=== PATIENT | male | born 1950 | race Caucasian/White ===

== ENCOUNTER 2019-07-29 12:55 | Outpatient (REF) | payer OTHER, SELFPAY ==
[2019-07-29 19:57] LABS: Anion Gap 8.3 mmol/L (3-11); BUN 23 mg/dL (7-18); CO2 26.7 mmol/L (21.0-32.0); Calcium 8.8 mg/dL (8.5-10.1); Chloride 108 mmol/L (98-107); Estimated GFR 54.73 (mL/min/1.73m2); Glucose 96 mg/dL (74-106); Potassium 4.2 mmol/L (3.5-5.1); Sodium 143 mmol/L (136-145); TSH (W/Ref FT4) 2.14 uIU/mL (0.36-3.74)
[2019-07-29 20:41] LABS: Vitamin D 25 Total 54.8 ng/ml (30-100)
[2019-08-02 10:15] LABS: PSA, Screening 7.2 ng/mL (0.0-4.5)
== END 2019-07-29 13:15 ==
LOC: NCHCN 12:55
PROVIDERS: PCP Specialist/Technologist Athletic Trainer; Visit Provider Nurse Practitioner Family
DX: R94.4 Abnormal results of kidney function studies (principal); R97.20 Elevated prostate specific antigen [PSA]; N40.0 Benign prostatic hyperplasia without lower urinary tract symptoms; Z12.5 Encounter for screening for malignant neoplasm of prostate; E55.9 Vitamin D deficiency, unspecified; I10 Essential (primary) hypertension
CPT/HCPCS: 80048; 82306; 84153; 84443

== ENCOUNTER 2020-07-24 15:14 | Outpatient (REF) | payer OTHER, SELFPAY ==
[2020-07-24 15:48] LABS: Anion Gap 7.7 mmol/L (3-11); BUN 20 mg/dL (7-18); CO2 27.3 mmol/L (21.0-32.0); CREATININE 1.2 mg/dL (0.70-1.30); Calcium 8.6 mg/dL (8.5-10.1); Chloride 108 mmol/L (98-107); Estimated GFR 59.86 (mL/min/1.73m2); Glucose 92 mg/dL (74-106); Potassium 4.3 mmol/L (3.5-5.1); Sodium 143 mmol/L (136-145)
[2020-07-25 10:42] LABS: HIV-1/2 Ag & Ab Screen Negative (Negative)
[2020-07-25 10:52] LABS: Hepatitis C Ab w Rflx HCV PCR Negative (Negative)
== END 2020-07-24 15:15 | disposition home or self-care (01) ==
LOC: NCHCN 15:14
PROVIDERS: PCP Specialist/Technologist Athletic Trainer; Visit Provider Nurse Practitioner Family
DX: I10 Essential (primary) hypertension (principal); Z11.4 Encounter for screening for human immunodeficiency virus [HIV]; Z11.59 Encounter for screening for other viral diseases
CPT/HCPCS: 80048; 86803; 87389

== ENCOUNTER 2021-01-01 13:20 | Outpatient (REF) | payer MEDICARE, SELFPAY ==
[2021-01-03 16:42] LABS: COVID-19 RT-PCR UVMMC Result Positive (Negative)
== END 2021-01-01 13:21 | disposition home or self-care (01) ==
LOC: LBN 13:20
PROVIDERS: PCP Specialist/Technologist Athletic Trainer; Visit Provider Nurse Practitioner Family
DX: Z20.822 Contact with and (suspected) exposure to COVID-19 (principal); J06.9 Acute upper respiratory infection, unspecified
CPT/HCPCS: U0003

== ENCOUNTER 2021-01-09 16:19 | Inpatient (IN) | payer OTHER, SELFPAY ==
[2021-01-09] VITALS (84 sets, daily range): BP systolic 75–134; BP diastolic 33–79; PULSE 69–128; RESP 1–35; TEMP 36.6; O2SAT 74–100
--- NOTE | 2021-01-09 16:00 | RT.EKG_ITS ---
APPROVED REPORT Exam: Resting ECG Reason for Exam: SOB, Covid Patient Location: E HR:82 bpm ECG Measurements Heart Rate 82 AXIS OH 136 P 51 QRSd 144 QRS -5 QT 440 T 85 QTc 514 Conclusion Sinus rhythm...normal P axis, V-rate 60- 99 Left bundle branch block...QRSd>120, broad/notched R ST elevation secondary to IVCD...Multiple VCG criteria. Sinus. LBBB. No old EKG to compare. No STEMI. I have reviewed and interpreted ECG and agree with software generated interpretation.
--- NOTE | 2021-01-09 16:36 | W.ED.GENAD ---
Discharge Plan Disposition Patient Disposition: HOSPITAL, NON-SPECIFIC Condition: Stable Discharge Details Clinical Impression: COVID, Hypoxemia Primary Care Provider: Ingrid Navarro ED Provider: Christoph Hadley Discharge Data Discharge Date/Time-TO BE ENTERED AT DEPARTURE: 01/10/21 10:35 Medical Decision Making <rBinda Dalton - Last Filed: 01/15/21 09:20> 70-year-old male presents to the ER via EMS with chief complaint of worsening shortness of breath and increasing oxygen requirement has been discharged from [facility] 2 days ago after a 24 hour admission. Patient requested to be brought here. Patient is Covid + tested January 01, 2021. She has normally wear 2 L of oxygen nasal cannula at home. Per EMS on scene patient: Satting 79% on 2 L O2 on initial presentation he is satting approximately 89% on 8L. He denies chest pain, N/V/D, fever, or any other associated symptoms. He is somewhat RUBY, he lives at home with his who is also Covid positive. Patient placed on 10L High flow NC at 10L upon arrival and then placed on C-Pap. He is taking DexaMETHASONE 6MG pO, 1645: Patient on Cpap at 10L at 60% FIO2 sat is 92%, Duo nebulizer ordered. Armin RT at BS. 1700: Patient desatted somewhat to 88%, patient placed on his left side and sat is now 94% status post DuoNeb. He is doing much better on his left side. There are some crackles in his left lower lung base. CBC shows elevated white blood cell count 17.22, absolute neutrophils 15.4, absolute lymphocytes 0.55, lactate 1.5 D-dimer within normal limits at 321 1736: Blood pressure 96/66, 100 cc normal saline bolus ordered in 250 an hour. Imaging protocol: XR of the chest. Views: 1 view. Other technique: Portable exam. COMPARISON: CT THORAX W/O CONT 07/15/2017 12:59 AM FINDINGS: Lungs: There are some minimal coarse airspace opacities at both lung bases, left slightly worse than right. There is some mild right mid lung involvement. Pleural spaces: Unremarkable. No pleural effusion. No pneumothorax. Heart/Mediastinum: Unremarkable. No cardiomegaly. Bones/joints: Old right clavicular fracture present. Other findings: Overlying chin artifact noted. IMPRESSION: Patchy right mid lung and bilateral lung base airspace disease consistent with COVID-19 positive history. Thank you for allowing us to participate in the care of your patient. Dictated and Authenticated by: Eli Crawley MD CMP shows sodium 138, potassium 4.7, BUN is 54, creatinine 1.5 GFR is 46 which is slightly decreased from previous of 58. Glucose 160., Bilirubin 1.1, initial troponin within normal limits. C-reactive protein is 12.18 on previous lab review from [facility] previous C-reactive protein from 01/01 was 35.2 Ferritin is greater than 2000, CT chest rule out PE ordered. Patient is tolerating CPAP well, BP is 108-116 systolic after bolus and fluid replacement. VRAD CTA Chest PE: FINDINGS: Pulmonary arteries: Normal. No pulmonary emboli. Aorta: Unremarkable. No aortic aneurysm. No aortic dissection. Lungs: Severe COPD noted. There is some mild hazy ground-glass change noted at both lung bases with mild bibasilar atelectasis, left slightly worse than right. Pleural spaces: Unremarkable. No pneumothorax. No pleural effusion. Heart: Unremarkable. No cardiomegaly. No pericardial effusion. Lymph nodes: Unremarkable. No enlarged lymph nodes. Kidneys and ureters: Right renal cyst. Bones/joints: Unremarkable. No acute fracture. Soft tissues: Unremarkable. Other findings: Respiratory motion noted. IMPRESSION: 1. No evidence for pulmonary embolus. 2. Severe COPD. Ground-glass lung base changes are consistent with positive COVID-19 status. Thank you for allowing us to participate in the care of your patient. Dictated and Authenticated by: Eli Crawley MD 1943: Dr. Estrada spoke with Dr. Fierro on for hospitalist, due to staffing, ICU bed capacity and potential for decompensation, request to seek transfer for possible step-down or ICU beds. 2048: [facility] has no bed capacity. 2101: Patient saturations 87% on the CPAP machine, RT will be called. Will order additional Duo neb. 2102: [facility], [facility] are not taking any patients at this time. [facility] [place] at [place]. 2229: Spoke with Dr. Fierro hospitalist regarding patient she recommends transfer for ICU status for this patient she reports that the predicted mortality rate hospital for this Covid patient is greater than 66%. She does recommend giving remdesivir 100 mg, Barictinib, dexamethasone 6 mg IV, Pepcid 20 mg, Lovenox 40 mg subcu, albuterol inhaler, No from [facility]. 2247: Call to [facility], no beds on floor but a possibility for ER to ER transfer. ER MD to call me back. 0026: [facility] contacted, spoke with Transfer center they will call me back. No they are not able to take patient due to capacity at this time. 0046: [facility] have placed patient on a wait list for ICU or stepdown. Care is to be handed off to ER attending Dr. Reese Sullivan pending bed placement and transfer. Medical Records Medical records reviewed: Yes I reviewed the patient's medical records. Medical records narrative: Fax received from [facility] discharge summary patient does have a past medical history of Borges's esophagus, COPD, emphysema, high cholesterol, hypertension, prostate disease, heart murmur, direct vitamin D deficiency. He was discharged from [facility] on 01/02/2021 after receiving Remdesivir and was discharged on 2 L nasal cannula and discharged home with dexamethasone for 10 days. The pill bottle patient brings in today has 3 tablets left. <Logan Sulilvan MD - Last Filed: 01/10/21 06:54> Patient signed out to me pending finding appropriate hospital for patient to be transferred to. Remains stable on CPAP with pulse ox in the low 90s. CTA shows no PE. Troponins negative. Has received multiple medications for treatment of Covid. Hemodynamically is stable. Multiple hospitals throughout the [facility] region contacted. [facility] in [place] able to accept patient, Dr. Interiano accepting. Patient has been stable in our emergency department and plan is to transfer by ground on CPAP. Lab Data Lab results reviewed: Yes I reviewed the patient's lab results. <Christoph Hadley MD - Last Filed: 01/22/21 17:23> 830 -- Care signed out by Dr. Sullvian, transfer pending and awaiting helicopter. I reviewed chart, consider acute superimposed bacterial pneumonia. I will cover with ceftriaxone 1 g. 941 --[facility] air transport team arrived and medic assessed patient and situation. Unfortunately they do not have enough oxygen to transfer patient on CPAP. No inidcation to intubate at this time. Patient trialed on NC and cannot tolerate. I called and spoke with hospitalist Dr. Willson - will be transferring patient from ICU to [facility]. Dr. Willson to admit to ICU. Transfer cancelled. HPI <Brinda Dalton - Last Filed: 01/15/21 09:20> General Mode of arrival: EMS. Date/Time Provider Initiated Documentation: 01/09/21 16:26. Limitations to Documentation: no limitations and physical limitation (RUBY). Information obtained by: patient, EMS and RN notes reviewed. HPI Narrative: 70-year-old male presents to the ER via EMS with chief complaint of worsening shortness of breath and increasing oxygen requirement has been discharged from [facility] 2 days ago after a 24 hour admission. Patient requested to be brought here. Patient is Covid + tested January 01, 2021. She has normally wear 2 L of oxygen nasal cannula at home. Per EMS on scene patient: Satting 79% on 2 L O2 on initial presentation he is satting approximately 89% on 8L. He denies chest pain, N/V/D, fever, or any other associated symptoms. He is somewhat RUBY, he lives at home with his who is also Covid positive. Patient placed on 10L High flow NC at 10L upon arrival and then placed on C-Pap. He is taking DexaMETHASONE 6MG pO, Related Data Home Medications Medication Instructions Recorded Confirmed aspirin 81 mg PO DAILY 01/09/21 01/09/21 cholecalciferol (vitamin D3) 25 mcg PO DAILY 01/09/21 01/09/21 dexamethasone 6 mg PO DAILY 01/09/21 01/09/21 finasteride 5 mg PO DAILY 01/09/21 01/09/21 flaxseed oil 1,000 mg PO DAILY 01/09/21 01/09/21 latanoprost 1 drp OPHTHALMIC (EYE) .Q EVENING 01/09/21 01/09/21 multivitamin 1 cap PO DAILY 01/09/21 01/09/21 pantoprazole 40 mg PO BID 01/09/21 01/09/21 ramipril 10 mg PO DAILY 01/09/21 01/09/21 simvastatin 10 mg PO DAILY 01/09/21 01/09/21 tamsulosin 0.4 mg PO DAILY 01/09/21 01/09/21 tiotropium-olodaterol [Stiolto 2 puff INHALATION DAILY 01/09/21 01/09/21 Respimat] trazodone 50 mg PO .QHS PRN 01/09/21 01/09/21 Allergies Allergy/AdvReac Type Severity Reaction Status Date / Time environmental Allergy Uncoded 01/09/21 16:26 General Stated Complaint: SOB NATHAN: 2 Review of Systems <Brindafrancheska Dalton [facility] Filed: 01/15/21 09:20> All systems reviewed & are unremarkable except as noted in HPI and below Constitutional Constitutional: Reports chills, Reports fatigue, Reports lethargy and Reports poor appetite Cardiovascular Cardiovascular: Denies chest pain, Denies chest pain at rest, Denies leg edema, Reports dyspnea and Reports dyspnea on exertion Respiratory Respiratory: Reports as per HPI, Reports cough, Reports dyspnea and Reports dyspnea on exertion Gastrointestinal Gastrointestinal: Denies diarrhea, Denies nausea and Denies vomiting Endocrine Endocrine: Reports fatigue PFSH [facility] Filed[facility] 01/15/21 09:20> Active Problem List COVID (Acute) Hypoxemia (Acute) Social History Smoking/Tobacco Use Status: Former Tobacco Use Smoking risk assessment performed?: Yes Substance use type: does not use Exam <Brinda Dalton [facility] Filed: 01/15/21 09:20> Narrative Exam Narrative: Constitutional: Alert and oriented x3. Appears stated age. Normal body habitus. Head: Normocephalic, no trauma. Eyes: Pupils PERRL, Red reflex noted, EOM's intact. Eyelids symmetrical without lesions, discharge, or swelling. ENT: Bilateral TM's WNL, External ear normal to inspection, no mastoid TTP, swelling, or erythema, Nasal turbinates WNL, no nasal discharge. Normal dentition, Posterior pharynx WNL, no exudate. Hard of hearing, hearing aids in place. Chest: Mildly tachycardic with a left bundle branch block, rate of 116 normal S1, S2, distal pulses intact. Resp: Lungs diminished to auscultation bilaterally, no wheezes, rales, or rhonchi. Abdomen: Soft, non-distended, Normoactive bowel sounds all 4 quads. Musculoskeletal: Unable to assess gait 5/5 strength to all four extremities. Skin: No suspicious rashes or lesions. Capillary refill less than 2 sec. Neurologic: No focal neuro deficits noted. Cranial nerves II-XII intact. Alert and oriented x 3. Motor: No deficits noted. Sensory: Intact bilaterally all 4 extremities. Reflexes: DTR's intact bilaterally.. Hematologic/Lymphatic: No ecchymosis, no lymphadenopathy. Course <Brinda Dalton - Last Filed: 01/15/21 09:20> Vital Signs Vital signs: Vital Signs Temperature 36.6 C 01/09/21 16:19 Pulse 82 01/09/21 16:19 Respiratory Rate 28 H 01/09/21 16:19 Pulse Oximetry 90 L 01/09/21 16:19 Temperature 36.6 C 01/09/21 16:19 Temperature Source Skin 01/09/21 16:19 Pulse 82 01/09/21 16:19 Respiratory Rate 28 H 01/09/21 16:19 Respiratory Effort Labored 01/09/21 16:19 Pulse Oximetry 90 L 01/09/21 16:19 Oxygen Delivery Method Nasal Cannula 01/09/21 16:19 Oxygen Flow Rate 10 01/09/21 16:19 Lab/Test Results Lab/Test Results: 01/09/21 16:12 Blood Blood Culture - Pending 01/09/21 16:12 Blood Blood Culture - Pending Critical Care Time <Brinda Dalton Last Filed: 01/15/21 09:20> Critical Care Time Critical Care Time: Yes Total Critical Care Time: 120 (minutes) Attestation: I spent greater than 35 minutes addressing this patient's acute life threatening illness. This time was spent engaged in actions directly related to the patient's care. Failure to initiate these interventions would have likely resulted in clinically significant or life threatening deterioration in the patients condition. Sign Out <Brinda Dalton [facility] Filed: 01/15/21 09:20> Sign Out Data: Sign Out Comment: Covid positive seen at [facility] admitted for 24 hours discharged home on dexamethasone p.o. Presented here tonight for increased shortness of breath hypoxia 79% on 2 L nasal cannula on scene. Patient placed on CPAP 60% FiO2 at 10 L. He desats quickly to 74% on room air, ordered 100 mg remdesivir here in the department, dexamethasone 6 mg IV, Pepcid 20 mg, and 4 mg Baricitinib. He is a full code, unvaccinated. Last updated by Brinda Dalton at 01/10/21 01:08
[2021-01-09 16:44] LABS: Abs Immature Grans 0.24 10^3/uL (0.0-0.06); Absolute Basophil Count 0.02 10^3/uL (0.0-0.2); Absolute Lymphocyte Count 0.55 10^3/uL (1.2-3.4); Basophils % 0.1; Eosinophils % 0.1; HCT 42.2 % (40.0-50.0); HGB 14.2 g/dL (13.5-17.5); Immature Grans % 1.4; Lymphocytes % 3.2; MCH 31.3 pg (27.0-33.0); MCHC 33.6 % (32.0-36.0); Monocytes % 4.4; Neutrophils % 90.8; Nucleated RBC 0 %; Platelet Count 153 10^3/uL (130-400); RBC 4.54 10^6/uL (4.36-5.78); RDW 12.2 % (11.8-14.1); WBC 17.22 10^3/uL (4.4-10.8)
[2021-01-09 16:45] LABS: Absolute Eosinophil Count 0.02 10^3/uL (0.0-0.7); Absolute Monocyte Count 0.76 10^3/uL (0.1-0.8); Absolute Neutrophil Count 15.64 10^3/uL (1.2-6.7); Lactate 1.5 mmol/L (0.6-1.4)
--- NOTE | 2021-01-09 16:45 | DI.RAD_ITS ---
Exam(s) XR PORTABLE CHEST AP EXAM: XR PORTABLE CHEST AP CLINICAL HISTORY: SOB, Covid positive TECHNIQUE: COMPARISON: No exams were available for comparison FINDINGS: Portable views of the chest were obtained. There are patchy opacities in the lung bases as noted on today's CT. Findings are consistent with infectious process in a patient who is COVID positive perio d No cardiomegaly. Upper lung zones appear grossly clear. CT showed severe bolus emphysema. IMPRESSION: RADIATION DOSE DELIVERED: Total DLP
[2021-01-09] MEDS: Albuterol/Ipratropium 3 ML UPD VIAL UPD ×2 (17:01→21:23)
[2021-01-09 17:17] LABS: D-Dimer 321 ng/mlFEU (<500)
[2021-01-09 17:27] LABS: Procalcitonin 0.1 ng/mL
[2021-01-09] MEDS: Normal Saline 1,000 ML 250 ML IV (17:34)
--- NOTE | 2021-01-09 17:44 | DI.VRAD_ITS ---
PROCEDURE INFORMATION: Exam: XR Chest Exam date and time: 01/09/2021 4:47 PM Age: 70 years old Clinical indication: Other: SOB, covid positive TECHNIQUE: Imaging protocol: XR of the chest. Views: 1 view. Other technique: Portable exam. COMPARISON: CT THORAX W/O CONT 07/15/2017 12:59 AM FINDINGS: Lungs: There are some minimal coarse airspace opacities at both lung bases, left slightly worse than right. There is some mild right mid lung involvement. Pleural spaces: Unremarkable. No pleural effusion. No pneumothorax. Heart/Mediastinum: Unremarkable. No cardiomegaly. Bones/joints: Old right clavicular fracture present. Other findings: Overlying chin artifact noted. IMPRESSION: Patchy right mid lung and bilateral lung base airspace disease consistent with COVID-19 positive history. Dictated and Authenticated by: Eli Crawley MD. Ordering:JUDITH Parry MD
[2021-01-09 17:46] LABS: ALT 39 U/L (16-63); AST 19 U/L (15-37); Albumin 2.8 g/dL (3.4-5.0); Alkaline Phosphatase 57 U/L (46-116); Anion Gap 6.3 mmol/L (3-11); BUN 54 mg/dL (7-18); Bilirubin, Total 1.1 mg/dL (0.2-1.0); C-Reactive Protein 12.18 mg/dL (0.0-0.3); CO2 28.7 mmol/L (21.0-32.0); CREATININE 1.5 mg/dL (0.70-1.30); Calcium 8.5 mg/dL (8.5-10.1); Chloride 103 mmol/L (98-107); Estimated GFR 46.13 (mL/min/1.73m2); Glucose 160 mg/dL (74-106); LDH 219 U/L (85-227); Potassium 4.7 mmol/L (3.5-5.1); Sodium 138 mmol/L (136-145); Total Protein 6.8 g/dL (6.4-8.2); Troponin I < 0.05 ng/mL (<0.06)
--- NOTE | 2021-01-09 18:15 | DI.CT_ITS ---
Exam(s) CT CHEST PE CTA EXAM: CT CHEST PE CTA CLINICAL HISTORY: Covid positive, R/O PE. TECHNIQUE: Imaging Protocol: Axial CT angiography was performed with multi-slice acquisition and mu lti-planar and/or 3D reconstructions. CONTRAST MATERIAL: Intravenous: Omnipaque 350 Contrast volume:structured data in ml COMPARISON: CT CT THORAX W/O CONT from 07/15/2017 FINDINGS: CT angiography of the chest was performed with intravenous infusion of 80 cc of Omnipaque 350. There was marked motion artifact which limits interpretation. There are severe changes of bullous emphysema. There are patchy areas of ground-glass opacity in the lung bases with some possible consolidative or atelectatic opacities in the left lung base period fi ndings are consistent with infectious process.. No pleural effusion. Tracheobronchial tree appears i ntact. No evidence of pulmonary embolic disease although peripheral pulmonary arterial circulation particula rly in lower lobes is not ideally visualized due to motion.. Thoracic aorta is of normal diameter, n o thoracic aortic aneurysm or dissection, major branch vessels appear intact. No mediastinal or hilar adenopathy. Images obtained through the upper abdomen show unremarkable appearance of the visualized portions of the liver, spleen, pancreas, adrenals, and kidneys. IMPRESSION: Ground-glass opacities in lung bases consistent with acute pneumonia.. No evidence of pulmonary embo lic disease. RADIATION DOSE DELIVERED: 383.42mGy.cm Total DLP 383.42mGy.cm Total DLP CTDIvol DATA REPOSITORY: All CT scans at this facility are submitted to the National Radiology Data Registry (NRDR) Dose Index Registry (DIR) with the [employer] ([employer]). RADIATION OPTIMIZATION: All CT scans at this facility use at least one of these dose optimization te chniques: automated exposure control; mA and/or kV adjustment per patient size (includes targeted exa ms where dose is matched to clinical indication); or iterative reconstruction.
[2021-01-09 18:41] LABS: Ferritin > 2000 ng/mL (26-388)
[2021-01-09] MEDS: Omnipaque 350 MG/ML 100 ML BTL IJ (19:02)
[2021-01-09] MEDS: Normal Saline Flush 10 ML SYR IVP (19:03)
--- NOTE | 2021-01-09 19:40 | DI.VRAD_ITS ---
PROCEDURE INFORMATION: Exam: CTA Chest With Contrast Exam date and time: 01/09/2021 6:17 PM Age: 70 years old Clinical indication: Shortness of breath; Patient HX: Covid positive, R/O pe TECHNIQUE: Imaging protocol: Computed tomographic angiography of the chest with contrast. 3D rendering (Not supervised by radiologist): MIP and/or 3D reconstructed images were created by the technologist. Radiation optimization: All CT scans at this facility use at least one of these dose optimization techniques: automated exposure control; mA and/or kV adjustment per patient size (includes targeted exams where dose is matched to clinical indication); or iterative reconstruction. Contrast material: OMNIPAQUE 350; Contrast volume: 80 ml; Contrast route: INTRAVENOUS (IV); COMPARISON: CT THORAX W/O CONT 07/15/2017 12:59 AM FINDINGS: Pulmonary arteries: Normal. No pulmonary emboli. Aorta: Unremarkable. No aortic aneurysm. No aortic dissection. Lungs: Severe COPD noted. There is some mild hazy ground-glass change noted at both lung bases with mild bibasilar atelectasis, left slightly worse than right. Pleural spaces: Unremarkable. No pneumothorax. No pleural effusion. Heart: Unremarkable. No cardiomegaly. No pericardial effusion. Lymph nodes: Unremarkable. No enlarged lymph nodes. Kidneys and ureters: Right renal cyst. Bones/joints: Unremarkable. No acute fracture. Soft tissues: Unremarkable. Other findings: Respiratory motion noted. IMPRESSION: 1. No evidence for pulmonary embolus. 2. Severe COPD. Ground-glass lung base changes are consistent with positive COVID-19 status. Dictated and Authenticated by: Eli Crawley MD. Ordering:JUDITH Parry MD
[2021-01-09 20:08] LABS: Troponin I < 0.05 ng/mL (<0.06)
[2021-01-09] MEDS: Ipratropium/Albuterol 4 GM 120 PUFF INH IH (23:50)
[2021-01-10] VITALS (176 sets, daily range): BP systolic 93–168; BP diastolic 54–126; PULSE 67–123; RESP 17–37; TEMP 35.8–36.4; O2SAT 73–952
[2021-01-10] MEDS: Dexamethasone 4 MG/ML VIAL 6 MG IVP (00:35)
[2021-01-10] MEDS: FAMOTIDINE 20 MG/50 ML BAG 200 MG IVPB ×2 (00:37→19:36)
[2021-01-10] MEDS: Enoxaparin 40 MG/0.4 ML SYR SC (00:40)
[2021-01-10] MEDS: Normal Saline 1,000 ML 150 ML IV (05:51)
[2021-01-10] MEDS: cefTRIAXone 1 GM VIAL IM (08:47)
[2021-01-10 11:44] LABS: Abs Immature Grans 0.37 10^3/uL (0.0-0.06); Absolute Lymphocyte Count 0.73 10^3/uL (1.2-3.4); Absolute Monocyte Count 1.13 10^3/uL (0.1-0.8); Basophils % 0.2; Eosinophils % 0.1; HCT 38.7 % (40.0-50.0); HGB 12.8 g/dL (13.5-17.5); Immature Grans % 1.9; Lymphocytes % 3.7; MCH 31.4 pg (27.0-33.0); MCHC 33.1 % (32.0-36.0); MCV 95.1 fL (80-95); MPV 11.2 fL (8.0-11.0); Monocytes % 5.7; Neutrophils % 88.4; Nucleated RBC 0 %; Platelet Count 191 10^3/uL (130-400); RBC 4.07 10^6/uL (4.36-5.78); RDW 12.2 % (11.8-14.1); WBC 19.84 10^3/uL (4.4-10.8)
[2021-01-10 11:50] LABS: Absolute Basophil Count 0.04 10^3/uL (0.0-0.2); Absolute Eosinophil Count 0.02 10^3/uL (0.0-0.7); Absolute Neutrophil Count 17.54 10^3/uL (1.2-6.7)
[2021-01-10 11:53] LABS: C-Reactive Protein 7.96 mg/dL (0.0-0.3)
[2021-01-10 11:56] LABS: ALT 41 U/L (16-63); AST 23 U/L (15-37); Albumin 2.5 g/dL (3.4-5.0); Alkaline Phosphatase 53 U/L (46-116); Anion Gap 9.9 mmol/L (3-11); BUN 53 mg/dL (7-18); Bilirubin, Total 0.5 mg/dL (0.2-1.0); CO2 24.1 mmol/L (21.0-32.0); CREATININE 1.2 mg/dL (0.70-1.30); Chloride 107 mmol/L (98-107); Estimated GFR 59.68 (mL/min/1.73m2); Glucose 158 mg/dL (74-106); Potassium 4.4 mmol/L (3.5-5.1); Sodium 141 mmol/L (136-145); Total Protein 6.2 g/dL (6.4-8.2)
[2021-01-10 12:32] LABS: D-Dimer 328 ng/mlFEU (<500)
--- NOTE | 2021-01-10 12:34 | W.PM.HP.N ---
Date of service: 01/10/21 Time of Service: 12:35 Assessment and Plan Assessment and plan (1) COVID: Status: Acute Assessment and plan: + Covid PNA. WBC elevated. Bilateral ground-glass opacities on CT. Remdesivir, Baricitinib and dexamethasone to continue. Concerns for superimposed bacterial PNA. Rocephin initiated in the ED. Procal 0.1 on 01/09. Repeat on 01/11. Monitor inflammatory markers. Vit D and C supplementation. Stable on CPAP with FIO2 of 60% and 10 Peep. High flow NC breaks and with eating. Pulmonary / critiacl care consulted. Prone position encouraged. Lie on sides as alternative to proning if unable or unwilling. (2) Hypoxemia: Status: Acute Assessment and plan: Acute on Chronic. See above. (3) COPD (chronic obstructive pulmonary disease): Status: Chronic Assessment and plan: Cont Stiolto and prn albuterl. (4) HLD (hyperlipidemia): Status: Acute Assessment and plan: He is on simvistatin 10mg daily; change to atorvastain 40mg nightly. (5) BPH (benign prostatic hyperplasia): Status: Chronic Assessment and plan: Cont tamsulosin. (6) GERD (gastroesophageal reflux disease): Status: Chronic Assessment and plan: On pantoprazole at home; change to famotadine IV. History of Present Illness History of Present Illness Chief Complaint: Shortness of air, hypoxia Narrative: This is a 70 yo male with a PMH of HLD, BPH, COPD, chronic resp failure on 2L O2 / NC, GERD. He presented via EMS with c/o worsening shortness of breath and increasing supplemental oxygen needs. He had been discharged from [facility] 2 days prior to presenting to [facility]. He was admitted there for 24 hours. He tested COVID-19 + on 01/01/21. EMS noted his initial O2 saturation to be 79% on his home 2L O2 while at rest. In the ED his initial saturation was 89% on 8L. BP 96/66. He received a bolus of 100ml NS. K 4.7. Creatinine 1.5. Bilirubin 1.1. Troponin normal. CRP 12.18 (35.2 on 01/01 at [facility]). He denied fever/chills, chest pain/palpitations. No nausea/vomiting/diarrhea/abd pain. His initial lab showed: WBC 17.22. Lactate 1.5. D-dimer 321. CT chest: No evidence for pulmonary embolus. Severe COPD. Ground-glass lung base changes are consistent with positive COVID-19 status. He was given Barictinib, Remdesivir and dexamethasone in the ED. Also started were Pepcid, lovenox and albuterol inhaler. Because of ICU capacity at [facility] transfer calls were made to multiple hospitals in the [place] region. No immediate bed availability was found. He was managed in the ED overnight and was accepted at [facility]. Life flight helicopter arrived but it was found that with the CPAP device they provided he would need more supplemental O2 than what was required with the CPAP he was on at [facility]. Because of this, they would not have enough O2 to last the trip to [facility]. A bed did open up in the ICU here / [facility] and he is being admitted with Pulmonary consult. Review of Systems All systems reviewed & are unremarkable except as noted in HPI and below PFSH Active Problem List COVID (Acute) Hypoxemia (Acute) Social History Smoking/Tobacco Use Status: Former Tobacco Use Smoking risk assessment performed?: Yes Substance use type: does not use Meds Allergies and Home Medications Allergies Allergy/AdvReac Type Severity Reaction Status Date / Time environmental Allergy Uncoded 01/09/21 16:26 Home Medications Medication Instructions Recorded Confirmed Type aspirin 81 mg PO DAILY 01/09/21 01/09/21 History cholecalciferol (vitamin D3) 25 mcg PO DAILY 01/09/21 01/09/21 History dexamethasone 6 mg PO DAILY 01/09/21 01/09/21 History finasteride 5 mg PO DAILY 01/09/21 01/09/21 History flaxseed oil 1,000 mg PO DAILY 01/09/21 01/09/21 History latanoprost 1 drp OPHTHALMIC (EYE) .Q EVENING 01/09/21 01/09/21 History multivitamin 1 cap PO DAILY 01/09/21 01/09/21 History pantoprazole 40 mg PO BID 01/09/21 01/09/21 History ramipril 10 mg PO DAILY 01/09/21 01/09/21 History simvastatin 10 mg PO DAILY 01/09/21 01/09/21 History tamsulosin 0.4 mg PO DAILY 01/09/21 01/09/21 History tiotropium-olodaterol [Stiolto 2 puff INHALATION DAILY 01/09/21 01/09/21 History Respimat] trazodone 50 mg PO .QHS PRN 01/09/21 01/09/21 History Exam Narrative Exam Narrative: Lying in bed with HOB at appx 25degrees incline. CPAP in place. Const General: cooperative and no acute distress Nutritional Appearance: average body habitus Orientation: alert and oriented x3 HENMT Head: atraumatic Eyes General: appearance normal, both eyes and all related structures Sclera: sclerae normal Resp Effort & Inspection: normal respiratory effort Auscultation: clear to auscultation bilaterally Cardio Rate: tachycardic Rhythm: regular rhythm Heart Sounds: S1 normal and S2 normal GI Palpation: soft and nontender Skin General skin exam: no rashes or lesions noted Neuro General: no focal motor deficits Cranial Nerves: hearing abnormal (decreased auditory acuity) Speech: speech normal Extrem General: no pedal edema and no calf tenderness Results Labs Result diagrams: 01/10/21 11:15 01/10/21 11:15 Labs: Laboratory Results - last 24 hr 01/09/21 01/09/21 01/09/21 16:40 16:40 16:40 WBC 17.22 H RBC 4.54 Hgb 14.2 Hct 42.2 MCV 93.0 MCH 31.3 MCHC 33.6 RDW 12.2 Plt Count 153 MPV 11.0 Immature Gran % 1.4 Neutrophils % 90.8 Lymphocytes % 3.2 Monocytes % 4.4 Eosinophils % 0.1 Basophils % 0.1 Nucleated RBC % 0 Absolute Neutrophils 15.64 H Absolute Lymphocytes 0.55 L Absolute Monocytes 0.76 Absolute Eosinophils 0.02 Absolute Basophils 0.02 D-Dimer VBG Lactate 1.5 H Sodium 138 Potassium 4.7 Chloride 103 Carbon Dioxide 28.7 Anion Gap 6.3 BUN 54 H Creatinine 1.5 H Estimated GFR/1.73 m2 46.13 Glucose 160 H Calcium 8.5 Ferritin > 2000 H Total Bilirubin 1.1 H AST 19 ALT 39 Alkaline Phosphatase 57 Lactate Dehydrogenase 219 Troponin I < 0.05 C-Reactive Protein 12.18 H Total Protein 6.8 Albumin 2.8 L Procalcitonin 0.1 01/09/21 01/09/21 01/10/21 16:40 19:30 11:15 WBC RBC Hgb Hct MCV MCH MCHC RDW Plt Count MPV Immature Gran % Neutrophils % Lymphocytes % Monocytes % Eosinophils % Basophils % Nucleated RBC % Absolute Neutrophils Absolute Lymphocytes Absolute Monocytes Absolute Eosinophils Absolute Basophils D-Dimer 321 VBG Lactate Sodium 141 Potassium 4.4 Chloride 107 Carbon Dioxide 24.1 Anion Gap 9.9 BUN 53 H Creatinine 1.2 Estimated GFR/1.73 m2 59.68 Glucose 158 H Calcium 8.0 L Ferritin Total Bilirubin 0.5 AST 23 ALT 41 Alkaline Phosphatase 53 Lactate Dehydrogenase Troponin I < 0.05 C-Reactive Protein Total Protein 6.2 L Albumin 2.5 L Procalcitonin 01/10/21 01/10/21 01/10/21 11:15 11:15 11:15 WBC 19.84 H RBC 4.07 L Hgb 12.8 L Hct 38.7 L MCV 95.1 H MCH 31.4 MCHC 33.1 RDW 12.2 Plt Count 191 MPV 11.2 H Immature Gran % 1.9 Neutrophils % 88.4 Lymphocytes % 3.7 Monocytes % 5.7 Eosinophils % 0.1 Basophils % 0.2 Nucleated RBC % 0 Absolute Neutrophils 17.54 H Absolute Lymphocytes 0.73 L Absolute Monocytes 1.13 H Absolute Eosinophils 0.02 Absolute Basophils 0.04 D-Dimer 328 VBG Lactate Sodium Potassium Chloride Carbon Dioxide Anion Gap BUN Creatinine Estimated GFR/1.73 m2 Glucose Calcium Ferritin Total Bilirubin AST ALT Alkaline Phosphatase Lactate Dehydrogenase Troponin I C-Reactive Protein 7.96 H Total Protein Albumin Procalcitonin Last Vital Signs Temp 35.8 C L 01/10/21 11:08 Pulse 119 H 01/10/21 11:08 Resp 24 01/10/21 11:08 BP 151/97 H 01/10/21 09:45 Pulse Ox 90 L 01/10/21 11:08
[2021-01-10 12:41] LABS: Ferritin > 2000 ng/mL (26-388)
[2021-01-10] MEDS: Dexamethasone 4 MG TAB 6 MG PO (17:04)
[2021-01-10] MEDS: Normal Saline 500 ML 30 ML IV (17:05)
[2021-01-10] MEDS: Ascorbic Acid 500 MG TAB 1000 MG PO (19:36)
[2021-01-10] MEDS: Atorvastatin 40 MG TAB PO (19:37)
[2021-01-10] MEDS: Normal Saline Flush 10 ML SYR IVP (19:37)
[2021-01-10] MEDS: Latanoprost 0.005% 2.5 ML BTL OP (22:17)
[2021-01-10] MEDS: Tamsulosin 0.4 MG CAPCR PO (22:18)
[2021-01-10] MEDS: cefTRIAXone 1 GM/50 ML BAG IVPB (22:18)
[2021-01-10] MEDS: VANCOMYCIN 1,000 MG in Normal Saline 250 ML 166.6666 MG IVPB (23:00)
[2021-01-10] MEDS: LORazepam 2 MG/ML VIAL 0.5 MG IVP (23:02)
[2021-01-11] VITALS (41 sets, daily range): BP systolic 109–155; BP diastolic 41–83; PULSE 58–92; RESP 21–35; TEMP 35.7–36.2; O2SAT 68–97
[2021-01-11] MEDS: VANCOMYCIN 750 MG in Normal Saline 250 ML 166.667 MG IVPB
[2021-01-11] MEDS: Ramipril 5 MG CAP 10 MG PO (07:34)
[2021-01-11] MEDS: Finasteride 5 MG TAB PO (07:34)
[2021-01-11] MEDS: Aspirin E.C. 81 MG TABEC PO (07:34)
[2021-01-11] MEDS: Cholecalciferol (Vitamin D3) 1,000 UNIT TAB 2000 UNITS PO (07:35)
[2021-01-11] MEDS: Ascorbic Acid 500 MG TAB 1000 MG PO ×2 (07:35→20:44)
[2021-01-11] MEDS: Dexamethasone 4 MG TAB 6 MG PO (07:36)
[2021-01-11] MEDS: Tiotropium/Olodaterol 10 PUFF INHALER 2 PUFF IH (07:37)
[2021-01-11] MEDS: Normal Saline Flush 10 ML SYR IVP (07:39)
[2021-01-11] MEDS: FAMOTIDINE 20 MG/50 ML BAG 200 MG IVPB (08:00)
[2021-01-11 08:32] LABS: Abs Immature Grans 0.56 10^3/uL (0.0-0.06); Absolute Lymphocyte Count 0.85 10^3/uL (1.2-3.4); Basophils % 0.1; HCT 36.2 % (40.0-50.0); HGB 12.2 g/dL (13.5-17.5); Immature Grans % 2.2; Lymphocytes % 3.4; MCH 31.9 pg (27.0-33.0); MCHC 33.7 % (32.0-36.0); MCV 94.5 fL (80-95); Monocytes % 6.2; Neutrophils % 88.1; Nucleated RBC 0 %; Platelet Count 231 10^3/uL (130-400); RBC 3.83 10^6/uL (4.36-5.78); RDW 12.2 % (11.8-14.1); RDW-SD 42.7 fL; WBC 24.89 10^3/uL (4.4-10.8)
[2021-01-11 08:41] LABS: Absolute Basophil Count 0.02 10^3/uL (0.0-0.2); Absolute Monocyte Count 1.54 10^3/uL (0.1-0.8); Absolute Neutrophil Count 21.93 10^3/uL (1.2-6.7)
[2021-01-11 08:52] LABS: ALT 39 U/L (16-63); AST 14 U/L (15-37); Albumin 2.5 g/dL (3.4-5.0); Alkaline Phosphatase 50 U/L (46-116); Anion Gap 7.8 mmol/L (3-11); BUN 57 mg/dL (7-18); Bilirubin, Total 0.6 mg/dL (0.2-1.0); C-Reactive Protein 3.31 mg/dL (0.0-0.3); CO2 24.2 mmol/L (21.0-32.0); CREATININE 1.1 mg/dL (0.70-1.30); Calcium 8.2 mg/dL (8.5-10.1); Chloride 108 mmol/L (98-107); Glucose 139 mg/dL (74-106); Potassium 4.6 mmol/L (3.5-5.1); Sodium 140 mmol/L (136-145); Total Protein 5.9 g/dL (6.4-8.2)
[2021-01-11 09:32] LABS: D-Dimer 323 ng/mlFEU (<500)
[2021-01-11 09:36] LABS: Diff Comment Agrees w/ Instrument; RBC Morphology Normal
[2021-01-11 09:50] LABS: Ferritin 1934 ng/mL (26-388)
[2021-01-11] MEDS: LORazepam 2 MG/ML VIAL 0.5 MG IVP ×2 (11:00→16:49)
[2021-01-11 11:12] LABS: Bilirubin Negative (Negative); Blood Large (Negative); Clarity Cloudy (Clear); Glucose Negative (Negative); Ketones Negative (Negative); Leukocyte Esterase Trace (Negative); Nitrite Negative (Negative); Specific Gravity >= 1.030 (1.005-1.025); Urobilinogen 0.2 EU/dL (Up TO 0.2)
--- NOTE | 2021-01-11 11:15 | W.ANESVAS ---
Midline Placement Date Performed: 01/11/21 Procedure Time: 11:00 Requesting Provider: Mansoor Willson Procedure Location: Intensive Care Unit Sedation Given (Indicate Dose Given): No Sedation given Patient Mental Status: Awake Sterility: Hand Hygiene, Surgical Cap, Surgical Mask, Sterile Gloves, Sterile Drape/Sheet, Sterile Gown, Eye Protection, N95 Mask and Chlorhexidine Laterality: Right Insertion Site: Basilic Midline Device: PowerGlide Pro 20G Catheter Length: 10 cm Midline Procedure Procedure: 1% Lidocaine to skin and subcutaneous tissue with 25g needle, Vessel accessed with catheter over needle, Guidewire placed with ease and Catheter placed without resistance Dressing: Tegaderm Applied and Statlock Applied Blood Return: Present Flushes: Easily Ultrasound: Sterile probe cover and gel used Ultrasound Image Saved?: Yes Number of Attempts (See previous attempts in note section): 1 Procedure Tolerated: No Complications and Patient tolerated well Procedure Outcome: Successful Performed By: Matty Barreto Other (not listed above): COVID Positive patient. First attempt with RN assist. No complications.
[2021-01-11 11:19] LABS: Bacteria Few HPF (Negative); C & S Indicated? C&S Done As Ordered; Casts Negative LPF (Negative); Crystals Moderate Amorphous HPF (Negative); Epithelial Cells Rare HPF (Negative); Mucus Trace (Negative)
[2021-01-11] MEDS: Enoxaparin 40 MG/0.4 ML SYR SC (12:07)
[2021-01-11] MEDS: VANCOMYCIN/WATER (PEG) 1 GM/200 ML BAG IV (12:08)
--- NOTE | 2021-01-11 14:19 | W.PM.PROGNOT ---
Date of Service Date of service: 01/11/21 Time of Service: 14:19 Assessment and Plan Assessment and plan (1) COVID: Status: Acute Assessment and plan: + Covid PNA. WBC elevated. Bilateral ground-glass opacities on CT. Remdesivir, Baricitinib and dexamethasone to continue. Concerns for superimposed bacterial PNA. Rocephin initiated in the ED. Procal 0.1 on 01/09. Repeat on 01/12. Monitor inflammatory markers: D dimer normal. CRP decreasing. Vit D and C supplementation. Stable on CPAP with FIO2 of 60% and 10 Peep. High flow NC breaks and with eating. Pulmonary / critiacl care consulted. Prone position encouraged. Lie on sides as alternative to proning if unable or unwilling. (2) Hypoxemia: Status: Acute Assessment and plan: Acute on Chronic. See above. (3) COPD (chronic obstructive pulmonary disease): Status: Chronic Assessment and plan: Cont Stiolto and prn albuterl. (4) HLD (hyperlipidemia): Status: Acute Assessment and plan: He is on simvistatin 10mg daily; change to atorvastain 40mg nightly. (5) BPH (benign prostatic hyperplasia): Status: Chronic Assessment and plan: Cont tamsulosin. (6) GERD (gastroesophageal reflux disease): Status: Chronic Assessment and plan: On pantoprazole at home; change to famotadine IV. Subjective Subjective Patient reports: no new complaints and afebrile; denies nausea and vomiting Interval history since last seen: Food doesn't taste good to him; eating very little. Urine output adequate. Exam Narrative Exam Narrative: Lying in bed with HOB at appx 25degrees incline. CPAP in place. Const General: cooperative and no acute distress Nutritional Appearance: average body habitus Orientation: alert and oriented x3 HENNC Head: atraumatic Eyes General: appearance normal, both eyes and all related structures Sclera: sclerae normal Resp Effort & Inspection: normal respiratory effort Auscultation: clear to auscultation bilaterally Cardio Rate: tachycardic Rhythm: regular rhythm Heart Sounds: S1 normal and S2 normal GI Palpation: soft and nontender Skin General skin exam: no rashes or lesions noted Neuro General: no focal motor deficits Cranial Nerves: hearing abnormal (decreased auditory acuity) Speech: speech normal Extrem General: no pedal edema and no calf tenderness Objective Last Vital Signs Temp 36 C L 01/11/21 11:44 Pulse 78 01/11/21 08:01 Resp 24 01/11/21 09:00 BP 112/43 L 01/11/21 08:01 Pulse Ox 95 01/11/21 09:00 Laboratory Results - last 24 hr 01/10/21 01/11/21 01/11/21 22:40 08:00 08:00 WBC 24.89 H RBC 3.83 L Hgb 12.2 L Hct 36.2 L MCV 94.5 MCH 31.9 MCHC 33.7 RDW 12.2 Plt Count 231 MPV 11.0 Immature Gran % 2.2 Neutrophils % 88.1 Lymphocytes % 3.4 Monocytes % 6.2 Eosinophils % 0.0 Basophils % 0.1 Nucleated RBC % 0 Absolute Neutrophils 21.93 H Absolute Lymphocytes 0.85 L Absolute Monocytes 1.54 H Absolute Eosinophils 0.00 Absolute Basophils 0.02 RBC Morphology Normal D-Dimer Sodium 140 Potassium 4.6 Chloride 108 H Carbon Dioxide 24.2 Anion Gap 7.8 BUN 57 H Creatinine 1.1 Estimated GFR/1.73 m2 >= 60.00 Glucose 139 H Calcium 8.2 L Ferritin 1934 H Total Bilirubin 0.6 AST 14 L ALT 39 Alkaline Phosphatase 50 C-Reactive Protein 3.31 H Total Protein 5.9 L Albumin 2.5 L Urine Color Yellow Urine Clarity Cloudy Urine pH 5.0 Ur Specific [place] >= 1.030 H Urine Protein 30 H Urine Ketones Negative Urine Blood Large H Urine Nitrite Negative Urine Bilirubin Negative Urine Urobilinogen 0.2 Ur Leukocyte Esterase Trace H Urine RBC 10-20 H Urine WBC 3-5 Ur Epithelial Cells Rare Urine Crystals Moderate Amorphous Urine Bacteria Few Urine Casts Negative Urine Mucus Trace Ur Culture Indicated? C&S Done As Ordered Urine Glucose Negative 01/11/21 08:00 WBC RBC Hgb Hct MCV MCH MCHC RDW Plt Count MPV Immature Gran % Neutrophils % Lymphocytes % Monocytes % Eosinophils % Basophils % Nucleated RBC % Absolute Neutrophils Absolute Lymphocytes Absolute Monocytes Absolute Eosinophils Absolute Basophils RBC Morphology D-Dimer 323 Sodium Potassium Chloride Carbon Dioxide Anion Gap BUN Creatinine Estimated GFR/1.73 m2 Glucose Calcium Ferritin Total Bilirubin AST ALT Alkaline Phosphatase C-Reactive Protein Total Protein Albumin Urine Color Urine Clarity Urine pH Ur Specific [place] Urine Protein Urine Ketones Urine Blood Urine Nitrite Urine Bilirubin Urine Urobilinogen Ur Leukocyte Esterase Urine RBC Urine WBC Ur Epithelial Cells Urine Crystals Urine Bacteria Urine Casts Urine Mucus Ur Culture Indicated? Urine Glucose
[2021-01-11] MEDS: Normal Saline 500 ML IV (17:19)
[2021-01-11] MEDS: cefTRIAXone 2 GM/50 ML BAG IVPB (20:43)
[2021-01-11] MEDS: Tamsulosin 0.4 MG CAPCR PO (20:44)
[2021-01-11] MEDS: Atorvastatin 40 MG TAB PO (20:44)
[2021-01-11] MEDS: Latanoprost 0.005% 2.5 ML BTL OP (20:44)
[2021-01-12] VITALS (59 sets, daily range): BP systolic 97–151; BP diastolic 37–101; PULSE 52–112; RESP 18–96; TEMP 35.1–37.1; O2SAT 76–97
[2021-01-12] MEDS: VANCOMYCIN/WATER (PEG) 1 GM/200 ML BAG IV ×3 (00:03→21:45)
[2021-01-12] MEDS: LORazepam 2 MG/ML VIAL 0.5 MG IVP (01:45)
[2021-01-12] MEDS: Normal Saline Flush 10 ML SYR IVP ×3 (06:08→17:45)
[2021-01-12 06:59] LABS: Abs Immature Grans 0.47 10^3/uL (0.0-0.06); Absolute Neutrophil Count 22.45 10^3/uL (1.2-6.7); Basophils % 0.2; HCT 34.8 % (40.0-50.0); HGB 11.5 g/dL (13.5-17.5); Immature Grans % 1.8; Lymphocytes % 2.9; MCH 31.9 pg (27.0-33.0); MCV 96.7 fL (80-95); MPV 11.1 fL (8.0-11.0); Monocytes % 8.1; Nucleated RBC 0 %; Platelet Count 234 10^3/uL (130-400); RDW 12.1 % (11.8-14.1); RDW-SD 43.2 fL
[2021-01-12 07:05] LABS: Absolute Basophil Count 0.05 10^3/uL (0.0-0.2); Absolute Lymphocyte Count 0.75 10^3/uL (1.2-3.4); Absolute Monocyte Count 2.09 10^3/uL (0.1-0.8)
[2021-01-12 07:27] LABS: Diff Comment Agrees w/ Instrument; RBC Morphology Normal
--- NOTE | 2021-01-12 07:31 | PHA.REVIEW ---
Pharmacy Admission Review - Admission Clinical Review (Last Reviewed 01/10/21 @ 13:05 by Mansoor Willson MD) HLD (hyperlipidemia) (Acute) COVID (Acute) Hypoxemia (Acute) environmental Allergy (Uncoded 01/09/21 16:26) Resuscitation Status Full Code Height 5 ft 8 in Weight 68.1 kg - Renal Dosing Renal Dosing: BUN 57 mg/dL (7-18) H 01/11/21 08:00 Creatinine 1.1 mg/dL (0.70-1.30) 01/11/21 08:00 Medications needing adjustments: Reviewed List of meds needing interventions: eCrCl 59 ml/min, all orders ok - Anticoagulation Anticoagulation: Hgb 11.5 g/dL (13.5-17.5) L 01/12/21 06:12 Hct 34.8 % (40.0-50.0) L 01/12/21 06:12 Plt Count 234 10^3/uL (130-400) 01/12/21 06:12 Creatinine 1.1 mg/dL (0.70-1.30) 01/11/21 08:00 DVT Prophylaxis: Reviewed Medications: Enoxaparin - Opiate Usage Evaluate Pain Scale/Pains Meds: N/A - Relevant Labs Sodium 140 mmol/L (136-145) 01/11/21 08:00 Potassium 4.6 mmol/L (3.5-5.1) 01/11/21 08:00 Chloride 108 mmol/L (98-107) H 01/11/21 08:00 C-Reactive Protein 3.31 mg/dL (0.0-0.3) H 01/11/21 08:00 Electrolytes, C-Reactive P, ESR: Reviewed - DM Control DM Control: Glucose 139 mg/dL (74-106) H 01/11/21 08:00 Insulin Dosing: Reviewed - Heart Failure/LA Heart Failure/LA: Troponin I < 0.05 ng/mL (<0.06) 01/09/21 19:30 EF%, VIVEK's, B-Blockers, Diuretics: Reviewed - BP Control BP Control: Blood Pressure 121/49 Blood Pressure 125/78 Blood Pressure 116/53 Blood Pressure 133/62 Blood Pressure 120/49 Blood Pressure 121/44 If elevated: Reviewed - Qtc Review If Elevated: Reviewed - IV to PO Switch IV Medications: Reviewed - Home Meds Home Med List reviewed: Reviewed Relevent Home Meds Not ordered & why?: all ordered, atorvastatin ordered in place of simvastatin due to C19 recommendations - Current meds Current Medication Order Review: Reviewed - Comments Comments/Follow Ups: remdesivir, dexamethasone, baricitinib plus ceftriaxone+vanco for suspected superimposed bacteria PNA
--- NOTE | 2021-01-12 07:57 | PDOC.CMIN ---
- If Service Date Differs Date of service: 01/12/21 Time of Service: 07:57 Care Management Initial Assess REASON FOR HOSPITALIZATION:: Covid-19 pneumonia
[2021-01-12 08:21] LABS: D-Dimer 313 ng/mlFEU (<500)
[2021-01-12 08:24] LABS: Procalcitonin < 0.1 ng/mL
[2021-01-12] MEDS: Tiotropium/Olodaterol 10 PUFF INHALER 2 PUFF IH (08:28)
--- NOTE | 2021-01-12 08:35 | INITIAL_ITS ---
- If Service Date Differs Date of service: 01/12/21 Time of Service: 08:35 Care Management Initial Assess REASON FOR HOSPITALIZATION:: Covid-19 Pneumonia. PAST MEDICAL HISTORY/PAST SURGICAL HISTORY:: Active Problem List: COVID (Acute), Hypoxemia (Acute). No Medical/Surgical History noted in medical chart. PREVIOUS FUNCTIONAL STATUS/SOCIAL/FAMILY SUPPORTS:: Uriel lives in [place] with his , Amparo. 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 He is an [employer]. Uriel has three adult children who live out of State. Uriel drives and is independent with his ADLs at baseline. CURRENT FUNCTIONAL STATUS:: CM is unable to meet with Uriel in person due to Covid restrictions. Per nursing, Uriel is beginning to prone and this seems to be helping his O2 Sats. Information for this assessment is obtained from Uriel's , Amparo. ADVANCE DIRECTIVES:: On file with the [place]. Has patient been provided with info about the portal/API?: No Did the patient sign up for the portal?: No CODE STATUS:: Full Code INSURANCE COVERAGE / FINANCIAL ISSUES:: [employer] Medicare Replacement and Community Care through the [place]. CURRENT HOME/COMMUNITY SERVICES/EQUIPMENT:: None. PRIMARY CARE PHYSICIAN:: Ingrid Navarro, MSN, TELEGRAPH OFFICE TELEPHONE CLERK-BC ([facility]). POTENTIAL DISCHARGE NEEDS:: Follow up appointment with PCP. PATIENT/FAMILY EDUCATION NEEDS:: Discharge instructions including limitations and follow up plan of care, Ask Me Three and self-management discussion. ANTICIPATED BARRIERS TO DISCHARGE:: No anticipated barriers at this time. TRANSPORTATION:: Via private vehicle with family. PLAN:: Anticipate Uriel will be discharged home with no new services when medically cleared but it is too early in his hospital stay to know how he will progress. RT will continue to assess for home O2 needs. Uriel will follow up with his PCP and plan of care as directed. He will transport home via private vehicle with family when ready. CM will continue to assess for ongoing discharge needs.
[2021-01-12 08:44] LABS: ALT 39 U/L (16-63); AST 9 U/L (15-37); Albumin 2.4 g/dL (3.4-5.0); Alkaline Phosphatase 46 U/L (46-116); Anion Gap 10.1 mmol/L (3-11); BUN 57 mg/dL (7-18); Bilirubin, Total 0.6 mg/dL (0.2-1.0); C-Reactive Protein 1.59 mg/dL (0.0-0.3); CO2 22.9 mmol/L (21.0-32.0); CREATININE 1.1 mg/dL (0.70-1.30); Calcium 7.8 mg/dL (8.5-10.1); Chloride 106 mmol/L (98-107); Glucose 118 mg/dL (74-106); Potassium 4.7 mmol/L (3.5-5.1); Sodium 139 mmol/L (136-145); Total Protein 5.1 g/dL (6.4-8.2)
[2021-01-12 08:45] LABS: Ferritin 1584 ng/mL (26-388)
[2021-01-12] MEDS: Ascorbic Acid 500 MG TAB 1000 MG PO ×2 (09:17→19:36)
[2021-01-12] MEDS: Aspirin E.C. 81 MG TABEC PO (09:17)
[2021-01-12] MEDS: Cholecalciferol (Vitamin D3) 1,000 UNIT TAB 2000 UNITS PO (09:18)
[2021-01-12] MEDS: Dexamethasone 4 MG TAB 6 MG PO (09:18)
[2021-01-12] MEDS: Enoxaparin 40 MG/0.4 ML SYR SC (09:19)
[2021-01-12] MEDS: Polyethylene Glycol 3350 17 GM PACKET PO (09:20)
[2021-01-12] MEDS: Finasteride 5 MG TAB PO (09:20)
[2021-01-12] MEDS: Ramipril 5 MG CAP 10 MG PO (09:20)
--- NOTE | 2021-01-12 11:11 | NUR.NOTE ---
RN calls lab to have tech come and draw vancomycin trough since midline is not putting out sufficient amounts of blood to condust test. Tech to arrive shortly to draw trough.Nursing Note:
--- NOTE | 2021-01-12 11:53 | NUR.NOTE ---
Vancomycin trough is drawn at 11:30 a.m by construction craft laborer.Nursing Note:
[2021-01-12 12:01] LABS: Vancomycin, Trough 13.5 ug/mL (10.0-20.0)
--- NOTE | 2021-01-12 13:09 | NUR.NOTE ---
RN facilitates conversation between patient's and him about intubation and the plan of care. Patient indicates to RN he wants to fight, but has no opinion at this time of whether or not he would want to be intubated.Nursing Note:
--- NOTE | 2021-01-12 13:16 | NUR.NOTE ---
Patient lasts on High flow nasal system aat 85% for 30 minutes sating 85% to 90% but after 30 minutes desats to the high 70's.Nursing Note:
--- NOTE | 2021-01-12 16:16 | W.PM.PROGNOT ---
Date of Service Date of service: 01/12/21 Time of Service: 16:16 Assessment and Plan Assessment and plan (1) COVID: Status: Acute Assessment and plan: + Covid PNA. WBC elevated. Bilateral ground-glass opacities on CT. Remdesivir, Baricitinib and dexamethasone to continue. Concerns for superimposed bacterial PNA. Rocephin initiated in the ED. Procal 0.1 on 01/09. Repeat on 01/12 <0.1. Monitor inflammatory markers: D dimer normal. CRP decreasing. Vit D and C supplementation. Stable on CPAP with FIO2 of 60% and 10 Peep. High flow NC breaks and with eating but desaturates and requires CPAP at all other times. Pulmonary / critiacl care consulted. Prone position encouraged. Lie on sides as alternative to proning if unable or unwilling. (2) Hypoxemia: Status: Acute Assessment and plan: Acute on Chronic. See above. (3) COPD (chronic obstructive pulmonary disease): Status: Chronic Assessment and plan: Cont Stiolto and prn albuterl. (4) HLD (hyperlipidemia): Status: Acute Assessment and plan: He is on simvistatin 10mg daily; change to atorvastain 40mg nightly. (5) BPH (benign prostatic hyperplasia): Status: Chronic Assessment and plan: Has dykes catheter in place d/t urinary retention. Cont tamsulosin. (6) GERD (gastroesophageal reflux disease): Status: Chronic Assessment and plan: On pantoprazole at home; change to famotadine IV. Subjective Subjective Patient reports: no new complaints and afebrile; denies nausea and vomiting Interval history since last seen: Pt now lying on side more. Not proning. Still has low oral intake; food doesn't taste good. Exam Narrative Exam Narrative: Lying supine, then turns to left side. Const General: cooperative and no acute distress Nutritional Appearance: average body habitus Orientation: alert and oriented x3 HENMT Head: atraumatic Eyes General: appearance normal, both eyes and all related structures Sclera: sclerae normal Resp Effort & Inspection: normal respiratory effort Auscultation: clear to auscultation bilaterally Cardio Rate: tachycardic Rhythm: regular rhythm Heart Sounds: S1 normal and S2 normal GI Palpation: soft and nontender Skin General skin exam: no rashes or lesions noted Neuro General: no focal motor deficits Cranial Nerves: hearing abnormal (decreased auditory acuity) Speech: speech normal Extrem General: no pedal edema and no calf tenderness Objective Last Vital Signs Temp 35.8 C L 01/12/21 15:37 Pulse 57 L 01/12/21 15:46 Resp 30 H 01/12/21 15:46 BP 123/52 L 01/12/21 15:37 Pulse Ox 93 01/12/21 15:46 Laboratory Results - last 24 hr 01/12/21 01/12/21 01/12/21 06:12 07:20 07:20 WBC 25.80 H* RBC 3.60 L Hgb 11.5 L Hct 34.8 L MCV 96.7 H MCH 31.9 MCHC 33.0 RDW 12.1 Plt Count 234 MPV 11.1 H Immature Gran % 1.8 Neutrophils % 87.0 Lymphocytes % 2.9 Monocytes % 8.1 Eosinophils % 0.0 Basophils % 0.2 Nucleated RBC % 0 Absolute Neutrophils 22.45 H Absolute Lymphocytes 0.75 L Absolute Monocytes 2.09 H Absolute Eosinophils 0.00 Absolute Basophils 0.05 RBC Morphology Normal D-Dimer 313 Sodium 139 Potassium 4.7 Chloride 106 Carbon Dioxide 22.9 Anion Gap 10.1 BUN 57 H Creatinine 1.1 Estimated GFR/1.73 m2 >= 60.00 Glucose 118 H Calcium 7.8 L Ferritin 1584 H Total Bilirubin 0.6 AST 9 L ALT 39 Alkaline Phosphatase 46 C-Reactive Protein 1.59 H Total Protein 5.1 L Albumin 2.4 L Procalcitonin Vancomycin Trough 01/12/21 01/12/21 07:20 11:25 WBC RBC Hgb Hct MCV MCH MCHC RDW Plt Count MPV Immature Gran % Neutrophils % Lymphocytes % Monocytes % Eosinophils % Basophils % Nucleated RBC % Absolute Neutrophils Absolute Lymphocytes Absolute Monocytes Absolute Eosinophils Absolute Basophils RBC Morphology D-Dimer Sodium Potassium Chloride Carbon Dioxide Anion Gap BUN Creatinine Estimated GFR/1.73 m2 Glucose Calcium Ferritin Total Bilirubin AST ALT Alkaline Phosphatase C-Reactive Protein Total Protein Albumin Procalcitonin < 0.1 Vancomycin Trough 13.5
[2021-01-12] MEDS: Atorvastatin 40 MG TAB PO (19:37)
[2021-01-12] MEDS: cefTRIAXone 2 GM/50 ML BAG IVPB (21:00)
[2021-01-12] MEDS: Latanoprost 0.005% 2.5 ML BTL OP (21:46)
[2021-01-12] MEDS: Tamsulosin 0.4 MG CAPCR PO (21:46)
[2021-01-13] VITALS (51 sets, daily range): BP systolic 99–137; BP diastolic 44–82; PULSE 55–81; RESP 20–38; TEMP 35.7–36.3; O2SAT 79–96
[2021-01-13] MEDS: LORazepam 2 MG/ML VIAL 0.5 MG IVP (03:00)
[2021-01-13 07:23] LABS: Abs Immature Grans 0.34 10^3/uL (0.0-0.06); Basophils % 0.1; HCT 35.9 % (40.0-50.0); HGB 12.3 g/dL (13.5-17.5); Immature Grans % 1.4; Lymphocytes % 2.7; MCH 31.5 pg (27.0-33.0); MCHC 34.3 % (32.0-36.0); MCV 92.1 fL (80-95); Monocytes % 8.6; Neutrophils % 87.2; Nucleated RBC 0 %; Platelet Count 211 10^3/uL (130-400); RDW-SD 40.5 fL; WBC 24.42 10^3/uL (4.4-10.8)
[2021-01-13 07:26] LABS: Absolute Basophil Count 0.02 10^3/uL (0.0-0.2); Absolute Lymphocyte Count 0.66 10^3/uL (1.2-3.4); Absolute Neutrophil Count 21.29 10^3/uL (1.2-6.7)
[2021-01-13] MEDS: Finasteride 5 MG TAB PO (07:33)
[2021-01-13] MEDS: Dexamethasone 4 MG TAB 6 MG PO (07:33)
[2021-01-13] MEDS: Ramipril 5 MG CAP 10 MG PO (07:34)
[2021-01-13] MEDS: VANCOMYCIN/WATER (PEG) 1 GM/200 ML BAG IV ×2 (07:34→17:19)
[2021-01-13] MEDS: Polyethylene Glycol 3350 17 GM PACKET PO (07:34)
[2021-01-13] MEDS: Aspirin E.C. 81 MG TABEC PO (07:35)
[2021-01-13] MEDS: Ascorbic Acid 500 MG TAB 1000 MG PO ×2 (07:35→20:24)
[2021-01-13] MEDS: Cholecalciferol (Vitamin D3) 1,000 UNIT TAB 2000 UNITS PO (07:36)
[2021-01-13] MEDS: Enoxaparin 40 MG/0.4 ML SYR SC (07:36)
[2021-01-13 07:42] LABS: Diff Comment Agrees w/ Instrument; RBC Morphology Normal
[2021-01-13 08:08] LABS: ALT 41 U/L (16-63); AST 17 U/L (15-37); Albumin 2.3 g/dL (3.4-5.0); Alkaline Phosphatase 55 U/L (46-116); Anion Gap 8.4 mmol/L (3-11); BUN 52 mg/dL (7-18); Bilirubin, Total 0.7 mg/dL (0.2-1.0); CO2 24.6 mmol/L (21.0-32.0); CREATININE 1.1 mg/dL (0.70-1.30); Calcium 7.8 mg/dL (8.5-10.1); Chloride 104 mmol/L (98-107); Glucose 109 mg/dL (74-106); Potassium 4.3 mmol/L (3.5-5.1); Sodium 137 mmol/L (136-145); Total Protein 5.6 g/dL (6.4-8.2)
[2021-01-13 08:13] LABS: Ferritin 1334 ng/mL (26-388)
[2021-01-13 08:24] LABS: C-Reactive Protein 1.12 mg/dL (0.0-0.3)
[2021-01-13 08:40] LABS: D-Dimer 432 ng/mlFEU (<500)
[2021-01-13] MEDS: Tiotropium/Olodaterol 10 PUFF INHALER 2 PUFF IH (09:40)
--- NOTE | 2021-01-13 10:54 | NUR.NOTE ---
Two warm blankets applied to patient on right flank. Pull up brief applied to patient.Nursing Note:
--- NOTE | 2021-01-13 12:28 | W.PM.PROGNOT ---
Date of Service Date of service: 01/13/21 Time of Service: 12:28 Assessment and Plan Assessment and plan (1) COVID: Status: Acute Assessment and plan: + Covid PNA. WBC elevated. Bilateral ground-glass opacities on CT. Remdesivir, Baricitinib and dexamethasone to continue. Concerns for superimposed bacterial PNA. Rocephin initiated in the ED and Vancomycin added by admitting refinish technician. I am less concerned for superimposed bacterial pneumonia as he has had no fever, and his procalcitonin level was 0.1 on admssion on 01/09 and repeat was <0.1 on 01/12. If the repeat procalcitonin is <0.1 tomorrow then I will consider discontinuation of vancomycin and Rocephin. Monitor inflammatory markers: D dimer normal. CRP decreasing to 1.12 from peak of 12. Vit D and C supplementation. enoxaparin 40 mg sc daily for dvt prophylaxis. d-dimers have remained normal since admission. Stable on CPAP with FIO2 of 60% and 12 cm. High flow NC breaks and with eating but desaturates and requires CPAP at all other times. Pulmonary / critiacl care consulted but did not see the patient over the . I do not anticipate specialty care availability until next week. Patient still needs ICU level care due to high oxygen requirements. 45 minutes cc time spent w/ the patient and in reviewing prior providers notes and reviewing current data and discussion w/ his primary nurse. Prone position encouraged. Lie on sides as alternative to proning if unable or unwilling. (2) COPD (chronic obstructive pulmonary disease): Status: Chronic Assessment and plan: Cont Stiolto and prn albuterol. cont. CPAP and HFNC as above Qualifiers: COPD type: unspecified COPD Qualified Code(s): J44.9 - Chronic obstructive pulmonary disease, unspecified (3) HLD (hyperlipidemia): Status: Acute Assessment and plan: He is on simvistatin 10mg daily; change to atorvastain 40mg nightly. (4) BPH (benign prostatic hyperplasia): Status: Chronic Assessment and plan: Has dykes catheter in place d/t urinary retention. Cont tamsulosin. will keep dykes in until he is stronger and less hypoxemic w/ activity so that when the dykes is removed he is more ready to sit up for use of urinal or transfer to bedside commode (5) GERD (gastroesophageal reflux disease): Status: Chronic Assessment and plan: On pantoprazole at home; change to famotadine IV. Qualifiers: Esophagitis presence: esophagitis presence not specified Qualified Code(s): K21.9 - Gastro-esophageal reflux disease without esophagitis (6) DVT prophylaxis: Status: Acute Assessment and plan: enoxaparin 40 mg SC daily (7) Discharge planning issues: Status: Acute Assessment and plan: patient intends to return home to his , who is recovering from COVID-19 pneumonia herself. He has indicated that he would want intubation and mechanical ventilation if necessary. Hopefully it does not come down to that. Subjective Subjective Interval history since last seen: Patient overnight was on 50% FiO2 10 L of CPAP but was only running an SPO2 of 85 to 88%. This morning he has been placed on 60% FiO2 on 12 L of CPAP and is improving. His SPO2 runs at 92%. He drops down into the 80s when he is on high flow nasal cannula while eating. Patient says that he started to get some sense of taste back although his appetite still poor. I have encouraged him to eat and to drink as we are trying to avoid any IV fluids in the setting of COVID-19 pneumonia. He has minimal cough and no sputum production and he remains afebrile. His nurse talked with him about whether or not he would want to go on a ventilator in the event that he has worsening hypoxemia. Patient indicated to me that he wants to live and does not want to and leave his behind and is willing to do what ever is necessary to keep him alive. Since his nurse has talked with him about turning methods patient has been much better about cooperating and performing proning positioning. Exam Narrative Exam Narrative: Elderly white male currently lying in bed in supine position with head of bed about 30 degrees. He is wearing his CPAP mask but his nurse switched him over to high flow nasal cannula so we could talk and also so the patient could have his lunch. Neck supple without overt JVD Lungs overall are clear with the exception some fine bibasilar rales posteriorly without rhonchi or wheezing Heart regular rate and rhythm Abdomen is nondistended soft nontender NABS no bruits no masses no organomegaly Extremities without peripheral cyanosis or edema no calf tenderness or swelling. Objective Last Vital Signs Temp 35.8 C L 01/13/21 10:05 Pulse 67 01/13/21 10:49 Resp 29 H 01/13/21 10:51 BP 130/53 L 01/13/21 10:49 Pulse Ox 93 01/13/21 10:51 Laboratory Results - last 24 hr 01/13/21 01/13/21 01/13/21 06:25 06:25 06:25 WBC 24.42 H RBC 3.90 L Hgb 12.3 L Hct 35.9 L MCV 92.1 MCH 31.5 MCHC 34.3 RDW 12.0 Plt Count 211 MPV 11.0 Immature Gran % 1.4 Neutrophils % 87.2 Lymphocytes % 2.7 Monocytes % 8.6 Eosinophils % 0.0 Basophils % 0.1 Nucleated RBC % 0 Absolute Neutrophils 21.29 H Absolute Lymphocytes 0.66 L Absolute Monocytes 2.10 H Absolute Eosinophils 0.00 Absolute Basophils 0.02 RBC Morphology Normal D-Dimer 432 Sodium 137 Potassium 4.3 Chloride 104 Carbon Dioxide 24.6 Anion Gap 8.4 BUN 52 H Creatinine 1.1 Estimated GFR/1.73 m2 >= 60.00 Glucose 109 H Calcium 7.8 L Ferritin 1334 H Total Bilirubin 0.7 AST 17 ALT 41 Alkaline Phosphatase 55 C-Reactive Protein 1.12 H Total Protein 5.6 L Albumin 2.3 L
[2021-01-13] MEDS: Protein Nutritional Supplement 16 GM 1 OUNCE PACKET PO ×2 (13:50→20:23)
[2021-01-13] MEDS: Normal Saline 500 ML IV (17:19)
[2021-01-13] MEDS: Tamsulosin 0.4 MG CAPCR PO (20:24)
[2021-01-13] MEDS: Atorvastatin 40 MG TAB PO (20:24)
[2021-01-13] MEDS: cefTRIAXone 2 GM/50 ML BAG IVPB (20:24)
[2021-01-13] MEDS: Latanoprost 0.005% 2.5 ML BTL OP (21:00)
[2021-01-14] VITALS (45 sets, daily range): BP systolic 98–129; BP diastolic 36–65; PULSE 58–112; RESP 15–38; TEMP 31–36.1; O2SAT 84–96
[2021-01-14] MEDS: VANCOMYCIN/WATER (PEG) 1 GM/200 ML BAG IV (04:12)
[2021-01-14 06:55] LABS: Abs Immature Grans 0.27 10^3/uL (0.0-0.06); Absolute Basophil Count 0.03 10^3/uL (0.0-0.2); Basophils % 0.1; Eosinophils % 0.2; HCT 36.4 % (40.0-50.0); Lymphocytes % 2.7; MCH 31.4 pg (27.0-33.0); MCV 95.3 fL (80-95); MPV 10.9 fL (8.0-11.0); Monocytes % 8.8; Neutrophils % 87.2; Nucleated RBC 0 %; Platelet Count 217 10^3/uL (130-400); RBC 3.82 10^6/uL (4.36-5.78); RDW 12.1 % (11.8-14.1); RDW-SD 42.5 fL
[2021-01-14 07:08] LABS: Absolute Eosinophil Count 0.05 10^3/uL (0.0-0.7); Absolute Lymphocyte Count 0.71 10^3/uL (1.2-3.4); Absolute Monocyte Count 2.33 10^3/uL (0.1-0.8); Absolute Neutrophil Count 23.06 10^3/uL (1.2-6.7); WBC 26.45 10^3/uL (4.4-10.8)
[2021-01-14 07:20] LABS: BUN 53 mg/dL (7-18); Calcium 7.8 mg/dL (8.5-10.1); Glucose 105 mg/dL (74-106)
[2021-01-14 07:21] LABS: ALT 41 U/L (16-63); AST 17 U/L (15-37); Albumin 2.3 g/dL (3.4-5.0); Alkaline Phosphatase 52 U/L (46-116); Anion Gap 9.5 mmol/L (3-11); Bilirubin, Total 0.6 mg/dL (0.2-1.0); CO2 21.5 mmol/L (21.0-32.0); Chloride 105 mmol/L (98-107); Potassium 4.6 mmol/L (3.5-5.1); Sodium 136 mmol/L (136-145); Total Protein 4.9 g/dL (6.4-8.2)
[2021-01-14 07:22] LABS: C-Reactive Protein 0.92 mg/dL (0.0-0.3)
[2021-01-14 07:23] LABS: Diff Comment Agrees w/ Instrument; RBC Morphology Normal
[2021-01-14 07:26] LABS: D-Dimer 467 ng/mlFEU (<500)
[2021-01-14 08:01] LABS: Ferritin 1133 ng/mL (26-388)
[2021-01-14] MEDS: Ascorbic Acid 500 MG TAB 1000 MG PO ×2 (08:40→19:40)
[2021-01-14] MEDS: Aspirin E.C. 81 MG TABEC PO (08:40)
[2021-01-14] MEDS: Dexamethasone 4 MG TAB 6 MG PO (08:41)
[2021-01-14] MEDS: Enoxaparin 40 MG/0.4 ML SYR SC (08:41)
[2021-01-14] MEDS: Polyethylene Glycol 3350 17 GM PACKET PO (08:42)
[2021-01-14] MEDS: Finasteride 5 MG TAB PO (08:42)
[2021-01-14] MEDS: Tiotropium/Olodaterol 10 PUFF INHALER 2 PUFF IH (08:43)
[2021-01-14] MEDS: Cholecalciferol (Vitamin D3) 1,000 UNIT TAB 2000 UNITS PO (08:43)
[2021-01-14] MEDS: Protein Nutritional Supplement 16 GM 1 OUNCE PACKET PO ×3 (08:43→19:39)
[2021-01-14] MEDS: Ramipril 5 MG CAP 10 MG PO (08:43)
--- NOTE | 2021-01-14 11:19 | W.PM.PROGNOT ---
Date of Service Date of service: 01/14/21 Time of Service: 11:19 Assessment and Plan Assessment and plan (1) COVID: Status: Acute Assessment and plan: Continue Decadron and baricitinib. Patient completed his course of remdesivir but I am going to renew his remdesivir for another 4 days. CRP is down to 0.92 most ferritin remains elevated at 1133. D-dimer remains normal at 467. White count remains elevated 26,000 most likely secondary to high-dose Decadron. At this point he has no evidence of bacterial pneumonia I am going to discontinue his vancomycin and ceftriaxone. (2) COPD (chronic obstructive pulmonary disease): Status: Chronic Assessment and plan: Cont Stiolto and prn albuterol. cont. CPAP and HFNC as above Qualifiers: COPD type: unspecified COPD Qualified Code(s): J44.9 - Chronic obstructive pulmonary disease, unspecified (3) HLD (hyperlipidemia): Status: Acute Assessment and plan: He is on simvistatin 10mg daily; change to atorvastain 40mg nightly. (4) BPH (benign prostatic hyperplasia): Status: Chronic Assessment and plan: Has dykes catheter in place d/t urinary retention. Cont tamsulosin. will keep dykes in until he is stronger and less hypoxemic w/ activity so that when the dykes is removed he is more ready to sit up for use of urinal or transfer to bedside commode (5) GERD (gastroesophageal reflux disease): Status: Chronic Assessment and plan: On pantoprazole at home; change to famotadine IV. Qualifiers: Esophagitis presence: esophagitis presence not specified Qualified Code(s): K21.9 - Gastro-esophageal reflux disease without esophagitis (6) DVT prophylaxis: Status: Acute Assessment and plan: enoxaparin 40 mg SC daily (7) Discharge planning issues: Status: Acute Assessment and plan: patient intends to return home to his , who is recovering from COVID-19 pneumonia herself. He has indicated that he would want intubation and mechanical ventilation if necessary. Hopefully it does not come down to that. Subjective Subjective Interval history since last seen: Patient remains on CPAP 12 cm with an FiO2 60%. Oxygen saturation is running in the mid 90s. I have asked nursing to discuss with respiratory therapy regarding trial of weaning. Patient has no cough or sputum production and no fever. Rest of his vital signs are stable. Appetite is still poor but he is tolerating some p.o. intake. Exam Narrative Exam Narrative: Elderly white male lying on his right side wearing his CPAP mask. He is very hard of hearing making it difficult to communicate. He asked how much longer he needs to be in the hospital explained to him that I cannot predict his course from his treatment of COVID-19 and explained to him that some people improve rapidly and while others may take couple weeks. Lungs are clear to auscultation Heart regular rate and rhythm Abdomen soft nondistended normal bowel sounds Extremities without peripheral cyanosis or edema Objective Last Vital Signs Temp 36.1 C L 01/14/21 10:30 Pulse 85 01/14/21 10:30 Resp 28 H 01/14/21 10:30 BP 117/56 L 01/14/21 10:30 Pulse Ox 94 01/14/21 10:30 Laboratory Results - last 24 hr 01/14/21 01/14/21 01/14/21 06:05 06:05 06:05 WBC RBC Hgb Hct MCV MCH MCHC RDW Plt Count MPV Immature Gran % Neutrophils % Lymphocytes % Monocytes % Eosinophils % Basophils % Nucleated RBC % Absolute Neutrophils Absolute Lymphocytes Absolute Monocytes Absolute Eosinophils Absolute Basophils RBC Morphology D-Dimer 467 Sodium 136 Potassium 4.6 Chloride 105 Carbon Dioxide 21.5 Anion Gap 9.5 BUN 53 H Creatinine 1.0 Estimated GFR/1.73 m2 >= 60.00 Glucose 105 Calcium 7.8 L Ferritin 1133 H Total Bilirubin 0.6 AST 17 ALT 41 Alkaline Phosphatase 52 C-Reactive Protein 0.92 H Total Protein 4.9 L Albumin 2.3 L 01/14/21 06:05 WBC 26.45 H* RBC 3.82 L Hgb 12.0 L Hct 36.4 L MCV 95.3 H D MCH 31.4 MCHC 33.0 RDW 12.1 Plt Count 217 MPV 10.9 Immature Gran % 1.0 Neutrophils % 87.2 Lymphocytes % 2.7 Monocytes % 8.8 Eosinophils % 0.2 Basophils % 0.1 Nucleated RBC % 0 Absolute Neutrophils 23.06 H Absolute Lymphocytes 0.71 L Absolute Monocytes 2.33 H Absolute Eosinophils 0.05 Absolute Basophils 0.03 RBC Morphology Normal D-Dimer Sodium Potassium Chloride Carbon Dioxide Anion Gap BUN Creatinine Estimated GFR/1.73 m2 Glucose Calcium Ferritin Total Bilirubin AST ALT Alkaline Phosphatase C-Reactive Protein Total Protein Albumin
[2021-01-14 13:11] LABS: Vancomycin, Trough 22.4 ug/mL (10.0-20.0)
[2021-01-14 13:46] LABS: Procalcitonin < 0.1 ng/mL
--- NOTE | 2021-01-14 13:57 | NUR.NOTE ---
RN draws Vancomycin trough from midline at 12:30 p.m. The trick to having midline work for purposes of drawing blood from same is to have patient raise his right arm straight in the area and then swing it over his chest. When arm is over chest, drawing blood from the midline is easy.Nursing Note:
--- NOTE | 2021-01-14 13:58 | NUR.NOTE ---
Vancomycin trough is 22.4. Vancomycin infusion will begin at 16:00 instead of 14:00. Remdesivir will also be given at said time.Nursing Note:
--- NOTE | 2021-01-14 13:59 | NUR.NOTE ---
Patient refuses getting out of bed to chair. Patient wants to sleep on his right flank. 02 is decreased to 55% with 12 of pressure on CPAP.Nursing Note:
--- NOTE | 2021-01-14 14:13 | NUR.NOTE ---
Telephonic update given to .Nursing Note:
[2021-01-14] MEDS: Normal Saline Flush 10 ML SYR IVP (15:23)
[2021-01-14] MEDS: Famotidine 20 MG TAB PO (19:40)
[2021-01-14] MEDS: Atorvastatin 40 MG TAB PO (19:40)
[2021-01-14] MEDS: traZODone 50 MG TAB PO (19:40)
[2021-01-14] MEDS: Albuterol 2.5 MG/3 ML INH SOLN VIAL UPD (19:40)
[2021-01-14] MEDS: Tamsulosin 0.4 MG CAPCR PO (19:40)
[2021-01-14] MEDS: LORazepam 2 MG/ML VIAL 0.5 MG IVP (19:40)
[2021-01-14] MEDS: Latanoprost 0.005% 2.5 ML BTL OP (19:41)
[2021-01-15] VITALS (50 sets, daily range): BP systolic 61–122; BP diastolic 36–65; PULSE 57–115; RESP 14–34; TEMP 31–36; O2SAT 75–96
[2021-01-15 07:07] LABS: HGB 12.7 g/dL (13.5-17.5); MCH 31.7 pg (27.0-33.0); MCHC 33.4 % (32.0-36.0); MCV 94.8 fL (80-95); MPV 10.8 fL (8.0-11.0); Nucleated RBC 0 %; Platelet Count 244 10^3/uL (130-400); RBC 4.01 10^6/uL (4.36-5.78); RDW 11.9 % (11.8-14.1); RDW-SD 41.9 fL
[2021-01-15 07:11] LABS: WBC 35.54 10^3/uL (4.4-10.8)
[2021-01-15 07:20] LABS: ALT 47 U/L (16-63); AST 24 U/L (15-37); Albumin 2.4 g/dL (3.4-5.0); Alkaline Phosphatase 55 U/L (46-116); Anion Gap 6.6 mmol/L (3-11); BUN 58 mg/dL (7-18); Bilirubin, Total 0.8 mg/dL (0.2-1.0); CO2 25.4 mmol/L (21.0-32.0); Calcium 7.9 mg/dL (8.5-10.1); Chloride 107 mmol/L (98-107); Glucose 107 mg/dL (74-106); Potassium 5.1 mmol/L (3.5-5.1); Sodium 139 mmol/L (136-145); Total Protein 5.5 g/dL (6.4-8.2)
[2021-01-15 07:23] LABS: Absolute Lymphocyte Count 2.49 10^3/uL (1.2-3.4); Absolute Monocyte Count 1.78 10^3/uL (0.1-0.8); Absolute Neutrophil Count 31.28 10^3/uL (1.2-6.7); Atypical Lymphocytes % 2; Diff Comment Manual Differential; RBC Morphology Normal
[2021-01-15 07:40] LABS: C-Reactive Protein 0.51 mg/dL (0.0-0.3); D-Dimer 649 ng/mlFEU (<500)
--- NOTE | 2021-01-15 08:00 | RT.EKG_ITS ---
APPROVED REPORT Exam: Resting ECG Reason for Exam: ST depression Patient Location: I HR:96 bpm ECG Measurements Heart Rate 96 AXIS LA 174 P 58 QRSd 141 QRS 40 QT 412 T 212 QTc 518 Conclusion Sinus rhythm...normal P axis, V-rate 60- 99 Atrial premature complex...SV complex w/ short R-R interval Left bundle branch block...QRSd>120, broad/notched R
[2021-01-15 08:06] LABS: Ferritin 881 ng/mL (26-388)
--- NOTE | 2021-01-15 08:12 | PCNE_ITS ---
Date of service: 01/15/21 Time of Service: 08:12 History of Present Illness History of Present Illness Chief Complaint: covid Narrative: From H and P: History of Present Illness Chief Complaint: Shortness of air, hypoxia Narrative: This is a 70 yo male with a PMH of HLD, BPH, COPD, chronic resp failure on 2L O2 / NC, GERD. He presented via EMS with c/o worsening shortness of breath and increasing supplemental oxygen needs. He had been discharged from [facility] 2 days prior to presenting to [facility]. He was admitted there for 24 hours. He tested COVID-19 + on 01/01/21. EMS noted his initial O2 saturation to be 79% on his home 2L O2 while at rest. In the ED his initial saturation was 89% on 8L. BP 96/66. He received a bolus of 100ml NS. K 4.7. Creatinine 1.5. Bilirubin 1.1. Troponin normal. CRP 12.18 (35.2 on 01/01 at [facility]). He denied fever/chills, chest pain/palpitations. No nausea/vomiting/diarrhe a/abd pain. His initial lab showed: WBC 17.22. Lactate 1.5. D-dimer 321. CT chest: No evidence for pulmonary embolus. Severe COPD. Ground-glass lung base changes are consistent with positive COVID-19 status. He was given Barictinib, Remdesivir and dexamethasone in the ED. Also started were Pepcid, lovenox and albuterol inhaler. Because of ICU capacity at [facility] transfer calls were made to multiple hospitals in the [place] region. No immediate bed availability was found. He was managed in the ED overnight and was accepted at [facility]. [facility] flight helicopter arrived but it was found that with the CPAP device they provided he would need more supplemental O2 than what was required with the CPAP he was on at [facility]. Because of this, they would not have enough O2 to last the trip to [facility]. A bed did open up in the ICU here / [facility] and he is being admitted with Pulmonary consult. Interim Hx: I am meeting Uriel for the first time. Before we started the conversation he did put in his hearing aid and I did change the battery for him. He is a 70-year-old man with baseline severe COPD. He contracted Covid and is in the ICU. He has continued on high flow oxygen as well as CPAP with little improvement. Dr. Velasquez had spoken with him about ventilators, Uriel wants to live so that he can be with his . Unfortunately she cannot visit him because she too has Covid. Luckily she is doing very well at home. Dr. Velasquez had recommended that I speak with Uriel and talk to him again about his choices for [employer] Uriel knows he is very very sick. He understands that he has baseline COPD which is probably contributing to his lack of progress with improvement from Covid despite multiple medical treatments. He states he is always been very positive and has moved forward with treatments, for instance with his bladder cancer. He does not know if he can actually keep this but the is hopeful. What he wants most is to be reunited with his . He had tears in his eyes when he thought about her being from her Assessment and Plan Assessment and plan (1) Respiratory failure: Status: Acute (2) COVID: Status: Acute (3) COPD (chronic obstructive pulmonary disease): Status: Chronic Qualifiers: COPD type: unspecified COPD Qualified Code(s): J44.9 - Chronic obstructive pulmonary disease, unspecified (4) Hypotension: Status: Acute (5) Palliative care patient: Status: Acute Assessment and plan: Uriel and I spoke about his present condition and how he felt he was doing. He understands his respiratory status is poor and not improving. He understands he may during this hospitalization. We talked about the risks and benefits of a ventilator in his case. He understands that it may prolong his life, but may also prolong his dying and not afford him any quality of life. He chose to sign a DNR /DNI form understanding that we would continue to use CPAP and high flow oxygen and also continue the many medications, etc. We also spoke with Amparo. She loves her very much and respects his wishes to not go on a ventilator should his condition worsen. COLST form signed. Uriel is happy his is feeling better. I informed Dr Stiles of Uriel's decision. Review of Systems Narrative: Breathing is very difficult he knows people doing the very best. He is said being from his . Food does not taste good. [facility] Active Problem List COVID (Acute) Hypoxemia (Acute) Social History Smoking/Tobacco Use Status: Former Tobacco Use Smoking risk assessment performed?: Yes Substance use type: does not use Exam Narrative Exam Narrative: Uriel is lying in bed on his right side. He indicated and could recite back to me that he understood what I was saying. He had tears in his eyes when talking about his . He desaturated many times during our visit. His airflow was limited. His heart was regular. His abdomen was nontender. Results Last Vital Signs Temp 96.3 F L 01/15/21 04:30 Pulse 74 01/15/21 06:55 Resp 29 H 01/15/21 06:55 BP 122/59 L 01/15/21 06:55 Pulse Ox 89 L 01/15/21 06:55 Labs Result diagrams: 01/16/21 06:40 01/16/21 06:40 Labs: Laboratory Results - last 24 hr 01/14/21 01/14/21 01/15/21 06:05 12:38 06:40 WBC RBC Hgb Hct MCV MCH MCHC RDW Plt Count MPV Immature Gran % Neutrophils % Lymphocytes % Atypical Lymphs % Monocytes % Eosinophils % Basophils % Nucleated RBC % Absolute Neutrophils Absolute Lymphocytes Absolute Monocytes Absolute Eosinophils Absolute Basophils RBC Morphology D-Dimer Sodium Potassium Chloride Carbon Dioxide Anion Gap BUN Creatinine Estimated GFR/1.73 m2 Glucose Calcium Ferritin 881 H Total Bilirubin AST ALT Alkaline Phosphatase C-Reactive Protein 0.51 H Total Protein Albumin Procalcitonin < 0.1 Vancomycin Trough 22.4 H* 01/15/21 01/15/21 01/15/21 06:40 06:40 06:40 WBC 35.54 H* D RBC 4.01 L Hgb 12.7 L Hct 38.0 L MCV 94.8 MCH 31.7 MCHC 33.4 RDW 11.9 Plt Count 244 MPV 10.8 Immature Gran % 0.0 Neutrophils % 88.0 Lymphocytes % 5.0 Atypical Lymphs % 2 Monocytes % 5.0 Eosinophils % 0.0 Basophils % 0.0 Nucleated RBC % 0 Absolute Neutrophils 31.28 H Absolute Lymphocytes 2.49 Absolute Monocytes 1.78 H Absolute Eosinophils 0.00 Absolute Basophils 0.00 RBC Morphology Normal D-Dimer 649 H Sodium 139 Potassium 5.1 Chloride 107 Carbon Dioxide 25.4 Anion Gap 6.6 BUN 58 H Creatinine 1.0 Estimated GFR/1.73 m2 >= 60.00 Glucose 107 H Calcium 7.9 L Ferritin Total Bilirubin 0.8 AST 24 ALT 47 Alkaline Phosphatase 55 C-Reactive Protein Total Protein 5.5 L Albumin 2.4 L Procalcitonin Vancomycin Trough
--- NOTE | 2021-01-15 08:25 | CMPROGNOTE_ITS ---
- If Service Date Differs Date of service: 01/15/21 Time of Service: 08:25 Care Management Progress Note S/O: CM spoke with Uriel over the phone due to COVID restrictions. He is on high flow oxygen, which made communication a challenge. Nursing verified that Uriel does not have any questions at this time regarding the course of his treatment. Uriel continues to be closely monitored and treated for Covid. MD is extending his course of Remdesivir for another 4 days and closely monitoring his nut rition. Protein supplements and appetite stimulant have been ordered. MD updated patient's and answered her questions. Palliative consult is scheduled for today. A: 70 year old male admitted to [facility] on 01/10/21 for COVID-19 Pneumonia P:Anticipate Uriel will be discharged home with new [facility] SN/PT when medically cleared by provider. Uriel will follow up with his PCP and plan of care as directed. RT will continue to assess for home 02 needs. He will transport home via private vehicle with family when ready. CM will continue to assess discharge needs.
--- NOTE | 2021-01-15 09:29 | W.PM.PROGNOT ---
Date of Service Date of service: 01/15/21 Time of Service: 09:36 Assessment and Plan Assessment and plan (1) COVID: Status: Acute Assessment and plan: Continue Decadron and baricitinib. Remdesivir was renewed yesterday after completion of initial 5 day cours. Will continue for another 4 days from yesterday. Most of his inflammatory markers are down. CRP is 0.51, ferritin is down to 881, however, his WBC is up at 35,000 but his lymphocytopenia has recovered and d-dimer is slightly elevated now at 649. His repeat procalcitonin yesterday was normal and therefore I discontinued his vancomycin and ceftriaxone. We will continue to encourage proning, up to chair as tolerated and use of I.S. and acapella. Because of his poor oral intak and his prerenal azotemia (BUN 58, creatinine 1.0) I have not given any diuretics. I think that he is already on the dry side. I have added protein shakes to his diet and now will add marinol to stimulate his appetite. I have used megace in the past for appetite stimulation but due to his high risk for thromboembolic disease will avoid use of this. Case discussed w/ Dr. María Elena Rice, pulmonology and w/ the patient's nurseKaro. Critical care time spent 30 minutes (2) COPD (chronic obstructive pulmonary disease): Status: Chronic Assessment and plan: Cont Stiolto and prn albuterol. cont. CPAP and HFNC as above Qualifiers: COPD type: unspecified COPD Qualified Code(s): J44.9 - Chronic obstructive pulmonary disease, unspecified (3) HLD (hyperlipidemia): Status: Acute Assessment and plan: He is on simvistatin 10mg daily; change to atorvastain 40mg nightly. (4) BPH (benign prostatic hyperplasia): Status: Chronic Assessment and plan: Has dykes catheter in place d/t urinary retention. Cont tamsulosin. will keep dykes in until he is stronger and less hypoxemic w/ activity so that when the dykes is removed he is more ready to sit up for use of urinal or transfer to bedside commode (5) GERD (gastroesophageal reflux disease): Status: Chronic Assessment and plan: On pantoprazole at home; change to famotadine po. Qualifiers: Esophagitis presence: esophagitis presence not specified Qualified Code(s): K21.9 - Gastro-esophageal reflux disease without esophagitis (6) DVT prophylaxis: Status: Acute Assessment and plan: enoxaparin 40 mg SC daily (7) Discharge planning issues: Status: Acute Assessment and plan: patient intends to return home to his , who is recovering from COVID-19 pneumonia herself. He has indicated that he would want intubation and mechanical ventilation if necessary. Hopefully it does not come down to that. Subjective Subjective Interval history since last seen: Patient got up to the bedside commode on his own and had pulled off his oxygen mask and developed severe hypoxemia dropping in the low 60s took a long time for his oxygen to recover and he was put back on CPAP 12 cm with an FiO2 of 50%. He is very weak has been taking poor oral intake. He had some transient confusion during the hypoxic event. Patient is now reoriented. He remains on Decadron and baricitinib along with prophylactic doses of enoxaparin. I renewed his Remdesivir yesterday. I talked with nursing and the patient and I have encouraged him to practice proning as much as possible. He has been rotating from side to side based not actually been doing proning procedures on his abdomen. I also would like to use his incentive spirometer whenever he is on high flow nasal cannula. I would encourage him to be up out of bed and up to the chair. I understand that it is a safety concern that if he is up in the chair he may try to get out of the chair when the nurses not room side talk to nursing and asked that they at least get him sitting up at the bedside while they are working with him in the room. Exam Narrative Exam Narrative: Elderly male lying in bed on his right side very hard of hearing however I was able to communicate with him when I got up close to his ear and briefly loosened his CPAP mask so that he could communicate with me. I updated his calendar as well as his white board on his wall so the he had current information as to who his providers are not in the current date. Lungs are clear anteriorly posteriorly some fine bibasilar rales no rhonchi or wheezing Heart is tachycardic but regular Abdomen is soft nondistended nontender Dykes catheter has some blood in the catheter. Apparently he had pulled on the Dykes catheter when he try to get up to the bedside commode. Objective Last Vital Signs Temp 35.7 C L 01/15/21 04:30 Pulse 74 01/15/21 08:08 Resp 29 H 01/15/21 08:08 BP 108/52 L 01/15/21 08:08 Pulse Ox 91 L 01/15/21 08:08 Laboratory Results - last 24 hr 01/14/21 01/14/21 01/15/21 06:05 12:38 06:40 WBC RBC Hgb Hct MCV MCH MCHC RDW Plt Count MPV Immature Gran % Neutrophils % Lymphocytes % Atypical Lymphs % Monocytes % Eosinophils % Basophils % Nucleated RBC % Absolute Neutrophils Absolute Lymphocytes Absolute Monocytes Absolute Eosinophils Absolute Basophils RBC Morphology D-Dimer Sodium Potassium Chloride Carbon Dioxide Anion Gap BUN Creatinine Estimated GFR/1.73 m2 Glucose Calcium Ferritin 881 H Total Bilirubin AST ALT Alkaline Phosphatase C-Reactive Protein 0.51 H Total Protein Albumin Procalcitonin < 0.1 Vancomycin Trough 22.4 H* 01/15/21 01/15/21 01/15/21 06:40 06:40 06:40 WBC 35.54 H* D RBC 4.01 L Hgb 12.7 L Hct 38.0 L MCV 94.8 MCH 31.7 MCHC 33.4 RDW 11.9 Plt Count 244 MPV 10.8 Immature Gran % 0.0 Neutrophils % 88.0 Lymphocytes % 5.0 Atypical Lymphs % 2 Monocytes % 5.0 Eosinophils % 0.0 Basophils % 0.0 Nucleated RBC % 0 Absolute Neutrophils 31.28 H Absolute Lymphocytes 2.49 Absolute Monocytes 1.78 H Absolute Eosinophils 0.00 Absolute Basophils 0.00 RBC Morphology Normal D-Dimer 649 H Sodium 139 Potassium 5.1 Chloride 107 Carbon Dioxide 25.4 Anion Gap 6.6 BUN 58 H Creatinine 1.0 Estimated GFR/1.73 m2 >= 60.00 Glucose 107 H Calcium 7.9 L Ferritin Total Bilirubin 0.8 AST 24 ALT 47 Alkaline Phosphatase 55 C-Reactive Protein Total Protein 5.5 L Albumin 2.4 L Procalcitonin Vancomycin Trough
[2021-01-15] MEDS: Cholecalciferol (Vitamin D3) 1,000 UNIT TAB 2000 UNITS PO (10:02)
[2021-01-15] MEDS: Dexamethasone 4 MG TAB 6 MG PO (10:02)
[2021-01-15] MEDS: Enoxaparin 40 MG/0.4 ML SYR SC (10:03)
[2021-01-15] MEDS: Finasteride 5 MG TAB PO (10:03)
[2021-01-15] MEDS: Aspirin E.C. 81 MG TABEC PO (10:03)
[2021-01-15] MEDS: Ascorbic Acid 500 MG TAB 1000 MG PO ×2 (10:03→20:06)
[2021-01-15] MEDS: Protein Nutritional Supplement 16 GM 1 OUNCE PACKET PO ×3 (10:03→20:06)
[2021-01-15] MEDS: Normal Saline Flush 10 ML SYR IVP (10:04)
[2021-01-15] MEDS: Famotidine 20 MG TAB PO ×2 (10:04→20:06)
[2021-01-15] MEDS: Tiotropium/Olodaterol 10 PUFF INHALER 2 PUFF IH (10:07)
[2021-01-15] MEDS: Ramipril 5 MG CAP 10 MG PO (10:15)
[2021-01-15] MEDS: PARoxetine 10 MG TAB PO (11:49)
[2021-01-15] MEDS: Dronabinol 2.5 MG CAP 5 MG PO ×2 (11:49→15:28)
[2021-01-15 13:24] LABS: Clarity Cloudy (Clear); Glucose Color Interference mg/dL (Negative); Leukocyte Esterase Color Interference (Negative); Nitrite Color Interference (Negative); Specific Gravity 1.028 (1.005-1.025)
[2021-01-15 13:25] LABS: Bilirubin Color Interference (Negative); Blood Color Interference (Negative); Ketones Color Interference mg/dL (Negative); Urobilinogen Color Interference EU/dL (Up TO 0.2)
[2021-01-15 13:26] LABS: Bacteria Few HPF (Negative); C & S Indicated? C&S Done As Ordered; Crystals Negative HPF (Negative); Epithelial Cells Few HPF (Negative); Mucus Trace (Negative); RBC >50 HPF (0-2); WBC >50 HPF (0-5)
--- NOTE | 2021-01-15 13:52 | TELEFU_ITS ---
Date of service: 01/15/21 Time of Service: 13:52 Nutrition Note NOTE: Mr. Sprague continues to have poor PO intake. He is getting liquid protein three times per day as well as [place] Instant Breakfast. His weight has been fairly stable. Generally trending down but not significantly. If PO intake continues to inadequate would consider nutrition support to prevent malnutrition. Will continue to follow his progress and evaluate nutrition care plan ongoing. Time Spent in Nutritional Counseling and Treatment: 0
[2021-01-15] MEDS: Lactated Ringers 250 ML IV (15:27)
--- NOTE | 2021-01-15 16:10 | PUCC_ITS ---
General Date of Service Date of service: 01/15/21 Time of Service: 08:30 Reason for Admission to ICU: COVID Respiratory Failure Assessment and Plan Assessment and plan (1) COPD (chronic obstructive pulmonary disease): Status: Chronic Qualifiers: COPD type: unspecified COPD Qualified Code(s): J44.9 - Chronic obstructive pulmonary disease, unspecified (2) COVID: Status: Acute (3) Leukocytosis: Status: Acute (4) Anemia: Status: Chronic (5) Hypoalbuminemia: Status: Acute (6) Bacteria in urine: Status: Acute (7) Hypotension: Status: Acute (8) Respiratory failure: Status: Acute Assessment and plan: This is a 70 yo unvaccinated man admitted to the ICU with COVID-19. He has been relatively stagnant on his O2 requirements since being admitted despite maximal therapy for COVID. His low blood pressure today is likely a result of decreased PO intake mixed with administration of his home TELLO inhibitor and Flomax. I recommend stopping these for now. He was not volume overloaded on my exam and may in fact be boarderline dry. Although I typically do not recommend administration of fluids in patients with COVID, he may require it given his likely decrease in preload. He also has a significant white count, which may be related to the steroids, however a low threshold for antibiotics should be entertained, particularly with his evolving hypotension. Recommendations Pulmonary: Hypoxic respiratory failure - sat goals 88-92% - CPAP with HFNC breaks - OOB to chair as tolerated - proning as tolerated - recommend IS and Acapella when on HFNC COPD - on Decadron for COVID but does not seem exacerbated currently - agree with continuing home Stiolto - recommend discontinuing any updrafts given positive COVID state, instead recommend Combivent QID Cardiac: Hypotension - likely poor PO intake and Tello inhibitor and Flomax - recommend considering a small LR bolus (250-500) to assess response - recommend stopping TELLO inhibitor and Flomax while acutely ill - can alway try albumin infusion if transiently responsive to fluids - lower total volume required and he is hypoalbuminemic Renal: Decreasing UOP - consider small bolus of LR (250-500) to asses if this improves UOP - I worry about a Cr bump tomorrow, would hold Flomax and TELLO inhibitor as above - Strict I/O's Bacturia - low threshold for antibiotic initiation, given hypotension I&O: Intake & Output 01/12/21 01/13/21 01/14/21 01/15/21 23:59 23:59 23:59 23:59 Intake Total 1395.667 / 5164.510 8268.333 / 5900.818 5389.667 / 1446.667 Output Total 1275 / 1275 1575 / 1575 1200 / 1200 795 / 795 Balance 120.667 / 135.667 -500.667 / -500.667 246.667 / 246.667 -785 / -785 Weight 68.1 kg 69.9 kg 69.8 kg 68.3 kg Daily Fluid Goal:: Even GI Nutrition: Hypoalbuminemia - can consider albumin infusion if crystalloids are transiently helpful with BP as above Date of Last Bowel Movement: 01/15/21 Infectious Disease: COVID -19 - on Decadron, barcitinib and remdesivir - agree with continuing these therapies currently given severity of disease - inflammatory markers decreasing, likely do not need to monitor these daily - can be 2-3 times a week Hematologic: Anemia - will monitor Neurologic: No acute concerns - delirium prevention techniques Endocrine: Monitor daily glucose given steroid use Prophylaxis: Famotidine and Lovenox Code Status: Resuscitation Status Full Code Subjective Critical and life-threatening events over the past 24 hours: This is a 70 yo man with COPD, chronic respiratory failure (2L at home) and HTN who was admitted to the ICU on 01/10/21 for COVID-19 pneumonia. He was discharged from [facility] 2 days prior to his presentation at [facility]. He has been receiving Decadron, remdesivir and barcitinib. He was given ceftriaxone initially, however it was felt that he did not have a bacterial pneumonia and this has since been discontinued. He has been participating when able to proning and has been between CPAP and HFNC. He tells me that he feels like his breathing is getting better, although it seems as though his FiO2 requirements have gone up and down since his admission here. Throughout the day today his BP has been declining as a trend. He has been receiving his lisinopril and Flomax throughout his stay. Exam Const General: in distress mild and respiratory Nutritional Appearance: well nourished [facility] Head: normocephalic Ears: external ears normal and no periauricular adenopathy General nose exam: nasal mucous membranes and turbinates normal Face and sinus: sinuses nontender Mouth: oropharynx normal and moist mucous membranes Teeth and gingiva: dentition normal Eyes General: appearance normal, both eyes and all related structures Pupils: PERRL Neck Neck: normal visual inspection and no lymphadenopathy Chest Chest: normal inspection of the chest Resp Effort & Inspection: normal respiratory effort Auscultation: clear to auscultation bilaterally, no rales, rhonchi lower b ilaterally and no wheezes Cardio Rate: regular rate Rhythm: regular rhythm Heart Sounds: S1 normal, S2 normal and no murmurs Pulses: radial pulses present bilaterally GI Inspection: normal to inspection Palpation: soft Skin General skin exam: no rashes or lesions noted Neuro General: patient alert, patient awake and patient oriented x3 Extrem General: no clubbing, cyanosis or edema Psych Mental Status: mental status grossly normal Affect: normal affect Attitude: cooperative Most Recent VS/Results Last Vital Signs Temp 35.7 C L 01/15/21 15:42 Pulse 72 01/15/21 15:42 Resp 30 H 01/15/21 15:42 BP 85/36 L 01/15/21 15:42 Pulse Ox 94 01/15/21 15:42 Laboratory Results - last 24 hr 01/15/21 01/15/21 01/15/21 06:40 06:40 06:40 WBC RBC Hgb Hct MCV MCH MCHC RDW Plt Count MPV Immature Gran % Neutrophils % Lymphocytes % Atypical Lymphs % Monocytes % Eosinophils % Basophils % Nucleated RBC % Absolute Neutrophils Absolute Lymphocytes Absolute Monocytes Absolute Eosinophils Absolute Basophils RBC Morphology D-Dimer 649 H Sodium 139 Potassium 5.1 Chloride 107 Carbon Dioxide 25.4 Anion Gap 6.6 BUN 58 H Creatinine 1.0 Estimated GFR/1.73 m2 >= 60.00 Glucose 107 H Calcium 7.9 L Ferritin 881 H Total Bilirubin 0.8 AST 24 ALT 47 Alkaline Phosphatase 55 C-Reactive Protein 0.51 H Total Protein 5.5 L Albumin 2.4 L Urine Color Urine Clarity Urine pH Ur Specific [place] Urine Protein Urine Ketones Urine Blood Urine Nitrite Urine Bilirubin Urine Urobilinogen Ur Leukocyte Esterase Urine RBC Urine WBC Ur Epithelial Cells Urine Crystals Urine Bacteria Urine Casts Urine Mucus Ur Culture Indicated? Urine Glucose 01/15/21 01/15/21 06:40 10:15 WBC 35.54 H* D RBC 4.01 L Hgb 12.7 L Hct 38.0 L MCV 94.8 MCH 31.7 MCHC 33.4 RDW 11.9 Plt Count 244 MPV 10.8 Immature Gran % 0.0 Neutrophils % 88.0 Lymphocytes % 5.0 Atypical Lymphs % 2 Monocytes % 5.0 Eosinophils % 0.0 Basophils % 0.0 Nucleated RBC % 0 Absolute Neutrophils 31.28 H Absolute Lymphocytes 2.49 Absolute Monocytes 1.78 H Absolute Eosinophils 0.00 Absolute Basophils 0.00 RBC Morphology Normal D-Dimer Sodium Potassium Chloride Carbon Dioxide Anion Gap BUN Creatinine Estimated GFR/1.73 m2 Glucose Calcium Ferritin Total Bilirubin AST ALT Alkaline Phosphatase C-Reactive Protein Total Protein Albumin Urine Color Brown Urine Clarity Cloudy Urine pH Ur Specific [place] 1.028 H Urine Protein Color Interference Urine Ketones Color Interference Urine Blood Color Interference Urine Nitrite Color Interference Urine Bilirubin Color Interference Urine Urobilinogen Color Interference Ur Leukocyte Esterase Color Interference Urine RBC >50 H Urine WBC >50 H Ur Epithelial Cells Few Urine Crystals Negative Urine Bacteria Few Urine Casts 5-10 RBC Urine Mucus Trace Ur Culture Indicated? C&S Done As Ordered Urine Glucose Color Interference Review of Systems All systems reviewed & are unremarkable except as noted in HPI and below Time spent with patient Time spent in Critical Care: 45 Time spent in Critical care included: Coordination of care, Chart review, Documenting critically ill care, Time at immediate bedside and Discussing critically ill care with other medical staff
[2021-01-15] MEDS: Atorvastatin 40 MG TAB PO (20:06)
[2021-01-15] MEDS: Ipratropium/Albuterol 4 GM 120 PUFF INH IH (20:08)
[2021-01-15] MEDS: Latanoprost 0.005% 2.5 ML BTL OP (20:09)
[2021-01-15] MEDS: LORazepam 2 MG/ML VIAL 0.5 MG IVP (21:18)
[2021-01-15] MEDS: traZODone 50 MG TAB PO (21:20)
[2021-01-15] MEDS: Lidocaine 2% Jelly 6 ML SYR (22:11)
[2021-01-16] VITALS (30 sets, daily range): BP systolic 98–130; BP diastolic 45–70; PULSE 63–108; RESP 20–32; TEMP 31–36.5; O2SAT 73–99
[2021-01-16 07:00] LABS: Abs Immature Grans 0.18 10^3/uL (0.0-0.06); Absolute Lymphocyte Count 0.61 10^3/uL (1.2-3.4); Absolute Monocyte Count 1.16 10^3/uL (0.1-0.8); Absolute Neutrophil Count 21.65 10^3/uL (1.2-6.7); Basophils % 0.1; HCT 36.9 % (40.0-50.0); HGB 12.3 g/dL (13.5-17.5); Immature Grans % 0.8; Lymphocytes % 2.6; MCH 31.3 pg (27.0-33.0); MCHC 33.3 % (32.0-36.0); MCV 93.9 fL (80-95); MPV 10.9 fL (8.0-11.0); Monocytes % 4.9; Neutrophils % 91.6; Nucleated RBC 0 %; Platelet Count 249 10^3/uL (130-400); RBC 3.93 10^6/uL (4.36-5.78); RDW-SD 41.9 fL; WBC 23.64 10^3/uL (4.4-10.8)
[2021-01-16 07:10] LABS: Absolute Basophil Count 0.02 10^3/uL (0.0-0.2)
--- NOTE | 2021-01-16 07:11 | W.PULMCC ---
General Date of Service Date of service: 01/16/21 Time of Service: 07:11 Reason for Admission to ICU: COVID-19 Assessment and Plan Assessment and plan (1) COPD (chronic obstructive pulmonary disease): Status: Chronic Qualifiers: COPD type: unspecified COPD Qualified Code(s): J44.9 - Chronic obstructive pulmonary disease, unspecified (2) COVID: Status: Acute (3) Leukocytosis: Status: Acute (4) Anemia: Status: Chronic (5) Hypoalbuminemia: Status: Acute (6) Bacteria in urine: Status: Acute (7) Hypotension: Status: Acute (8) Respiratory failure: Status: Acute Assessment and plan: This is a 70 yo unvaccinated man admitted to the ICU with COVID-19. He has been relatively stagnant on his O2 requirements since being admitted despite maximal therapy for COVID. blood pressure improved with holding of his ramipril and Flomax as well as with a small LR bolus. His UOP also improved with these interventions. His white count is also decreasing along with his inflammatory markers. Nutrition is a concern for him given his lack of appetite and respiratory failure. We added a phos level today, which was normal. We will continue supportive care and continue to work on his nutrition. Recommendations Pulmonary: Hypoxic respiratory failure - sat goals 88-92% - CPAP with HFNC breaks - try to facilitate PO intake - OOB to chair as tolerated - proning as tolerated - recommend IS and Acapella when on HFNC COPD - on Decadron for COVID but does not seem exacerbated currently - agree with continuing home Stiolto - continue Combivent QID and prn albuterol Cardiac: Transient hypotension, improved - likely poor PO intake and Tello inhibitor and Flomax - recommend stopping TELLO inhibitor and Flomax while acutely ill Renal: UOP improved I&O: Intake & Output 01/13/21 01/14/21 01/15/21 01/16/21 23:59 23:59 23:59 23:59 Intake Total 1074.333 / 3631.806 5695.667 / 1446.667 360 / 360 70 / 70 Output Total 1575 / 1575 1200 / 1200 1045 / 1045 600 / 600 Balance -500.667 / -500.667 246.667 / 246.667 -685 / -685 -530 / -530 Weight 69.9 kg 69.8 kg 68.3 kg 67.4 kg Daily Fluid Goal:: Even GI Nutrition: Decreased appetite - promote PO intake - has been started on an SSRI and and appetite stimulant Hypoalbuminemia - can consider albumin infusion if crystalloids are transiently helpful with BP Date of Last Bowel Movement: 01/15/21 Infectious Disease: Bacturia - low threshold for antibiotic initiation if clinically worsening COVID -19 - on Decadron, barcitinib and remdesivir - agree with continuing these therapies currently given severity of disease - inflammatory markers decreasing, likely do not need to monitor these daily - can be 2 times a week Hematologic: Anemia - will monitor Neurologic: No acute concerns - delirium prevention technique - hard of hearing Endocrine: Monitor daily glucose given steroid use Lines: PIV Prophylaxis: Famotidine and Lovenox Code Status: Resuscitation Status DNR/DNI Subjective Critical and life-threatening events over the past 24 hours: Uriel is quite weak today. His appetite is worsening and overall seems tired. He appeared to be in less distress today upon my evaluation but seems weaker. He is continuing to lose weight while hospitalized. He met with palliative care yesterday and decided to change his code status to DNR/DNI. He is only able to tolerate the HFNC for 30 minutes before tiring out and needing to be placed back on CPAP. Exam Const General: comfortable and no acute distress Nutritional Appearance: thin HENMT Head: normocephalic Ears: external ears normal and no periauricular adenopathy General nose exam: nasal mucous membranes and turbinates normal Face and sinus: sinuses nontender Mouth: oropharynx normal and moist mucous membranes Teeth and gingiva: dentition normal Eyes General: appearance normal, both eyes and all related structures Pupils: PERRL Neck Neck: normal visual inspection and no lymphadenopathy Chest Chest: normal inspection of the chest Resp Effort & Inspection: normal respiratory effort Auscultation: clear to auscultation bilaterally, no rales, no rhonchi and wheezes expiratory wheezes Cardio Rate: regular rate Rhythm: regular rhythm Heart Sounds: S1 normal, S2 normal and no murmurs Pulses: radial pulses present bilaterally GI Inspection: normal to inspection Palpation: soft Skin General skin exam: no rashes or lesions noted Neuro General: patient alert, patient awake and patient oriented x3 Extrem General: no clubbing, cyanosis or edema Psych Mental Status: mental status grossly normal Affect: normal affect Attitude: cooperative Most Recent VS/Results Last Vital Signs Temp 35.8 C L 01/16/21 03:30 Pulse 73 01/16/21 06:00 Resp 23 01/16/21 06:00 BP 113/53 L 01/16/21 06:00 Pulse Ox 93 01/16/21 06:00 Laboratory Results - last 24 hr 01/15/21 01/15/21 01/15/21 06:40 06:40 06:40 WBC RBC Hgb Hct MCV MCH MCHC RDW Plt Count MPV Immature Gran % Neutrophils % Lymphocytes % Atypical Lymphs % Monocytes % Eosinophils % Basophils % Nucleated RBC % Absolute Neutrophils Absolute Lymphocytes Absolute Monocytes Absolute Eosinophils Absolute Basophils RBC Morphology D-Dimer 649 H Sodium 139 Potassium 5.1 Chloride 107 Carbon Dioxide 25.4 Anion Gap 6.6 BUN 58 H Creatinine 1.0 Estimated GFR/1.73 m2 >= 60.00 Glucose 107 H Calcium 7.9 L Ferritin 881 H Total Bilirubin 0.8 AST 24 ALT 47 Alkaline Phosphatase 55 C-Reactive Protein 0.51 H Total Protein 5.5 L Albumin 2.4 L Urine Color Urine Clarity Urine pH Ur Specific [place] Urine Protein Urine Ketones Urine Blood Urine Nitrite Urine Bilirubin Urine Urobilinogen Ur Leukocyte Esterase Urine RBC Urine WBC Ur Epithelial Cells Urine Crystals Urine Bacteria Urine Casts Urine Mucus Ur Culture Indicated? Urine Glucose 01/15/21 01/15/21 06:40 10:15 WBC 35.54 H* D RBC 4.01 L Hgb 12.7 L Hct 38.0 L MCV 94.8 MCH 31.7 MCHC 33.4 RDW 11.9 Plt Count 244 MPV 10.8 Immature Gran % 0.0 Neutrophils % 88.0 Lymphocytes % 5.0 Atypical Lymphs % 2 Monocytes % 5.0 Eosinophils % 0.0 Basophils % 0.0 Nucleated RBC % 0 Absolute Neutrophils 31.28 H Absolute Lymphocytes 2.49 Absolute Monocytes 1.78 H Absolute Eosinophils 0.00 Absolute Basophils 0.00 RBC Morphology Normal D-Dimer Sodium Potassium Chloride Carbon Dioxide Anion Gap BUN Creatinine Estimated GFR/1.73 m2 Glucose Calcium Ferritin Total Bilirubin AST ALT Alkaline Phosphatase C-Reactive Protein Total Protein Albumin Urine Color Brown Urine Clarity Cloudy Urine pH Ur Specific [place] 1.028 H Urine Protein Color Interference Urine Ketones Color Interference Urine Blood Color Interference Urine Nitrite Color Interference Urine Bilirubin Color Interference Urine Urobilinogen Color Interference Ur Leukocyte Esterase Color Interference Urine RBC >50 H Urine WBC >50 H Ur Epithelial Cells Few Urine Crystals Negative Urine Bacteria Few Urine Casts 5-10 RBC Urine Mucus Trace Ur Culture Indicated? C&S Done As Ordered Urine Glucose Color Interference Review of Systems All systems reviewed & are unremarkable except as noted in HPI and below Time spent with patient Time spent in Critical Care: 35 Time spent in Critical care included: Coordination of care, Chart review, Documenting critically ill care, Time at immediate bedside and Discussing critically ill care with other medical staff
[2021-01-16 07:32] LABS: ALT 39 U/L (16-63); AST 20 U/L (15-37); Albumin 2.3 g/dL (3.4-5.0); Alkaline Phosphatase 52 U/L (46-116); Anion Gap 6.6 mmol/L (3-11); BUN 57 mg/dL (7-18); Bilirubin, Total 0.8 mg/dL (0.2-1.0); C-Reactive Protein 1.64 mg/dL (0.0-0.3); CO2 25.4 mmol/L (21.0-32.0); Calcium 7.2 mg/dL (8.5-10.1); Chloride 107 mmol/L (98-107); Glucose 115 mg/dL (74-106); Potassium 5.2 mmol/L (3.5-5.1); Sodium 139 mmol/L (136-145); Total Protein 5.5 g/dL (6.4-8.2)
[2021-01-16 07:42] LABS: Diff Comment Agrees w/ Instrument; RBC Morphology Normal
[2021-01-16 07:48] LABS: D-Dimer 513 ng/mlFEU (<500)
--- NOTE | 2021-01-16 08:11 | PDOC.CMPRO ---
- If Service Date Differs Date of service: 01/16/21 Time of Service: 08:11 Care Management Progress Note S/O: Uriel continues to be closely monitored and treated for Covid 19. He started on an appetite stimulant, protein supplements and antidepressant yesterday. Per provider, Uriel may need to start TPN if his nutritional status does not improve. Uriel met with palliative provider yesterday and updated his code status to DNR/DNI. COLST form on file. A: 70 year old male admitted to [facility] on 01/10/21 for COVID-19 Pneumonia P:Anticipate Uriel will be discharged home with new [facility] SN/PT when medically cleared by provider. Uriel will follow up with his PCP and plan of care as directed. RT will continue to assess for home 02 needs. He will transport home via private vehicle with family when ready. CM will continue to assess discharge needs.
[2021-01-16] MEDS: Enoxaparin 40 MG/0.4 ML SYR SC (08:20)
[2021-01-16] MEDS: Ascorbic Acid 500 MG TAB 1000 MG PO ×2 (08:20→20:45)
[2021-01-16] MEDS: Finasteride 5 MG TAB PO (08:20)
[2021-01-16] MEDS: Dexamethasone 4 MG TAB 6 MG PO (08:20)
[2021-01-16] MEDS: Protein Nutritional Supplement 16 GM 1 OUNCE PACKET PO ×3 (08:20→21:07)
[2021-01-16] MEDS: Cholecalciferol (Vitamin D3) 1,000 UNIT TAB 2000 UNITS PO (08:21)
[2021-01-16] MEDS: PARoxetine 10 MG TAB PO ×2 (08:21→13:50)
[2021-01-16] MEDS: Aspirin E.C. 81 MG TABEC PO (08:21)
[2021-01-16] MEDS: Famotidine 20 MG TAB PO ×2 (08:21→21:07)
[2021-01-16] MEDS: Ipratropium/Albuterol 4 GM 120 PUFF INH IH ×3 (08:45→16:45)
[2021-01-16] MEDS: Tiotropium/Olodaterol 10 PUFF INHALER 2 PUFF IH (08:50)
[2021-01-16 09:20] LABS: PHOSPHORUS 4.4 mg/dL (2.6-4.7)
[2021-01-16] MEDS: Dronabinol 2.5 MG CAP 5 MG PO ×2 (10:38→15:49)
--- NOTE | 2021-01-16 11:00 | PGE_ITS ---
Date of Service Date of service: 01/16/21 Time of Service: 11:00 Assessment and Plan Assessment and plan (1) COVID: Status: Acute Assessment and plan: continue supportive care w/ HFNC when eating/drinking and when he is talking/communicating otherwise continue CPAP. cont. Baricitinib, Decadron, Remdesivir. CC time 30 minutes which included my interview w/ patient and examination of the patient as well as review of his labs and discussion w/ nursing and pulmonology (2) Depression: Status: Acute Assessment and plan: will increase his Paxil and add Remeron at night. continue Marinol for appetite Qualifiers: Depression Type: reactive depression Qualified Code(s): F32.9 - Major depressive disorder, single episode, unspecified (3) COPD (chronic obstructive pulmonary disease): Status: Chronic Assessment and plan: Cont Stiolto and prn albuterol. cont. CPAP and HFNC as above Qualifiers: COPD type: unspecified COPD Qualified Code(s): J44.9 - Chronic obstructive pulmonary disease, unspecified (4) Hypotension: Status: Acute Assessment and plan: transient and improved since given bolus of LR and Flomax and Lisinopril were dc'ed. continue to monitor. patient begun on Marinol and Paxil to stimulate his appetite Qualifiers: Hypotension type: hypotension due to hypovolemia Qualified Code(s): I 95.89 - Other hypotension; E86.1 - Hypovolemia (5) HLD (hyperlipidemia): Status: Acute Assessment and plan: atorvastain 40mg nightly. (6) BPH (benign prostatic hyperplasia): Status: Chronic Assessment and plan: Has dykes catheter in place d/t urinary retention. Flomax d/c'ed d/t hypotension. continue Proscar and dykes (7) GERD (gastroesophageal reflux disease): Status: Chronic Assessment and plan: cont. pepcid Qualifiers: Esophagitis presence: esophagitis presence not specified Qualified Code(s): K21.9 - Gastro-esophageal reflux disease without esophagitis (8) DVT prophylaxis: Status: Acute Assessment and plan: enoxaparin 40 mg SC daily (9) Discharge planning issues: Status: Acute Assessment and plan: patient intends to return home to his , who is recovering from COVID-19 pneumonia herself. He is now DNR/DNI Subjective Subjective Interval history since last seen: Patient states that he feels slightly better but could not elaborate in what way he feels better. He is not really having any significant cough. His inflammatory markers are improving however his oxygen needs have not yet shown any improvment. Last night Dr. Rodriguez, from Palliative Medicine, saw him in consultation and after her conversation w/ him he agreed to DNR/DNI status. He still wants to get better and return to his , however, he does very little to help himself in terms of IS use and pronining. He even resists that nurses in staying upright in a chair. I think that he is depressed and started him on Marinol for his appetite and Paxil for depression. Nutrition services suggested a feeding tube but I think that he would resist this and also w/ his need for CPAP, he would not achieve adequate seal around his face if he has an NG (also he is high risk for aspiration w/ an NG so he would need a Dobhoff tube for duodenal/jejunal placement of a feeding tube). TPN could be considered but would be problematic w/ his fluid management, since COVID-19 patients are better managed on the dry side. At present he is probably a little hypovolemic although he did improve w/ judicios use of LR bolus yesterday. Hypotension has improved w/ the fluid bolus and his flomax and lisinopril have been stopped for now. (he has a dykes cath in place so Flomax is not needed and w/ his prerrenal azotemia and poor oral intake lisinopril is also not needed). Exam Narrative Exam Narrative: Elderly white male lying on his left side, not acutely dyspneic w/ short conversations. he is hard of hearing but I was able to communicate w/ him. His biggest question is how much longer does he need to stay in the hospital. He also asked whether or not he would have done better w/ the vaccine. Lungs: clear anteriorly but w/ fine posterior basilar dry rales Heart: regular but tachycardic (monitor has been sinus tachycardia in the low 100's) Abdomen: soft, nontender, active bowel sounds Legs: no edema or cyanosis, skin warm and dry Objective Last Vital Signs Temp 35.8 C L 01/16/21 03:30 Pulse 71 01/16/21 09:16 Resp 25 H 01/16/21 08:00 BP 125/65 01/16/21 08:00 Pulse Ox 96 01/16/21 08:00 Laboratory Results - last 24 hr 01/15/21 01/16/21 01/16/21 10:15 06:40 06:40 WBC 23.64 H D RBC 3.93 L Hgb 12.3 L Hct 36.9 L MCV 93.9 MCH 31.3 MCHC 33.3 RDW 12.0 Plt Count 249 MPV 10.9 Immature Gran % 0.8 Neutrophils % 91.6 Lymphocytes % 2.6 Monocytes % 4.9 Eosinophils % 0.0 Basophils % 0.1 Nucleated RBC % 0 Absolute Neutrophils 21.65 H Absolute Lymphocytes 0.61 L Absolute Monocytes 1.16 H Absolute Eosinophils 0.00 Absolute Basophils 0.02 RBC Morphology Normal D-Dimer Sodium 139 Potassium 5.2 H Chloride 107 Carbon Dioxide 25.4 Anion Gap 6.6 BUN 57 H Creatinine 1.0 Estimated GFR/1.73 m2 >= 60.00 Glucose 115 H Calcium 7.2 L Phosphorus 4.4 Total Bilirubin 0.8 AST 20 ALT 39 Alkaline Phosphatase 52 C-Reactive Protein 1.64 H Total Protein 5.5 L Albumin 2.3 L Urine Color Brown Urine Clarity Cloudy Urine pH Ur Specific [place] 1.028 H Urine Protein Color Interference Urine Ketones Color Interference Urine Blood Color Interference Urine Nitrite Color Interference Urine Bilirubin Color Interference Urine Urobilinogen Color Interference Ur Leukocyte Esterase Color Interference Urine RBC >50 H Urine WBC >50 H Ur Epithelial Cells Few Urine Crystals Negative Urine Bacteria Few Urine Casts 5-10 RBC Urine Mucus Trace Ur Culture Indicated? C&S Done As Ordered Urine Glucose Color Interference 01/16/21 06:40 WBC RBC Hgb Hct MCV MCH MCHC RDW Plt Count MPV Immature Gran % Neutrophils % Lymphocytes % Monocytes % Eosinophils % Basophils % Nucleated RBC % Absolute Neutrophils Absolute Lymphocytes Absolute Monocytes Absolute Eosinophils Absolute Basophils RBC Morphology D-Dimer 513 H Sodium Potassium Chloride Carbon Dioxide Anion Gap BUN Creatinine Estimated GFR/1.73 m2 Glucose Calcium Phosphorus Total Bilirubin AST ALT Alkaline Phosphatase C-Reactive Protein Total Protein Albumin Urine Color Urine Clarity Urine pH Ur Specific [place] Urine Protein Urine Ketones Urine Blood Urine Nitrite Urine Bilirubin Urine Urobilinogen Ur Leukocyte Esterase Urine RBC Urine WBC Ur Epithelial Cells Urine Crystals Urine Bacteria Urine Casts Urine Mucus Ur Culture Indicated? Urine Glucose
[2021-01-16] MEDS: Atorvastatin 40 MG TAB PO (21:06)
[2021-01-16] MEDS: Mirtazapine 15 MG TAB PO (21:09)
[2021-01-16] MEDS: Latanoprost 0.005% 2.5 ML BTL OP (21:10)
[2021-01-17] VITALS (83 sets, daily range): BP systolic 101–149; BP diastolic 49–92; PULSE 59–121; RESP 17–43; TEMP 31–35.8; O2SAT 68–941
--- NOTE | 2021-01-17 00:56 | NUR.NOTE ---
Nursing Note: Patient called re: dykes catheter irritating at insertion site, he requested lubricating jelly. Pt is unable to state the time of the day. Pt reoriented, pack of lubricating jelly at pt's reach on bedside table.Pt also reminded that he could change his position in bed, but still refusees. Pt stated not to have further needs.
[2021-01-17 07:06] LABS: HCT 37.3 % (40.0-50.0); HGB 12.3 g/dL (13.5-17.5); MCH 30.8 pg (27.0-33.0); MCV 93.5 fL (80-95); Nucleated RBC 0 %; Platelet Count 240 10^3/uL (130-400); RBC 3.99 10^6/uL (4.36-5.78); RDW-SD 42.2 fL
--- NOTE | 2021-01-17 07:07 | W.PULMCC ---
General Date of Service Date of service: 01/17/21 Time of Service: 07:45 Reason for Admission to ICU: COVID-19 Assessment and Plan Assessment and plan (1) COPD (chronic obstructive pulmonary disease): Status: Chronic Qualifiers: COPD type: unspecified COPD Qualified Code(s): J44.9 - Chronic obstructive pulmonary disease, unspecified (2) COVID: Status: Acute (3) Leukocytosis: Status: Acute (4) Anemia: Status: Chronic (5) Hypoalbuminemia: Status: Acute (6) Bacteria in urine: Status: Acute (7) Hypotension: Status: Acute Qualifiers: Hypotension type: hypotension due to hypovolemia Qualified Code(s): I95.89 - Other hypotension; E86.1 - Hypovolemia (8) Respiratory failure: Status: Acute Assessment and plan: This is a 70 yo unvaccinated man admitted to the ICU with COVID-19. He has been relatively stagnant on his O2 requirements since being admitted despite maximal therapy for COVID. Blood pressure improved with holding of his ramipril and Flomax as well as with a small LR bolus. His UOP also improved with these interventions. His inflammatory markers are stable and/or decreasing. We do not need to check these daily at this point, 2 times a week and prn is sufficient. He has made an improvement today with his ability to tolerate HFNC for a sustained amount of time, which is much improved from yesterday. We will continue supportive care for him. Recommendations Pulmonary: Hypoxic respiratory failure - sat goals 88-92% - try to wear HFNC throughout the entire day and CPAP overnight - OOB to chair as tolerated - proning as tolerated - recommend IS and Acapella when on HFNC COPD - on Decadron for COVID but does not seem exacerbated currently - agree with continuing home Stiolto - continue Combivent QID and prn albuterol Cardiac: Transient hypotension, improved - likely poor PO intake and Tello inhibitor and Flomax - recommend stopping TELLO inhibitor and Flomax while acutely ill Renal: Good UOP I&O: Intake & Output 01/14/21 01/15/21 01/16/21 01/17/21 23:59 23:59 23:59 23:59 Intake Total 1446.667 / 1446.667 360 / 360 820 / 820 70 / 70 Output Total 1200 / 1200 1045 / 1045 1250 / 1250 360 / 360 Balance 246.667 / 246.667 -685 / -685 -430 / -430 -290 / -290 Weight 69.8 kg 68.3 kg 67.4 kg 66 kg Daily Fluid Goal:: Even GI Nutrition: Decreased appetite - promote PO intake - hopefully easier today with ability to be on HFNC for longer - has been started on an SSRI and and appetite stimulant Hypoalbuminemia Date of Last Bowel Movement: 01/17/21 Infectious Disease: Bacturia - low threshold for antibiotic initiation if clinically worsening COVID -19 - on Decadron, barcitinib and remdesivir - agree with continuing these therapies currently given severity of disease - inflammatory markers decreasing, likely do not need to monitor these daily - can be 2 times a week Hematologic: Anemia - will monitor Neurologic: No acute concerns - delirium prevention technique - hard of hearing Endocrine: No acute concerns Prophylaxis: Famotidine and Lovenox Code Status: Resuscitation Status DNR/DNI Subjective Critical and life-threatening events over the past 24 hours: Uriel was tired this morning upon my assessment. He continues to have minimal intake. He is resting comfortably on HFNC at 80%/60L. His sats were 94% so I decreased his FiO2 to 70% and his sats held at 91-92%. He still have dyspnea. He does not like getting out of bed to the chair, but nursing has been encouraging him to do this. Exam Const General: comfortable and no acute distress Nutritional Appearance: thin HENMT Head: normocephalic Ears: external ears normal and no periauricular adenopathy General nose exam: nasal mucous membranes and turbinates normal Face and sinus: sinuses nontender Mouth: oropharynx normal and moist mucous membranes Teeth and gingiva: dentition normal Eyes General: appearance normal, both eyes and all related structures Pupils: PERRL Neck Neck: normal visual inspection and no lymphadenopathy Chest Chest: normal inspection of the chest Resp Effort & Inspection: normal respiratory effort Auscultation: clear to auscultation bilaterally, no rales, rhonchi and no wheezes Cardio Rate: regular rate Rhythm: regular rhythm Heart Sounds: S1 normal, S2 normal and no murmurs Pulses: radial pulses present bilaterally GI Inspection: normal to inspection Palpation: soft Skin General skin exam: no rashes or lesions noted Neuro General: patient alert, patient awake and patient oriented x3 Extrem General: no clubbing, cyanosis or edema Psych Mental Status: mental status grossly normal Affect: normal affect Attitude: cooperative Most Recent VS/Results Last Vital Signs Temp 35.6 C L 01/17/21 04:45 Pulse 62 01/17/21 06:00 Resp 24 01/17/21 06:00 BP 113/62 01/17/21 06:00 Pulse Ox 93 01/17/21 06:00 Laboratory Results - last 24 hr 01/16/21 01/16/21 01/16/21 06:40 06:40 06:40 WBC 23.64 H D RBC 3.93 L Hgb 12.3 L Hct 36.9 L MCV 93.9 MCH 31.3 MCHC 33.3 RDW 12.0 Plt Count 249 MPV 10.9 Immature Gran % 0.8 Neutrophils % 91.6 Lymphocytes % 2.6 Monocytes % 4.9 Eosinophils % 0.0 Basophils % 0.1 Nucleated RBC % 0 Absolute Neutrophils 21.65 H Absolute Lymphocytes 0.61 L Absolute Monocytes 1.16 H Absolute Eosinophils 0.00 Absolute Basophils 0.02 RBC Morphology Normal D-Dimer 513 H Sodium 139 Potassium 5.2 H Chloride 107 Carbon Dioxide 25.4 Anion Gap 6.6 BUN 57 H Creatinine 1.0 Estimated GFR/1.73 m2 >= 60.00 Glucose 115 H Calcium 7.2 L Phosphorus 4.4 Total Bilirubin 0.8 AST 20 ALT 39 Alkaline Phosphatase 52 C-Reactive Protein 1.64 H Total Protein 5.5 L Albumin 2.3 L Review of Systems All systems reviewed & are unremarkable except as noted in HPI and below Time spent with patient Time spent in Critical Care: 35 Time spent in Critical care included: Coordination of care, Chart review, Documenting critically ill care, Time at immediate bedside and Discussing critically ill care with other medical staff
[2021-01-17 07:11] LABS: WBC 26.14 10^3/uL (4.4-10.8)
[2021-01-17 07:20] LABS: Absolute Eosinophil Count 0.26 10^3/uL (0.0-0.7); Absolute Lymphocyte Count 0.26 10^3/uL (1.2-3.4); Absolute Monocyte Count 1.31 10^3/uL (0.1-0.8); Absolute Neutrophil Count 24.31 10^3/uL (1.2-6.7); Diff Comment Manual Differential; RBC Morphology Normal
[2021-01-17 07:43] LABS: D-Dimer 596 ng/mlFEU (<500)
[2021-01-17 07:45] LABS: ALT 39 U/L (16-63); AST 13 U/L (15-37); Albumin 2.4 g/dL (3.4-5.0); Alkaline Phosphatase 50 U/L (46-116); Anion Gap 6.1 mmol/L (3-11); BUN 66 mg/dL (7-18); Bilirubin, Total 0.9 mg/dL (0.2-1.0); C-Reactive Protein 0.72 mg/dL (0.0-0.3); CO2 25.9 mmol/L (21.0-32.0); CREATININE 1.2 mg/dL (0.70-1.30); Calcium 7.8 mg/dL (8.5-10.1); Chloride 107 mmol/L (98-107); Estimated GFR 59.68 (mL/min/1.73m2); Glucose 108 mg/dL (74-106); Potassium 4.2 mmol/L (3.5-5.1); Sodium 139 mmol/L (136-145); Total Protein 5.3 g/dL (6.4-8.2)
[2021-01-17] MEDS: Lidocaine 2% Jelly 11 ML SYR UR (07:54)
[2021-01-17] MEDS: Normal Saline Flush 10 ML SYR IVP (07:54)
[2021-01-17] MEDS: Aspirin E.C. 81 MG TABEC PO (07:55)
[2021-01-17] MEDS: Dexamethasone 4 MG TAB 6 MG PO (07:55)
[2021-01-17] MEDS: Finasteride 5 MG TAB PO (07:56)
[2021-01-17] MEDS: Famotidine 20 MG TAB PO ×2 (07:56→20:56)
[2021-01-17] MEDS: PARoxetine 10 MG TAB 20 MG PO (07:56)
[2021-01-17] MEDS: Enoxaparin 40 MG/0.4 ML SYR SC (07:57)
[2021-01-17] MEDS: Ascorbic Acid 500 MG TAB 1000 MG PO ×2 (07:58→20:56)
[2021-01-17] MEDS: Cholecalciferol (Vitamin D3) 1,000 UNIT TAB 2000 UNITS PO (07:58)
--- NOTE | 2021-01-17 08:54 | PDOC.CMPRO ---
- If Service Date Differs Date of service: 01/17/21 Time of Service: 08:54 Care Management Progress Note S/O:Uriel remains in the ICU being treated for Covid-19 pneumonia. He is showing some slow improvement today per Dr. Rice. Uriel is able to tolerate longer periods on HFNC compared to yesterday and the goal for his oxygen saturation is 88-92% using HFNC during the entire day and CPAP at night. Uriel's vital signs are fairly stable and his blood pressures are now within normal limits after a fluid bolus and some medication changes. A: 70 year old male admitted to [facility] on 01/10/21 for COVID-19 Pneumonia P:Anticipate Uriel will be discharged home with new [facility] SN[facility]PT when medically cleared by provider. Uriel will follow up with his PCP and plan of care as directed. RT will continue to assess for home 02 needs. He will transport home via private vehicle with family when ready. CM will continue to assess discharge needs.
[2021-01-17] MEDS: Ipratropium/Albuterol 4 GM 120 PUFF INH IH ×4 (09:33→20:56)
[2021-01-17] MEDS: Tiotropium/Olodaterol 10 PUFF INHALER 2 PUFF IH (09:34)
[2021-01-17] MEDS: Dronabinol 2.5 MG CAP 5 MG PO ×2 (11:57→16:14)
--- NOTE | 2021-01-17 12:14 | W.PM.PROGNOT ---
Date of Service Date of service: 01/17/21 Time of Service: 12:14 Assessment and Plan Assessment and plan (1) COVID: Status: Acute Assessment and plan: Continue supportive care. We will renew his Remdesivir to coincide with his baricitinib. Continue Decadron. Present time no indication for antibiotic treatment as he is having no evidence of fevers or purulent sputum or UTI. Continue high flow nasal cannula as tolerated. If needed he should go back on CPAP however hopefully he is beginning to turn the corner and will continue to improve from here on out. (2) Depression: Status: Acute Assessment and plan: Continue Marinol, increase Remeron to 30 mg nightly, increase Paxil to 30 mg daily. Qualifiers: Depression Type: reactive depression Qualified Code(s): F32.9 - Major depressive disorder, single episode, unspecified (3) Nutrition disorder: Status: Acute Assessment and plan: Poor nutritional status as evidenced by low low albumin and protein. will check his B12, folic acid and thiamine levels. Will add MVS along w/ thiamine and folic acid to his regimen. protein shakes have been ordered and he does drink them. However his overall oral intake is poor d/t his decreased taste from COVID-19 and his depression. TPN would be complicated and cause problems w/ managing his fluid balance, electrolytes and it would not utilize his normal gut mechanisms. TF also are problematic d/t risk for aspiration and inability to get a tight seal on any CPAP mask he may need. For now I will push his antidepressant therapy, continue the marinol and may consider adding megace even though there is increased risk for thromboembolism. I think his risk for thromboembolism is high if he continues to not eat and remains immobile. (4) COPD (chronic obstructive pulmonary disease): Status: Chronic Assessment and plan: Cont Stiolto and prn albuterol. cont. CPAP and HFNC as above Qualifiers: COPD type: unspecified COPD Qualified Code(s): J44.9 - Chronic obstructive pulmonary disease, unspecified (5) Hypotension: Status: Resolved Assessment and plan: Transient hypotension secondary to poor oral intake and continued use of Flomax and ramipril. Ramipril on hold and Flomax has been discontinued. Patient has a Dykes catheter in place and once the catheter is taken out he will need to be back on his Flomax. Blood pressure remains stable and improved after he got a small judicious bolus of LR couple days ago. Patient is encouraged to eat and drink and have started him on Marinol to stimulate his appetite and Paxil for his depression as well as Remeron. Qualifiers: Hypotension type: hypotension due to hypovolemia Qualified Code(s): I95.89 - Other hypotension; E86.1 - Hypovolemia (6) HLD (hyperlipidemia): Status: Acute Assessment and plan: atorvastain 40mg nightly. (7) BPH (benign prostatic hyperplasia): Status: Chronic Assessment and plan: Has dykes catheter in place d/t urinary retention. Flomax d/c'ed d/t hypotension. continue Proscar and dykes (8) GERD (gastroesophageal reflux disease): Status: Chronic Assessment and plan: cont. pepcid Qualifiers: Esophagitis presence: esophagitis presence not specified Qualified Code(s): K21.9 - Gastro-esophageal reflux disease without esophagitis (9) DVT prophylaxis: Status: Acute Assessment and plan: enoxaparin 40 mg SC daily, however if he goes on megace, I will be putting him on full dose enoxaparin 1 mg/kg while he is on megace in order to minimize his risks for thromboembolism (10) Discharge planning issues: Status: Acute Assessment and plan: patient intends to return home to his , who is recovering from COVID-19 pneumonia herself. He is now DNR/DNI Subjective Subjective Interval history since last seen: Patient is made some small gains in his oxygenation status. He is now tolerating longer periods of high flow nasal cannula and not have to go back on CPAP immediately. He still does not tolerate sitting up in his chair for very long. He is not doing any proning procedures but he does rotate from side to side. He is now on high flow nasal cannula at 60 L/min and an FiO2 of 60%. He remains afebrile has no cough no sputum production. He denies any chest pain or nausea or vomiting. Appetite is still poor. Blood pressure is better since his ramipril was put on hold his Flomax was stopped. Still has a Dykes catheter in place. Inflammatory markers overall are improved with some daily variability. C-reactive protein is down to 0.72 had increased slightly yesterday 1.64. D-dimer is mildly elevated at 596. White count is elevated 26,000. H&H is stable. BUN is elevated 66 but creatinine is normal at 1.2. He is not currently receiving any diuretics. Electrolytes are normal. This time I will get him back off the frequency of his labs to twice a week as recommended by pulmonary. I will recheck on Friday and then again on the following Friday. No remain on Remdesivir and baricitinib and Decadron. Remdesivir was renewed on Friday after he complete a 5-day course. Today will be the fourth day of the renewed course of Remdesivir which we will add up to a total of 9 days of Remdesivir. He is on a 14-day course of baricitinib which was started on January 10, 2021. So is currently a little over [facility] through his treatment on baricitinib. I will renew his Remdesivir to coincide with his baricitinib since he does seem to be making some gains in his oxygen requirements. Exam Narrative Exam Narrative: Elderly white male lying on his left side he is awake alert oriented. Denies any complaints. Heart is regular slightly tachycardic no murmur rub Lungs are clear to auscultation Abdomen soft nondistended nontender Extremities without edema Objective Last Vital Signs Temp 35.6 C L 01/17/21 08:00 Pulse 99 H 01/17/21 10:05 Resp 26 H 01/17/21 10:20 BP 110/92 H 01/17/21 10:05 Pulse Ox 94 01/17/21 10:20 Laboratory Results - last 24 hr 01/17/21 01/17/21 01/17/21 06:00 06:00 06:00 WBC 26.14 H* RBC 3.99 L Hgb 12.3 L Hct 37.3 L MCV 93.5 MCH 30.8 MCHC 33.0 RDW 12.0 Plt Count 240 MPV 11.0 Immature Gran % 0.0 Neutrophils % 93.0 Lymphocytes % 1.0 Monocytes % 5.0 Eosinophils % 1.0 Basophils % 0.0 Nucleated RBC % 0 Absolute Neutrophils 24.31 H Absolute Lymphocytes 0.26 L Absolute Monocytes 1.31 H Absolute Eosinophils 0.26 Absolute Basophils 0.00 RBC Morphology Normal D-Dimer 596 H Sodium 139 Potassium 4.2 Chloride 107 Carbon Dioxide 25.9 Anion Gap 6.1 BUN 66 H Creatinine 1.2 Estimated GFR/1.73 m2 59.68 Glucose 108 H Calcium 7.8 L Total Bilirubin 0.9 AST 13 L ALT 39 Alkaline Phosphatase 50 C-Reactive Protein 0.72 H Total Protein 5.3 L Albumin 2.4 L
[2021-01-17 14:00] LABS: Folate 17.5 ng/mL (8.6-20.0); Vitamin B12 1481 pg/mL (193-986)
[2021-01-17] MEDS: Protein Nutritional Supplement 16 GM 1 OUNCE PACKET PO ×2 (14:09→20:56)
[2021-01-17] MEDS: Atorvastatin 40 MG TAB PO (20:56)
[2021-01-17] MEDS: Melatonin 3 MG TAB 9 MG PO (21:04)
[2021-01-17] MEDS: Latanoprost 0.005% 2.5 ML BTL OP (21:04)
[2021-01-17] MEDS: Mirtazapine 15 MG TAB 30 MG PO (21:04)
[2021-01-18] VITALS (37 sets, daily range): BP systolic 102–127; BP diastolic 43–69; PULSE 64–111; RESP 16–44; TEMP 31–36.8; O2SAT 74–95
[2021-01-18] MEDS: Protein Nutritional Supplement 16 GM 1 OUNCE PACKET PO ×3 (07:57→20:59)
[2021-01-18] MEDS: Enoxaparin 40 MG/0.4 ML SYR SC (07:57)
[2021-01-18] MEDS: Multivitamin w/Minerals TAB 1 TAB PO (07:58)
[2021-01-18] MEDS: Ascorbic Acid 500 MG TAB 1000 MG PO ×2 (07:58→21:00)
[2021-01-18] MEDS: Folic Acid 1 MG TAB PO (07:58)
[2021-01-18] MEDS: Thiamine 100 MG TAB PO (07:59)
[2021-01-18] MEDS: Finasteride 5 MG TAB PO (07:59)
[2021-01-18] MEDS: Cholecalciferol (Vitamin D3) 1,000 UNIT TAB 2000 UNITS PO (07:59)
[2021-01-18] MEDS: Dexamethasone 4 MG TAB 6 MG PO (07:59)
[2021-01-18] MEDS: PARoxetine 10 MG TAB 30 MG PO (07:59)
[2021-01-18] MEDS: Aspirin E.C. 81 MG TABEC PO (07:59)
[2021-01-18] MEDS: Famotidine 20 MG TAB PO ×2 (08:00→21:00)
[2021-01-18] MEDS: Ipratropium/Albuterol 4 GM 120 PUFF INH IH ×4 (08:00→21:01)
[2021-01-18] MEDS: Tiotropium/Olodaterol 10 PUFF INHALER 2 PUFF IH (08:01)
--- NOTE | 2021-01-18 08:48 | PDOC.CMPRO ---
- If Service Date Differs Date of service: 01/18/21 Time of Service: 08:48 Care Management Progress Note S/O:Uriel remains in the ICU being treated for Covid-19 pneumonia. He continues to show slow improvement. He was able to tolerate HFNC during the day yesterday and only required CPAP at night. His appetite seems to be improving and he was able to eat a decent breakfast this morning. Per provider, Uriel still desaturates with any activity but manages to slowly recover within a few minutes. CM will continue to follow. A: 70 year old male admitted to [facility] on 01/10/21 for COVID-19 Pneumonia P:Anticipate Uriel will be discharged home with new [facility] SN[facility]PT when medically cleared by provider. Uriel will follow up with his PCP and plan of care as directed. RT will continue to assess for home 02 needs. He will transport home via private vehicle with family when ready. CM will continue to assess discharge needs.
--- NOTE | 2021-01-18 10:43 | PGE_ITS ---
Date of Service Date of service: 01/18/21 Time of Service: 10:44 Assessment and Plan Assessment and plan (1) COVID: Status: Acute Assessment and plan: Continue supportive care with CPAP at night and high flow nasal cannula during the day. Continue Decadron, baricitinib, Remdesivir (patient has had 9 days of Remdesivir I will continue this while he is receiving the baricitinib). Patient is just beginning to show some improvement in these tolerating longer periods of the high flow nasal cannula and now he is starting to get an appetite is starting to eat. Think we should continue full-court press with the anti-inflammatories. He remains on DVT prophylactic levels of Lovenox. In light of his intermittent symptoms of chest pain I will check an EKG and troponin and do a D-dimer today. His D-dimers have been normal for the longest period time but his last 3 readings have been trending upward to slightly above the normal range in the 5 500-600 range. If his D-dimer is significantly elevated that I need to consider whether or not he had a PE. Initial CT of his chest on admission did not show a PE 30 minutes critical care time spent talking and examining the patient discussing with his nurse. (2) Depression: Status: Acute Assessment and plan: Now on Paxil 30 mg daily and Remeron 30 mg at night along with Marinol twice a day. Qualifiers: Depression Type: reactive depression Qualified Code(s): F32.9 - Major depressive disorder, single episode, unspecified (3) Nutrition disorder: Status: Acute Assessment and plan: Continue antidepressants along with Marinol for his appetite. Hold off giving him any megestrol acetate. Appetite is finally starting to improve to the point where he wants to eat a little bit. Continue his protein shakes. (4) COPD (chronic obstructive pulmonary disease): Status: Chronic Assessment and plan: Cont Stiolto and prn albuterol. cont. CPAP and HFNC as above Qualifiers: COPD type: unspecified COPD Qualified Code(s): J44.9 - Chronic obstructive pulmonary disease, unspecified (5) HLD (hyperlipidemia): Status: Acute Assessment and plan: atorvastain 40mg nightly. (6) BPH (benign prostatic hyperplasia): Status: Chronic Assessment and plan: Has dykes catheter in place d/t urinary retention. Flomax d/c'ed d/t hypotension. continue Proscar and dykes (7) GERD (gastroesophageal reflux disease): Status: Chronic Assessment and plan: cont. pepcid Qualifiers: Esophagitis presence: esophagitis presence not specified Qualified Code(s): K21.9 - Gastro-esophageal reflux disease without esophagitis (8) DVT prophylaxis: Status: Acute Assessment and plan: enoxaparin 40 mg SC daily, however if he goes on megace, I will be putting him on full dose enoxaparin 1 mg/kg while he is on megace in order to minimize his risks for thromboembolism (9) Discharge planning issues: Status: Acute Assessment and plan: patient intends to return home to his , who is recovering from COVID-19 pneumonia herself. He is now DNR/DNI Subjective Subjective Interval history since last seen: His nurse reports that he is beginning to eat some. He ate [place] toast and some orange juice this morning. Mikel still desaturates quite easily with any kind of movement just rolling around in bed from side to side he will desaturate into the high 70s and low 80s. At rest his oxygen saturation is above 90% on high flow nasal cannula at 60 L/min and an FiO2 of 50%. He has no cough no sputum production. Asthma chest pain he says just slight. But not present now. Exam Narrative Exam Narrative: Middle-aged white male lying on his left side very hard of hearing. Lungs are clear to auscultation no wheezes or rhonchi Heart is regular but tachycardic Abdomen soft nontender nondistended Extremities without edema Objective Last Vital Signs Temp 36.0 C L 01/18/21 08:33 Pulse 74 01/18/21 08:33 Resp 19 01/18/21 08:15 BP 125/69 01/18/21 08:33 Pulse Ox 89 L 01/18/21 08:33 Laboratory Results - last 24 hr 01/17/21 01/17/21 01/17/21 06:00 06:00 06:00 WBC 26.14 H* RBC 3.99 L Hgb 12.3 L Hct 37.3 L MCV 93.5 MCH 30.8 MCHC 33.0 RDW 12.0 Plt Count 240 MPV 11.0 Immature Gran % 0.0 Neutrophils % 93.0 Lymphocytes % 1.0 Monocytes % 5.0 Eosinophils % 1.0 Basophils % 0.0 Nucleated RBC % 0 Absolute Neutrophils 24.31 H Absolute Lymphocytes 0.26 L Absolute Monocytes 1.31 H Absolute Eosinophils 0.26 Absolute Basophils 0.00 RBC Morphology Normal D-Dimer 596 H Sodium 139 Potassium 4.2 Chloride 107 Carbon Dioxide 25.9 Anion Gap 6.1 BUN 66 H Creatinine 1.2 Estimated GFR/1.73 m2 59.68 Glucose 108 H Calcium 7.8 L Total Bilirubin 0.9 AST 13 L ALT 39 Alkaline Phosphatase 50 C-Reactive Protein 0.72 H Total Protein 5.3 L Albumin 2.4 L Vitamin B12 1481 H Folate 17.5
--- NOTE | 2021-01-18 11:00 | RT.EKG_ITS ---
APPROVED REPORT Exam: Resting ECG Reason for Exam: chest pain Patient Location: I HR:80 bpm ECG Measurements Heart Rate 80 AXIS WV 134 P 60 QRSd 146 QRS 27 QT 426 T 225 QTc 491 Conclusion Sinus rhythm...normal P axis, V-rate 60- 99 Left bundle branch block...QRSd>120, broad/notched R
[2021-01-18] MEDS: Dronabinol 2.5 MG CAP 5 MG PO ×2 (11:05→17:10)
[2021-01-18 12:16] LABS: Troponin I < 0.05 ng/mL (<0.06)
[2021-01-18 12:36] LABS: D-Dimer 753 ng/mlFEU (<500)
[2021-01-18] MEDS: Atorvastatin 40 MG TAB PO (21:00)
[2021-01-18] MEDS: Mirtazapine 15 MG TAB 30 MG PO (21:00)
[2021-01-18] MEDS: Latanoprost 0.005% 2.5 ML BTL OP (21:01)
[2021-01-19] VITALS (49 sets, daily range): BP systolic 91–138; BP diastolic 46–75; PULSE 64–111; RESP 18–36; TEMP 31–36.8; O2SAT 26–96
--- NOTE | 2021-01-19 06:28 | W.PALPGNOTE ---
Date of service: 01/18/21 Time of Service: 17:28 Assessment and Plan Assessment and plan (1) Acute respiratory failure with hypoxia: Status: Acute (2) Depression: Status: Acute Qualifiers: Depression Type: reactive depression Qualified Code(s): F32.9 - Major depressive disorder, single episode, unspecified (3) Palliative care patient: Status: Acute Assessment and plan: Overall Uriel is improving. He is happy that there is some light at the end of the tunnel. He is anxious to go home but realizes it is going to be a long road. He is content with his present care and wants to continue receiving the support that he is presently receiving Subjective Subjective Patient reports: feels better and afebrile Interval history since last seen: I am meeting with Uriel in the ICU. Last time I met he has made very little headway in improving his breathing. It seems like he has turned the corner and is now doing better and requiring less absolute time on his CPAP machine and is able to use the high flow oxygen Uriel states that he feels much better. He is encouraged. He also feels strongly that the care that he is gotten has been outstanding Exam Narrative Exam Narrative: Uriel is lying in bed on his right side. What was amazing was how much stronger he was. He could get up on his elbow and adjust himself. Last time I was here he was so weak that he was unable to do any self turning etc. He seems more relaxed. Breathing?aerating his lung smalls more so on the left than on the right. His heart rate is regular. He is satting in the 90s. Objective Last Vital Signs Temp 96.3 F L 01/19/21 00:00 Pulse 68 01/19/21 00:01 Resp 24 01/19/21 01:28 BP 137/67 01/19/21 00:01 Pulse Ox 93 01/19/21 01:28 Laboratory Results - last 24 hr 01/18/21 01/18/21 11:40 11:40 D-Dimer 753 H Troponin I < 0.05
[2021-01-19 06:32] LABS: Abs Immature Grans 0.18 10^3/uL (0.0-0.06); HCT 39.7 % (40.0-50.0); HGB 12.9 g/dL (13.5-17.5); MCH 31.1 pg (27.0-33.0); MCHC 32.5 % (32.0-36.0); MCV 95.7 fL (80-95); Nucleated RBC 0 %; Platelet Count 218 10^3/uL (130-400); RBC 4.15 10^6/uL (4.36-5.78); RDW 12.2 % (11.8-14.1); RDW-SD 43.3 fL
[2021-01-19 07:11] LABS: Absolute Lymphocyte Count 1.21 10^3/uL (1.2-3.4); Absolute Monocyte Count 0.96 10^3/uL (0.1-0.8); Absolute Neutrophil Count 21.93 10^3/uL (1.2-6.7); Atypical Lymphocytes % 3; Bands % 0; Diff Comment Manual Differential; RBC Morphology Normal
[2021-01-19 07:27] LABS: Procalcitonin < 0.1 ng/mL
[2021-01-19] MEDS: Ascorbic Acid 500 MG TAB 1000 MG PO ×2 (07:44→20:35)
[2021-01-19] MEDS: Aspirin E.C. 81 MG TABEC PO (07:44)
[2021-01-19] MEDS: Cholecalciferol (Vitamin D3) 1,000 UNIT TAB 2000 UNITS PO (07:45)
[2021-01-19] MEDS: Dexamethasone 4 MG TAB 6 MG PO (07:45)
[2021-01-19] MEDS: Finasteride 5 MG TAB PO (07:46)
[2021-01-19] MEDS: Famotidine 20 MG TAB PO ×2 (07:46→20:34)
[2021-01-19] MEDS: Enoxaparin 40 MG/0.4 ML SYR SC (07:46)
[2021-01-19] MEDS: Multivitamin w/Minerals TAB 1 TAB PO (07:47)
[2021-01-19] MEDS: Folic Acid 1 MG TAB PO (07:47)
[2021-01-19] MEDS: PARoxetine 10 MG TAB 30 MG PO (07:47)
[2021-01-19] MEDS: Ipratropium/Albuterol 4 GM 120 PUFF INH IH ×4 (07:47→20:35)
[2021-01-19] MEDS: Protein Nutritional Supplement 16 GM 1 OUNCE PACKET PO ×3 (07:48→20:34)
[2021-01-19] MEDS: Thiamine 100 MG TAB PO (07:48)
[2021-01-19] MEDS: Tiotropium/Olodaterol 10 PUFF INHALER 2 PUFF IH (07:48)
[2021-01-19 08:03] LABS: ALT 40 U/L (16-63); AST 12 U/L (15-37); Albumin 2.6 g/dL (3.4-5.0); Alkaline Phosphatase 63 U/L (46-116); Anion Gap 8.2 mmol/L (3-11); BUN 62 mg/dL (7-18); Bilirubin, Total 0.8 mg/dL (0.2-1.0); CO2 26.8 mmol/L (21.0-32.0); CREATININE 1.3 mg/dL (0.70-1.30); Calcium 7.9 mg/dL (8.5-10.1); Chloride 107 mmol/L (98-107); Estimated GFR 54.42 (mL/min/1.73m2); Glucose 125 mg/dL (74-106); Potassium 4.4 mmol/L (3.5-5.1); Sodium 142 mmol/L (136-145); Total Protein 5.4 g/dL (6.4-8.2)
[2021-01-19 08:04] LABS: Ferritin 1337 ng/mL (26-388)
[2021-01-19 08:11] LABS: C-Reactive Protein 0.35 mg/dL (0.0-0.3)
--- NOTE | 2021-01-19 08:17 | PDOC.CMPRO ---
- If Service Date Differs Date of service: 01/19/21 Time of Service: 08:17 Care Management Progress Note S/O:Uriel remains in the ICU being treated for Covid-19 pneumonia. CM unable to meet with him in person due to Covid isolation. Per provider, Uriel continues to have high oxygen needs and remains on HFNC during the day and CPAP at night. He is also still receiving Remdesevir, Decadron and Baricitinib until 01/23/21. Subjectively, Uriel stated that he feels much better and his appetite has improved on Marinol. CM continues to follow. A: 70 year old male admitted to [facility] on 01/10/21 for COVID-19 Pneumonia P:Anticipate Uriel will be discharged home with new [facility] SN/PT when medically cleared by provider. Uriel will follow up with his PCP and plan of care as directed. RT will continue to assess for home 02 needs. He will transport home via private vehicle with family when ready. CM will continue to assess discharge needs.
--- NOTE | 2021-01-19 08:44 | NUR.NOTE ---
RN draws off midline but it may not be sufficient for testing. quality control lab tech instructed to draw peripherally if second attempt at midline draw is ineffective.Nursing Note:
[2021-01-19 10:01] LABS: D-Dimer 449 ng/mlFEU (<500)
[2021-01-19] MEDS: Dronabinol 2.5 MG CAP 5 MG PO ×2 (10:21→16:08)
--- NOTE | 2021-01-19 11:57 | PGE_ITS ---
Date of Service Date of service: 01/19/21 Time of Service: 11:57 Assessment and Plan Assessment and plan (1) COVID: Status: Acute Assessment and plan: Some of his inflammatory markers are improving while others are slightly elevated. Ferritin is slightly higher at 1337 while his C- reactive protein is down to 0.35 transaminases are now normal. CBC still demonstrates a leukocytosis of 24,000 however this is also declining from a peak of 35,000. He no longer has a lymphocytopenia. D-dimer is now normalized at 449. Procalcitonin remains normal at less than 0.1. At this point I think his labs can be checked 2-3 times a week rather than daily. I will order repeat levels for Friday morning. Continue supportive care with high flow nasal cannula during the day and CPAP at night and/or as needed during the day for hypoxemia resistant to high flow nasal cannula. Continue baricitinib through January 23, 2021. Continue Remdesivir over the same course through January 23, 2021. Continue Decadron. Continue to encourage use of incentive spirometer and Acapella as well as mobilization. (2) Depression: Status: Acute Assessment and plan: Now on Paxil 30 mg daily and Remeron 30 mg at night along with Marinol twice a day. Qualifiers: Depression Type: reactive depression Qualified Code(s): F32.9 - Major depressive disorder, single episode, unspecified (3) Nutrition disorder: Status: Acute Assessment and plan: Continue antidepressants along with Marinol for his appetite. Hold off giving him any megestrol acetate due to risk for DVT. Appetite is finally starting to improve to the point where he wants to eat a little bit. Continue his protein shakes. (4) COPD (chronic obstructive pulmonary disease): Status: Chronic Assessment and plan: Cont Stiolto and prn albuterol. cont. CPAP and HFNC as above Qualifiers: COPD type: unspecified COPD Qualified Code(s): J44.9 - Chronic obstructive pulmonary disease, unspecified (5) HLD (hyperlipidemia): Status: Acute Assessment and plan: atorvastain 40mg nightly. (6) BPH (benign prostatic hyperplasia): Status: Chronic Assessment and plan: Has dykes catheter in place d/t urinary retention. Flomax d/c'ed d/t hypotension. continue Proscar and dykes (7) GERD (gastroesophageal reflux disease): Status: Chronic Assessment and plan: cont. pepcid Qualifiers: Esophagitis presence: esophagitis presence not specified Qualified Cod e(s): K21.9 - Gastro-esophageal reflux disease without esophagitis (8) DVT prophylaxis: Status: Acute Assessment and plan: enoxaparin 40 mg SC daily, however if he goes on megace, I will be putting him on full dose enoxaparin 1 mg/kg while he is on megace in order to minimize his risks for thromboembolism (9) Discharge planning issues: Status: Acute Assessment and plan: patient intends to return home to his , who is recovering from COVID-19 pneumonia herself. He is now DNR/DNI Subjective Subjective Interval history since last seen: Patient is more animated this morning. He is showing some improvement in that his appetite is improved. Still has a high oxygen need although he seems to be more stable and lasting longer on the high flow nasal cannula. He was on CPAP overnight. Currently on high flow nasal cannula at 60 L/min and an FiO2 of 50%. Denies any cough or sputum production. No nausea or vomiting and no abdominal pain. Minimal chest discomfort with movement seems to be more chest wall. Exam Narrative Exam Narrative: Middle-aged white male lying on his left side very hard of hearing. Lungs are clear to auscultation no wheezes or rhonchi Heart is regular but tachycardic Abdomen soft nontender nondistended Extremities without edema Objective Last Vital Signs Temp 36.3 C L 01/19/21 11:17 Pulse 95 H 01/19/21 11:17 Resp 27 H 01/19/21 11:21 BP 115/56 L 01/19/21 11:17 Pulse Ox 91 L 01/19/21 11:21 Laboratory Results - last 24 hr 01/18/21 01/18/21 01/19/21 11:40 11:40 05:50 WBC RBC Hgb Hct MCV MCH MCHC RDW Plt Count MPV Immature Gran % Neutrophils % Band Neutrophils % Lymphocytes % Atypical Lymphs % Monocytes % Eosinophils % Basophils % Nucleated RBC % Absolute Neutrophils Absolute Lymphocytes Absolute Monocytes Absolute Eosinophils Absolute Basophils RBC Morphology D-Dimer 753 H Sodium 142 Potassium 4.4 Chloride 107 Carbon Dioxide 26.8 Anion Gap 8.2 BUN 62 H Creatinine 1.3 Estimated GFR/1.73 m2 54.42 Glucose 125 H Calcium 7.9 L Ferritin 1337 H Total Bilirubin 0.8 AST 12 L ALT 40 Alkaline Phosphatase 63 Troponin I < 0.05 C-Reactive Protein 0.35 H Total Protein 5.4 L Albumin 2.6 L Procalcitonin 01/19/21 01/19/21 01/19/21 05:50 05:50 08:25 WBC 24.10 H RBC 4.15 L Hgb 12.9 L Hct 39.7 L MCV 95.7 H MCH 31.1 MCHC 32.5 RDW 12.2 Plt Count 218 MPV 11.0 Immature Gran % 0.0 Neutrophils % 91.0 Band Neutrophils % 0 Lymphocytes % 2.0 Atypical Lymphs % 3 Monocytes % 4.0 Eosinophils % 0.0 Basophils % 0.0 Nucleated RBC % 0 Absolute Neutrophils 21.93 H Absolute Lymphocytes 1.21 Absolute Monocytes 0.96 H Absolute Eosinophils 0.00 Absolute Basophils 0.00 RBC Morphology Normal D-Dimer Cancelled Sodium Potassium Chloride Carbon Dioxide Anion Gap BUN Creatinine Estimated GFR/1.73 m2 Glucose Calcium Ferritin Total Bilirubin AST ALT Alkaline Phosphatase Troponin I C-Reactive Protein Total Protein Albumin Procalcitonin < 0.1 01/19/21 09:05 WBC RBC Hgb Hct MCV MCH MCHC RDW Plt Count MPV Immature Gran % Neutrophils % Band Neutrophils % Lymphocytes % Atypical Lymphs % Monocytes % Eosinophils % Basophils % Nucleated RBC % Absolute Neutrophils Absolute Lymphocytes Absolute Monocytes Absolute Eosinophils Absolute Basophils RBC Morphology D-Dimer 449 Sodium Potassium Chloride Carbon Dioxide Anion Gap BUN Creatinine Estimated GFR/1.73 m2 Glucose Calcium Ferritin Total Bilirubin AST ALT Alkaline Phosphatase Troponin I C-Reactive Protein Total Protein Albumin Procalcitonin
[2021-01-19] MEDS: Normal Saline Flush 10 ML SYR IVP (13:53)
--- NOTE | 2021-01-19 17:01 | CMPROGNOTE_ITS ---
- If Service Date Differs Date of service: 01/19/21 Time of Service: 17:01 Care Management Progress Note S/O: Uriel is slowly improving but continues to require ICU level of care. Per provider, he is tolerating high flow nasal cannula for longer periods of time during the day and only requires CPAP at night. His appetite has improved to the point where he now wants to eat. While he appears more stable, his oxygen requirements remain high. CM will continue to follow. A: Uriel is a 70 year old male admitted to [facility] on 01/10/21 for COVID-19 Pneumonia P: Anticipate Uriel will be discharged home with new [facility] SN/PT when medically cleared by provider. Uriel will follow up with his PCP and plan of care as directed. RT will continue to assess for home 02 needs. He will transport home via private vehicle with family when ready. CM will continue to assess discharge needs.
--- NOTE | 2021-01-19 17:37 | NUR.NOTE ---
RN facilitates telephonic conversation between patient and patient's .Nursing Note:
[2021-01-19] MEDS: Mirtazapine 15 MG TAB 30 MG PO (20:33)
[2021-01-19] MEDS: Atorvastatin 40 MG TAB PO (20:34)
[2021-01-19] MEDS: Latanoprost 0.005% 2.5 ML BTL OP (20:34)
[2021-01-20] VITALS (49 sets, daily range): BP systolic 99–131; BP diastolic 43–74; PULSE 63–117; RESP 15–33; TEMP 31–37.1; O2SAT 84–98
--- NOTE | 2021-01-20 08:09 | PGE_ITS ---
Date of Service Date of service: 01/20/21 Time of Service: 11:43 Assessment and Plan Assessment and plan (1) Acute respiratory failure with hypoxia: Status: Acute Assessment and plan: Due to pneumonia caused by COVID-19. Slightly better. Inflammatory markers overall moving in the right direction - will recheck in am. Encourage proning, IS/acapella. Wean O2 as tolerated. (2) COVID: Status: Acute Assessment and plan: As above Continue remdesivir, dexamethasone, baricitinib. (3) COPD (chronic obstructive pulmonary disease): Status: Chronic Assessment and plan: In acute exacerbation due to above. Continue steroids, Stiolto and prn albuterol. Qualifiers: COPD type: unspecified COPD Qualified Code(s): J44.9 - Chronic obstructive pulmonary disease, unspecified (4) Depression: Status: Acute Assessment and plan: Eating and sleeping better. Continue Paxil 30 mg daily and Remeron 30 mg QHS Qualifiers: Depression Type: reactive depression Qualified Code(s): F32.9 - Major depressive disorder, single episode, unspecified (5) Nutrition disorder: Status: Acute Assessment and plan: As above Also, continue marinol. (6) HLD (hyperlipidemia): Status: Acute Assessment and plan: Continue atorvastain 40 mg qhs (7) BPH (benign prostatic hyperplasia): Status: Chronic Assessment and plan: s/p dykes due to evidence of urinary retention (1000 cc on the night of admission in the ICU). Continue Proscar and dykes. BP did not tolerate flomax. (8) GERD (gastroesophageal reflux disease): Status: Chronic Assessment and plan: Continue famotidine Qualifiers: Esophagitis presence: esophagitis presence not specified Qualified Code(s): K21.9 - Gastro-esophageal reflux disease without esophagitis (9) DVT prophylaxis: Status: Acute Assessment and plan: enoxaparin 40 mg SC daily (10) Discharge planning issues: Status: Acute Assessment and plan: Continues to require ICU. DNR/DNI Total Critical Care Time 40 minutes. Subjective Subjective Interval history since last seen: Mr Sprague states he is feeling better. He reports intermittent twinges of R-sided chest pain, but none right now. Does not feel short of breath right now (on high flow NC), denies dizziness, nausea, diarrhea. States his mouth feels dry. On CPAP FiO2 50%, 10 of pressure overnight only. During the Day: on HHHFNC: 50% FiO2, 60 L. O2 sats 92-93% unless he moves, otherwise desats to 70s. Takes some time to recover. He prones on his flanks. Appetite better. Slept on CPAP last night. 22:30 - 6 am. Has a dykes - 650 cc last night. Has a patent midline. Sinus arrhythmia. Exam Narrative Exam Narrative: General: Pleasant elderly male, A&Ox3, [place] HEENT: EOMI, MMM Heart: RRR, no m/r/g Lungs: CTAB Abdomen: soft, nontender, nondistended Extremities: no edema BLE's Objective Last Vital Signs Temp 36.5 C 01/20/21 05:16 Pulse 70 01/20/21 04:01 Resp 26 H 01/20/21 05:00 BP 128/64 01/20/21 04:01 Pulse Ox 94 01/20/21 05:00 Laboratory Results - last 24 hr 01/19/21 01/19/21 01/19/21 05:50 08:25 09:05 D-Dimer Cancelled 449 Sodium 142 Potassium 4.4 Chloride 107 Carbon Dioxide 26.8 Anion Gap 8.2 BUN 62 H Creatinine 1.3 Estimated GFR/1.73 m2 54.42 Glucose 125 H Calcium 7.9 L Ferritin 1337 H Total Bilirubin 0.8 AST 12 L ALT 40 Alkaline Phosphatase 63 C-Reactive Protein 0.35 H Total Protein 5.4 L Albumin 2.6 L 01/20/21 05:35 D-Dimer Sodium Cancelled Potassium Cancelled Chloride Cancelled Carbon Dioxide Cancelled Anion Gap Cancelled BUN Cancelled Creatinine Cancelled Estimated GFR/1.73 m2 Cancelled Glucose Cancelled Calcium Cancelled Ferritin Total Bilirubin Cancelled AST Cancelled ALT Cancelled Alkaline Phosphatase Cancelled C-Reactive Protein Total Protein Cancelled Albumin Cancelled
[2021-01-20] MEDS: Ascorbic Acid 500 MG TAB 1000 MG PO ×2 (08:16→19:22)
[2021-01-20] MEDS: Aspirin E.C. 81 MG TABEC PO (08:17)
[2021-01-20] MEDS: Dexamethasone 4 MG TAB 6 MG PO (08:17)
[2021-01-20] MEDS: Folic Acid 1 MG TAB PO (08:18)
[2021-01-20] MEDS: Famotidine 20 MG TAB PO ×2 (08:18→19:22)
[2021-01-20] MEDS: Enoxaparin 40 MG/0.4 ML SYR SC (08:18)
[2021-01-20] MEDS: Finasteride 5 MG TAB PO (08:18)
[2021-01-20] MEDS: PARoxetine 10 MG TAB 30 MG PO (08:19)
[2021-01-20] MEDS: Multivitamin w/Minerals TAB 1 TAB PO (08:19)
[2021-01-20] MEDS: Polyethylene Glycol 3350 17 GM PACKET PO (08:20)
[2021-01-20] MEDS: Protein Nutritional Supplement 16 GM 1 OUNCE PACKET PO ×3 (08:20→19:22)
[2021-01-20] MEDS: Thiamine 100 MG TAB PO (08:20)
[2021-01-20] MEDS: Cholecalciferol (Vitamin D3) 1,000 UNIT TAB 2000 UNITS PO (08:22)
[2021-01-20] MEDS: Tiotropium/Olodaterol 10 PUFF INHALER 2 PUFF IH (08:35)
[2021-01-20] MEDS: Ipratropium/Albuterol 4 GM 120 PUFF INH IH ×4 (08:35→19:22)
--- NOTE | 2021-01-20 09:15 | NUR.NOTE ---
RN calls pharmacy to order another stiolto inhaler since the one in patient's room has been completed used up.Nursing Note:
[2021-01-20] MEDS: Dronabinol 2.5 MG CAP 5 MG PO ×2 (11:59→15:52)
[2021-01-20] MEDS: Atorvastatin 40 MG TAB PO (19:22)
[2021-01-20 19:59] LABS: Thiamine (Vitamin B1), WB 158 nmol/L (70-180)
[2021-01-20] MEDS: Latanoprost 0.005% 2.5 ML BTL OP (23:08)
[2021-01-20] MEDS: Mirtazapine 15 MG TAB 30 MG PO (23:46)
[2021-01-20] MEDS: Melatonin 3 MG TAB 9 MG PO (23:46)
[2021-01-21] VITALS (41 sets, daily range): BP systolic 107–134; BP diastolic 57–65; PULSE 68–122; RESP 14–39; TEMP 31–36; O2SAT 76–98
--- NOTE | 2021-01-21 | DI.RAD_ITS ---
Exam(s) XR PORTABLE CHEST AP EXAM: XR PORTABLE CHEST AP CLINICAL HISTORY: persistent hypoxic respiratory failure. TECHNIQUE: 2D digital imaging was performed. COMPARISON: CT CT THORAX W/O CONT from 07/15/[address] THORAX W/O CONT from 07/15/2017 CR,XR XR PORTABLE CHEST AP from 01/09/2021 FINDINGS: Heart size is upper normal. The mediastinum is not widened. Persistent bilateral infiltrates without radiographic improvement from 01/09/2021. No pleural effusi ons. No pneumothorax. IMPRESSION: Persistent bilateral infiltrates. Suspect Covid pneumonia. DATA REPOSITORY: RADIATION DOSE DELIVERED: All CT scans at this facility use at least one of these dose optimization techniques: automated exposure control; mA and/or kV adjustment per patient size (includes targeted e xams where dose is matched to clinical indication); or iterative reconstruction.
--- NOTE | 2021-01-21 08:18 | PGE_ITS ---
Date of Service Date of service: 01/21/21 Time of Service: 13:12 Assessment and Plan Assessment and plan (1) Acute respiratory failure with hypoxia: Status: Acute Assessment and plan: Due to pneumonia caused by COVID-19. No improvement objectively. Obtain repeat CXR given worsening of the leucocytosis, though negative procalcitonin is reassuring. Tx COVID as below. Low suspicion for DVT/PE by D-dimer. Encourage proning, IS/acapella. Wean O2 as tolerated. (2) COVID: Status: Acute Assessment and plan: As above Continue remdesivir, dexamethasone, baricitinib. (3) COPD (chronic obstructive pulmonary disease): Status: Chronic Assessment and plan: In acute exacerbation due to above. Continue steroids, Stiolto and prn albuterol. Qualifiers: COPD type: unspecified COPD Qualified Code(s): J44.9 - Chronic obstructive pulmonary disease, unspecified (4) Depression: Status: Acute Assessment and plan: Eating and sleeping better. Continue Paxil 30 mg daily and Remeron 30 mg QHS Qualifiers: Depression Type: reactive depression Qualified Code(s): F32.9 - Major depressive disorder, single episode, unspecified (5) Nutrition disorder: Status: Acute Assessment and plan: As above Also, continue marinol. (6) HLD (hyperlipidemia): Status: Acute Assessment and plan: Continue atorvastain 40 mg qhs (7) BPH (benign prostatic hyperplasia): Status: Chronic Assessment and plan: s/p dykes due to evidence of urinary retention (1000 cc on the night of admission in the ICU). Continue Proscar and dykes. BP did not tolerate flomax (low BP). (8) GERD (gastroesophageal reflux disease): Status: Chronic Assessment and plan: Continue famotidine Qualifiers: Esophagitis presence: esophagitis presence not specified Qualified Code(s): K21.9 - Gastro-esophageal reflux disease without esophagitis (9) DVT prophylaxis: Status: Acute Assessment and plan: enoxaparin 40 mg SC daily (10) Discharge planning issues: Status: Acute Assessment and plan: Continues to require ICU. DNR/DNI Total Critical Care Time 30 minutes. Subjective Subjective Interval history since last seen: Mr Sprague feels better. He denies having any more of the right-sided chest discomfort. Denies dizziness, shortness of breath at rest, nausea, abdominal pain. Slept on high flow until 3 am (FiO2 50%). O2 sats 96-98%. Desats with any movement, even with slight repositioning in bed. Nursing does not feel comfortable with him getting out of bed even to just sit at the side of the bed or to a chair due to his desaturation and the length of time to recover. Desats during eating and gets symptomatic. Now only eats in bed. Exam Narrative Exam Narrative: General: Pleasant elderly male, A&Ox3, [place]. Desaturates to the 70s turning just a small amount in the bed with cyanosis HEENT: EOMI, MMM Heart: RRR, no m/r/g Lungs: CTAB Abdomen: soft, nontender, nondistended Extremities: no edema BLE's Objective Last Vital Signs Temp 35.7 C L 01/21/21 03:53 Pulse 75 01/21/21 04:01 Resp 20 01/21/21 05:00 BP 122/58 L 01/21/21 04:01 Pulse Ox 94 01/21/21 05:00 Laboratory Results - last 24 hr 01/17/21 17:15 Whole Bld Vitamin B1 158 WBC 33 Ferritin 874 (down) DDimer 264 CRP 0.51 (up from 0.35) Procalcitonin negative
[2021-01-21] MEDS: Aspirin E.C. 81 MG TABEC PO (09:01)
[2021-01-21] MEDS: Cholecalciferol (Vitamin D3) 1,000 UNIT TAB 2000 UNITS PO (09:01)
[2021-01-21] MEDS: Ascorbic Acid 500 MG TAB 1000 MG PO ×2 (09:01→19:50)
[2021-01-21] MEDS: Famotidine 20 MG TAB PO ×2 (09:02→19:50)
[2021-01-21] MEDS: Enoxaparin 40 MG/0.4 ML SYR SC (09:02)
[2021-01-21] MEDS: Finasteride 5 MG TAB PO (09:03)
[2021-01-21] MEDS: Normal Saline Flush 10 ML SYR IVP (09:03)
[2021-01-21] MEDS: Multivitamin w/Minerals TAB 1 TAB PO (09:03)
[2021-01-21] MEDS: Ipratropium/Albuterol 4 GM 120 PUFF INH IH ×4 (09:03→22:30)
[2021-01-21] MEDS: Folic Acid 1 MG TAB PO (09:03)
[2021-01-21] MEDS: Tiotropium/Olodaterol 10 PUFF INHALER 2 PUFF IH (09:04)
[2021-01-21] MEDS: Protein Nutritional Supplement 16 GM 1 OUNCE PACKET PO ×3 (09:04→19:50)
[2021-01-21] MEDS: PARoxetine 10 MG TAB 30 MG PO (09:04)
[2021-01-21] MEDS: Thiamine 100 MG TAB PO (09:04)
[2021-01-21] MEDS: Dexamethasone 4 MG TAB 6 MG PO (09:07)
[2021-01-21 09:43] LABS: HCT 38.5 % (40.0-50.0); MCH 31.5 pg (27.0-33.0); MCHC 33.8 % (32.0-36.0); MCV 93.2 fL (80-95); Platelet Count 195 10^3/uL (130-400); RBC 4.13 10^6/uL (4.36-5.78); RDW 12.3 % (11.8-14.1); RDW-SD 42.5 fL
[2021-01-21 09:52] LABS: ALT 48 U/L (16-63); AST 16 U/L (15-37); Albumin 2.3 g/dL (3.4-5.0); Alkaline Phosphatase 65 U/L (46-116); Anion Gap 7.7 mmol/L (3-11); BUN 52 mg/dL (7-18); Bilirubin, Direct 0.2 mg/dL (0.0-0.2); Bilirubin, Total 0.8 mg/dL (0.2-1.0); C-Reactive Protein 0.51 mg/dL (0.0-0.3); CO2 26.3 mmol/L (21.0-32.0); Calcium 7.7 mg/dL (8.5-10.1); Chloride 107 mmol/L (98-107); Glucose 109 mg/dL (74-106); INR 1.1 (0.9-1.1); Magnesium 2.4 mg/dL (1.8-2.4); Potassium 4.2 mmol/L (3.5-5.1); Prothrombin Time 11.5 sec (9.3-11.0); Sodium 141 mmol/L (136-145); Total Protein 5.3 g/dL (6.4-8.2)
[2021-01-21 09:53] LABS: WBC 33.08 10^3/uL (4.4-10.8)
[2021-01-21 10:18] LABS: D-Dimer 264 ng/mlFEU (<500)
[2021-01-21 10:22] LABS: Ferritin 874 ng/mL (26-388)
[2021-01-21 10:30] LABS: Procalcitonin < 0.1 ng/mL
[2021-01-21] MEDS: Dronabinol 2.5 MG CAP 5 MG PO ×2 (11:30→16:16)
--- NOTE | 2021-01-21 14:21 | DI.VRAD_ITS ---
PROCEDURE INFORMATION: Exam: XR Chest Exam date and time: 01/21/2021 1:29 PM Age: 70 years old Clinical indication: Other: Persistent hypoxic respiratory failure TECHNIQUE: Imaging protocol: XR of the chest. Views: 1 view. Other technique: Portable exam. COMPARISON: CR XR PORTABLE CHEST AP 01/09/2021 5:20 PM FINDINGS: Lungs: There are coarse bibasilar parenchymal markings, slightly increased in conspicuity compared to previous study. There appears to be relative sparing of the upper lobes. The lungs are hypoinflated compared to previous study. Pleural spaces: Unremarkable. No pleural effusion. No pneumothorax. Heart/Mediastinum: Unremarkable. No cardiomegaly. Vasculature: Mild aortic ectasia. Bones/joints: Unremarkable. IMPRESSION: Increased bibasilar coarse airspace disease, probable consolidation. Dictated and Authenticated by: Eli Crawley MD. Ordering:TERRANCE Canales MD
--- NOTE | 2021-01-21 14:41 | NUR.NOTE ---
delivered false teeth and hearing aide batteries and patient's cellphone, all of which are in patient's room.Nursing Note:
[2021-01-21] MEDS: Atorvastatin 40 MG TAB PO (19:50)
[2021-01-21] MEDS: Mirtazapine 15 MG TAB 30 MG PO (19:50)
[2021-01-21] MEDS: Latanoprost 0.005% 2.5 ML BTL OP (22:30)
[2021-01-22] VITALS (34 sets, daily range): BP systolic 107–157; BP diastolic 58–83; PULSE 73–130; RESP 15–43; TEMP 31–36.1; O2SAT 72–99
[2021-01-22 00:26] LABS: Vitamin D 25 Total 68.7 ng/mL (30-100)
--- NOTE | 2021-01-22 06:52 | NUR.NOTE ---
pt has a calm night. denied discomfort. stated he felt pretty good. alert and oriented. lungs clear with good air flow. denies pain. Did state that he wished he was at the point that he could just get oob and start walking around the room
[2021-01-22 07:14] LABS: HCT 36.7 % (40.0-50.0); HGB 12.3 g/dL (13.5-17.5); MCH 31.3 pg (27.0-33.0); MCHC 33.5 % (32.0-36.0); MCV 93.4 fL (80-95); MPV 11.4 fL (8.0-11.0); Nucleated RBC 0 %; Platelet Count 192 10^3/uL (130-400); RBC 3.93 10^6/uL (4.36-5.78); RDW 12.2 % (11.8-14.1); RDW-SD 42.3 fL
[2021-01-22 07:19] LABS: WBC 33.41 10^3/uL (4.4-10.8)
[2021-01-22 07:29] LABS: ALT 57 U/L (16-63); AST 27 U/L (15-37); Albumin 2.3 g/dL (3.4-5.0); Alkaline Phosphatase 77 U/L (46-116); Anion Gap 5.3 mmol/L (3-11); BUN 55 mg/dL (7-18); Bilirubin, Direct 0.2 mg/dL (0.0-0.2); Bilirubin, Total 0.5 mg/dL (0.2-1.0); C-Reactive Protein 0.75 mg/dL (0.0-0.3); CO2 27.7 mmol/L (21.0-32.0); Calcium 7.9 mg/dL (8.5-10.1); Chloride 106 mmol/L (98-107); Glucose 122 mg/dL (74-106); Magnesium 2.3 mg/dL (1.8-2.4); PHOSPHORUS 3.5 mg/dL (2.6-4.7); Potassium 4.4 mmol/L (3.5-5.1); Sodium 139 mmol/L (136-145); Total Protein 5.2 g/dL (6.4-8.2)
[2021-01-22 07:33] LABS: Absolute Monocyte Count 2.34 10^3/uL (0.1-0.8); Absolute Neutrophil Count 30.07 10^3/uL (1.2-6.7); Atypical Lymphocytes % 1; Diff Comment Manual Differential; RBC Morphology Normal
[2021-01-22 07:52] LABS: INR 1.1 (0.9-1.1); Prothrombin Time 11.5 sec (9.3-11.0)
[2021-01-22 07:53] LABS: Ferritin 871 ng/mL (26-388)
[2021-01-22 07:54] LABS: D-Dimer 257 ng/mlFEU (<500)
--- NOTE | 2021-01-22 08:22 | W.PM.PROGNOT ---
Date of Service Date of service: 01/22/21 Time of Service: 16:30 Assessment and Plan Assessment and plan (1) Acute respiratory failure with hypoxia: Status: Acute Assessment and plan: Due to pneumonia caused by COVID-19. The patient looks better clinically, though his oxygen requirements have not shown any objective improvement. Procalcitonin negative and CXR without evidence of bacterial infection. Tx COVID as below. Low suspicion for DVT/PE by D-dimer. Encourage proning, IS/acapella. Wean O2 as tolerated. (2) COVID: Status: Acute Assessment and plan: As above Continue dexamethasone, baricitinib. Finished remdesivir. (3) COPD (chronic obstructive pulmonary disease): Status: Chronic Assessment and plan: In acute exacerbation due to above. Continue steroids, Stiolto and prn albuterol. Qualifiers: COPD type: unspecified COPD Qualified Code(s): J44.9 - Chronic obstructive pulmonary disease, unspecified (4) Depression: Status: Acute Assessment and plan: Eating and sleeping better. Continue Paxil 30 mg daily and Remeron 30 mg QHS Qualifiers: Depression Type: reactive depression Qualified Code(s): F32.9 - Major depressive disorder, single episode, unspecified (5) Nutrition disorder: Status: Acute Assessment and plan: As above Also, continue marinol. (6) HLD (hyperlipidemia): Status: Acute Assessment and plan: Continue atorvastain 40 mg qhs (7) BPH (benign prostatic hyperplasia): Status: Chronic Assessment and plan: s/p dykes due to evidence of urinary retention (1000 cc on the night of admission in the ICU). Continue Proscar and dykes. BP did not tolerate flomax (low BP). (8) GERD (gastroesophageal reflux disease): Status: Chronic Assessment and plan: Continue famotidine Qualifiers: Esophagitis presence: esophagitis presence not specified Qualified Code(s): K21.9 - Gastro-esophageal reflux disease without esophagitis (9) DVT prophylaxis: Status: Acute Assessment and plan: enoxaparin 40 mg SC daily (10) Discharge planning issues: Status: Acute Assessment and plan: Continues to require ICU. DNR/DNI Total Critical Care Time 30 minutes. Subjective Subjective Interval history since last seen: Mr Sprague states that he is feeling better today. He says he is only a little short of breath. He spent the night on HHHFNC, FiO 50%. Not on CPAP overnight. Desaturated when talking to 84% and to 50% while eating on these settings. With increased FiO2 (70%), he felt better and was able to move around in the room. He even walked with a walker. Denied dizziness, chest pain, shortness of breath, nausea. donis changed last night because it became clogged. States he is motivated to fight this thing and wants to continue to do everything he can to get better. Exam Narrative Exam Narrative: General: Pleasant elderly male, A&Ox3, looks better today - more talkative and affect bright HEENT: EOMI, MMM Heart: RRR, no m/r/g Lungs: CTAB Abdomen: soft, nontender, nondistended Extremities: no edema BLE's Objective Last Vital Signs Temp 35.7 C L 01/22/21 04:45 Pulse 73 01/22/21 04:01 Resp 15 01/22/21 06:00 BP 157/75 H 01/22/21 04:01 Pulse Ox 93 01/22/21 06:00 Laboratory Results - last 24 hr 01/21/21 01/21/21 01/21/21 09:15 09:15 09:15 WBC RBC Hgb Hct MCV MCH MCHC RDW Plt Count MPV Immature Gran % Neutrophils % Lymphocytes % Atypical Lymphs % Monocytes % Eosinophils % Basophils % Nucleated RBC % Absolute Neutrophils Absolute Lymphocytes Absolute Monocytes Absolute Eosinophils Absolute Basophils RBC Morphology PT INR D-Dimer Sodium 141 Potassium 4.2 Chloride 107 Carbon Dioxide 26.3 Anion Gap 7.7 BUN 52 H Creatinine 1.0 Estimated GFR/1.73 m2 >= 60.00 Glucose 109 H Calcium 7.7 L Phosphorus Magnesium 2.4 Ferritin 874 H Total Bilirubin 0.8 Conjugated Bilirubin 0.2 AST 16 ALT 48 Alkaline Phosphatase 65 C-Reactive Protein 0.51 H Total Protein 5.3 L Albumin 2.3 L 25-OH Vitamin D Total 68.7 Procalcitonin < 0.1 01/21/21 01/21/21 01/22/21 09:15 09:15 06:25 WBC 33.08 H* RBC 4.13 L Hgb 13.0 L Hct 38.5 L MCV 93.2 MCH 31.5 MCHC 33.8 RDW 12.3 Plt Count 195 MPV 11.0 Immature Gran % Neutrophils % Lymphocytes % Atypical Lymphs % Monocytes % Eosinophils % Basophils % Nucleated RBC % Absolute Neutrophils Absolute Lymphocytes Absolute Monocytes Absolute Eosinophils Absolute Basophils RBC Morphology PT 11.5 H INR 1.1 D-Dimer 264 Sodium 139 Potassium 4.4 Chloride 106 Carbon Dioxide 27.7 Anion Gap 5.3 BUN 55 H Creatinine 1.0 Estimated GFR/1.73 m2 >= 60.00 Glucose 122 H Calcium 7.9 L Phosphorus 3.5 Magnesium 2.3 Ferritin 871 H Total Bilirubin 0.5 Conjugated Bilirubin 0.2 AST 27 ALT 57 Alkaline Phosphatase 77 C-Reactive Protein 0.75 H Total Protein 5.2 L Albumin 2.3 L 25-OH Vitamin D Total Procalcitonin 01/22/21 01/22/21 06:25 06:25 WBC 33.41 H* RBC 3.93 L Hgb 12.3 L Hct 36.7 L MCV 93.4 MCH 31.3 MCHC 33.5 RDW 12.2 Plt Count 192 MPV 11.4 H Immature Gran % 0.0 Neutrophils % 90.0 Lymphocytes % 2.0 Atypical Lymphs % 1 Monocytes % 7.0 Eosinophils % 0.0 Basophils % 0.0 Nucleated RBC % 0 Absolute Neutrophils 30.07 H Absolute Lymphocytes 1.00 L Absolute Monocytes 2.34 H Absolute Eosinophils 0.00 Absolute Basophils 0.00 RBC Morphology Normal PT 11.5 H INR 1.1 D-Dimer 257 Sodium Potassium Chloride Carbon Dioxide Anion Gap BUN Creatinine Estimated GFR/1.73 m2 Glucose Calcium Phosphorus Magnesium Ferritin Total Bilirubin Conjugated Bilirubin AST ALT Alkaline Phosphatase C-Reactive Protein Total Protein Albumin 25-OH Vitamin D Total Procalcitonin
--- NOTE | 2021-01-22 08:49 | PDOC.CMPRO ---
- If Service Date Differs Date of service: 01/22/21 Time of Service: 08:49 Care Management Progress Note S/O: Per nursing, Uriel is perky and cheery today. He has a good appetite and reported that he feels a lot better. He continues to be treated for covid, his Remdesivir was d/c'd today. Uriel remains on high flow oxygen and desats with activity. He is being followed by pulmonology and continues to require close monitoring in the ICU. A: 70 year old male admitted to [facility] on 01/10/21 for COVID-19 Pneumonia P: Anticipate Uriel will be discharged home with new [facility] SN/PT when medically cleared by provider. Uriel will follow up with his PCP and plan of care as directed. RT will continue to assess for home 02 needs. He will transport home via private vehicle with family when ready. CM will continue to assess discharge needs.
--- NOTE | 2021-01-22 09:00 | W.PULMCC ---
General Date of Service Date of service: 01/22/21 Time of Service: 07:30 Reason for Admission to ICU: COVID-19 Assessment and Plan Assessment and plan (1) COPD (chronic obstructive pulmonary disease): Status: Chronic Qualifiers: COPD type: unspecified COPD Qualified Code(s): J44.9 - Chronic obstructive pulmonary disease, unspecified (2) COVID: Status: Acute (3) Leukocytosis: Status: Acute (4) Anemia: Status: Chronic (5) Hypoalbuminemia: Status: Acute (6) Bacteria in urine: Status: Acute (7) Hypotension: Status: Resolved Qualifiers: Hypotension type: hypotension due to hypovolemia Qualified Code(s): I95.89 - Other hypotension; E86.1 - Hypovolemia (8) Respiratory failure: Status: Acute Assessment and plan: This is a 70 yo unvaccinated man admitted to the ICU with COVID-19. He has made improvements since last week. He is now on 50% FiO2 HFNC. He still experiences significant desaturations with movement, but he overall seems to be doing much better than when I last saw him. We no longer need to monitor any inflammatory markers daily - recommend stretching this back to twice a week and prn. We will try to have him get out of bed to a chair and promote as much mobility as he can tolerate. Recommendations Pulmonary: Hypoxic respiratory failure - sat goals 88-92% - try to wear HFNC throughout the entire day and CPAP overnight - OOB to chair as tolerated - proning as tolerated - recommend IS and Acapella - recommend pari diuresis COPD - on Decadron for COVID but not exacerbated currently - agree with continuing home Stiolto - continue Combivent QID and prn albuterol Cardiac: Transient hypotension, improved - likely poor PO intake and Tello inhibitor and Flomax - recommend stopping TELLO inhibitor and Flomax while acutely ill Renal: Good UOP - recommend gentle diuresis to -1L negative by tomorrow I&O: Intake & Output 01/19/21 01/20/21 01/21/21 01/22/21 23:59 23:59 23:59 23:59 Intake Total 1125 / 1125 1490 / 1490 860 / 860 Output Total 1490 / 1490 1900 / 1900 1085 / 1085 400 / 400 Balance -365 / -365 -410 / -410 -225 / -225 -400 / -400 Weight 66 kg 63.4 kg Daily Fluid Goal:: Negative 1 L by tomorrow GI Nutrition: Decreased appetite, improved - promote PO intake - has been started on an SSRI and and appetite stimulant Hypoalbuminemia Date of Last Bowel Movement: 01/21/21 Infectious Disease: COVID -19 - on Decadron, barcitinib and remdesivir - agree with continuing these therapies currently given severity of disease - inflammatory markers at a plateau, likely do not need to monitor these daily - can be 2 times a week Hematologic: Anemia - will monitor Neurologic: No acute concerns - delirium prevention technique - hard of hearing Endocrine: No acute concerns Prophylaxis: Famotidine and Lovenox Code Status: Resuscitation Status DNR/DNI Subjective Critical and life-threatening events over the past 24 hours: Uriel is doing and looking much better today. His appetite has improved significantly and he is much more conversant. He does not have much of a cough but does complain of some chest congestion and burning at times. Exam Const General: comfortable and no acute distress Nutritional Appearance: thin HENMT Head: normocephalic Ears: external ears normal and no periauricular adenopathy General nose exam: nasal mucous membranes and turbinates normal Face and sinus: sinuses nontender Mouth: oropharynx normal and moist mucous membranes Teeth and gingiva: dentition normal Eyes General: appearance normal, both eyes and all related structures Pupils: PERRL Neck Neck: normal visual inspection and no lymphadenopathy Chest Chest: normal inspection of the chest Resp Effort & Inspection: normal respiratory effort Auscultation: clear to auscultation bilaterally, no rales, rhonchi and no wheezes Cardio Rate: regular rate Rhythm: regular rhythm Heart Sounds: S1 normal, S2 normal and no murmurs Pulses: radial pulses present bilaterally GI Inspection: normal to inspection Palpation: soft Skin General skin exam: no rashes or lesions noted Neuro General: patient alert, patient awake and patient oriented x3 Extrem General: no clubbing, cyanosis or edema Psych Mental Status: mental status grossly normal Affect: normal affect Attitude: cooperative Most Recent VS/Results Last Vital Signs Temp 35.7 C L 01/22/21 04:45 Pulse 73 01/22/21 04:01 Resp 15 01/22/21 06:00 BP 157/75 H 01/22/21 04:01 Pulse Ox 93 01/22/21 06:00 Laboratory Results - last 24 hr 01/21/21 01/21/21 01/21/21 09:15 09:15 09:15 WBC RBC Hgb Hct MCV MCH MCHC RDW Plt Count MPV Immature Gran % Neutrophils % Lymphocytes % Atypical Lymphs % Monocytes % Eosinophils % Basophils % Nucleated RBC % Absolute Neutrophils Absolute Lymphocytes Absolute Monocytes Absolute Eosinophils Absolute Basophils RBC Morphology PT INR D-Dimer Sodium 141 Potassium 4.2 Chloride 107 Carbon Dioxide 26.3 Anion Gap 7.7 BUN 52 H Creatinine 1.0 Estimated GFR/1.73 m2 >= 60.00 Glucose 109 H Calcium 7.7 L Phosphorus Magnesium 2.4 Ferritin 874 H Total Bilirubin 0.8 Conjugated Bilirubin 0.2 AST 16 ALT 48 Alkaline Phosphatase 65 C-Reactive Protein 0.51 H Total Protein 5.3 L Albumin 2.3 L 25-OH Vitamin D Total 68.7 Procalcitonin < 0.1 01/21/21 01/21/21 01/22/21 09:15 09:15 06:25 WBC 33.08 H* RBC 4.13 L Hgb 13.0 L Hct 38.5 L MCV 93.2 MCH 31.5 MCHC 33.8 RDW 12.3 Plt Count 195 MPV 11.0 Immature Gran % Neutrophils % Lymphocytes % Atypical Lymphs % Monocytes % Eosinophils % Basophils % Nucleated RBC % Absolute Neutrophils Absolute Lymphocytes Absolute Monocytes Absolute Eosinophils Absolute Basophils RBC Morphology PT 11.5 H INR 1.1 D-Dimer 264 Sodium 139 Potassium 4.4 Chloride 106 Carbon Dioxide 27.7 Anion Gap 5.3 BUN 55 H Creatinine 1.0 Estimated GFR/1.73 m2 >= 60.00 Glucose 122 H Calcium 7.9 L Phosphorus 3.5 Magnesium 2.3 Ferritin 871 H Total Bilirubin 0.5 Conjugated Bilirubin 0.2 AST 27 ALT 57 Alkaline Phosphatase 77 C-Reactive Protein 0.75 H Total Protein 5.2 L Albumin 2.3 L 25-OH Vitamin D Total Procalcitonin 01/22/21 01/22/21 06:25 06:25 WBC 33.41 H* RBC 3.93 L Hgb 12.3 L Hct 36.7 L MCV 93.4 MCH 31.3 MCHC 33.5 RDW 12.2 Plt Count 192 MPV 11.4 H Immature Gran % 0.0 Neutrophils % 90.0 Lymphocytes % 2.0 Atypical Lymphs % 1 Monocytes % 7.0 Eosinophils % 0.0 Basophils % 0.0 Nucleated RBC % 0 Absolute Neutrophils 30.07 H Absolute Lymphocytes 1.00 L Absolute Monocytes 2.34 H Absolute Eosinophils 0.00 Absolute Basophils 0.00 RBC Morphology Normal PT 11.5 H INR 1.1 D-Dimer 257 Sodium Potassium Chloride Carbon Dioxide Anion Gap BUN Creatinine Estimated GFR/1.73 m2 Glucose Calcium Phosphorus Magnesium Ferritin Total Bilirubin Conjugated Bilirubin AST ALT Alkaline Phosphatase C-Reactive Protein Total Protein Albumin 25-OH Vitamin D Total Procalcitonin Review of Systems All systems reviewed & are unremarkable except as noted in HPI and below Time spent with patient Time spent in Critical Care: 35 Time spent in Critical care included: Coordination of care, Chart review, Documenting critically ill care, Time at immediate bedside and Discussing critically ill care with other medical staff
[2021-01-22] MEDS: Ipratropium/Albuterol 4 GM 120 PUFF INH IH ×3 (09:30→20:30)
[2021-01-22] MEDS: Tiotropium/Olodaterol 10 PUFF INHALER 2 PUFF IH (09:30)
[2021-01-22] MEDS: Folic Acid 1 MG TAB PO (09:52)
[2021-01-22] MEDS: Normal Saline Flush 10 ML SYR IVP ×3 (09:52→20:09)
[2021-01-22] MEDS: Multivitamin w/Minerals TAB 1 TAB PO (09:53)
[2021-01-22] MEDS: Dexamethasone 4 MG TAB 6 MG PO (09:53)
[2021-01-22] MEDS: Aspirin E.C. 81 MG TABEC PO (09:54)
[2021-01-22] MEDS: Finasteride 5 MG TAB PO (09:54)
[2021-01-22] MEDS: PARoxetine 10 MG TAB 30 MG PO (09:54)
[2021-01-22] MEDS: Thiamine 100 MG TAB PO (09:55)
[2021-01-22] MEDS: Famotidine 20 MG TAB PO ×2 (09:55→19:04)
[2021-01-22] MEDS: Enoxaparin 40 MG/0.4 ML SYR SC (09:55)
[2021-01-22] MEDS: Ascorbic Acid 500 MG TAB 1000 MG PO ×2 (09:55→19:04)
[2021-01-22] MEDS: Protein Nutritional Supplement 16 GM 1 OUNCE PACKET PO ×3 (09:56→19:04)
[2021-01-22] MEDS: Dronabinol 2.5 MG CAP 5 MG PO ×2 (09:58→16:31)
--- NOTE | 2021-01-22 10:28 | W.NUTRFU ---
Date of service: 01/22/21 Time of Service: 10:29 Nutrition Note NOTE: Assessment: Mr. Sprague has fair but improving PO intake on a heart healthy diet. He desats while eating. His weight is down 12.5% in two weeks which is significant. Nutrition Diagnosis: Significant weight loss related to poor appetite as evidenced by weight history in [facility]. Intervention: Would recommend liberalizing diet to regular so that there are not therapeutic restrictions which may inhibit his PO intake. Will also provide Mr. Sprague with easy to eat foods so he doesn't have to expend much energy to eat. Monitoring and Evaluation: Will continue to monitor his PO, weight, and overall nutritional status. Will evaluate his nutrition care plan and adjust as needed. Time Spent in Nutritional Counseling and Treatment: 0
[2021-01-22] MEDS: Atorvastatin 40 MG TAB PO (19:04)
[2021-01-22] MEDS: Mirtazapine 15 MG TAB 30 MG PO (20:09)
[2021-01-22] MEDS: Latanoprost 0.005% 2.5 ML BTL OP (21:47)
[2021-01-23] VITALS (43 sets, daily range): BP systolic 104–133; BP diastolic 53–67; PULSE 73–125; RESP 15–35; TEMP 31–36; O2SAT 79–99
[2021-01-23 07:17] LABS: Abs Immature Grans 0.43 10^3/uL (0.0-0.06); Absolute Monocyte Count 2.27 10^3/uL (0.1-0.8); Basophils % 0.2; HCT 35.9 % (40.0-50.0); HGB 11.8 g/dL (13.5-17.5); Immature Grans % 1.3; Lymphocytes % 2.6; MCH 31.1 pg (27.0-33.0); MCHC 32.9 % (32.0-36.0); MCV 94.7 fL (80-95); MPV 11.3 fL (8.0-11.0); Monocytes % 6.8; Neutrophils % 89.1; Nucleated RBC 0 %; Platelet Count 193 10^3/uL (130-400); RBC 3.79 10^6/uL (4.36-5.78); RDW 12.4 % (11.8-14.1); RDW-SD 42.9 fL
[2021-01-23 07:24] LABS: Absolute Basophil Count 0.07 10^3/uL (0.0-0.2); Absolute Lymphocyte Count 0.87 10^3/uL (1.2-3.4); Absolute Neutrophil Count 29.71 10^3/uL (1.2-6.7); WBC 33.35 10^3/uL (4.4-10.8)
[2021-01-23 07:25] LABS: INR 1.1 (0.9-1.1); Prothrombin Time 11.1 sec (9.3-11.0)
[2021-01-23] MEDS: Enoxaparin 40 MG/0.4 ML SYR SC (07:35)
[2021-01-23] MEDS: Protein Nutritional Supplement 16 GM 1 OUNCE PACKET PO ×3 (07:35→20:47)
[2021-01-23] MEDS: PARoxetine 10 MG TAB 30 MG PO (07:36)
[2021-01-23] MEDS: Dexamethasone 4 MG TAB 6 MG PO (07:36)
[2021-01-23] MEDS: Famotidine 20 MG TAB PO ×2 (07:36→20:47)
[2021-01-23] MEDS: Finasteride 5 MG TAB PO (07:36)
[2021-01-23] MEDS: Ascorbic Acid 500 MG TAB 1000 MG PO ×2 (07:36→20:47)
[2021-01-23] MEDS: Thiamine 100 MG TAB PO (07:36)
[2021-01-23] MEDS: Aspirin E.C. 81 MG TABEC PO (07:36)
[2021-01-23] MEDS: Multivitamin w/Minerals TAB 1 TAB PO (07:36)
[2021-01-23] MEDS: Folic Acid 1 MG TAB PO (07:36)
[2021-01-23] MEDS: Ipratropium/Albuterol 4 GM 120 PUFF INH IH ×4 (07:37→20:47)
[2021-01-23] MEDS: Tiotropium/Olodaterol 10 PUFF INHALER 2 PUFF IH (07:37)
[2021-01-23 07:41] LABS: ALT 49 U/L (16-63); AST 22 U/L (15-37); Albumin 2.2 g/dL (3.4-5.0); Alkaline Phosphatase 70 U/L (46-116); Anion Gap 7.1 mmol/L (3-11); BUN 58 mg/dL (7-18); Bilirubin, Direct 0.2 mg/dL (0.0-0.2); Bilirubin, Total 0.5 mg/dL (0.2-1.0); C-Reactive Protein 0.66 mg/dL (0.0-0.3); CO2 25.9 mmol/L (21.0-32.0); CREATININE 0.9 mg/dL (0.70-1.30); Chloride 107 mmol/L (98-107); Glucose 131 mg/dL (74-106); Magnesium 2.4 mg/dL (1.8-2.4); Potassium 4.4 mmol/L (3.5-5.1); Sodium 140 mmol/L (136-145); Total Protein 5.1 g/dL (6.4-8.2)
[2021-01-23 07:44] LABS: Diff Comment Agrees w/ Instrument
[2021-01-23 07:45] LABS: RBC Morphology Normal
[2021-01-23 07:47] LABS: Procalcitonin < 0.1 ng/mL
[2021-01-23 07:56] LABS: D-Dimer 192 ng/mlFEU (<500)
--- NOTE | 2021-01-23 08:22 | W.PM.PROGNOT ---
Date of Service Date of service: 01/23/21 Time of Service: 16:02 Assessment and Plan Assessment and plan (1) Acute respiratory failure with hypoxia: Status: Acute Assessment and plan: Due to pneumonia caused by COVID-19. Slowly getting better. Procalcitonin negative and CXR without evidence of bacterial infection. Continue dexamethasone/baricitinib. Low suspicion for DVT/PE by D-dimer. Encourage proning, IS/acapella. Wean O2 as tolerated. (2) COVID: Status: Acute Assessment and plan: As above Continue dexamethasone, baricitinib. Finished remdesivir. PCR with low cycling time (25.5), which based on some studies indicates taht he is still infectious and has an active infection. (3) COPD (chronic obstructive pulmonary disease): Status: Chronic Assessment and plan: In acute exacerbation due to above. Continue steroids, Stiolto and prn albuterol. Qualifiers: COPD type: unspecified COPD Qualified Code(s): J44.9 - Chronic obstructive pulmonary disease, unspecified (4) Depression: Status: Acute Assessment and plan: Eating and sleeping better. Continue Paxil 30 mg daily and Remeron 30 mg QHS Qualifiers: Depression Type: reactive depression Qualified Code(s): F32.9 - Major depressive disorder, single episode, unspecified (5) Nutrition disorder: Status: Acute Assessment and plan: As above Also, continue marinol. (6) HLD (hyperlipidemia): Status: Acute Assessment and plan: Continue atorvastain 40 mg qhs (7) BPH (benign prostatic hyperplasia): Status: Chronic Assessment and plan: s/p dykes due to evidence of urinary retention (1000 cc on the night of admission in the ICU). Continue Proscar and dykes. BP did not tolerate flomax (low BP). (8) GERD (gastroesophageal reflux disease): Status: Chronic Assessment and plan: Continue famotidine Qualifiers: Esophagitis presence: esophagitis presence not specified Qualified Code(s): K21.9 - Gastro-esophageal reflux disease without esophagitis (9) DVT prophylaxis: Status: Acute Assessment and plan: enoxaparin 40 mg SC daily (10) Discharge planning issues: Status: Acute Assessment and plan: Continues to require ICU. DNR/DNI Total Critical Care Time [address] Rice Subjective Subjective Interval history since last seen: Mr Sprague states he is feeling better. Slept all night. Denies dizziness, chest pain, shortness of breath, nausea, diarrhea. States he had two episodes of what felt like breath catching in his chest. On HHHFNC at 50% FiO2 right now. 50% 60 L overnight, saturating 90s as long as he does not talk or move; otherwise desats to the 70s. Would like to get up to a chair. Exam Narrative Exam Narrative: General: Pleasant elderly male, A&Ox3, looks more tired today, but better overall than two days ago HEENT: EOMI, MMM Heart: RRR, no m/r/g Lungs: CTAB Abdomen: soft, nontender, nondistended Extremities: no edema BLE's Objective Last Vital Signs Temp 35.9 C L 01/23/21 03:29 Pulse 78 01/23/21 04:01 Resp 18 01/23/21 04:01 BP 117/60 01/23/21 04:01 Pulse Ox 93 01/23/21 04:01 Laboratory Results - last 24 hr 01/23/21 01/23/21 01/23/21 06:25 06:25 06:25 WBC 33.35 H* RBC 3.79 L Hgb 11.8 L Hct 35.9 L MCV 94.7 MCH 31.1 MCHC 32.9 RDW 12.4 Plt Count 193 MPV 11.3 H Immature Gran % 1.3 Neutrophils % 89.1 Lymphocytes % 2.6 Monocytes % 6.8 Eosinophils % 0.0 Basophils % 0.2 Nucleated RBC % 0 Absolute Neutrophils 29.71 H Absolute Lymphocytes 0.87 L Absolute Monocytes 2.27 H Absolute Eosinophils 0.00 Absolute Basophils 0.07 RBC Morphology Normal PT INR D-Dimer Sodium 140 Potassium 4.4 Chloride 107 Carbon Dioxide 25.9 Anion Gap 7.1 BUN 58 H Creatinine 0.9 Estimated GFR/1.73 m2 >= 60.00 Glucose 131 H Calcium 8.0 L Magnesium 2.4 Total Bilirubin 0.5 Conjugated Bilirubin 0.2 AST 22 ALT 49 Alkaline Phosphatase 70 C-Reactive Protein 0.66 H Total Protein 5.1 L Albumin 2.2 L Procalcitonin < 0.1 01/23/21 06:25 WBC RBC Hgb Hct MCV MCH MCHC RDW Plt Count MPV Immature Gran % Neutrophils % Lymphocytes % Monocytes % Eosinophils % Basophils % Nucleated RBC % Absolute Neutrophils Absolute Lymphocytes Absolute Monocytes Absolute Eosinophils Absolute Basophils RBC Morphology PT 11.1 H INR 1.1 D-Dimer 192 Sodium Potassium Chloride Carbon Dioxide Anion Gap BUN Creatinine Estimated GFR/1.73 m2 Glucose Calcium Magnesium Total Bilirubin Conjugated Bilirubin AST ALT Alkaline Phosphatase C-Reactive Protein Total Protein Albumin Procalcitonin
[2021-01-23 08:23] LABS: Ferritin 702 ng/mL (26-388)
--- NOTE | 2021-01-23 08:27 | W.PULMCC ---
General Date of Service Date of service: 01/23/21 Time of Service: 08:00 Reason for Admission to ICU: COVID Assessment and Plan Assessment and plan (1) COPD (chronic obstructive pulmonary disease): Status: Chronic Qualifiers: COPD type: unspecified COPD Qualified Code(s): J44.9 - Chronic obstructive pulmonary disease, unspecified (2) COVID: Status: Acute (3) Leukocytosis: Status: Acute (4) Anemia: Status: Chronic (5) Hypoalbuminemia: Status: Acute (6) Bacteria in urine: Status: Acute (7) Hypotension: Status: Resolved Qualifiers: Hypotension type: hypotension due to hypovolemia Qualified Code(s): I95.89 - Other hypotension; E86.1 - Hypovolemia (8) Respiratory failure: Status: Acute Assessment and plan: This is a 70 yo unvaccinated man admitted to the ICU with COVID-19. He has made improvements since last week. He still experiences significant desaturations with movement, but he overall seems to be doing much better than when I last saw him. He is working on ambulating as tolerated with a non-rebreather over the HFNC. We no longer need to monitor any inflammatory markers daily - recommend stretching this back to twice a week and prn. We will try to have him get out of bed to a chair and promote as much mobility as he can tolerate. Recommendations Pulmonary: Hypoxic respiratory failure - sat goals 88-92% - try to wear HFNC throughout the entire day and CPAP overnight if needed - OOB to chair as tolerated - proning as tolerated - recommend IS and Acapella - recommend slightly negative fluid balance daily COPD - on Decadron for COVID but not exacerbated currently - agree with continuing home Stiolto - continue Combivent QID and prn albuterol Cardiac: Transient hypotension, improved - likely poor PO intake and Tello inhibitor and Flomax - recommend stopping TELLO inhibitor and Flomax while acutely ill Renal: Recommend negative fluid balance daily I&O: Intake & Output 01/20/21 01/21/21 01/22/21 01/23/21 23:59 23:59 23:59 23:59 Intake Total 1490 / 1490 860 / 860 1035 / 1035 Output Total 1900 / 1900 1085 / 1085 750 / 750 750 / 750 Balance -410 / -410 -225 / -225 285 / 285 -750 / -750 Weight 63.4 kg 65 kg Daily Fluid Goal:: Negative 500 to 1L GI Nutrition: Decreased appetite, improved - promote PO intake - has been started on an SSRI and and appetite stimulant Date of Last Bowel Movement: 01/22/21 Infectious Disease: COVID -19 - on Decadron, barcitinib and remdesivir - agree with continuing these therapies currently given severity of disease - inflammatory markers at a plateau, likely do not need to monitor these daily - can be 2 times a week Hematologic: Anemia - will monitor Neurologic: No acute concerns - delirium prevention technique - hard of hearing - have hearing aids within reach Endocrine: No acute concerns, daily glucose monitoring in labs - on steroids Lines: PICC Prophylaxis: Famotidine and Lovenox Code Status: Resuscitation Status DNR/DNI Subjective Critical and life-threatening events over the past 24 hours: Uriel continues to feel better. He has not required CPAP in a few days. Yesterday he did great with ambulation while wearing a non-rebreather over the HFNC. He is a mouth breather so this allowed for more O2 delivery to facilitate walking. He continues to be compliant with the Acapella and IS. We discussed staying focused on eating and drinking. Exam Const General: comfortable and no acute distress Nutritional Appearance: thin HENMT Head: normocephalic Ears: external ears normal and no periauricular adenopathy General nose exam: nasal mucous membranes and turbinates normal Face and sinus: sinuses nontender Mouth: oropharynx normal and moist mucous membranes Teeth and gingiva: dentition normal Eyes General: appearance normal, both eyes and all related structures Pupils: PERRL Neck Neck: normal visual inspection and no lymphadenopathy Chest Chest: normal inspection of the chest Resp Effort & Inspection: normal respiratory effort Auscultation: clear to auscultation bilaterally, no rales, rhonchi and no wheezes Cardio Rate: regular rate Rhythm: regular rhythm Heart Sounds: S1 normal, S2 normal and no murmurs Pulses: radial pulses present bilaterally GI Inspection: normal to inspection Palpation: soft Skin General skin exam: no rashes or lesions noted Neuro General: patient alert, patient awake and patient oriented x3 Extrem General: no clubbing, cyanosis or edema Psych Mental Status: mental status grossly normal Affect: normal affect Attitude: cooperative Most Recent VS/Results Last Vital Signs Temp 35.9 C L 01/23/21 03:29 Pulse 78 01/23/21 04:01 Resp 18 01/23/21 04:01 BP 117/60 01/23/21 04:01 Pulse Ox 93 01/23/21 04:01 Laboratory Results - last 24 hr 01/23/21 01/23/21 01/23/21 06:25 06:25 06:25 WBC 33.35 H* RBC 3.79 L Hgb 11.8 L Hct 35.9 L MCV 94.7 MCH 31.1 MCHC 32.9 RDW 12.4 Plt Count 193 MPV 11.3 H Immature Gran % 1.3 Neutrophils % 89.1 Lymphocytes % 2.6 Monocytes % 6.8 Eosinophils % 0.0 Basophils % 0.2 Nucleated RBC % 0 Absolute Neutrophils 29.71 H Absolute Lymphocytes 0.87 L Absolute Monocytes 2.27 H Absolute Eosinophils 0.00 Absolute Basophils 0.07 RBC Morphology Normal PT INR D-Dimer Sodium 140 Potassium 4.4 Chloride 107 Carbon Dioxide 25.9 Anion Gap 7.1 BUN 58 H Creatinine 0.9 Estimated GFR/1.73 m2 >= 60.00 Glucose 131 H Calcium 8.0 L Magnesium 2.4 Ferritin 702 H Total Bilirubin 0.5 Conjugated Bilirubin 0.2 AST 22 ALT 49 Alkaline Phosphatase 70 C-Reactive Protein 0.66 H Total Protein 5.1 L Albumin 2.2 L Procalcitonin < 0.1 01/23/21 06:25 WBC RBC Hgb Hct MCV MCH MCHC RDW Plt Count MPV Immature Gran % Neutrophils % Lymphocytes % Monocytes % Eosinophils % Basophils % Nucleated RBC % Absolute Neutrophils Absolute Lymphocytes Absolute Monocytes Absolute Eosinophils Absolute Basophils RBC Morphology PT 11.1 H INR 1.1 D-Dimer 192 Sodium Potassium Chloride Carbon Dioxide Anion Gap BUN Creatinine Estimated GFR/1.73 m2 Glucose Calcium Magnesium Ferritin Total Bilirubin Conjugated Bilirubin AST ALT Alkaline Phosphatase C-Reactive Protein Total Protein Albumin Procalcitonin Review of Systems All systems reviewed & are unremarkable except as noted in HPI and below Time spent with patient Time spent in Critical Care: 35 Time spent in Critical care included: Coordination of care, Chart review, Documenting critically ill care, Time at immediate bedside and Discussing critically ill care with other medical staff
[2021-01-23 08:36] LABS: Bilirubin Negative (Negative); Blood Trace-intact (Negative); Clarity Clear (Clear); Glucose Negative (Negative); Ketones Negative (Negative); Leukocyte Esterase Negative (Negative); Nitrite Negative (Negative); Specific Gravity >= 1.030 (1.005-1.025); Urobilinogen 0.2 EU/dL (Up TO 0.2); pH 5.5 (5-8)
[2021-01-23 09:06] LABS: Bacteria Rare HPF (Negative); C & S Indicated? C&S Done As Ordered; Casts Negative LPF (Negative); Crystals Negative HPF (Negative); Epithelial Cells Negative HPF (Negative); Mucus Negative (Negative); Other Cells Negative (Negative); WBC 0-2 HPF (0-5)
--- NOTE | 2021-01-23 09:21 | PDOC.CMPRO ---
- If Service Date Differs Date of service: 01/23/21 Time of Service: 09:21 Care Management Progress Note S/O: Uriel continues to require high flow oxygen and close monitoring in the ICU. Per nursing, he is cheerful and appears less depressed. He has his cell phone at his bed side and has been communicating with family. A: 70 year old male admitted to [facility] on 01/10/21 for COVID-19 Pneumonia P: Anticipate Uriel will be discharged home with new [facility] SN/PT when medically cleared by provider. Uriel will follow up with his PCP and plan of care as directed. RT will continue to assess for home 02 needs. He will transport home via private vehicle with family when ready. CM will continue to assess discharge needs.
[2021-01-23 09:59] LABS: Source Nasal/Nares
[2021-01-23 10:52] LABS: COVID-19 PCR POSITIVE (Negative)
[2021-01-23] MEDS: Dronabinol 2.5 MG CAP 5 MG PO ×2 (11:09→16:42)
--- NOTE | 2021-01-23 19:24 | NUR.NOTE ---
Pt has been 50% HFNC in bed and 93% HFNC OOB to keep 02 sats at 90s. Pt is not moving much except every few hours when he moves from bed to chair and back with RN. It became apparent that the patient needs independent walking as his 02 usage has improved greatly since yesterday with added movement since this weekend. Yesterday (01/21) pt required 93% HFNC AND 15+ L of non-rebreather over HFNC just to walk. Today is 15L non-rebreather only or HFNC 93% only. Since having the patient at [id number], I worked with the patient extensively on making him more independent and mobile and the patient had a renewed motivation when he saw he could walk around the room independently. We hooked the monitor and dykes on the walker so it is always ready to go and placed him on the green HFNC. He was able to walk to the room door and back without pausing. He walked 3 times (30 feet per walk). On the non-rebreather, he holds 02 sats of 90-94% with walking on 15 L. On the green cannula 15L or slightly more on dial, he was 90% when he started, hit 79 when first sat down, within 1 min returned to 85% and within 2 min of sitting he was 92%. The fast recovery allowed for him to stay on the green cannula for 30+ min and he even moved back to bed with it. Lying in bed on 15L green cannula his 02 sat was 98%. Tanya Marshall RN is going in to place the patient back on the HFNC machine for the night and titrate down his 02 as low as able. We have instructed the patient to not get OOB independently overnight when the 02 is turned down. Pt states he understands to me. 01/24 plan: Place mx2 monitor and dykes on walker near patient Place patient on 15L non-rebreather or 15L green HFNC and ensure it is free for him to walk around Have patient rachel off walks on board and show him his sp02 sat to watch on monitor. Plan communicated to Caryl BARBOSA who will be in the ICU tomorrow (01/24)Nursing Note:
[2021-01-23] MEDS: Atorvastatin 40 MG TAB PO (20:47)
[2021-01-23] MEDS: Normal Saline Flush 10 ML SYR IVP (20:48)
[2021-01-23] MEDS: Latanoprost 0.005% 2.5 ML BTL OP (21:36)
[2021-01-23] MEDS: Mirtazapine 15 MG TAB 30 MG PO (21:36)
[2021-01-24] VITALS (44 sets, daily range): BP systolic 103–118; BP diastolic 50–72; PULSE 67–125; RESP 15–38; TEMP 31–36; O2SAT 74–99
[2021-01-24] MEDS: Normal Saline Flush 10 ML SYR IVP (06:23)
[2021-01-24 06:57] LABS: HCT 36.4 % (40.0-50.0); HGB 12.1 g/dL (13.5-17.5); MCH 31.5 pg (27.0-33.0); MCHC 33.2 % (32.0-36.0); MCV 94.8 fL (80-95); MPV 10.6 fL (8.0-11.0); Nucleated RBC 0 %; Platelet Count 197 10^3/uL (130-400); RBC 3.84 10^6/uL (4.36-5.78); RDW 12.5 % (11.8-14.1); RDW-SD 43.3 fL
[2021-01-24 07:17] LABS: ALT 62 U/L (16-63); AST 17 U/L (15-37); Albumin 2.2 g/dL (3.4-5.0); Alkaline Phosphatase 75 U/L (46-116); Anion Gap 6.8 mmol/L (3-11); BUN 58 mg/dL (7-18); Bilirubin, Direct 0.2 mg/dL (0.0-0.2); Bilirubin, Total 0.5 mg/dL (0.2-1.0); C-Reactive Protein 0.24 mg/dL (0.0-0.3); CO2 25.2 mmol/L (21.0-32.0); Calcium 7.8 mg/dL (8.5-10.1); Chloride 107 mmol/L (98-107); Glucose 119 mg/dL (74-106); Magnesium 2.4 mg/dL (1.8-2.4); Potassium 4.2 mmol/L (3.5-5.1); Sodium 139 mmol/L (136-145); Total Protein 5.1 g/dL (6.4-8.2)
[2021-01-24 07:28] LABS: Absolute Lymphocyte Count 2.19 10^3/uL (1.2-3.4); Absolute Monocyte Count 2.19 10^3/uL (0.1-0.8); Absolute Neutrophil Count 39.33 10^3/uL (1.2-6.7)
[2021-01-24 07:29] LABS: Diff Comment Manual Differential; RBC Morphology Normal
[2021-01-24 07:40] LABS: Ferritin 761 ng/mL (26-388)
[2021-01-24 07:55] LABS: D-Dimer 181 ng/mlFEU (<500)
[2021-01-24 07:59] LABS: INR 1.1 (0.9-1.1); Prothrombin Time 10.7 sec (9.3-11.0)
--- NOTE | 2021-01-24 08:10 | PGE_ITS ---
Date of Service Date of service: 01/24/21 Time of Service: 15:01 Assessment and Plan Assessment and plan (1) Acute respiratory failure with hypoxia: Status: Acute Assessment and plan: Due to pneumonia caused by COVID-19. Looks better, and O2 requirement at night does seem better, but still requires a lot of oxygen on ambulation. Procalcitonin negative and CXR without evidence of bacterial infection. Continue dexamethasone. He finished baricitinib. Low suspicion for DVT/PE by D-dimer. Encourage proning, IS/acapella. Wean O2 as tolerated. (2) COVID: Status: Acute Assessment and plan: As above Continue dexamethasone. Finished remdesivir and baricitinib. PCR with low cycling time (25.5), which based on some studies indicates that he is still infectious and has an active infection, therefore we are continuing precautions. (3) COPD (chronic obstructive pulmonary disease): Status: Chronic Assessment and plan: In acute exacerbation due to above. Continue steroids, Stiolto and prn albuterol. Qualifiers: COPD type: unspecified COPD Qualified Code(s): J44.9 - Chronic obstructive pulmonary disease, unspecified (4) Depression: Status: Acute Assessment and plan: Eating and sleeping better. Continue Paxil 30 mg daily and Remeron 30 mg QHS Qualifiers: Depression Type: reactive depression Qualified Code(s): F32.9 - Major depressive disorder, single episode, unspecified (5) Nutrition disorder: Status: Acute Assessment and plan: As above Also, continue marinol. (6) HLD (hyperlipidemia): Status: Acute Assessment and plan: Continue atorvastain 40 mg qhs (7) BPH (benign prostatic hyperplasia): Status: Chronic Assessment and plan: s/p dykes due to evidence of urinary retention (1000 cc on the night of admission in the ICU). Continue Proscar and dykes. BP did not tolerate flomax (low BP). (8) GERD (gastroesophageal reflux disease): Status: Chronic Assessment and plan: Continue famotidine Qualifiers: Esophagitis presence: esophagitis presence not specified Qualified Code(s): K21.9 - Gastro-esophageal reflux disease without esophagitis (9) DVT prophylaxis: Status: Acute Assessment and plan: enoxaparin 40 mg SC daily (10) Discharge planning issues: Status: Acute Assessment and plan: Continues to require ICU. DNR/DNI Total Critical Care Time [address] Rice Subjective Subjective Interval history since last seen: The patient slept on humidified heated high flow system at 35% FiO2, 40 L last night. This morning he was transitioned to 15 L high flow NC, but desaturated to the 70s and became quite tachycardic while having a BM. He states he felt lightheaded and had palpitations, and just didn't feel good. He ended up being put on CPAP with FiO2 100% to recover and being put to bed. Since then he has been able to get to chair again on humidified heated high flow and now headed back to bed to prone. No CPAP last night, but Was on it for a short period around 1999. Denies dizziness now, any chest pain, does not feel short of breath now. Denies nausea. Did have a small BM, but has been constipated. Exam Narrative Exam Narrative: General: Pleasant elderly male, A&Ox3, sitting up in a chair on combination of HHHFNC and nonrebreather in preparation to get to bed, no evidence of dyspnea/tachypnea cyanosis HEENT: EOMI, MMM Heart: RRR with extra beats, no m/r/g Lungs: CTAB Abdomen: soft, nontender, nondistended Extremities: no edema BLE's Objective Last Vital Signs Temp 35.9 C L 01/23/21 21:51 Pulse 85 01/24/21 04:22 Resp 19 01/24/21 07:30 BP 118/61 01/24/21 04:01 Pulse Ox 93 01/24/21 07:30 Laboratory Results - last 24 hr 01/17/21 01/23/21 01/23/21 17:15 06:25 08:00 WBC RBC Hgb Hct MCV MCH MCHC RDW Plt Count MPV Immature Gran % Neutrophils % Lymphocytes % Monocytes % Eosinophils % Basophils % Nucleated RBC % Absolute Neutrophils Absolute Lymphocytes Absolute Monocytes Absolute Eosinophils Absolute Basophils RBC Morphology PT INR D-Dimer Sodium Potassium Chloride Carbon Dioxide Anion Gap BUN Creatinine Estimated GFR/1.73 m2 Glucose Calcium Magnesium Ferritin 702 H Total Bilirubin Conjugated Bilirubin AST ALT Alkaline Phosphatase C-Reactive Protein Total Protein Albumin Vitamin B3 (Niacin) Cancelled Urine Color Yellow Urine Clarity Clear Urine pH 5.5 Ur Specific [place] >= 1.030 H Urine Protein Negative Urine Ketones Negative Urine Blood Trace-intact H Urine Nitrite Negative Urine Bilirubin Negative Urine Urobilinogen 0.2 Ur Leukocyte Esterase Negative Urine RBC 5-10 H Urine WBC 0-2 Ur Epithelial Cells Negative Urine Crystals Negative Urine Bacteria Rare Urine Casts Negative Urine Mucus Negative Urine Other Negative Ur Culture Indicated? C&S Done As Ordered Urine Glucose Negative COVID-19 Source SARS-CoV-2 (PCR) 01/23/21 01/24/21 01/24/21 09:00 06:40 06:40 WBC 43.70 H* D RBC 3.84 L Hgb 12.1 L Hct 36.4 L MCV 94.8 MCH 31.5 MCHC 33.2 RDW 12.5 Plt Count 197 MPV 10.6 Immature Gran % 0.0 Neutrophils % 90.0 Lymphocytes % 5.0 Monocytes % 5.0 Eosinophils % 0.0 Basophils % 0.0 Nucleated RBC % 0 Absolute Neutrophils 39.33 H Absolute Lymphocytes 2.19 Absolute Monocytes 2.19 H Absolute Eosinophils 0.00 Absolute Basophils 0.00 RBC Morphology Normal PT INR D-Dimer Sodium 139 Potassium 4.2 Chloride 107 Carbon Dioxide 25.2 Anion Gap 6.8 BUN 58 H Creatinine 1.0 Estimated GFR/1.73 m2 >= 60.00 Glucose 119 H Calcium 7.8 L Magnesium 2.4 Ferritin 761 H Total Bilirubin 0.5 Conjugated Bilirubin 0.2 AST 17 ALT 62 Alkaline Phosphatase 75 C-Reactive Protein 0.24 Total Protein 5.1 L Albumin 2.2 L Vitamin B3 (Niacin) Urine Color Urine Clarity Urine pH Ur Specific [place] Urine Protein Urine Ketones Urine Blood Urine Nitrite Urine Bilirubin Urine Urobilinogen Ur Leukocyte Esterase Urine RBC Urine WBC Ur Epithelial Cells Urine Crystals Urine Bacteria Urine Casts Urine Mucus Urine Other Ur Culture Indicated? Urine Glucose COVID-19 Source Nasal/Nares SARS-CoV-2 (PCR) POSITIVE A* 01/24/21 06:40 WBC RBC Hgb Hct MCV MCH MCHC RDW Plt Count MPV Immature Gran % Neutrophils % Lymphocytes % Monocytes % Eosinophils % Basophils % Nucleated RBC % Absolute Neutrophils Absolute Lymphocytes Absolute Monocytes Absolute Eosinophils Absolute Basophils RBC Morphology PT 10.7 INR 1.1 D-Dimer 181 Sodium Potassium Chloride Carbon Dioxide Anion Gap BUN Creatinine Estimated GFR/1.73 m2 Glucose Calcium Magnesium Ferritin Total Bilirubin Conjugated Bilirubin AST ALT Alkaline Phosphatase C-Reactive Protein Total Protein Albumin Vitamin B3 (Niacin) Urine Color Urine Clarity Urine pH Ur Specific [place] Urine Protein Urine Ketones Urine Blood Urine Nitrite Urine Bilirubin Urine Urobilinogen Ur Leukocyte Esterase Urine RBC Urine WBC Ur Epithelial Cells Urine Crystals Urine Bacteria Urine Casts Urine Mucus Urine Other Ur Culture Indicated? Urine Glucose COVID-19 Source SARS-CoV-2 (PCR)
--- NOTE | 2021-01-24 08:43 | PUCC_ITS ---
General Date of Service Date of service: 01/24/21 Time of Service: 07:30 Reason for Admission to ICU: COVID-19 Assessment and Plan Assessment and plan (1) COPD (chronic obstructive pulmonary disease): Status: Chronic Qualifiers: COPD type: unspecified COPD Qualified Code(s): J44.9 - Chronic obstructive pulmonary disease, unspecified (2) COVID: Status: Acute (3) Leukocytosis: Status: Acute (4) Anemia: Status: Chronic (5) Hypoalbuminemia: Status: Acute (6) Bacteria in urine: Status: Acute (7) Hypotension: Status: Resolved Qualifiers: Hypotension type: hypotension due to hypovolemia Qualified Code(s): I95.89 - Other hypotension; E86.1 - Hypovolemia (8) Respiratory failure: Status: Acute Assessment and plan: This is a 70 yo unvaccinated man admitted to the ICU with COVID-19. He has made improvements since last week. He still experiences significant desaturations with movement, but he overall seems to be doing much better than last week. He is working on ambulating as tolerated with a non- rebreather over the HFNC. We no longer need to monitor any inflammatory markers daily - recommend stretching this back to twice a week and prn. We will try to have him get out of bed to a chair and promote as much mobility as he can tolerate. He should still be wearing the CPAP as much as able at night time to help with lung recruitment in order to improve shunt. His HFNC settings are much better and I turned him down further this morning to 35%/40L. He will likely be able to tolerate nasal cannula during the day at rest. Recommendations Pulmonary: Hypoxic respiratory failure - sat goals 88-92% - can attempt weaning to nasal cannula today or continue HFNC throughout the entire day and CPAP overnight - OOB to chair and ambulation as tolerated - proning as tolerated - recommend IS and Acapella - recommend slightly negative fluid balance daily COPD - on Decadron for COVID but not exacerbated currently - agree with continuing home Stiolto - continue Combivent QID and prn albuterol Cardiac: Transient hypotension, improved - likely poor PO intake and Tello inhibitor and Flomax - recommend stopping TELLO inhibitor and Flomax while acutely ill Renal: Recommend negative fluid balance I&O: Intake & Output 01/21/21 01/22/21 01/23/2101/24/21 23:59 23:59 23:59 23:59 Intake Total 860 / 860 1035 / 1035 370 / 370 Output Total 1085 / 1085 750 / 750 1500 / 1500 450 / 450 Balance -225 / -225 285 / 285 -1130 / -1130 -450 / -450 Weight 63.4 kg 65 kg Daily Fluid Goal:: Negative GI Nutrition: Decreased appetite, improved - promote PO intake - has been started on an SSRI and and appetite stimulant Date of Last Bowel Movement: 01/22/21 Infectious Disease: COVID -19 - on Decadron, barcitinib and remdesivir - agree with continuing these therapies currently given severity of disease - inflammatory markers at a plateau, likely do not need to monitor these daily - can be 2 times a week - I am comfortable with the patient coming off of precautions Hematologic: Anemia - will monitor Neurologic: No acute concerns - delirium prevention technique - hard of hearing - have hearing aids within reach Endocrine: No acute concerns, daily glucose monitoring in labs - on steroids Lines: PICC Prophylaxis: Famotidine and Lovenox Code Status: Resuscitation Status DNR/DNI Subjective Critical and life-threatening events over the past 24 hours: Uriel is doing well today. His oxygen requirements are decreaseing and he is feeling well. His appetite continues to be adequate. He did alot of walking yesterday which has been helping him tremendously. Exam Const General: comfortable and no acute distress Nutritional Appearance: thin HENMT Head: normocephalic Ears: external ears normal and no periauricular adenopathy General nose exam: nasal mucous membranes and turbinates normal Face and sinus: sinuses nontender Mouth: oropharynx normal and moist mucous membranes Teeth and gingiva: dentition normal Eyes General: appearance normal, both eyes and all related structures Pupils: PERRL Neck Neck: normal visual inspection and no lymphadenopathy Chest Chest: normal inspection of the chest Resp Effort & Inspection: normal respiratory effort Auscultation: clear to auscultation bilaterally, no rales, rhonchi and no wheezes Cardio Rate: regular rate Rhythm: regular rhythm Heart Sounds: S1 normal, S2 normal and no murmurs Pulses: radial pulses present bilaterally GI Inspection: normal to inspection Palpation: soft Skin General skin exam: no rashes or lesions noted Neuro General: patient alert, patient awake and patient oriented x3 Extrem General: no clubbing, cyanosis or edema Psych Mental Status: mental status grossly normal Affect: normal affect Attitude: cooperative Most Recent VS/Results Last Vital Signs Temp 35.9 C L 01/23/21 21:51 Pulse 85 01/24/21 04:22 Resp 19 01/24/21 07:30 BP 118/61 01/24/21 04:01 Pulse Ox 93 01/24/21 07:30 Laboratory Results - last 24 hr 01/17/21 01/23/21 01/23/21 17:15 08:00 09:00 WBC RBC Hgb Hct MCV MCH MCHC RDW Plt Count MPV Immature Gran % Neutrophils % Lymphocytes % Monocytes % Eosinophils % Basophils % Nucleated RBC % Absolute Neutrophils Absolute Lymphocytes Absolute Monocytes Absolute Eosinophils Absolute Basophils RBC Morphology PT INR D-Dimer Sodium Potassium Chloride Carbon Dioxide Anion Gap BUN Creatinine Estimated GFR/1.73 m2 Glucose Calcium Magnesium Ferritin Total Bilirubin Conjugated Bilirubin AST ALT Alkaline Phosphatase C-Reactive Protein Total Protein Albumin Vitamin B3 (Niacin) Cancelled Urine RBC 5-10 H Urine WBC 0-2 Ur Epithelial Cells Negative Urine Crystals Negative Urine Bacteria Rare Urine Casts Negative Urine Mucus Negative Urine Other Negative Ur Culture Indicated? C&S Done As Ordered COVID-19 Source Nasal/Nares SARS-CoV-2 (PCR) POSITIVE A* 01/24/21 01/24/21 01/24/21 06:40 06:40 06:40 WBC 43.70 H* D RBC 3.84 L Hgb 12.1 L Hct 36.4 L MCV 94.8 MCH 31.5 MCHC 33.2 RDW 12.5 Plt Count 197 MPV 10.6 Immature Gran % 0.0 Neutrophils % 90.0 Lymphocytes % 5.0 Monocytes % 5.0 Eosinophils % 0.0 Basophils % 0.0 Nucleated RBC % 0 Absolute Neutrophils 39.33 H Absolute Lymphocytes 2.19 Absolute Monocytes 2.19 H Absolute Eosinophils 0.00 Absolute Basophils 0.00 RBC Morphology Normal PT 10.7 INR 1.1 D-Dimer 181 Sodium 139 Potassium 4.2 Chloride 107 Carbon Dioxide 25.2 Anion Gap 6.8 BUN 58 H Creatinine 1.0 Estimated GFR/1.73 m2 >= 60.00 Glucose 119 H Calcium 7.8 L Magnesium 2.4 Ferritin 761 H Total Bilirubin 0.5 Conjugated Bilirubin 0.2 AST 17 ALT 62 Alkaline Phosphatase 75 C-Reactive Protein 0.24 Total Protein 5.1 L Albumin 2.2 L Vitamin B3 (Niacin) Urine RBC Urine WBC Ur Epithelial Cells Urine Crystals Urine Bacteria Urine Casts Urine Mucus Urine Other Ur Culture Indicated? COVID-19 Source SARS-CoV-2 (PCR) Review of Systems All systems reviewed & are unremarkable except as noted in HPI and below Time spent with patient Time spent in Critical Care: 35 Time spent in Critical care included: Coordination of care, Chart review, Documenting critically ill care, Time at immediate bedside and Discussing critically ill care with other medical staff
[2021-01-24] MEDS: Enoxaparin 40 MG/0.4 ML SYR SC (09:02)
[2021-01-24] MEDS: Protein Nutritional Supplement 16 GM 1 OUNCE PACKET PO ×3 (09:02→20:47)
[2021-01-24] MEDS: Famotidine 20 MG TAB PO ×2 (09:03→20:46)
[2021-01-24] MEDS: Thiamine 100 MG TAB PO (09:03)
[2021-01-24] MEDS: Folic Acid 1 MG TAB PO (09:03)
[2021-01-24] MEDS: Finasteride 5 MG TAB PO (09:03)
[2021-01-24] MEDS: Dexamethasone 4 MG TAB 6 MG PO (09:03)
[2021-01-24] MEDS: Multivitamin w/Minerals TAB 1 TAB PO (09:03)
[2021-01-24] MEDS: Aspirin E.C. 81 MG TABEC PO (09:03)
[2021-01-24] MEDS: PARoxetine 10 MG TAB 30 MG PO (09:03)
[2021-01-24] MEDS: Ascorbic Acid 500 MG TAB 1000 MG PO ×2 (09:03→20:46)
--- NOTE | 2021-01-24 10:00 | CMPROGNOTE_ITS ---
- If Service Date Differs Date of service: 01/24/21 Time of Service: 10:00 Care Management Progress Note S/O: Uriel continues to require close monitoring and treatment for Covid in the ICU. Per provider, his covid precautions will continue based on his PCR cycling time. Uriel still requires a lot of oxygen during ambulation. Nursing noticed he is wearing a cross necklace and wonders if he would like to speak with the [place] over the phone. CM left message with Roxi, patient is currently sle eping. A: 70 year old male admitted to [facility] on 01/10/21 for COVID-19 Pneumonia P: Anticipate Uriel will be discharged home with new [facility] SN/PT when medically cleared by provider. Uriel will follow up with his PCP and plan of care as directed. RT will continue to assess for home 02 needs. He will transport home via private vehicle with family when ready. CM will continue to assess discharge needs.
[2021-01-24] MEDS: Ipratropium/Albuterol 4 GM 120 PUFF INH IH ×4 (10:01→21:03)
[2021-01-24] MEDS: Tiotropium/Olodaterol 10 PUFF INHALER 2 PUFF IH (10:01)
[2021-01-24] MEDS: Dronabinol 2.5 MG CAP 5 MG PO ×2 (10:59→16:19)
[2021-01-24] MEDS: Docusate Sodium 100 MG CAP PO ×2 (14:49→20:46)
[2021-01-24] MEDS: Senna TAB 1 TAB PO (20:46)
[2021-01-24] MEDS: Melatonin 3 MG TAB 9 MG PO (20:46)
[2021-01-24] MEDS: Atorvastatin 40 MG TAB PO (20:46)
[2021-01-24] MEDS: Latanoprost 0.005% 2.5 ML BTL OP (21:03)
[2021-01-24] MEDS: Mirtazapine 15 MG TAB 30 MG PO (21:03)
[2021-01-25] VITALS (42 sets, daily range): BP systolic 99–131; BP diastolic 53–68; PULSE 72–123; RESP 17–32; TEMP 31–36; O2SAT 78–100
[2021-01-25 07:29] LABS: HCT 36.1 % (40.0-50.0); HGB 11.9 g/dL (13.5-17.5); MCH 31.2 pg (27.0-33.0); MCV 94.5 fL (80-95); Nucleated RBC 0 %; Platelet Count 168 10^3/uL (130-400); RBC 3.82 10^6/uL (4.36-5.78); RDW 12.6 % (11.8-14.1); RDW-SD 43.6 fL
[2021-01-25 07:49] LABS: INR 1.1 (0.9-1.1); Prothrombin Time 10.6 sec (9.3-11.0)
[2021-01-25 07:50] LABS: WBC 39.63 10^3/uL (4.4-10.8)
[2021-01-25 07:59] LABS: ALT 57 U/L (16-63); AST 16 U/L (15-37); Albumin 2.3 g/dL (3.4-5.0); Alkaline Phosphatase 71 U/L (46-116); Anion Gap 7.3 mmol/L (3-11); BUN 59 mg/dL (7-18); Bilirubin, Direct 0.2 mg/dL (0.0-0.2); Bilirubin, Total 0.6 mg/dL (0.2-1.0); C-Reactive Protein 0.67 mg/dL (0.0-0.3); CO2 26.7 mmol/L (21.0-32.0); CREATININE 1.1 mg/dL (0.70-1.30); Chloride 107 mmol/L (98-107); Ferritin 714 ng/mL (26-388); Glucose 135 mg/dL (74-106); Magnesium 2.5 mg/dL (1.8-2.4); PHOSPHORUS 4.2 mg/dL (2.6-4.7); Potassium 4.3 mmol/L (3.5-5.1); Sodium 141 mmol/L (136-145); Total Protein 5.3 g/dL (6.4-8.2)
[2021-01-25 08:22] LABS: D-Dimer 153 ng/mlFEU (<500); Procalcitonin < 0.1 ng/mL
[2021-01-25] MEDS: Ipratropium/Albuterol 4 GM 120 PUFF INH IH ×4 (08:34→20:38)
[2021-01-25] MEDS: Tiotropium/Olodaterol 10 PUFF INHALER 2 PUFF IH (08:34)
--- NOTE | 2021-01-25 08:40 | CMPROGNOTE_ITS ---
- If Service Date Differs Date of service: 01/25/21 Time of Service: 08:40 Care Management Progress Note S/O: Uriel continues to require close monitoring and treatment for Covid in the ICU. Per provider, his covid precautions will continue based on his PCR cycling time. Uriel still requires a lot of oxygen during ambulation and looks tired. CM contacted Agnes Scott from the ID and she reports that he is not [facility] but he could transfer to the [facility] pending bed availability. Uriel has absolutely no interest in transferring to the ID. CM will continue to follow. A: 70 year old male admitted to [facility] on 01/10/21 for COVID-19 Pneumonia P: Anticipate Uriel will be discharged home with new [facility] SN/PT when medically cleared by provider. Uriel will follow up with his PCP and plan of care as directed. RT will continue to assess for home 02 needs. He will transport home via private vehicle with family when ready. CM will continue to assess discharge needs.
[2021-01-25] MEDS: Normal Saline Flush 10 ML SYR IVP ×4 (08:44→20:36)
[2021-01-25] MEDS: Enoxaparin 40 MG/0.4 ML SYR SC (08:44)
[2021-01-25] MEDS: Protein Nutritional Supplement 16 GM 1 OUNCE PACKET PO ×3 (08:44→20:36)
[2021-01-25] MEDS: Folic Acid 1 MG TAB PO (08:45)
[2021-01-25] MEDS: Aspirin E.C. 81 MG TABEC PO (08:45)
[2021-01-25] MEDS: Docusate Sodium 100 MG CAP PO ×2 (08:45→20:36)
[2021-01-25] MEDS: Dexamethasone 4 MG TAB 6 MG PO (08:45)
[2021-01-25] MEDS: Ascorbic Acid 500 MG TAB 1000 MG PO ×2 (08:46→20:35)
[2021-01-25] MEDS: Thiamine 100 MG TAB PO (08:46)
[2021-01-25] MEDS: PARoxetine 10 MG TAB 30 MG PO (08:46)
[2021-01-25] MEDS: Famotidine 20 MG TAB PO ×2 (08:47→20:35)
[2021-01-25] MEDS: Senna TAB 1 TAB PO ×2 (08:48→20:35)
[2021-01-25] MEDS: Finasteride 5 MG TAB PO (08:48)
[2021-01-25] MEDS: Multivitamin w/Minerals TAB 1 TAB PO (08:48)
[2021-01-25 08:55] LABS: Absolute Lymphocyte Count 1.59 10^3/uL (1.2-3.4); Absolute Monocyte Count 3.17 10^3/uL (0.1-0.8); Absolute Neutrophil Count 34.87 10^3/uL (1.2-6.7); Bands % 1; Diff Comment Manual Differential
--- NOTE | 2021-01-25 08:55 | PGE_ITS ---
Date of Service Date of service: 01/25/21 Time of Service: 14:11 Assessment and Plan Assessment and plan (1) Acute respiratory failure with hypoxia: Status: Acute Assessment and plan: Due to pneumonia caused by COVID-19. Improving. Will give lasix 20 mg IV x 1 due to rales I heard on exam today. Procalcitonin negative and CXR without evidence of bacterial infection. Continue dexamethasone. He finished baricitinib/remdesivir. Low suspicion for DVT/PE by D-dimer. Encourage proning, IS/acapella. Wean O2 as tolerated. (2) COVID: Status: Acute Assessment and plan: As above Continue dexamethasone. Finished remdesivir and baricitinib. PCR with low cycling time (25.5), which based on some studies indicates that he is still infectious and has an active infection, therefore we are continuing precautions. (3) COPD (chronic obstructive pulmonary disease): Status: Chronic Assessment and plan: In acute exacerbation due to above. Continue steroids, Stiolto and prn albuterol. Qualifiers: COPD type: unspecified COPD Qualified Code(s): J44.9 - Chronic obstructive pulmonary disease, unspecified (4) Depression: Status: Acute Assessment and plan: Eating and sleeping better. Continue Paxil 30 mg daily and Remeron 30 mg QHS Qualifiers: Depression Type: reactive depression Qualified Code(s): F32.9 - Major depressive disorder, single episode, unspecified (5) Nutrition disorder: Status: Acute Assessment and plan: As above Also, continue marinol. (6) HLD (hyperlipidemia): Status: Acute Assessment and plan: Continue atorvastain 40 mg qhs (7) BPH (benign prostatic hyperplasia): Status: Chronic Assessment and plan: s/p dykes due to evidence of urinary retention (1000 cc on the night of admission in the ICU). Continue Proscar and dykes. BP did not tolerate flomax (low BP). (8) GERD (gastroesophageal reflux disease): Status: Chronic Assessment and plan: Continue famotidine Qualifiers: Esophagitis presence: esophagitis presence not specified Qualified Code(s): K21.9 - Gastro-esophageal reflux disease without esophagitis (9) DVT prophylaxis: Status: Acute Assessment and plan: enoxaparin 40 mg SC daily (10) Discharge planning issues: Status: Acute Assessment and plan: Continues to require ICU. DNR/DNI Total Critical Care Time 30 minutes. Subjective Subjective Interval history since last seen: Mr Sprague states that he is a little bit tired. He did a lot of walking with a walker inside of his room today, on non- rebreather, 15L. On HHHFNC 50%, 50L this morning, but seems to do better with nonrebreather, per nursing. When back to bed, goes back on CPAP, and currently his FiO2 is 55%, PEEP of 12. Spent the night on CPAP. Exam Narrative Exam Narrative: General: Pleasant elderly male, A&Ox3, in bed, on CPAP, looks tired HEENT: EOMI, MMM Heart: RRR with extra beats, no m/r/g Lungs: CTAB with slight rales at B bases Abdomen: soft, nontender, nondistended Extremities: no edema BLE's Objective Last Vital Signs Temp 36.0 C L 01/24/21 20:20 Pulse 72 01/25/21 08:00 Resp 22 01/25/21 08:01 BP 99/59 L 01/25/21 08:00 Pulse Ox 93 01/25/21 08:01 Laboratory Results - last 24 hr 01/25/21 01/25/21 01/25/21 06:50 06:50 06:50 PT 10.6 INR 1.1 D-Dimer 153 Sodium 141 Potassium 4.3 Chloride 107 Carbon Dioxide 26.7 Anion Gap 7.3 BUN 59 H Creatinine 1.1 Estimated GFR/1.73 m2 >= 60.00 Glucose 135 H Calcium 8.0 L Phosphorus 4.2 Magnesium 2.5 H Ferritin 714 H Total Bilirubin 0.6 Conjugated Bilirubin 0.2 AST 16 ALT 57 Alkaline Phosphatase 71 C-Reactive Protein 0.67 H Total Protein 5.3 L Albumin 2.3 L Procalcitonin < 0.1
[2021-01-25 08:56] LABS: RBC Morphology Normal
[2021-01-25] MEDS: Albuterol HFA 8 GM 60 PUFF INH IH (09:15)
[2021-01-25 09:58] LABS: Vitamin D 25 Total 62.2 ng/mL (30-100)
[2021-01-25] MEDS: Dronabinol 2.5 MG CAP 5 MG PO ×2 (12:45→15:59)
[2021-01-25] MEDS: Bisacodyl 5 MG TABEC PO (16:00)
[2021-01-25] MEDS: Furosemide 20 MG/2 ML VIAL (17:32)
[2021-01-25] MEDS: Atorvastatin 40 MG TAB PO (20:35)
[2021-01-25] MEDS: Mirtazapine 15 MG TAB 30 MG PO (20:35)
[2021-01-25] MEDS: Polyethylene Glycol 3350 17 GM PACKET PO (20:36)
[2021-01-25] MEDS: Latanoprost 0.005% 2.5 ML BTL OP (20:37)
[2021-01-26] VITALS (40 sets, daily range): BP systolic 95–117; BP diastolic 49–69; PULSE 79–134; RESP 15–32; TEMP 31–36.1; O2SAT 80–99
[2021-01-26 07:12] LABS: HCT 34.2 % (40.0-50.0); HGB 11.5 g/dL (13.5-17.5); MCH 31.5 pg (27.0-33.0); MCHC 33.6 % (32.0-36.0); MCV 93.7 fL (80-95); MPV 10.9 fL (8.0-11.0); Nucleated RBC 0 %; Platelet Count 153 10^3/uL (130-400); RBC 3.65 10^6/uL (4.36-5.78); RDW 12.6 % (11.8-14.1); RDW-SD 43.5 fL
[2021-01-26 07:15] LABS: WBC 30.71 10^3/uL (4.4-10.8)
[2021-01-26 07:36] LABS: Absolute Lymphocyte Count 1.54 10^3/uL (1.2-3.4); Absolute Monocyte Count 2.15 10^3/uL (0.1-0.8); Absolute Neutrophil Count 27.02 10^3/uL (1.2-6.7)
[2021-01-26 07:37] LABS: Diff Comment Manual Differential; RBC Morphology Normal
[2021-01-26 07:51] LABS: D-Dimer 190 ng/mlFEU (<500)
[2021-01-26 07:56] LABS: Prothrombin Time 10.4 sec (9.3-11.0)
[2021-01-26 07:57] LABS: ALT 73 U/L (16-63); AST 20 U/L (15-37); Albumin 2.2 g/dL (3.4-5.0); Alkaline Phosphatase 79 U/L (46-116); Anion Gap 7.9 mmol/L (3-11); BUN 61 mg/dL (7-18); Bilirubin, Direct 0.2 mg/dL (0.0-0.2); Bilirubin, Total 0.5 mg/dL (0.2-1.0); C-Reactive Protein 0.33 mg/dL (0.0-0.3); CO2 27.1 mmol/L (21.0-32.0); Calcium 7.8 mg/dL (8.5-10.1); Chloride 106 mmol/L (98-107); Ferritin 725 ng/mL (26-388); Glucose 109 mg/dL (74-106); Magnesium 2.6 mg/dL (1.8-2.4); PHOSPHORUS 3.6 mg/dL (2.6-4.7); Potassium 3.7 mmol/L (3.5-5.1); Sodium 141 mmol/L (136-145)
--- NOTE | 2021-01-26 08:33 | PDOC.CMPRO ---
- If Service Date Differs Date of service: 01/26/21 Time of Service: 15:10 Care Management Progress Note S/O: Uriel continues to require close monitoring and treatment for Covid in the ICU. Per provider, his Covid precautions will continue based on his PCR cycling time. Per provider, Uriel is making gains medically and may transition to M/S floor today. CM will continue to follow. A: 70 year old male admitted to [facility] on 01/10/21 for COVID-19 Pneumonia P: Anticipate Uriel will be discharged home with new [facility] SN/PT when medically cleared by provider. Uriel will follow up with his PCP and plan of care as directed. RT will continue to assess for home 02 needs. He will transport home via private vehicle with family when ready. CM will continue to assess discharge needs.
[2021-01-26] MEDS: Protein Nutritional Supplement 16 GM 1 OUNCE PACKET PO ×3 (09:02→17:52)
[2021-01-26] MEDS: Enoxaparin 40 MG/0.4 ML SYR SC (09:02)
[2021-01-26] MEDS: Normal Saline Flush 10 ML SYR IVP (09:02)
[2021-01-26] MEDS: Polyethylene Glycol 3350 17 GM PACKET PO ×2 (09:03→17:51)
[2021-01-26] MEDS: Senna TAB 1 TAB PO ×2 (09:03→17:51)
[2021-01-26] MEDS: Folic Acid 1 MG TAB PO (09:03)
[2021-01-26] MEDS: Multivitamin w/Minerals TAB 1 TAB PO (09:03)
[2021-01-26] MEDS: Finasteride 5 MG TAB PO (09:03)
[2021-01-26] MEDS: Docusate Sodium 100 MG CAP PO ×2 (09:03→17:51)
[2021-01-26] MEDS: Famotidine 20 MG TAB PO ×2 (09:04→17:51)
[2021-01-26] MEDS: Aspirin E.C. 81 MG TABEC PO (09:04)
[2021-01-26] MEDS: Thiamine 100 MG TAB PO (09:04)
[2021-01-26] MEDS: Ascorbic Acid 500 MG TAB 1000 MG PO ×2 (09:04→17:51)
[2021-01-26] MEDS: Dexamethasone 4 MG TAB 6 MG PO (09:04)
[2021-01-26] MEDS: PARoxetine 10 MG TAB 30 MG PO (09:05)
[2021-01-26] MEDS: Tiotropium/Olodaterol 10 PUFF INHALER 2 PUFF IH (11:13)
[2021-01-26] MEDS: Dronabinol 2.5 MG CAP 5 MG PO ×2 (11:14→16:20)
[2021-01-26] MEDS: Albuterol HFA 8 GM 60 PUFF INH IH (11:14)
[2021-01-26] MEDS: Ipratropium/Albuterol 4 GM 120 PUFF INH IH ×3 (11:54→17:52)
--- NOTE | 2021-01-26 16:51 | W.PM.PROGNOT ---
Date of Service Date of service: 01/26/21 Time of Service: 16:51 Assessment and Plan Assessment and plan (1) Acute respiratory failure with hypoxia: Status: Acute Assessment and plan: Due to pneumonia caused by COVID-19. Stable. Continue dexamethasone. He finished baricitinib/remdesivir. Low suspicion for DVT/PE by D-dimer. Encourage proning, IS/acapella. Wean O2 as tolerated. (2) COVID: Status: Acute Assessment and plan: As above Continue dexamethasone. Finished remdesivir and baricitinib. PCR with low cycling time (25.5) on 01/23/21, which based on some studies indicates that he is still infectious and has an active infection, therefore we are continuing precautions. Consider repeating next week. (3) COPD (chronic obstructive pulmonary disease): Status: Chronic Assessment and plan: In acute exacerbation due to above. Continue steroids, Stiolto and prn albuterol. Qualifiers: COPD type: unspecified COPD Qualified Code(s): J44.9 - Chronic obstructive pulmonary disease, unspecified (4) Depression: Status: Acute Assessment and plan: Eating and sleeping better. Continue Paxil 30 mg daily and Remeron 30 mg QHS Qualifiers: Depression Type: reactive depression Qualified Code(s): F32.9 - Major depressive disorder, single episode, unspecified (5) Nutrition disorder: Status: Acute Assessment and plan: As above Also, continue marinol. (6) HLD (hyperlipidemia): Status: Acute Assessment and plan: Continue atorvastain 40 mg qhs (7) BPH (benign prostatic hyperplasia): Status: Chronic Assessment and plan: s/p dykes due to evidence of urinary retention (1000 cc on the night of admission in the ICU). Continue Proscar and dykes. BP did not tolerate flomax (low BP). (8) GERD (gastroesophageal reflux disease): Status: Chronic Assessment and plan: Continue famotidine Qualifiers: Esophagitis presence: esophagitis presence not specified Qualified Code(s): K21.9 - Gastro-esophageal reflux disease without esophagitis (9) DVT prophylaxis: Status: Acute Assessment and plan: enoxaparin 40 mg SC daily (10) Discharge planning issues: Status: Acute Assessment and plan: Continues to require ICU. DNR/DNI Total Critical Care Time 30 minutes. Subjective Subjective Interval history since last seen: On FiO2 of 45%, 60L this afternoon. Spent the night on CPAP (5 hrs, FiO2 35-40%). He did a lot less as far as activity today because he was tired/didn't sleep well last night. Desaturates in bed with minimal motion down to low 80s. Exam Narrative Exam Narrative: General: Pleasant elderly male, A&Ox3, in bed, on humidified heated high flow O2. HEENT: EOMI, MMM Heart: RRR with extra beats, occasionally sonding irregular, no m/r/g Lungs: CTAB Abdomen: soft, nontender, nondistended Extremities: no edema BLE's Objective Last Vital Signs Temp 35.9 C L 01/26/21 11:56 Pulse 106 H 01/26/21 16:25 Resp 20 01/26/21 16:25 BP 95/55 L 01/26/21 16:25 Pulse Ox 93 01/26/21 16:00 Laboratory Results - last 24 hr 01/26/21 01/26/21 01/26/21 06:20 06:20 06:20 WBC 30.71 H* RBC 3.65 L Hgb 11.5 L Hct 34.2 L MCV 93.7 MCH 31.5 MCHC 33.6 RDW 12.6 Plt Count 153 MPV 10.9 Immature Gran % 0.0 Neutrophils % 88.0 Lymphocytes % 5.0 Monocytes % 7.0 Eosinophils % 0.0 Basophils % 0.0 Nucleated RBC % 0 Absolute Neutrophils 27.02 H Absolute Lymphocytes 1.54 Absolute Monocytes 2.15 H Absolute Eosinophils 0.00 Absolute Basophils 0.00 RBC Morphology Normal PT 10.4 INR 1.0 D-Dimer 190 Sodium 141 Potassium 3.7 Chloride 106 Carbon Dioxide 27.1 Anion Gap 7.9 BUN 61 H Creatinine 1.0 Estimated GFR/1.73 m2 >= 60.00 Glucose 109 H Calcium 7.8 L Phosphorus 3.6 Magnesium 2.6 H Ferritin 725 H Total Bilirubin 0.5 Conjugated Bilirubin 0.2 AST 20 ALT 73 H Alkaline Phosphatase 79 C-Reactive Protein 0.33 H Total Protein 5.0 L Albumin 2.2 L
[2021-01-26] MEDS: Atorvastatin 40 MG TAB PO (17:51)
[2021-01-26] MEDS: Mirtazapine 15 MG TAB 30 MG PO (22:11)
[2021-01-26] MEDS: Latanoprost 0.005% 2.5 ML BTL OP (22:11)
[2021-01-26] MEDS: Melatonin 3 MG TAB 9 MG PO (23:35)
[2021-01-27] VITALS (43 sets, daily range): BP systolic 104–132; BP diastolic 54–80; PULSE 87–136; RESP 17–35; TEMP 31–36.3; O2SAT 77–97
[2021-01-27 07:01] LABS: Abs Immature Grans 0.67 10^3/uL (0.0-0.06); Absolute Monocyte Count 3.11 10^3/uL (0.1-0.8); Basophils % 0.1; Eosinophils % 0.2; HGB 11.5 g/dL (13.5-17.5); Immature Grans % 2.3; Lymphocytes % 2.4; MCH 31.1 pg (27.0-33.0); MCHC 32.9 % (32.0-36.0); MCV 94.6 fL (80-95); Monocytes % 10.7; Neutrophils % 84.3; Nucleated RBC 0 %; RDW 12.9 % (11.8-14.1); RDW-SD 43.8 fL
[2021-01-27 07:05] LABS: Absolute Basophil Count 0.03 10^3/uL (0.0-0.2); Absolute Eosinophil Count 0.06 10^3/uL (0.0-0.7); Absolute Neutrophil Count 24.49 10^3/uL (1.2-6.7); WBC 29.05 10^3/uL (4.4-10.8)
[2021-01-27 07:25] LABS: Platelet Count 115 10^3/uL (130-400)
[2021-01-27 07:26] LABS: Diff Comment Agrees w/ Instrument; Polychromasia Present
[2021-01-27 07:31] LABS: ALT 81 U/L (16-63); AST 20 U/L (15-37); Albumin 2.2 g/dL (3.4-5.0); Alkaline Phosphatase 86 U/L (46-116); Anion Gap 7.3 mmol/L (3-11); BUN 52 mg/dL (7-18); Bilirubin, Direct 0.2 mg/dL (0.0-0.2); Bilirubin, Total 0.6 mg/dL (0.2-1.0); C-Reactive Protein 1.09 mg/dL (0.0-0.3); CO2 26.7 mmol/L (21.0-32.0); CREATININE 0.9 mg/dL (0.70-1.30); Calcium 7.8 mg/dL (8.5-10.1); Chloride 106 mmol/L (98-107); Ferritin 784 ng/mL (26-388); Glucose 111 mg/dL (74-106); Magnesium 2.5 mg/dL (1.8-2.4); Potassium 4.2 mmol/L (3.5-5.1); Sodium 140 mmol/L (136-145); Total Protein 5.2 g/dL (6.4-8.2)
[2021-01-27 07:32] LABS: D-Dimer 262 ng/mlFEU (<500)
[2021-01-27] MEDS: Ascorbic Acid 500 MG TAB 1000 MG PO ×2 (08:59→19:52)
[2021-01-27] MEDS: Aspirin E.C. 81 MG TABEC PO (09:00)
[2021-01-27] MEDS: Finasteride 5 MG TAB PO (09:00)
[2021-01-27] MEDS: Famotidine 20 MG TAB PO ×2 (09:00→19:51)
[2021-01-27] MEDS: Docusate Sodium 100 MG CAP PO ×2 (09:00→19:52)
[2021-01-27] MEDS: Enoxaparin 40 MG/0.4 ML SYR SC (09:00)
[2021-01-27] MEDS: Dexamethasone 4 MG TAB 6 MG PO (09:00)
[2021-01-27] MEDS: Polyethylene Glycol 3350 17 GM PACKET PO (09:01)
[2021-01-27] MEDS: Multivitamin w/Minerals TAB 1 TAB PO (09:01)
[2021-01-27] MEDS: Folic Acid 1 MG TAB PO (09:01)
[2021-01-27] MEDS: Protein Nutritional Supplement 16 GM 1 OUNCE PACKET PO ×3 (09:01→19:53)
[2021-01-27] MEDS: Ipratropium/Albuterol 4 GM 120 PUFF INH IH ×4 (09:01→19:52)
[2021-01-27] MEDS: PARoxetine 10 MG TAB 30 MG PO (09:01)
[2021-01-27] MEDS: Senna TAB 1 TAB PO (09:02)
[2021-01-27] MEDS: Thiamine 100 MG TAB PO (09:02)
[2021-01-27] MEDS: Tiotropium/Olodaterol 10 PUFF INHALER 2 PUFF IH (09:02)
[2021-01-27] MEDS: Dronabinol 2.5 MG CAP 5 MG PO ×2 (12:19→16:59)
--- NOTE | 2021-01-27 16:30 | W.PM.PROGNOT ---
Date of Service Date of service: 01/27/21 Time of Service: 16:30 Assessment and Plan Assessment and plan (1) COVID: Status: Acute Assessment and plan: + Covid PNA. WBC elevated. Bilateral ground-glass opacities on CT. Remdesivir, Baricitinib courses have been completed. Cont dexamethasone. . Procal 0.1 on 01/09. Repeat on 01/12 <0.1. Monitor inflammatory markers: D dimer normal. CRP normalized then increased modestly. PCR cycling time on 01/23/21 was low; continuing precautions. Vit D and C supplementation. Stable on CPAP with FIO2 of 60% and 10 Peep. High flow NC breaks and with eating but desaturates and requires CPAP at all other times. Pulmonary / critiacl care consulted. Prone position encouraged. Lie on sides as alternative to proning if unable or unwilling. Ambulate frequently. (2) Hypoxemia: Status: Deleted Assessment and plan: Acute on Chronic. See above. (3) COPD (chronic obstructive pulmonary disease): Status: Chronic Assessment and plan: Cont Stiolto and prn albuterol. Cont dexamthasone. Qualifiers: COPD type: unspecified COPD Qualified Code(s): J44.9 - Chronic obstructive pulmonary disease, unspecified (4) HLD (hyperlipidemia): Status: Acute Assessment and plan: Cont atorvastain 40mg nightly. (5) BPH (benign prostatic hyperplasia): Status: Chronic Assessment and plan: Has dykes catheter in place d/t urinary retention. Now on Proscar. Tamsulosin stopped d/t effect of lowering BP. (6) GERD (gastroesophageal reflux disease): Status: Chronic Assessment and plan: On pantoprazole at home; change to famotadine IV. Qualifiers: Esophagitis presence: esophagitis presence not specified Qualified Code(s): K21.9 - Gastro-esophageal reflux disease without esophagitis (7) Acute respiratory failure with hypoxia: Status: Acute Assessment and plan: D/T COVID PNA. See above. Subjective Subjective Patient reports: feels better, tolerating a regular diet and afebrile; denies nausea and vomiting Interval history since last seen: On high-flow NC during the day; CPAP ordered for night. He states he continues to ambulate in room Exam Narrative Exam Narrative: Lying supine. Const General: cooperative and no acute distress Nutritional Appearance: average body habitus Orientation: alert and oriented x3 [facility] Head: atraumatic Eyes General: appearance normal, both eyes and all related structures Sclera: sclerae normal Resp Effort & Inspection: normal respiratory effort Auscultation: clear to auscultation bilaterally Cardio Rate: tachycardic Rhythm: regular rhythm Heart Sounds: S1 normal and S2 normal GI Palpation: soft and nontender Skin General skin exam: no rashes or lesions noted Neuro General: no focal motor deficits Cranial Nerves: hearing abnormal (decreased auditory acuity) Speech: speech normal Extrem General: no pedal edema and no calf tenderness Objective Last Vital Signs Temp 35.6 C L 01/27/21 16:22 Pulse 98 H 01/27/21 16:22 Resp 22 01/27/21 16:22 BP 104/61 01/27/21 16:22 Pulse Ox 94 01/27/21 16:22 Laboratory Results - last 24 hr 01/27/21 01/27/21 01/27/21 06:10 06:10 06:10 WBC 29.05 H* RBC 3.70 L Hgb 11.5 L Hct 35.0 L MCV 94.6 MCH 31.1 MCHC 32.9 RDW 12.9 Plt Count 115 L MPV 11.0 Immature Gran % 2.3 Neutrophils % 84.3 Lymphocytes % 2.4 Monocytes % 10.7 Eosinophils % 0.2 Basophils % 0.1 Nucleated RBC % 0 Absolute Neutrophils 24.49 H Absolute Lymphocytes 0.70 L Absolute Monocytes 3.11 H Absolute Eosinophils 0.06 Absolute Basophils 0.03 RBC Morphology See Below Polychromasia Present D-Dimer 262 Sodium 140 Potassium 4.2 Chloride 106 Carbon Dioxide 26.7 Anion Gap 7.3 BUN 52 H Creatinine 0.9 Estimated GFR/1.73 m2 >= 60.00 Glucose 111 H Calcium 7.8 L Magnesium 2.5 H Ferritin 784 H Total Bilirubin 0.6 Conjugated Bilirubin 0.2 AST 20 ALT 81 H Alkaline Phosphatase 86 C-Reactive Protein 1.09 H Total Protein 5.2 L Albumin 2.2 L
[2021-01-27] MEDS: Atorvastatin 40 MG TAB PO (19:51)
[2021-01-27] MEDS: Mirtazapine 15 MG TAB 30 MG PO (22:56)
[2021-01-27] MEDS: Melatonin 3 MG TAB 9 MG PO (22:57)
[2021-01-27] MEDS: Latanoprost 0.005% 2.5 ML BTL OP (22:57)
[2021-01-28] VITALS (49 sets, daily range): BP systolic 103–125; BP diastolic 42–75; PULSE 73–123; RESP 16–37; TEMP 31–36.6; O2SAT 77–96
[2021-01-28] MEDS: Ascorbic Acid 500 MG TAB 1000 MG PO ×2 (09:23→22:14)
[2021-01-28] MEDS: Dexamethasone 4 MG TAB 6 MG PO (09:24)
[2021-01-28] MEDS: Aspirin E.C. 81 MG TABEC PO (09:24)
[2021-01-28] MEDS: Enoxaparin 40 MG/0.4 ML SYR SC (09:25)
[2021-01-28] MEDS: Docusate Sodium 100 MG CAP PO ×2 (09:25→22:14)
[2021-01-28] MEDS: Multivitamin w/Minerals TAB 1 TAB PO (09:26)
[2021-01-28] MEDS: Ipratropium/Albuterol 4 GM 120 PUFF INH IH ×4 (09:26→22:15)
[2021-01-28] MEDS: Famotidine 20 MG TAB PO ×2 (09:26→22:14)
[2021-01-28] MEDS: Finasteride 5 MG TAB PO (09:26)
[2021-01-28] MEDS: PARoxetine 10 MG TAB 30 MG PO (09:26)
[2021-01-28] MEDS: Folic Acid 1 MG TAB PO (09:26)
[2021-01-28] MEDS: Protein Nutritional Supplement 16 GM 1 OUNCE PACKET PO ×3 (09:27→22:15)
[2021-01-28] MEDS: Senna TAB 1 TAB PO ×2 (09:27→22:13)
[2021-01-28] MEDS: Polyethylene Glycol 3350 17 GM PACKET PO ×2 (09:27→22:15)
[2021-01-28] MEDS: Thiamine 100 MG TAB PO (09:27)
[2021-01-28] MEDS: Tiotropium/Olodaterol 10 PUFF INHALER 2 PUFF IH (09:27)
[2021-01-28] MEDS: Bisacodyl 5 MG TABEC PO (09:28)
[2021-01-28] MEDS: Dronabinol 2.5 MG CAP 5 MG PO ×2 (11:41→17:29)
--- NOTE | 2021-01-28 15:16 | PGE_ITS ---
Date of Service Date of service: 01/28/21 Time of Service: 15:17 Assessment and Plan Assessment and plan (1) COVID: Status: Acute Assessment and plan: + Covid PNA. WBC elevated. Bilateral ground-glass opacities on CT. Remdesivir, Baricitinib courses have been completed. Cont dexamethasone. . Procal 0.1 on 01/09. Repeat on 01/12 <0.1. Monitor inflammatory markers: D dimer normal. CRP normalized then increased modestly. PCR cycling time on 01/23/21 was low; continuing precautions. Vit D and C supplementation. Stable on CPAP with FIO2 of 40%, 60L and 10 Peep. High flow NC breaks and with eating but desaturates and requires CPAP at all other times. Pulmonary / critiacl care consulted. Prone position encouraged. Lie on sides as alternative to proning if unable or unwilling. Ambulate frequently. (2) Hypoxemia: Status: Deleted Assessment and plan: Acute on Chronic. See above. (3) COPD (chronic obstructive pulmonary disease): Status: Chronic Assessment and plan: Cont Stiolto and prn albuterol. Cont dexamthasone. Qualifiers: COPD type: unspecified COPD Qualified Code(s): J44.9 - Chronic obstructive pulmonary disease, unspecified (4) HLD (hyperlipidemia): Status: Acute Assessment and plan: Cont atorvastain 40mg nightly. (5) BPH (benign prostatic hyperplasia): Status: Chronic Assessment and plan: Has dykes catheter in place d/t urinary retention. Now on Proscar. Tamsulosin stopped d/t effect of lowering BP. (6) GERD (gastroesophageal reflux disease): Status: Chronic Assessment and plan: On pantoprazole at home; change to famotadine IV. Qualifiers: Esophagitis presence: esophagitis presence not specified Qualified Code(s): K21.9 - Gastro-esophageal reflux disease without esophagitis (7) Acute respiratory failure with hypoxia: Status: Acute Assessment and plan: D/T COVID PNA. See above. Subjective Subjective Patient reports: no new complaints, tolerating a regular diet and afebrile; denies nausea and vomiting Interval history since last seen: On high-flow NC during the day; CPAP ordered for night. He states he continues to ambulate in room Exam Narrative Exam Narrative: Lying supine. Const General: no acute distress Nutritional Appearance: average body habitus Orientation: alert and oriented x3 [facility] Head: atraumatic Eyes General: appearance normal, both eyes and all related structures Sclera: sclerae normal Resp Effort & Inspection: normal respiratory effort Cardio Rate: tachycardic Rhythm: regular rhythm Neuro General: no focal motor deficits Cranial Nerves: hearing abnormal (decreased auditory acuity) Speech: speech normal Objective Last Vital Signs Temp 36.0 C L 01/28/21 11:50 Pulse 93 H 01/28/21 11:50 Resp 21 01/28/21 11:52 BP 103/59 L 01/28/21 11:50 Pulse Ox 92 01/28/21 11:52
[2021-01-28] MEDS: Melatonin 3 MG TAB 9 MG PO (22:13)
[2021-01-28] MEDS: Normal Saline Flush 10 ML SYR IVP (22:13)
[2021-01-28] MEDS: Mirtazapine 15 MG TAB 30 MG PO (22:14)
[2021-01-28] MEDS: Atorvastatin 40 MG TAB PO (22:14)
[2021-01-28] MEDS: Latanoprost 0.005% 2.5 ML BTL OP (22:15)
[2021-01-29] VITALS (32 sets, daily range): BP systolic 119–136; BP diastolic 56–78; PULSE 73–127; RESP 8–32; TEMP 31–35.9; O2SAT 74–99
--- NOTE | 2021-01-29 | DI.CT_ITS ---
Exam(s) CT CHEST WO EXAM: CT CHEST WO CLINICAL HISTORY: COVID. Concerns for consolidating pneumonia. TECHNIQUE: Multi planar reconstructions were performed. CONTRAST MATERIAL: None COMPARISON: CT CT CHEST PE CTA from 01/09/2021 FINDINGS: CHEST: LUNGS: Severe bilateral emphysematous changes again noted. Minimal if any significant improvement in the previously described infiltrates. No pleural effusions at this time. No new findings in trache a and mainstem bronchi. MEDIASTINUM: There is no obvious hilar nor mediastinal adenopathy. Visualized thyroid unremarkable.No obvious axillary adenopathy CARDIAC: Heart size is unchanged. There is a very thin pericardial effusion again noted.Caliber of t he thoracic aorta is within normal limits. VISUALIZED UPPER ABDOMEN: OSSEOUS: No significant osseous lesions.Healed fracture of the right clavicle. IMPRESSION: 1. Minimal if any significant radiographic improvement when compared to 01/09/2021. 2. Severe emphysematous changes are again noted and there is persistent infiltrate in the lung smalls which exhibits minimal change from the prior study. 3. No pleural effusions. RADIATION DOSE DELIVERED: 490.67mGy.cm Total DLP DATA REPOSITORY: All CT scans at this facility are submitted to the National Radiology Data Registry (NRDR) Dose Index Registry (DIR) with the [employer] ([employer]). RADIATION OPTIMIZATION: All CT scans at this facility use at least one of these dose optimization te chniques: automated exposure control; mA and/or kV adjustment per patient size (includes targeted exa ms where dose is matched to clinical indication); or iterative reconstruction.
[2021-01-29 07:58] LABS: C-Reactive Protein 2.69 mg/dL (0.0-0.3)
[2021-01-29] MEDS: Ipratropium/Albuterol 4 GM 120 PUFF INH IH ×4 (08:07→21:54)
[2021-01-29] MEDS: Polyethylene Glycol 3350 17 GM PACKET PO ×2 (08:08→21:52)
[2021-01-29] MEDS: Tiotropium/Olodaterol 10 PUFF INHALER 2 PUFF IH (08:08)
[2021-01-29] MEDS: Enoxaparin 40 MG/0.4 ML SYR SC (08:09)
[2021-01-29] MEDS: Protein Nutritional Supplement 16 GM 1 OUNCE PACKET PO ×3 (08:09→21:52)
[2021-01-29] MEDS: PARoxetine 10 MG TAB 30 MG PO (08:09)
[2021-01-29] MEDS: Folic Acid 1 MG TAB PO (08:10)
[2021-01-29] MEDS: Dexamethasone 4 MG TAB 6 MG PO (08:10)
[2021-01-29] MEDS: Finasteride 5 MG TAB PO (08:11)
[2021-01-29] MEDS: Famotidine 20 MG TAB PO ×2 (08:11→21:53)
[2021-01-29] MEDS: Docusate Sodium 100 MG CAP PO ×2 (08:11→21:53)
[2021-01-29] MEDS: Thiamine 100 MG TAB PO (08:11)
[2021-01-29] MEDS: Multivitamin w/Minerals TAB 1 TAB PO (08:11)
[2021-01-29] MEDS: Senna TAB 1 TAB PO ×2 (08:11→21:53)
[2021-01-29] MEDS: Ascorbic Acid 500 MG TAB 1000 MG PO ×2 (08:11→21:53)
[2021-01-29] MEDS: Aspirin E.C. 81 MG TABEC PO (08:11)
[2021-01-29 08:29] LABS: D-Dimer 226 ng/mlFEU (<500)
--- NOTE | 2021-01-29 10:17 | CMPROGNOTE_ITS ---
- If Service Date Differs Date of service: 01/29/21 Time of Service: 10:17 Care Management Progress Note S/O: CM met with Uriel over the phone. He reported that he is feeling great. Uriel continues to require close monitoring and treatment for Covid in the ICU. Per provider, his Covid precautions will discontinue. Uriel is expected to transfer to the med surg unit in the near future, when he is no longer requiring ICU level care. CM will continue to follow. A: 70 year old male admitted to [facility] on 01/10/21 for COVID-19 Pneumonia P: Anticipate Uriel will be discharged home with new [facility] SN/PT when medically cleared by provider. Uriel will follow up with his PCP and plan of care as direct ed. RT will continue to assess for home 02 needs. He will transport home via private vehicle with family when ready. CM will continue to assess discharge needs.
--- NOTE | 2021-01-29 10:56 | W.NUTRFU ---
Date of service: 01/29/21 Time of Service: 10:57 Nutrition Note NOTE: Mr. Urban has excellent PO intake on heart healthy diet. His weight has been entirely stable. Will continue to monitor nutritional status and evaluate nutrition care plan ongoing and adjust as needed. Time Spent in Nutritional Counseling and Treatment: 0
--- NOTE | 2021-01-29 12:26 | PUCC_ITS ---
General Date of Service Date of service: 01/29/21 Time of Service: 07:45 Reason for Admission to ICU: COVID-19 Assessment and Plan Assessment and plan (1) COPD (chronic obstructive pulmonary disease): Status: Chronic Qualifiers: COPD type: unspecified COPD Qualified Code(s): J44.9 - Chronic obstructive pulmonary disease, unspecified (2) COVID: Status: Acute (3) Leukocytosis: Status: Acute (4) Anemia: Status: Chronic (5) Hypoalbuminemia: Status: Acute (6) Bacteria in urine: Status: Acute (7) Hypotension: Status: Resolved Qualifiers: Hypotension type: hypotension due to hypovolemia Qualified Code(s): I95.89 - Other hypotension; E86.1 - Hypovolemia (8) Respiratory failure: Status: Acute Assessment and plan: This is a 70 yo unvaccinated man admitted to the ICU with COVID-19. He continues to make improvements. He still experiences significant desaturations with movement, but he overall seems to be doing much better. He is tolerating ambulation better than last week and his spirits seem up and is motivated to get better. We no longer need to monitor any inflammatory markers daily - recommend stretching this back to twice a week and prn. We will continue to work on weaning his O2 requirements and will still give him CPAP at night. Given we are 3 weeks into his stay and he continues to have a significant oxygen requirement, he may be developing an organizing pneumonia from the COVID. We will get a chest CT today to assess for this. Recommendations Pulmonary: Hypoxic respiratory failure - sat goals 88-92% - can attempt weaning to nasal cannula today and CPAP overnight - OOB to chair and ambulation as tolerated - proning as tolerated - recommend IS and Acapella - recommend slightly negative fluid balance daily COPD - on Decadron for COVID but not exacerbated currently - agree with continuing home Stiolto - continue Combivent QID and prn albuterol Cardiac: Hypotension, resolved, back on home BP meds Renal: Recommend slight negative fluid balance to even I&O: Intake & Output 01/26/21 01/27/21 01/28/21 01/29/21 23:59 23:59 23:59 23:59 Intake Total 770 / 770 920 / 920 1174 / 1174 250 / 250 Output Total 1225 / 1225 1025 / 1025 1250 / 1250 300 / 300 Balance -455 / -455 -105 / -105 -76 / -76 -50 / -50 Weight 65.8 kg 64 kg 64.2 kg Daily Fluid Goal:: slight negative to even GI Nutrition: Decreased appetite, improved - promote PO intake - has been started on an SSRI and and appetite stimulant Date of Last Bowel Movement: 01/29/21 Infectious Disease: COVID -19 - on Decadron - s/p barcitinib and remdesivir - inflammatory markers at a plateau, likely do not need to monitor these unless a clinical change - I am comfortable with the patient coming off of precautions Hematologic: Anemia - will monitor Neurologic: No acute concerns - delirium prevention technique - hard of hearing - have hearing aids within reach Endocrine: No acute concerns, daily glucose monitoring in labs - on steroids Lines: PICC Prophylaxis: Famotidine and Lovenox Code Status: Resuscitation Status DNR/DNI Subjective Critical and life-threatening events over the past 24 hours: Uriel is doing well today. Every week he seems to gain improvements. He was already up and walking at the time of my assessment. He is doing well wearing CPAP at night and his FiO2 requirements decrease significantly with PAP therapy. He feels as though he is doing well and is very motivated to get better. Exam Const General: comfortable and no acute distress Nutritional Appearance: thin HENMT Head: normocephalic Ears: external ears normal and no periauricular adenopathy General nose exam: nasal mucous membranes and turbinates normal Face and sinus: sinuses nontender Mouth: oropharynx normal and moist mucous membranes Teeth and gingiva: dentition normal Eyes General: appearance normal, both eyes and all related structures Pupils: PERRL Neck Neck: normal visual inspection and no lymphadenopathy Chest Chest: normal inspection of the chest Resp Effort & Inspection: normal respiratory effort Auscultation: clear to auscultation bilaterally, no rales, rhonchi and no wheezes Cardio Rate: regular rate Rhythm: regular rhythm Heart Sounds: S1 normal, S2 normal and no murmurs Pulses: radial pulses present bilaterally GI Inspection: normal to inspection Palpation: soft Skin General skin exam: no rashes or lesions noted Neuro General: patient alert, patient awake and patient oriented x3 Extrem General: no clubbing, cyanosis or edema Psych Mental Status: mental status grossly normal Affect: normal affect Attitude: cooperative Most Recent VS/Results Last Vital Signs Temp 35.8 C L 01/29/21 07:50 Pulse 85 01/29/21 09:37 Resp 8 L 01/29/21 12:00 BP 136/67 01/29/21 09:37 Pulse Ox 93 01/29/21 12:00 Laboratory Results - last 24 hr 01/29/21 01/29/21 06:40 06:40 D-Dimer 226 C-Reactive Protein 2.69 H Review of Systems All systems reviewed & are unremarkable except as noted in HPI and below Time spent with patient Time spent in Critical Care: 35 Time spent in Critical care included: Coordination of care, Chart review, Documenting critically ill care, Time at immediate bedside and Discussing crit ically ill care with other medical staff
[2021-01-29] MEDS: Dronabinol 2.5 MG CAP 5 MG PO ×2 (12:47→16:59)
--- NOTE | 2021-01-29 13:19 | W.PM.PROGNOT ---
Date of Service Date of service: 01/29/21 Time of Service: 13:20 Assessment and Plan Assessment and plan (1) COVID: Status: Acute Assessment and plan: + Covid PNA. WBC elevated. Bilateral ground-glass opacities on CT. Remdesivir, Baricitinib courses have been completed. Cont dexamethasone. . Procal 0.1 on 01/09. Repeat on 01/12 <0.1. Monitor inflammatory markers: D dimer normal. CRP normalized but now increased. Vit D and C supplementation. Weaning to nasal cannula, CPAP at night. Ambulate frequently. Pt is motivated to move about. He is 30+ days post first symptoms. Pulmonary/critical care is OK with stopping precautions. Will cont to wear mask and eye protection. Pt to wear mask when out of room. Prone position encouraged. Lie on sides as alternative to proning if unable or unwilling. Ambulate frequently. (2) Hypoxemia: Status: Deleted Assessment and plan: Acute on Chronic. See above. (3) COPD (chronic obstructive pulmonary disease): Status: Chronic Assessment and plan: Cont Stiolto and prn albuterol. Cont dexamthasone. Qualifiers: COPD type: unspecified COPD Qualified Code(s): J44.9 - Chronic obstructive pulmonary disease, unspecified (4) HLD (hyperlipidemia): Status: Acute Assessment and plan: Cont atorvastain 40mg nightly. (5) BPH (benign prostatic hyperplasia): Status: Chronic Assessment and plan: Has dykes catheter in place d/t urinary retention. Now on Proscar. Tamsulosin stopped d/t effect of lowering BP. (6) GERD (gastroesophageal reflux disease): Status: Chronic Assessment and plan: On pantoprazole at home; change to famotadine IV. Qualifiers: Esophagitis presence: esophagitis presence not specified Qualified Code(s): K21.9 - Gastro-esophageal reflux disease without esophagitis (7) Acute respiratory failure with hypoxia: Status: Acute Assessment and plan: D/T COVID PNA. See above. Subjective Subjective Patient reports: no new complaints and afebrile; denies diarrhea, nausea and vomiting Exam Narrative Exam Narrative: Lying supine. Const General: no acute distress Nutritional Appearance: average body habitus Orientation: alert and oriented x3 HENMT Head: atraumatic Eyes General: appearance normal, both eyes and all related structures Sclera: sclerae normal Resp Effort & Inspection: normal respiratory effort Auscultation: clear to auscultation bilaterally Cardio Rate: tachycardic Rhythm: regular rhythm Heart Sounds: S1 normal and S2 normal GI Palpation: soft and nontender Skin General skin exam: no rashes or lesions noted Neuro General: no focal motor deficits Cranial Nerves: hearing abnormal (decreased auditory acuity) Speech: speech normal Extrem General: no pedal edema and no calf tenderness Objective Last Vital Signs Temp 35.8 C L 01/29/21 07:50 Pulse 85 01/29/21 09:37 Resp 8 L 01/29/21 12:00 BP 136/67 01/29/21 09:37 Pulse Ox 93 01/29/21 12:00 Laboratory Results - last 24 hr 01/29/21 01/29/21 06:40 06:40 D-Dimer 226 C-Reactive Protein 2.69 H
--- NOTE | 2021-01-29 13:48 | NUR.NOTE ---
I talked with the patient's this AM and she is doing well. She would very much like to video call or see the patient when able but understands the visiting limitations. We have been working on today how to make this happen. The has a basic phone with no options for facetime/video call and there are no family/friends around that she knows of with these options. She does not deal much with electronics and is not very familiar with items surrounding video calls or such. The patient came off of COVID precautions this afternoon based on verbal orders from Dr. Willson and Dr. Rice. I talked with Tracie Flowers in infection control on options for the patient to visit with his . Tracie will speak with Dr. Boone and follow-up with the ICU RNs. Nursing Note:
[2021-01-29] MEDS: Mirtazapine 15 MG TAB 30 MG PO (21:53)
[2021-01-29] MEDS: Atorvastatin 40 MG TAB PO (21:53)
[2021-01-29] MEDS: Latanoprost 0.005% 2.5 ML BTL OP (21:54)
[2021-01-30] VITALS (39 sets, daily range): BP systolic 107–149; BP diastolic 53–104; PULSE 74–131; RESP 16–48; TEMP 31–35.8; O2SAT 82–97
[2021-01-30] MEDS: Normal Saline Flush 10 ML SYR IVP (06:20)
--- NOTE | 2021-01-30 07:10 | W.PULMCC ---
General Date of Service Date of service: 01/30/21 Time of Service: 07:10 Reason for Admission to ICU: COVID Pneumonia Assessment and Plan Assessment and plan (1) COPD (chronic obstructive pulmonary disease): Status: Chronic Qualifiers: COPD type: unspecified COPD Qualified Code(s): J44.9 - Chronic obstructive pulmonary disease, unspecified (2) COVID: Status: Acute (3) Leukocytosis: Status: Acute (4) Anemia: Status: Chronic (5) Hypoalbuminemia: Status: Acute (6) Bacteria in urine: Status: Acute (7) Hypotension: Status: Resolved Qualifiers: Hypotension type: hypotension due to hypovolemia Qualified Code(s): I95.89 - Other hypotension; E86.1 - Hypovolemia (8) Respiratory failure: Status: Acute Assessment and plan: This is a 70 yo unvaccinated man admitted to the ICU with COVID-19. He continues to make improvements. He still experiences significant desaturations with movement, but he overall seems to be doing much better. He is tolerating ambulation better than last week and his spirits seem up and is motivated to get better. He does have evidence of a progressive fibrotic process occurring on his chest CT, however this is somewhat difficult to interpret given his architecturally abnormal lung parenchyma from his severe emphysema. We will switch his steroid regimen around to treat him more ILD flare now that his active Covid has been fully treated. His precautions are off as of yesterday which is more than appropriate. Recommendations Pulmonary: Hypoxic respiratory failure - sat goals 88-92% - can attempt weaning to nasal cannula today and CPAP overnight - OOB to chair and ambulation as tolerated - proning as tolerated - recommend IS and Acapella - recommend slightly negative fluid balance daily Progressive fibrotic lung disease - will switch his steroids to a regimen more consistent with an ILD flare - prednisone 60mg for 7 days, 50mg for 7 days, 40mg for 7 days, 30mg for 7 days, 20mg for 7 days, 10mg for 7 days, 5mg for 7 days - I placed orders for the next two weeks - he will need Bactrim ppx while on steroid doses of 20mg and higher (I placed order) - he should see me as an outpatient once discharged COPD - no exacerbation - agree with continuing home Stiolto - prn albuterol - discontinue Combivent QID - can consider adding Duonebs prn if needed now that he is not on precautions Cardiac: Hypotension, resolved, back on home BP meds Renal: Recommend slight negative fluid balance to even I&O: Intake & Output 01/27/21 01/28/21 01/29/21 01/30/21 23:59 23:59 23:59 23:59 Intake Total 920 / 920 1174 / 1174 270 / 270 Output Total 1025 / 1025 1250 / 1250 1200 / 1200 Balance -105 / -105 -76 / -76 -930 / -930 Weight 64 kg 64.2 kg Daily Fluid Goal:: slight negative GI Nutrition: Decreased appetite, improved - promote PO intake - has been started on an SSRI and and appetite stimulant Date of Last Bowel Movement: 01/29/21 Infectious Disease: COVID -19, improving - Decadron changed to prednisone to treat pulmonary fibrosis - s/p barcitinib and remdesivir - inflammatory markers at a plateau, likely do not need to monitor these unless a clinical change - patient now off precautions Hematologic: Anemia - will monitor Neurologic: No acute concerns - delirium prevention technique - hard of hearing - have hearing aids within reach Endocrine: No acute concerns, daily glucose monitoring in labs - on steroids Lines: PICC Prophylaxis: Famotidine and Lovenox Code Status: Resuscitation Status DNR/DNI Subjective Critical and life-threatening events over the past 24 hours: Uriel is doing quite well today. He makes small improvements every day now. We did get a chest CT completed yesterday that did show some progression to fibrotic process. He was eating breakfast on high flow on 8 assessment this morning he is stably using 35 to 40% and 60 L high flow, CPAP of 35% and PEEP of 12 at night and he uses a nonrebreather for walking as he opens his mouth a lot. He is seeing his today [place] [facility] [place] now that his precautions have been discontinued and is very excited about this. I also discussed with him that he is only protected from Covid due to his an infection for a couple more months and that I strongly recommend getting Covid summation once out of the hospital. He is in agreement and stated I do not want to have to go through this again he also spoke to his about getting the vaccine regardless of what his children's opinion is. Exam Const General: comfortable and no acute distress Nutritional Appearance: thin HENMT Head: normocephalic Ears: external ears normal and no periauricular adenopathy General nose exam: nasal mucous membranes and turbinates normal Face and sinus: sinuses nontender Mouth: oropharynx normal and moist mucous membranes Teeth and gingiva: dentition normal Eyes General: appearance normal, both eyes and all related structures Pupils: PERRL Neck Neck: normal visual inspection and no lymphadenopathy Chest Chest: normal inspection of the chest Resp Effort & Inspection: normal respiratory effort Auscultation: clear to auscultation bilaterally, no rales, rhonchi and no wheezes Cardio Rate: regular rate Rhythm: regular rhythm Heart Sounds: S1 normal, S2 normal and no murmurs Pulses: radial pulses present bilaterally GI Inspection: normal to inspection Palpation: soft Skin General skin exam: no rashes or lesions noted Neuro General: patient alert, patient awake and patient oriented x3 Extrem General: no clubbing, cyanosis or edema Psych Mental Status: mental status grossly normal Affect: normal affect Attitude: cooperative Most Recent VS/Results Last Vital Signs Temp 35.8 C L 01/30/21 04:00 Pulse 78 01/30/21 04:00 Resp 23 01/30/21 04:00 BP 133/57 L 01/30/21 04:00 Pulse Ox 93 01/30/21 04:00 Laboratory Results - last 24 hr 01/29/21 01/29/21 06:40 06:40 D-Dimer 226 C-Reactive Protein 2.69 H Review of Systems All systems reviewed & are unremarkable except as noted in HPI and below Time spent with patient Time spent in Critical Care: 35 Time spent in Critical care included: Coordination of care, Chart review, Documenting critically ill care, Time at immediate bedside and Discussing critically ill care with other medical staff
[2021-01-30 07:27] LABS: C-Reactive Protein 1.27 mg/dL (0.0-0.3)
[2021-01-30 07:41] LABS: D-Dimer 324 ng/mlFEU (<500)
[2021-01-30] MEDS: Ascorbic Acid 500 MG TAB 1000 MG PO ×2 (08:13→19:42)
[2021-01-30] MEDS: Aspirin E.C. 81 MG TABEC PO (08:13)
[2021-01-30] MEDS: Enoxaparin 40 MG/0.4 ML SYR SC (08:14)
[2021-01-30] MEDS: Docusate Sodium 100 MG CAP PO ×2 (08:14→19:42)
[2021-01-30] MEDS: Folic Acid 1 MG TAB PO (08:14)
[2021-01-30] MEDS: Famotidine 20 MG TAB PO ×2 (08:14→19:42)
[2021-01-30] MEDS: Finasteride 5 MG TAB PO (08:14)
[2021-01-30] MEDS: Ipratropium/Albuterol 4 GM 120 PUFF INH IH (08:14)
[2021-01-30] MEDS: Senna TAB 1 TAB PO ×2 (08:15→19:42)
[2021-01-30] MEDS: Multivitamin w/Minerals TAB 1 TAB PO (08:15)
[2021-01-30] MEDS: Protein Nutritional Supplement 16 GM 1 OUNCE PACKET PO ×3 (08:15→19:42)
[2021-01-30] MEDS: PARoxetine 10 MG TAB 30 MG PO (08:15)
[2021-01-30] MEDS: Thiamine 100 MG TAB PO (08:15)
[2021-01-30] MEDS: Tiotropium/Olodaterol 10 PUFF INHALER 2 PUFF IH (08:15)
--- NOTE | 2021-01-30 08:51 | CMPROGNOTE_ITS ---
- If Service Date Differs Date of service: 01/30/21 Time of Service: 08:51 Care Management Progress Note S/O: Uriel was taken off covid precautions yesterday. He continues to require ICU level care, due to his oxygen requirements. He was lying in bed when CM met with him and reported that he is feeling much better. He is planning on a visiting his this afternoon. She is unvaccinated and per ICU staff considerations have been made so she can see him in the chapel. CM will continue to follow. A: 70 year old male admitted to [facility] on 01/10/21 for COVID-19 Pneumonia P: Anticipate Uriel will be discharged home with new [facility] SN/PT when medically cleared by provider. Uriel will follow up with his PCP and plan of care as directed. RT will continue to assess for home 02 needs. He will transport home via private vehicle with family when ready. CM will continue to assess discharge needs.
--- NOTE | 2021-01-30 09:09 | NUR.NOTE ---
Dr. Walsh informs RN not to give Dexamethasone this a.m. since she intends on dcing same and ordering Prednisone.Nursing Note:
--- NOTE | 2021-01-30 09:54 | NUR.NOTE ---
RN calls pharmacy to inquire when Prednisone would begin. Pharmacist informs RN Prednisone dosing is to begin tomorrow but Dexamethasone was not given today because Dr. Walsh said patient would be receiving Prednisone today. Pharmacist will check on said situation so that patient does not miss out on a steroid today.Nursing Note:
--- NOTE | 2021-01-30 10:11 | NUR.NOTE ---
Loading dose of 60mg of Prednisone is ordered to be given today RN will administer same.Nursing Note:
[2021-01-30] MEDS: predniSONE 20 MG TAB 60 MG PO (10:15)
[2021-01-30] MEDS: Dronabinol 2.5 MG CAP 5 MG PO ×2 (10:24→16:32)
--- NOTE | 2021-01-30 12:31 | PGE_ITS ---
Date of Service Date of service: 01/30/21 Time of Service: 12:31 Assessment and Plan Assessment and plan (1) COVID: Status: Acute Assessment and plan: + Covid PNA. WBC elevated. Bilateral ground-glass opacities on CT. Remdesivir, Baricitinib courses have been completed. Dr Rice has changed steroid to high dose prednisone taper to treat what appears to be progressive fibrotic lung disease on CT. . Procal 0.1 on 01/09. Repeat on 01/12 <0.1. D dimer normalized and will not cont to follow unless clinical picture dictates. CRP had decreased then increased and now down again. Will stop routine monitoring. Vit D and C supplementation. Weaning to high flow nasal cannula, with CPAP at night. Ambulate frequently. Pt is motivated to move about. He is 30+ days post first symptoms. Pulmonary/critical care is OK with stopping precautions. Will cont to wear mask and eye protection. Pt to wear mask when out of room. Prone position encouraged. Lie on sides as alternative to proning if unable or unwilling. Ambulate frequently. (2) Hypoxemia: Status: Deleted Assessment and plan: Acute on Chronic. See above. (3) COPD (chronic obstructive pulmonary disease): Status: Chronic Assessment and plan: Cont Stiolto and prn albuterol. Now on high dose prednisone taper. Bactrim prophylasix daily while on prednisone dose or 20mg or >. Qualifiers: COPD type: unspecified COPD Qualified Code(s): J44.9 - Chronic obst ructive pulmonary disease, unspecified (4) HLD (hyperlipidemia): Status: Acute Assessment and plan: Cont atorvastain 40mg nightly. (5) BPH (benign prostatic hyperplasia): Status: Chronic Assessment and plan: Has dykes catheter in place d/t urinary retention. Now on Proscar. Tamsulosin stopped d/t effect of lowering BP. He had an elevated PSA prior to this admission and was to follow up with his urologist but was admitted for COVID pneumonia. Will need f/u (at the [place]) upon d/c. Planning bx per . (6) GERD (gastroesophageal reflux disease): Status: Chronic Assessment and plan: On pantoprazole at home; change to famotadine IV. Qualifiers: Esophagitis presence: esophagitis presence not specified Qualified Code(s): K21.9 - Gastro-esophageal reflux disease without esophagitis (7) Acute respiratory failure with hypoxia: Status: Acute Assessment and plan: D/T COVID PNA. See above. Subjective Subjective Patient reports: feels better and afebrile; denies nausea and vomiting Interval history since last seen: Pt now able to ambulate with standby assist out of his room. Visited with his in the chapel today. Exam Narrative Exam Narrative: Lying supine. Const General: no acute distress Nutritional Appearance: average body habitus Orientation: alert and oriented x3 HENMT Head: atraumatic Eyes General: appearance normal, both eyes and all related structures Sclera: sclerae normal Resp Effort & Inspection: normal respiratory effort Auscultation: clear to auscultation bilaterally Cardio Rate: tachycardic Rhythm: regular rhythm Heart Sounds: S1 normal and S2 normal GI Palpation: soft and nontender Skin General skin exam: no rashes or lesions noted Neuro General: no focal motor deficits Cranial Nerves: hearing abnormal (decreased auditory acuity) Speech: speech normal Extrem General: no pedal edema and no calf tenderness Objective Last Vital Signs Temp 35.6 C L 01/30/21 10:19 Pulse 97 H 01/30/21 10:19 Resp 25 H 01/30/21 10:19 BP 125/63 01/30/21 10:19 Pulse Ox 91 L 01/30/21 10:19 Laboratory Results - last 24 hr 01/30/21 01/30/21 06:35 06:35 D-Dimer 324 C-Reactive Protein 1.27 H
--- NOTE | 2021-01-30 13:37 | NUR.NOTE ---
Patient requests peanut butter and jam sandwich. RN prepares said sandwich.Nursing Note:
[2021-01-30] MEDS: Atorvastatin 40 MG TAB PO (19:42)
[2021-01-30] MEDS: Polyethylene Glycol 3350 17 GM PACKET PO (19:42)
[2021-01-30] MEDS: Mirtazapine 15 MG TAB 30 MG PO (22:26)
[2021-01-30] MEDS: Latanoprost 0.005% 2.5 ML BTL OP (22:26)
[2021-01-31] VITALS (46 sets, daily range): BP systolic 105–129; BP diastolic 48–73; PULSE 80–130; RESP 16–37; TEMP 31–36; O2SAT 80–96
[2021-01-31 07:15] LABS: HCT 31.5 % (40.0-50.0); HGB 10.2 g/dL (13.5-17.5); MCHC 32.4 % (32.0-36.0); MCV 95.7 fL (80-95); MPV 11.5 fL (8.0-11.0); Nucleated RBC 0 %; RBC 3.29 10^6/uL (4.36-5.78); RDW 13.4 % (11.8-14.1); RDW-SD 45.6 fL; WBC 24.46 10^3/uL (4.4-10.8)
[2021-01-31 07:37] LABS: ALT 96 U/L (16-63); AST 21 U/L (15-37); Albumin 1.9 g/dL (3.4-5.0); Alkaline Phosphatase 100 U/L (46-116); Anion Gap 8.2 mmol/L (3-11); BUN 44 mg/dL (7-18); Bilirubin, Total 0.4 mg/dL (0.2-1.0); CO2 26.8 mmol/L (21.0-32.0); CREATININE 0.9 mg/dL (0.70-1.30); Calcium 7.9 mg/dL (8.5-10.1); Chloride 107 mmol/L (98-107); Glucose 93 mg/dL (74-106); Magnesium 2.4 mg/dL (1.8-2.4); Sodium 142 mmol/L (136-145); Total Protein 5.2 g/dL (6.4-8.2)
[2021-01-31 07:50] LABS: Absolute Eosinophil Count 0.24 10^3/uL (0.0-0.7); Absolute Lymphocyte Count 1.71 10^3/uL (1.2-3.4); Absolute Monocyte Count 2.94 10^3/uL (0.1-0.8); Absolute Neutrophil Count 18.35 10^3/uL (1.2-6.7); Bands % 6; Platelet Count 76 10^3/uL (130-400)
[2021-01-31 07:51] LABS: Diff Comment Manual Differential; Metamyelocytes % 4; Myelocytes % 1; RBC Morphology Normal
--- NOTE | 2021-01-31 08:39 | PDOC.CMPRO ---
- If Service Date Differs Date of service: 01/31/21 Time of Service: 08:39 Care Management Progress Note S/O: He continues to require ICU level care, due to his oxygen requirements. He was lying in bed when CM met with him and reported that he is feeling much better. He was able to visit with his and dog in the chapel yesterday. He has no needs at this time. CM will continue to follow. A: 70 year old male admitted to [facility] on 01/10/21 for COVID-19 Pneumonia P: Anticipate Uriel will be discharged home with new [facility] SN/PT when medically cleared by provider. Uriel will follow up with his PCP and plan of care as directed. RT will continue to assess for home 02 needs. He will transport home via private vehicle with family when ready. CM will continue to assess discharge needs.
[2021-01-31] MEDS: Famotidine 20 MG TAB PO ×2 (10:33→21:24)
[2021-01-31] MEDS: PARoxetine 10 MG TAB 30 MG PO (10:33)
[2021-01-31] MEDS: Dronabinol 2.5 MG CAP 5 MG PO ×2 (10:33→14:44)
[2021-01-31] MEDS: predniSONE 20 MG TAB 60 MG PO (10:34)
[2021-01-31] MEDS: Senna TAB 1 TAB PO ×2 (10:34→21:25)
[2021-01-31] MEDS: Finasteride 5 MG TAB PO (10:35)
[2021-01-31] MEDS: Thiamine 100 MG TAB PO (10:36)
[2021-01-31] MEDS: Folic Acid 1 MG TAB PO (10:36)
[2021-01-31] MEDS: Aspirin E.C. 81 MG TABEC PO (10:36)
[2021-01-31] MEDS: Multivitamin w/Minerals TAB 1 TAB PO (10:36)
[2021-01-31] MEDS: Ascorbic Acid 500 MG TAB 1000 MG PO ×2 (10:36→21:24)
[2021-01-31] MEDS: Docusate Sodium 100 MG CAP PO ×2 (10:36→21:24)
[2021-01-31] MEDS: Protein Nutritional Supplement 16 GM 1 OUNCE PACKET PO ×3 (10:37→21:25)
[2021-01-31] MEDS: Enoxaparin 40 MG/0.4 ML SYR SC (10:37)
[2021-01-31] MEDS: Normal Saline Flush 10 ML SYR IVP ×2 (10:37→21:54)
[2021-01-31] MEDS: Tiotropium/Olodaterol 10 PUFF INHALER 2 PUFF IH (10:53)
--- NOTE | 2021-01-31 13:36 | W.PM.PROGNOT ---
Date of Service Date of service: 01/31/21 Time of Service: 13:36 Assessment and Plan Assessment and plan (1) COVID: Status: Acute Assessment and plan: + Covid PNA. WBC elevated. Bilateral ground-glass opacities on CT. Remdesivir, Baricitinib courses have been completed. Dr Rice has changed steroid to high dose prednisone taper to treat what appears to be progressive fibrotic lung disease on CT. . Procal 0.1 on 01/09. Repeat on 01/12 <0.1. D dimer normalized and will not cont to follow unless clinical picture dictates. CRP had decreased then increased and now down again. Will stop routine monitoring. Vit D and C supplementation. Weaning to high flow nasal cannula and non-rebreather mask. . Ambulate frequently. Pt is motivated to move about. He is 30+ days post first symptoms. Pulmonary/critical care is OK with stopping precautions. Will cont to wear mask and eye protection. Pt to wear mask when out of room. Ambulate frequently. (2) Hypoxemia: Status: Deleted Assessment and plan: Acute on Chronic. See above. (3) COPD (chronic obstructive pulmonary disease): Status: Chronic Assessment and plan: Cont Stiolto and prn albuterol. Now on high dose prednisone taper. Bactrim prophylaxis daily while on prednisone dose or 20mg or >. Qualifiers: COPD type: unspecified COPD Qualified Code(s): J44.9 - Chronic obstructive pulmonary disease, unspecified (4) HLD (hyperlipidemia): Status: Acute Assessment and plan: Cont atorvastain 40mg nightly. (5) BPH (benign prostatic hyperplasia): Status: Chronic Assessment and plan: Has dykes catheter in place d/t urinary retention. Now on Proscar. Tamsulosin stopped d/t effect of lowering BP. He had an elevated PSA prior to this admission and was to follow up with his urologist but was admitted for COVID pneumonia. Will need f/u (at the [facility]) upon d/c. Planning bx per . (6) GERD (gastroesophageal reflux disease): Status: Chronic Assessment and plan: On pantoprazole at home; change to famotadine IV. Qualifiers: Esophagitis presence: esophagitis presence not specified Qualified Code(s): K21.9 - Gastro-esophageal reflux disease without esophagitis (7) Acute respiratory failure with hypoxia: Status: Acute Assessment and plan: D/T COVID PNA. See above. Subjective Subjective Patient reports: no new complaints and tolerating a regular diet; denies nausea and vomiting Interval history since last seen: Ambulating with standby. Exam Narrative Exam Narrative: Lying supine. Const General: no acute distress Nutritional Appearance: average body habitus Orientation: alert and oriented x3 HENMT Head: atraumatic Eyes General: appearance normal, both eyes and all related structures Sclera: sclerae normal Resp Effort & Inspection: normal respiratory effort Auscultation: clear to auscultation bilaterally Cardio Rate: tachycardic Rhythm: regular rhythm Heart Sounds: S1 normal and S2 normal GI Palpation: soft and nontender Skin General skin exam: no rashes or lesions noted Neuro General: no focal motor deficits Cranial Nerves: hearing abnormal (decreased auditory acuity) Speech: speech normal Extrem General: no pedal edema and no calf tenderness Objective Last Vital Signs Temp 35.6 C L 01/31/21 10:00 Pulse 80 01/31/21 08:00 Resp 29 H 01/31/21 10:00 BP 111/50 L 01/31/21 08:00 Pulse Ox 88 L 01/31/21 10:48 Laboratory Results - last 24 hr 01/31/21 01/31/21 06:10 06:10 WBC 24.46 H RBC 3.29 L Hgb 10.2 L Hct 31.5 L MCV 95.7 H MCH 31.0 MCHC 32.4 RDW 13.4 Plt Count 76 L MPV 11.5 H Immature Gran % 0.0 Neutrophils % 69.0 Band Neutrophils % 6 Lymphocytes % 7.0 Monocytes % 12.0 Eosinophils % 1.0 Basophils % 0.0 Metamyelocytes % 4 Myelocytes % 1 Nucleated RBC % 0 Absolute Neutrophils 18.35 H Absolute Lymphocytes 1.71 Absolute Monocytes 2.94 H Absolute Eosinophils 0.24 Absolute Basophils 0.00 RBC Morphology Normal Sodium 142 Potassium 4.0 Chloride 107 Carbon Dioxide 26.8 Anion Gap 8.2 BUN 44 H Creatinine 0.9 Estimated GFR/1.73 m2 >= 60.00 Glucose 93 Calcium 7.9 L Magnesium 2.4 Total Bilirubin 0.4 AST 21 ALT 96 H Alkaline Phosphatase 100 Total Protein 5.2 L Albumin 1.9 L
[2021-01-31] MEDS: Atorvastatin 40 MG TAB PO (21:24)
[2021-01-31] MEDS: Polyethylene Glycol 3350 17 GM PACKET PO (21:25)
[2021-01-31] MEDS: Mirtazapine 15 MG TAB 30 MG PO (21:25)
[2021-01-31] MEDS: Melatonin 3 MG TAB 9 MG PO (21:25)
[2021-01-31] MEDS: Latanoprost 0.005% 2.5 ML BTL OP (21:25)
[2021-02-01] VITALS (47 sets, daily range): BP systolic 112–128; BP diastolic 53–66; PULSE 75–124; RESP 7–41; TEMP 31–36; O2SAT 72–98
--- NOTE | 2021-02-01 08:16 | CMPROGNOTE_ITS ---
- If Service Date Differs Date of service: 02/01/21 Time of Service: 08:16 Care Management Progress Note S/O: Uriel remains in the ICU due to his oxygen requirements. He was tearful and shared with CM that he misses his and his dogs. He has a trained service dog at home. His goal is to be home before [place] with O2 equipment and [facility] services. RT is working on getting him high flow O2 for home. He will also need new [facility] services, coordinated by CM. Uriel pays close attention to his Sats in order to ambulate and rests when he needs to. He feels that he will be able to manage well at home with equipment and services. CM will continue to support discharge planning needs. A: 70 year old male admitted to [facility] on 01/10/21 for COVID-19 Pneumonia P: Anticipate Uriel will be discharged home with new [facility] SN/PT when medically cleared by provider. Uriel will follow up with his PCP and plan of care as directed. RT will continue to assess for home 02 needs. He will transport home via private vehicle with family when ready. CM will continue to assess discharge needs.
[2021-02-01] MEDS: Thiamine 100 MG TAB PO (10:10)
[2021-02-01] MEDS: Dronabinol 2.5 MG CAP 5 MG PO ×2 (10:11→16:00)
[2021-02-01] MEDS: Famotidine 20 MG TAB PO ×2 (10:11→18:37)
[2021-02-01] MEDS: PARoxetine 10 MG TAB 30 MG PO (10:11)
[2021-02-01] MEDS: Docusate Sodium 100 MG CAP PO ×2 (10:12→18:37)
[2021-02-01] MEDS: Multivitamin w/Minerals TAB 1 TAB PO (10:12)
[2021-02-01] MEDS: Senna TAB 1 TAB PO ×2 (10:12→18:36)
[2021-02-01] MEDS: Ascorbic Acid 500 MG TAB 1000 MG PO ×2 (10:12→18:37)
[2021-02-01] MEDS: predniSONE 20 MG TAB 60 MG PO (10:12)
[2021-02-01] MEDS: Aspirin E.C. 81 MG TABEC PO (10:12)
[2021-02-01] MEDS: Finasteride 5 MG TAB PO (10:12)
[2021-02-01] MEDS: Folic Acid 1 MG TAB PO (10:12)
[2021-02-01] MEDS: Normal Saline Flush 10 ML SYR IVP ×2 (10:13→18:35)
[2021-02-01] MEDS: Enoxaparin 40 MG/0.4 ML SYR SC (10:13)
[2021-02-01] MEDS: Protein Nutritional Supplement 16 GM 1 OUNCE PACKET PO ×3 (10:13→18:34)
[2021-02-01] MEDS: Tiotropium/Olodaterol 10 PUFF INHALER 2 PUFF IH (12:09)
--- NOTE | 2021-02-01 13:33 | W.PM.PROGNOT ---
Date of Service Date of service: 02/01/21 Time of Service: 13:33 Assessment and Plan Assessment and plan (1) COVID: Status: Acute Assessment and plan: + Covid PNA. WBC elevated. Bilateral ground-glass opacities on CT. Remdesivir, Baricitinib courses have been completed. Dr Rice has changed steroid to high dose prednisone taper to treat what appears to be progressive fibrotic lung disease on CT. . Procal 0.1 on 01/09. Repeat on 01/12 <0.1. No longer monitoring inflammatory markers. Vit D and C supplementation. Now on high flow nasal cannula. Oxygen delivery mask that can add pressure support and be used with O2 tank being tried today so he can ambulate with some pressure support. He is 30+ days post first symptoms. Pulmonary/critical care is OK with stopping precautions. Will cont to wear mask and eye protection. Pt to wear mask when out of room. Ambulate frequently. (2) Hypoxemia: Status: Deleted Assessment and plan: Acute on Chronic. See above. (3) COPD (chronic obstructive pulmonary disease): Status: Chronic Assessment and plan: Cont Stiolto and prn albuterol. Now on high dose prednisone taper. Bactrim prophylaxis daily while on prednisone dose or 20mg or >. Qualifiers: COPD type: unspecified COPD Qualified Code(s): J44.9 - Chronic obstructive pulmonary disease, unspecified (4) HLD (hyperlipidemia): Status: Acute Assessment and plan: Cont atorvastain 40mg nightly. (5) BPH (benign prostatic hyperplasia): Status: Chronic Assessment and plan: Has dykes catheter in place d/t urinary retention. Now on Proscar. Tamsulosin stopped d/t effect of lowering BP. He had an elevated PSA prior to this admission and was to follow up with his urologist but was admitted for COVID pneumonia. Will need f/u (at the [facility]) upon d/c. Planning bx per . (6) GERD (gastroesophageal reflux disease): Status: Chronic Assessment and plan: On pantoprazole at home; change to famotadine IV. Qualifiers: Esophagitis presence: esophagitis presence not specified Qualified Code(s): K21.9 - Gastro-esophageal reflux disease without esophagitis (7) Acute respiratory failure with hypoxia: Status: Acute Assessment and plan: D/T COVID PNA. See above. Subjective Subjective Patient reports: no new complaints, tolerating a regular diet and afebrile; denies nausea and vomiting Interval history since last seen: Nursing states he seems less motivated today but is ambulating. Exam Narrative Exam Narrative: Lying supine. Const General: no acute distress Nutritional Appearance: average body habitus Orientation: alert and oriented x3 HENMT Head: atraumatic Eyes General: appearance normal, both eyes and all related structures Sclera: sclerae normal Resp Effort & Inspection: normal respiratory effort Auscultation: clear to auscultation bilaterally and diminished lung sounds Cardio Rate: tachycardic Rhythm: regular rhythm Heart Sounds: S1 normal and S2 normal GI Palpation: soft and nontender Skin General skin exam: no rashes or lesions noted Neuro General: no focal motor deficits Cranial Nerves: hearing abnormal (decreased auditory acuity) Speech: speech normal Extrem General: no pedal edema and no calf tenderness Objective Last Vital Signs Temp 35.5 C L 02/01/21 11:30 Pulse 81 02/01/21 04:10 Resp 17 02/01/21 09:00 BP 128/60 02/01/21 04:10 Pulse Ox 94 02/01/21 10:05
--- NOTE | 2021-02-01 14:49 | CHAPLAIN ---
Uriel has been here since 01/10, and was COVID positive when he first was admitted. He is now no longer positive. He was able to see his , face to face, for the first time in weeks. He said that was helpful to him. He believed at times that he would not survive. He was very complimentary of the [facility] nursing staff, calling them his angels. Uriel said his experience of feeling like he would survive has given his a new perspective on life. I will continue to visit. Uriel.
[2021-02-01 16:21] LABS: Bilirubin Negative (Negative); Blood Moderate (Negative); Clarity Sl Cloudy (Clear); Glucose Negative (Negative); Ketones Negative (Negative); Leukocyte Esterase Small (Negative); Nitrite Positive (Negative); Specific Gravity >= 1.030 (1.005-1.025); pH 5.5 (5-8)
[2021-02-01 16:30] LABS: Bacteria Moderate HPF (Negative); C & S Indicated? Yes; Casts 0-2 Hyaline LPF (Negative); Crystals Negative HPF (Negative); Epithelial Cells Rare HPF (Negative); Mucus Trace (Negative); Other Cells Few Yeast (Negative)
--- NOTE | 2021-02-01 17:00 | RT.EKG_ITS ---
APPROVED REPORT Exam: Resting ECG Reason for Exam: ST changes Patient Location: I HR:119 bpm ECG Measurements Heart Rate 119 AXIS IN 126 P 25 QRSd 130 QRS 28 QT 368 T 206 QTc 520 Conclusion Sinus tachycardia...rate> 99 Atrial premature complexes...SV complexes w/ short R-R intvls Probable left atrial enlargement...P >50mS, <-0.10mV V1 Left bundle branch block...QRSd>120, broad/notched R
[2021-02-01] MEDS: Normal Saline 500 ML 50 ML IV (18:34)
[2021-02-01] MEDS: cefTRIAXone 1 GM/50 ML BAG IVPB (18:34)
[2021-02-01] MEDS: Mirtazapine 15 MG TAB 30 MG PO (18:35)
[2021-02-01] MEDS: Melatonin 3 MG TAB 9 MG PO (18:36)
[2021-02-01] MEDS: Atorvastatin 40 MG TAB PO (18:37)
--- NOTE | 2021-02-01 19:26 | NUR.NOTE ---
Pt had subtle yet noticeable signs of increased Respiratory effort today. His 02 sats were dropping more quickly and he would desat to 79-84% instead of staying at 88-90% on 15L/non rebreather while walking. Patient fatigued. Lungs sounds diminished as day progressed. Pt was tiring easily walking but was able to get in several walks out by the nurses desk. Patient's disposition improved walking out of the room and he became more motivated. We gained approval from the MD for taking patient outside. Pt was out for 10 min and thoroughly enjoyed the fresh air. After returning, he called his and was in good spirits. I explained to the patient that likely being off the CPAP for 2 nights had an affect on the decreased respiratory state as this happened approximately 1 week ago when the patient was off the CPAP for 3 nights. I placed the patient on CPAP for approximately 1 hour [id number]. When the patient switched to Non-rebreather and got OOB for dinner at 1730, there was a remarkably improved difference in respiratory status. I placed on the HFNC system and was able to titrate down to 50% fi02 while patient was eating. Patient walked in the room and for the first time tolerated 10L and only desatted to 88% with minimal increase to HR or RR. I got a wheelchair, hooked the patient to a portable tank and the patient walked the entire [place] hallway. He stopped 4 times walking there and only 3 times walking back ([address] His last stretch was approximately 75 feet no stops compared to the only 20 feet he could tolerate prior. Patient went back on his CPAP for approximately an hour at 25%, 12 PEEP and then opted to take all his PM pills at once so he could be on the mask and minimize evening interruptions. Pt came off the mask for pills and ate a sandwich (after a full dinner!). I placed him on a nasal cannula and titrated down to 4L 90% sp02. After 20 min the patient was at 94%! 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 Comparative values from past few days to 02/01 kasandra: Days: Kasandra 02/01: CPAP 40% 25% HFNC 90% eating N/C 4L eating Non-rebreath 15L walk N/C 10L (15 if greater than 20 feet) 20 feet max walk 200 walk short breaks Nursing Note:
[2021-02-01] MEDS: Latanoprost 0.005% 2.5 ML BTL OP (22:01)
[2021-02-02] VITALS (25 sets, daily range): BP systolic 105–137; BP diastolic 49–91; PULSE 78–128; RESP 16–38; TEMP 31–36.7; O2SAT 81–96
[2021-02-02 07:02] LABS: HCT 30.8 % (40.0-50.0); HGB 10.1 g/dL (13.5-17.5); MCH 31.7 pg (27.0-33.0); MCHC 32.8 % (32.0-36.0); MCV 96.6 fL (80-95); MPV 11.5 fL (8.0-11.0); Nucleated RBC 0 %; RBC 3.19 10^6/uL (4.36-5.78); RDW 13.6 % (11.8-14.1); RDW-SD 47.4 fL; WBC 22.02 10^3/uL (4.4-10.8)
[2021-02-02 07:18] LABS: Absolute Eosinophil Count 0.66 10^3/uL (0.0-0.7); Absolute Lymphocyte Count 0.44 10^3/uL (1.2-3.4); Absolute Monocyte Count 1.76 10^3/uL (0.1-0.8); Absolute Neutrophil Count 19.16 10^3/uL (1.2-6.7); Bands % 3; Diff Comment Manual Differential; Platelet Count 72 10^3/uL (130-400); RBC Morphology Normal
--- NOTE | 2021-02-02 08:43 | CMPROGNOTE_ITS ---
- If Service Date Differs Date of service: 02/02/21 Time of Service: 15:15 Care Management Progress Note S/O: Uriel remains in the ICU due to his oxygen requirements. Per MD, RT is working on getting him high flow O2 for home. His goal is to return home before [place] with O2 equipment and [facility] services. Uriel pays monitors his Sats in order to ambulate and rests when he needs to; CM coordinated pulse oximeter and provided to Uriel for his return home. He feels that he will be able to manage well at home with equipment and services. CM will continue to support discharge planning needs. A: 70 year old male admitted to [facility] on 01/10/21 for COVID-19 Pneumonia P: Uriel will be discharged home with new [facility] SN/PT when medically cleared by provider, CM provided pulse oximeter. Uriel will follow up with his PCP and plan of care as directed. RT will continue to assess for home 02 needs. He will transport home via private vehicle with family when ready. CM will continue to follow.
[2021-02-02] MEDS: Enoxaparin 40 MG/0.4 ML SYR SC (09:42)
[2021-02-02] MEDS: predniSONE 20 MG TAB 60 MG PO (09:43)
[2021-02-02] MEDS: Protein Nutritional Supplement 16 GM 1 OUNCE PACKET PO ×3 (09:43→20:52)
[2021-02-02] MEDS: Tamsulosin 0.4 MG CAPCR PO (09:44)
[2021-02-02] MEDS: Thiamine 100 MG TAB PO (09:44)
[2021-02-02] MEDS: Senna TAB 1 TAB PO ×2 (09:44→20:52)
[2021-02-02] MEDS: PARoxetine 10 MG TAB 30 MG PO (09:44)
[2021-02-02] MEDS: Finasteride 5 MG TAB PO (09:45)
[2021-02-02] MEDS: Aspirin E.C. 81 MG TABEC PO (09:45)
[2021-02-02] MEDS: Multivitamin w/Minerals TAB 1 TAB PO (09:45)
[2021-02-02] MEDS: Folic Acid 1 MG TAB PO (09:45)
[2021-02-02] MEDS: Famotidine 20 MG TAB PO ×2 (09:45→20:52)
[2021-02-02] MEDS: Ascorbic Acid 500 MG TAB 1000 MG PO ×2 (09:45→20:52)
[2021-02-02] MEDS: Docusate Sodium 100 MG CAP PO ×2 (09:45→20:52)
[2021-02-02] MEDS: Tiotropium/Olodaterol 10 PUFF INHALER 2 PUFF IH (09:46)
--- NOTE | 2021-02-02 11:23 | PUCC_ITS ---
General Date of Service Date of service: 02/02/21 Time of Service: 07:45 Reason for Admission to ICU: COVID Assessment and Plan Assessment and plan (1) COPD (chronic obstructive pulmonary disease): Status: Chronic Qualifiers: COPD type: unspecified COPD Qualified Code(s): J44.9 - Chronic obstructive pulmonary disease, unspecified (2) COVID: Status: Acute (3) Leukocytosis: Status: Acute (4) Anemia: Status: Chronic (5) Hypoalbuminemia: Status: Acute (6) Bacteria in urine: Status: Acute (7) Hypotension: Status: Resolved Qualifiers: Hypotension type: hypotension due to hypovolemia Qualified Code(s): I95.89 - Other hypotension; E86.1 - Hypovolemia (8) Respiratory failure: Status: Acute Assessment and plan: This is a 70 yo unvaccinated man admitted to the ICU with COVID-19. He continues to make improvements. He still experiences significant desaturations with movement, but he overall seems to be doing much better. His spirits remain good. He has been able to see his which was great. He does have evidence of a progressive fibrotic process occurring on his chest CT, however this is somewhat difficult to interpret given his architecturally abnormal lung parenchyma from his severe emphysema. He has evidence of a fibrotic process on his chest CT so I changed his steroid regimen to be more in line with an ILD treatment, as I beleive his COVID has been sufficiently treated. His precautions are off as of yesterday which is more than appropriate. Recommendations Pulmonary: Hypoxic respiratory failure - sat goals 88-92% - CPAP overnight - oxymizer during the day, use of nonrebreather with exertion - OOB to chair and ambulation as tolerated - proning as tolerated - recommend IS and Acapella - recommend slightly negative fluid balance daily Progressive fibrotic lung disease - prednisone 60mg for 7 days, 50mg for 7 days, 40mg for 7 days, 30mg for 7 days, 20mg for 7 days, 10mg for 7 days, 5mg for 7 days - I placed orders for the next two weeks - he will need Bactrim ppx while on steroid doses of 20mg and higher - he should see me as an outpatient once discharged COPD - no exacerbation - agree with continuing home Stiolto - prn albuterol - discontinue Combivent QID - can consider adding Duonebs prn if needed now that he is not on precautions Cardiac: Hypotension, resolved, back on home BP meds Renal: Urinary Retention - restart Flomax today - trial without Gaitan - if no UOP by this evening and bladder scan shows alot of urine then place Gaitan - will need urology f/u - [place] [facility] [place]: Intake & Output 01/30/21 01/31/21 02/01/21 02/02/21 23:59 23:59 23:59 23:59 Intake Total 380 / 380 980 / 980 1031.667 / 1031.667 460 / 460 Output Total 1175 / 1175 900 / 900 750 / 750 Balance -795 / -795 80 / 80 281.667 / 281.667 460 / 460 Weight 65.6 kg 65.8 kg 67.7 kg Daily Fluid Goal:: even to negative GI Nutrition: Decreased appetite, improved - promote PO intake - has been started on an SSRI and and appetite stimulant Date of Last Bowel Movement: 02/01/21 Infectious Disease: COVID -19, improving - Decadron changed to prednisone to treat pulmonary fibrosis - s/p barcitinib and remdesivir - inflammatory markers at a plateau, likely do not need to monitor these unless a clinical change - patient now off precautions Bacteruria - suspect colonization - d/c Gaitan today Hematologic: Anemia - will monitor Neurologic: No acute concerns - delirium prevention technique - hard of hearing - have hearing aids within reach Endocrine: No acute concerns, daily glucose monitoring in labs - on steroids Lines: PICC Prophylaxis: Famotidine and Lovenox Code Status: Resuscitation Status DNR/DNI Subjective Critical and life-threatening events over the past 24 hours: Uriel continues to make improvements. He is able to tolerate nasal cannula. He still desaturates with movement and so uses a non rebreather mask for exertion. He does still have SOB and cough, but is improving everyday Exam Const General: comfortable and no acute distress Nutritional Appearance: thin HENMT Head: normocephalic Ears: external ears normal and no periauricular adenopathy General nose exam: nasal mucous membranes and turbinates normal Face and sinus: sinuses nontender Mouth: oropharynx normal and moist mucous membranes Teeth and gingiva: dentition normal Eyes General: appearance normal, both eyes and all related structures Pupils: PERRL Neck Neck: normal visual inspection and no lymphadenopathy Chest Chest: normal inspection of the chest Resp Effort & Inspection: normal respiratory effort Auscultation: clear to auscultation bilaterally, no rales, rhonchi and no wheezes Cardio Rate: regular rate Rhythm: regular rhythm Heart Sounds: S1 normal, S2 normal and no murmurs Pulses: radial pulses present bilaterally GI Inspection: normal to inspection Palpation: soft Skin General skin exam: no rashes or lesions noted Neuro General: patient alert, patient awake and patient oriented x3 Extrem General: no clubbing, cyanosis or edema Psych Mental Status: mental status grossly normal Affect: normal affect Attitude: cooperative Most Recent VS/Results Last Vital Signs Temp 36.3 C L 02/02/21 09:30 Pulse 98 H 02/02/21 04:01 Resp 16 02/02/21 06:00 BP 123/67 02/02/21 04:01 Pulse Ox 94 02/02/21 06:00 Laboratory Results - last 24 hr 02/01/21 02/02/21 16:10 06:00 WBC 22.02 H RBC 3.19 L Hgb 10.1 L Hct 30.8 L MCV 96.6 H MCH 31.7 MCHC 32.8 RDW 13.6 Plt Count 72 L MPV 11.5 H Immature Gran % 0.0 Neutrophils % 84.0 Band Neutrophils % 3 Lymphocytes % 2.0 Monocytes % 8.0 Eosinophils % 3.0 Basophils % 0.0 Nucleated RBC % 0 Absolute Neutrophils 19.16 H Absolute Lymphocytes 0.44 L Absolute Monocytes 1.76 H Absolute Eosinophils 0.66 Absolute Basophils 0.00 RBC Morphology Normal Urine Color Yellow Urine Clarity Sl Cloudy Urine pH 5.5 Ur Specific Council >= 1.030 H Urine Protein Trace H Urine Ketones Negative Urine Blood Moderate H Urine Nitrite Positive H Urine Bilirubin Negative Urine Urobilinogen 1.0 H Ur Leukocyte Esterase Small H Urine RBC 10-20 H Urine WBC 10-20 H Ur Epithelial Cells Rare Urine Crystals Negative Urine Bacteria Moderate Urine Casts 0-2 Hyaline Urine Mucus Trace Urine Other Few Yeast Ur Culture Indicated? Yes Urine Glucose Negative Review of Systems All systems reviewed & are unremarkable except as noted in HPI and below Time spent with patient Time spent in Critical Care: 35 Time spent in Critical care included: Coordination of care, Chart review, Documenting critically ill care, Time at immediate bedside and Discussing critically ill care with other medical staff
[2021-02-02] MEDS: Dronabinol 2.5 MG CAP 5 MG PO ×2 (12:29→18:21)
--- NOTE | 2021-02-02 13:40 | PGE_ITS ---
Date of Service Date of service: 02/02/21 Time of Service: 13:40 Assessment and Plan Assessment and plan (1) COVID: Status: Acute Assessment and plan: + Covid PNA. WBC elevated. Bilateral ground-glass opacities on CT. Remdesivir, Baricitinib courses have been completed. Dr Rice has changed steroid to high dose prednisone taper to treat what appears to be progressive fibrotic lung disease on CT. . Procal 0.1 on 01/09. Repeat on 01/12 <0.1. No longer monitoring inflammatory markers. Vit D and C supplementation. Now on high flow nasal cannula. Oxygen delivery mask that can add pressure support and be used with O2 tank being tried today so he can ambulate with some pressure support. He is 30+ days post first symptoms. Pulmonary/critical care is OK with stopping precautions. Will cont to wear mask and eye protection. Pt to wear mask when out of room. Ambulate frequently. (2) Hypoxemia: Status: Deleted Assessment and plan: Acute on Chronic. See above. (3) COPD (chronic obstructive pulmonary disease): Status: Chronic Assessment and plan: Cont Stiolto and prn albuterol. Now on high dose prednisone taper. Bactrim prophylaxis daily while on prednisone dose or 20mg or >. Qualifiers: COPD type: unspecified COPD Qualified Code(s): J44.9 - Chronic obstructive pulmonary disease, unspecified (4) HLD (hyperlipidemia): Status: Acute Assessment and plan: Cont atorvastain 40mg nightly. (5) BPH (benign prostatic hyperplasia): Status: Chronic Assessment and plan: Has dykes catheter in place d/t urinary retention. Now on Proscar. Tamsulosin stopped d/t effect of lowering BP. He had an elevated PSA prior to this admission and was to follow up with his urologist but was admitted for COVID pneumonia. Will need f/u (at the [facility]) upon d/c. Planning bx per . (6) GERD (gastroesophageal reflux disease): Status: Chronic Assessment and plan: On pantoprazole at home; change to famotadine IV. Qualifiers: Esophagitis presence: esophagitis presence not specified Qualified Code(s): K21.9 - Gastro-esophageal reflux disease without esophagitis (7) Acute respiratory failure with hypoxia: Status: Acute Assessment and plan: D/T COVID PNA. See above. (8) Palliative care patient: Status: Acute Assessment and plan: Spoke with his sister who has accepted the position of DPOA for his healthcare matters. She is agreeable to [employer]LECT[employer] measures after explaining his current situation and chronic cirrhosis, dysphagia and recurrent aspiration pneumonia. Subjective Subjective Patient reports: no new complaints, tolerating a regular diet and afebrile; denies diarrhea, nausea and vomiting Exam Narrative Exam Narrative: Lying supine. Const General: no acute distress Nutritional Appearance: average body habitus Orientation: alert and oriented x3 HENMT Head: atraumatic Eyes General: appearance normal, both eyes and all related structures Sclera: sclerae normal Resp Effort & Inspection: normal respiratory effort Auscultation: clear to auscultation bilaterally and diminished lung sounds Cardio Rate: tachycardic Rhythm: regular rhythm Heart Sounds: S1 normal and S2 normal GI Palpation: soft and nontender Skin General skin exam: no rashes or lesions noted Neuro General: no focal motor deficits Cranial Nerves: hearing abnormal (decreased auditory acuity) Speech: speech normal Extrem General: no pedal edema and no calf tenderness Objective Last Vital Signs Temp 36.3 C L 02/02/21 09:30 Pulse 98 H 02/02/21 04:01 Resp 16 02/02/21 06:00 BP 123/67 02/02/21 04:01 Pulse Ox 94 02/02/21 06:00 Laboratory Results - last 24 hr 02/01/21 02/02/21 16:10 06:00 WBC 22.02 H RBC 3.19 L Hgb 10.1 L Hct 30.8 L MCV 96.6 H MCH 31.7 MCHC 32.8 RDW 13.6 Plt Count 72 L MPV 11.5 H Immature Gran % 0.0 Neutrophils % 84.0 Band Neutrophils % 3 Lymphocytes % 2.0 Monocytes % 8.0 Eosinophils % 3.0 Basophils % 0.0 Nucleated RBC % 0 Absolute Neutrophils 19.16 H Absolute Lymphocytes 0.44 L Absolute Monocytes 1.76 H Absolute Eosinophils 0.66 Absolute Basophils 0.00 RBC Morphology Normal Urine Color Yellow Urine Clarity Sl Cloudy Urine pH 5.5 Ur Specific [place] >= 1.030 H Urine Protein Trace H Urine Ketones Negative Urine Blood Moderate H Urine Nitrite Positive H Urine Bilirubin Negative Urine Urobilinogen 1.0 H Ur Leukocyte Esterase Small H Urine RBC 10-20 H Urine WBC 10-20 H Ur Epithelial Cells Rare Urine Crystals Negative Urine Bacteria Moderate Urine Casts 0-2 Hyaline Urine Mucus Trace Urine Other Few Yeast Ur Culture Indicated? Yes Urine Glucose Negative
[2021-02-02] MEDS: cefTRIAXone 1 GM/50 ML BAG IVPB (18:15)
--- NOTE | 2021-02-02 19:28 | NUR.NOTE ---
Addendum entered by Karo Moreno 02/02/21 19:35: Oxymizer: 8l/m sitting or resting in bed/ 10l- 12l/min moving to BSC and in room. / 15l/min if ambulating over 20 feet. Original Note: Nursing Note: Pt educated on how to correlate SOB and low numbers on sat monitoring; pulse oximeter provided to pt for teaching; he will go home with it. Pt aware to stop activity inducing SOB and rest then if saturation does not improve the next step is to increase the O2. Pt also aware that his sat should not be lower than 88-90% since below these numbers he feels SOB.( also mentioned that he cannot be to high either re: COPD.
[2021-02-02] MEDS: Atorvastatin 40 MG TAB PO (20:52)
[2021-02-02] MEDS: Mirtazapine 15 MG TAB 30 MG PO (20:52)
[2021-02-02] MEDS: Latanoprost 0.005% 2.5 ML BTL OP (20:53)
[2021-02-02] MEDS: Melatonin 3 MG TAB 9 MG PO (21:05)
[2021-02-02] MEDS: Lidocaine 2% Jelly 11 ML SYR UR (21:55)
[2021-02-03] VITALS (30 sets, daily range): BP systolic 119–147; BP diastolic 53–84; PULSE 73–120; RESP 10–41; TEMP 31–36.3; O2SAT 70–98
[2021-02-03 07:06] LABS: HCT 29.9 % (40.0-50.0); HGB 9.8 g/dL (13.5-17.5); MCH 31.5 pg (27.0-33.0); MCHC 32.8 % (32.0-36.0); MCV 96.1 fL (80-95); MPV 11.1 fL (8.0-11.0); Nucleated RBC 0 %; RBC 3.11 10^6/uL (4.36-5.78); RDW 13.9 % (11.8-14.1); RDW-SD 47.7 fL; WBC 21.08 10^3/uL (4.4-10.8)
[2021-02-03 07:14] LABS: BUN 47 mg/dL (7-18); CREATININE 0.9 mg/dL (0.70-1.30); Calcium 7.9 mg/dL (8.5-10.1); Chloride 108 mmol/L (98-107); Glucose 114 mg/dL (74-106); Potassium 4.2 mmol/L (3.5-5.1); Sodium 142 mmol/L (136-145)
[2021-02-03 07:38] LABS: Absolute Eosinophil Count 0.21 10^3/uL (0.0-0.7); Absolute Monocyte Count 1.05 10^3/uL (0.1-0.8); Bands % 3; Basophilic Stippling Present; Diff Comment Manual Differential; Metamyelocytes % 1; Myelocytes % 1; Platelet Count 94 10^3/uL (130-400); Polychromasia Present
[2021-02-03] MEDS: Ascorbic Acid 500 MG TAB 1000 MG PO ×2 (08:54→20:28)
[2021-02-03] MEDS: Docusate Sodium 100 MG CAP PO ×2 (08:54→20:28)
[2021-02-03] MEDS: Aspirin E.C. 81 MG TABEC PO (08:54)
[2021-02-03] MEDS: Enoxaparin 40 MG/0.4 ML SYR SC (08:55)
[2021-02-03] MEDS: Famotidine 20 MG TAB PO ×2 (08:55→20:28)
[2021-02-03] MEDS: Finasteride 5 MG TAB PO (08:55)
[2021-02-03] MEDS: PARoxetine 10 MG TAB 30 MG PO (08:56)
[2021-02-03] MEDS: Multivitamin w/Minerals TAB 1 TAB PO (08:56)
[2021-02-03] MEDS: predniSONE 20 MG TAB 60 MG PO (08:56)
[2021-02-03] MEDS: Folic Acid 1 MG TAB PO (08:56)
[2021-02-03] MEDS: Thiamine 100 MG TAB PO (08:57)
[2021-02-03] MEDS: Protein Nutritional Supplement 16 GM 1 OUNCE PACKET PO ×3 (08:57→20:28)
[2021-02-03] MEDS: Tiotropium/Olodaterol 10 PUFF INHALER 2 PUFF IH (08:57)
[2021-02-03] MEDS: Tamsulosin 0.4 MG CAPCR PO (08:57)
[2021-02-03] MEDS: Senna TAB 1 TAB PO ×2 (08:57→20:28)
[2021-02-03] MEDS: Normal Saline Flush 10 ML SYR IVP (09:04)
[2021-02-03] MEDS: Dronabinol 2.5 MG CAP 5 MG PO ×2 (11:17→16:09)
[2021-02-03] MEDS: Ciprofloxacin 500 MG TAB PO ×2 (13:37→20:28)
--- NOTE | 2021-02-03 14:46 | W.PM.PROGNOT ---
Date of Service Date of service: 02/03/21 Time of Service: 14:46 Assessment and Plan Assessment and plan (1) COVID: Status: Acute Assessment and plan: patient is no longer considered contagious and has been cleared to ambulate outside the MICU to med/surg floor as long as he wears a mask. He is no longer on active treatment for COVID-19. He remains on high dose prednisone 60 mg daily d/t his pulmonary fibrosis from his COPD as well as superimposed damage from COVID-19. This will be slowly weaned as per pulmonary recommended schedule. He remains on TMP/SMX for PJP prophylaxis while on high dose prednisone. (2) Depression: Status: Acute Assessment and plan: Now on Paxil 30 mg daily and Remeron 30 mg at night along with Marinol twice a day. His mood and his appetite have improved greatly. Qualifiers: Depression Type: reactive depression Qualified Code(s): F32.9 - Major depressive disorder, single episode, unspecified (3) Nutrition disorder: Status: Acute Assessment and plan: continue protein shakes along w/ antidepressants (4) COPD (chronic obstructive pulmonary disease): Status: Chronic Assessment and plan: continue high dose prednisone along w/ Stiolto and prn albuterol. encourage IS and acapella along w/ ambulation. oxygen requirements have improved since being put on high dose prednisone. Qualifiers: COPD type: unspecified COPD Qualified Code(s): J44.9 - Chronic obstructive pulmonary disease, unspecified (5) HLD (hyperlipidemia): Status: Acute Assessment and plan: atorvastain 40mg nightly. (6) Pseudomonas urinary tract infection: Status: Acute Assessment and plan: Pseudomonas UTI d/t chronic urinary obstruction and recurrent need for catheterization. I have dc'ed his Rocephin and put him on oral Cipro. Will treat for 14 days and repeat UA when completed. (7) BPH (benign prostatic hyperplasia): Status: Chronic Assessment and plan: Has dykes catheter in place d/t urinary retention. flomax has been restarted as of yesterday. continue dykes for 48 to 72 hrs after starting Flomax then give him trial of voiding Qualifiers: Lower urinary tract symptom presence: symptoms present Lower urinary tract symptom detail: incomplete bladder emptying Qualified Code(s): N40.1 - Benign prostatic hyperplasia with lower urinary tract symptoms; R39.14 - Feeling of incomplete bladder emptying (8) GERD (gastroesophageal reflux disease): Status: Chronic Assessment and plan: cont. pepcid Qualifiers: Esophagitis presence: esophagitis presence not specified Qualified Code(s): K21.9 - Gastro-esophageal reflux disease without esophagitis (9) DVT prophylaxis: Status: Acute Assessment and plan: cont. enoxaparin (10) Discharge planning issues: Status: Acute Assessment and plan: patient intends to return home to his , who is recovering from COVID-19 pneumonia herself. He is now DNR/DNI Subjective Subjective Interval history since last seen: Patient continues to show improvement. He is now on high-dose prednisone 60 mg daily. At rest he is maintaining his oxygen saturation while using 4 L/min per nasal cannula. He is ambulated out of the medical intensive care unit out to the medical/surgical floor twice today on 15 L/min. Does require arrest after walking out to the medical surgical floor before returning to the ICU. Appetite is improved. Unfortunately Dykes catheter had to be placed back in because of acute urinary retention. He does have BPH. Flomax was restarted yesterday and urine cultures growing Pseudomonas aeruginosa. Currently on Rocephin which I switched over to ciprofloxacin orally. Exam Narrative Exam Narrative: Elderly white male ambulating the floor with the assistance of his nurses pulling his oxygen tank and a chair behind him. Patient is able to talk in complete sentences. Does get dyspneic with ambulation but recovers quickly upon sitting down. Heart rate did go up into the 130s briefly in sinus tachycardia with ambulation but recovers quickly down into the 90's. Lungs: bibasilar fine rales; no rhonchi or wheezing Heart: regular but tachycardic Objective Last Vital Signs Temp 36.3 C L 02/03/21 09:18 Pulse 84 02/03/21 11:45 Resp 34 H 02/03/21 14:06 BP 137/69 02/03/21 13:43 Pulse Ox 96 02/03/21 14:10 Laboratory Results - last 24 hr 02/01/21 02/03/21 02/03/21 16:10 06:25 06:25 WBC 21.08 H RBC 3.11 L Hgb 9.8 L Hct 29.9 L MCV 96.1 H MCH 31.5 MCHC 32.8 RDW 13.9 Plt Count 94 L MPV 11.1 H Immature Gran % See Differential Neutrophils % 80.0 Band Neutrophils % 3 Lymphocytes % 9.0 Monocytes % 5.0 Eosinophils % 1.0 Basophils % 0.0 Metamyelocytes % 1 Myelocytes % 1 Nucleated RBC % 0 Absolute Neutrophils 17.50 H Absolute Lymphocytes 1.90 Absolute Monocytes 1.05 H Absolute Eosinophils 0.21 Absolute Basophils 0.00 RBC Morphology See Below Polychromasia Present Basophilic Stippling Present Sodium 142 Potassium 4.2 Chloride 108 H Carbon Dioxide 25.0 Anion Gap 9.0 BUN 47 H Creatinine 0.9 Estimated GFR/1.73 m2 >= 60.00 Glucose 114 H Calcium 7.9 L Urine Color Yellow Urine Clarity Sl Cloudy Urine pH 5.5 Ur Specific [place] >= 1.030 H Urine Protein Trace H Urine Ketones Negative Urine Blood Moderate H Urine Nitrite Positive H Urine Bilirubin Negative Urine Urobilinogen 1.0 H Ur Leukocyte Esterase Small H Urine RBC 10-20 H Urine WBC 10-20 H Ur Epithelial Cells Rare Urine Crystals Negative Urine Bacteria Moderate Urine Casts 0-2 Hyaline Urine Mucus Trace Urine Other Few Yeast Ur Culture Indicated? Yes Urine Glucose Negative
--- NOTE | 2021-02-03 15:13 | NUR.NOTE ---
Pt got up from the chair and walked to the ICU room door on 10L/oxymizer. The pt felt weak and his legs started to give out as he walked back towards the chair. I was able to support the patient and get him back in the bed with the assistance of another RN. Pt felt better once back in bed. I found a piece of 02 tubing had kinked under the bed as the patient walked. Pt BP stable. Dr. Carlin present and notified, saw patient post-event. Nursing Note:
--- NOTE | 2021-02-03 17:41 | NUR.NOTE ---
RN hangs new sterile water humidifying water for oximizer.Nursing Note:
--- NOTE | 2021-02-03 17:44 | NUR.NOTE ---
RN gives patient a cup of gingerale on ice. Patient is very comfortable.Nursing Note:
[2021-02-03] MEDS: Mirtazapine 15 MG TAB 30 MG PO (20:29)
[2021-02-03] MEDS: Atorvastatin 40 MG TAB PO (20:29)
[2021-02-03] MEDS: Latanoprost 0.005% 2.5 ML BTL OP (20:30)
[2021-02-04] VITALS (28 sets, daily range): BP systolic 120–142; BP diastolic 49–84; PULSE 70–115; RESP 18–34; TEMP 35.5–36.1; O2SAT 87–98
--- NOTE | 2021-02-04 09:57 | PGE_ITS ---
Date of Service Date of service: 02/04/21 Time of Service: 09:57 Assessment and Plan Assessment and plan (1) COPD (chronic obstructive pulmonary disease): Status: Chronic Assessment and plan: continue high dose prednisone along w/ Stiolto and prn albuterol. encourage IS and acapella along w/ ambulation. oxygen requirements have improved since being put on high dose prednisone. I will check with RT as well as Dr. Raines tomorrow regarding what his home oxygen needs are going to be. I expect the patient will be close to discharge later this week. Qualifiers: COPD type: unspecified COPD Qualified Code(s): J44.9 - Chronic obstructive pulmonary disease, unspecified (2) COVID: Status: Acute Assessment and plan: patient is no longer considered contagious and has been cleared to ambulate outside the MICU to med/surg floor as long as he wears a mask. He is no longer on active treatment for COVID-19. He remains on high dose prednisone 60 mg daily d/t his pulmonary fibrosis from his COPD as well as superimposed damage from COVID-19. This will be slowly weaned as per pulmonary recommended schedule. He remains on TMP/SMX for PJP prophylaxis while on high dose prednisone. (3) Paroxysmal supraventricular tachycardia: Status: Acute Assessment and plan: Runs of nonsustained PSVT with aberrancy. Will start low-dose beta-blockers. He has a resting tachycardia heart rates in the low 100s to 1 teens. (4) Depression: Status: Acute Assessment and plan: Now on Paxil 30 mg daily and Remeron 30 mg at night along with Marinol twice a day. His mood and his appetite have improved greatly. Qualifiers: Depression Type: reactive depression Qualified Code(s): F32.9 - Major depressive disorder, single episode, unspecified (5) Pseudomonas urinary tract infection: Status: Acute Assessment and plan: Pseudomonas UTI d/t chronic urinary obstruction and recurrent need for catheterization. I have dc'ed his Rocephin and put him on oral Cipro. Will treat for 14 days and repeat UA when completed. (6) Nutrition disorder: Status: Acute Assessment and plan: continue protein shakes along w/ antidepressants (7) HLD (hyperlipidemia): Status: Acute Assessment and plan: atorvastain 40mg nightly. (8) BPH (benign prostatic hyperplasia): Status: Chronic Assessment and plan: Has dykes catheter in place d/t urinary retention. flomax has been restarted as of yesterday. continue dykes for 48 to 72 hrs after starting Flomax then give him trial of voiding. Flomax was restarted on Friday, February 02. Today will be his third day of Flomax. I wait till tomorrow morning to give him a voiding trial. Qualifiers: Lower urinary tract symptom presence: symptoms present Lower urinary t ract symptom detail: incomplete bladder emptying Qualified Code(s): N40.1 - Benign prostatic hyperplasia with lower urinary tract symptoms; R39.14 - Feeling of incomplete bladder emptying (9) GERD (gastroesophageal reflux disease): Status: Chronic Assessment and plan: cont. pepcid Qualifiers: Esophagitis presence: esophagitis presence not specified Qualified Code(s): K21.9 - Gastro-esophageal reflux disease without esophagitis (10) DVT prophylaxis: Status: Acute Assessment and plan: cont. enoxaparin (11) Discharge planning issues: Status: Acute Assessment and plan: patient intends to return home to his , who is recovering from COVID-19 pneumonia herself. He is now DNR/DNI Subjective Subjective Interval history since last seen: Overall patient continues to show improvement each day. Denies any chest pain or palpitations or dyspnea at rest. Does get dyspneic with ambulation. Yesterday ambulated twice from the ICU to the medical/surgical floor. Last night he did have a run of SVT with aberrancy with a rate in the 170s the lasted for about 9 seconds. This was asymptomatic. Exam Narrative Exam Narrative: Elderly white male sitting up in bed watching TV alert and oriented person place time circumstance. He is very hard of hearing but is able to understand me and communicate with me. Lungs are clear anteriorly but posteriorly has some fine bibasilar rales no rhonchi or wheezing. Heart is regular but tachycardic with a harsh systolic murmur over the apex no thrill or heave Abdomen soft nondistended nontender Extremities without peripheral edema. Does have a small bruise of his left tibia. Objective Last Vital Signs Temp 36.1 C L 02/04/21 04:00 Pulse 79 02/04/21 06:33 Resp 20 02/04/21 06:33 BP 130/84 02/04/21 06:33 Pulse Ox 91 L 02/04/21 06:33
[2021-02-04] MEDS: Ascorbic Acid 500 MG TAB 1000 MG PO ×2 (10:05→21:19)
[2021-02-04] MEDS: Ciprofloxacin 500 MG TAB PO ×2 (10:06→21:19)
[2021-02-04] MEDS: Docusate Sodium 100 MG CAP PO ×2 (10:06→21:20)
[2021-02-04] MEDS: Aspirin E.C. 81 MG TABEC PO (10:06)
[2021-02-04] MEDS: Famotidine 20 MG TAB PO ×2 (10:07→21:20)
[2021-02-04] MEDS: Enoxaparin 40 MG/0.4 ML SYR SC (10:07)
[2021-02-04] MEDS: Multivitamin w/Minerals TAB 1 TAB PO (10:08)
[2021-02-04] MEDS: predniSONE 20 MG TAB 60 MG PO (10:08)
[2021-02-04] MEDS: Finasteride 5 MG TAB PO (10:08)
[2021-02-04] MEDS: PARoxetine 10 MG TAB 30 MG PO (10:08)
[2021-02-04] MEDS: Folic Acid 1 MG TAB PO (10:08)
[2021-02-04] MEDS: Tamsulosin 0.4 MG CAPCR PO (10:09)
[2021-02-04] MEDS: Thiamine 100 MG TAB PO (10:09)
[2021-02-04] MEDS: Tiotropium/Olodaterol 10 PUFF INHALER 2 PUFF IH (10:09)
[2021-02-04] MEDS: Protein Nutritional Supplement 16 GM 1 OUNCE PACKET PO ×3 (10:09→21:19)
[2021-02-04] MEDS: Senna TAB 1 TAB PO ×2 (10:09→21:19)
[2021-02-04] MEDS: Metoprolol 12.5 MG TAB PO ×3 (11:12→22:01)
[2021-02-04] MEDS: Dronabinol 2.5 MG CAP 5 MG PO ×2 (11:12→17:23)
--- NOTE | 2021-02-04 12:06 | NUR.NOTE ---
Patient is set up with his lunch tray and begins to feed himself.Nursing Note:
[2021-02-04] MEDS: Normal Saline Flush 10 ML SYR IVP (21:19)
[2021-02-04] MEDS: Polyethylene Glycol 3350 17 GM PACKET PO (21:19)
[2021-02-04] MEDS: Atorvastatin 40 MG TAB PO (21:20)
[2021-02-04] MEDS: Latanoprost 0.005% 2.5 ML BTL OP (21:20)
[2021-02-04] MEDS: Mirtazapine 15 MG TAB 30 MG PO (22:01)
[2021-02-05] VITALS (14 sets, daily range): BP systolic 111–149; BP diastolic 48–68; PULSE 62–104; RESP 16–30; TEMP 31–36.8; O2SAT 91–99
[2021-02-05] MEDS: Metoprolol 12.5 MG TAB PO ×3 (06:45→22:24)
[2021-02-05] MEDS: Tiotropium/Olodaterol 10 PUFF INHALER 2 PUFF IH (08:39)
[2021-02-05] MEDS: Enoxaparin 40 MG/0.4 ML SYR SC (09:16)
[2021-02-05] MEDS: Protein Nutritional Supplement 16 GM 1 OUNCE PACKET PO ×3 (09:16→19:53)
[2021-02-05] MEDS: Thiamine 100 MG TAB PO (09:17)
[2021-02-05] MEDS: PARoxetine 10 MG TAB 30 MG PO (09:17)
[2021-02-05] MEDS: Docusate Sodium 100 MG CAP PO ×2 (09:17→19:55)
[2021-02-05] MEDS: Ciprofloxacin 500 MG TAB PO ×2 (09:17→19:55)
[2021-02-05] MEDS: Ascorbic Acid 500 MG TAB 1000 MG PO ×2 (09:17→19:55)
[2021-02-05] MEDS: Aspirin E.C. 81 MG TABEC PO (09:18)
[2021-02-05] MEDS: Famotidine 20 MG TAB PO ×2 (09:18→19:55)
[2021-02-05] MEDS: Finasteride 5 MG TAB PO (09:18)
[2021-02-05] MEDS: predniSONE 20 MG TAB 60 MG PO (09:18)
[2021-02-05] MEDS: Folic Acid 1 MG TAB PO (09:18)
[2021-02-05] MEDS: Multivitamin w/Minerals TAB 1 TAB PO (09:18)
[2021-02-05] MEDS: Tamsulosin 0.4 MG CAPCR PO (09:18)
[2021-02-05] MEDS: Senna TAB 1 TAB PO ×2 (09:18→19:54)
--- NOTE | 2021-02-05 09:22 | CMPROGNOTE_ITS ---
Care Management Progress Note S/O: Anticipate Uriel will transition out to the M/S floor today, per MD-he is ambulating and made it from the ICU to the M/S medical staff director room. Per MD, RT is working on getting him high flow O2 for home. His goal is to return home before [facility] with O2 equipment and [facility] services. Uriel pays monitors his Sats in order to ambulate and rests when he needs to; CM coordinated pulse oximeter and provided to Uriel for his return home. He feels that he will be able to manage well at home with equipment and services. CM will continue to support discharge planning needs. A: 70 year old male admitted to [facility] on 01/10/21 for COVID-19 Pneumonia P: Uriel will be discharged home with new [facility] SN/PT when medically cleared by provider, CM provided pulse oximeter. Uriel will follow up with his PCP and plan of care as directed. RT will continue to assess for home O2 needs-anticipate Hi Flow O2 at this time, hopeful Uriel will not require CPAP though he continues to wear it at night at this time. He will transport home via private vehicle with family when ready. CM will continue to follow.
--- NOTE | 2021-02-05 10:02 | W.PM.PROGNOT ---
Date of Service Date of service: 02/05/21 Time of Service: 10:02 Assessment and Plan Assessment and plan (1) COPD (chronic obstructive pulmonary disease): Status: Chronic Assessment and plan: continue high dose prednisone along w/ Stiolto and prn albuterol. encourage IS and acapella along w/ ambulation. oxygen requirements have improved since being put on high dose prednisone. Prednisone will be decreased to 50 mg daily beginning February 07, 2021 and then decrease by 10 mg/day every 7 days. Continue to wean his oxygen as tolerated using CPAP at night. Patient is medically stable and can be transition to the medical/surgical floor. Qualifiers: COPD type: unspecified COPD Qualified Code(s): J44.9 - Chronic obstructive pulmonary disease, unspecified (2) COVID: Status: Acute Assessment and plan: patient is no longer considered contagious and has been cleared to ambulate outside the MICU to med/surg floor as long as he wears a mask. He is no longer on active treatment for COVID-19. He remains on high dose prednisone 60 mg daily d/t his pulmonary fibrosis from his COPD as well as superimposed damage from COVID-19. This will be slowly weaned as per pulmonary recommended schedule. He remains on TMP/SMX for PJP prophylaxis while on high dose prednisone. (3) Paroxysmal supraventricular tachycardia: Status: Acute Assessment and plan: Runs of nonsustained PSVT with aberrancy. Will start low-dose beta-blockers. He has a resting tachycardia heart rates in the low 100s to 110. Rhythm is NSR in the 60's. He had another run of PSVT around 2 am. He was asymptomatic. will continue to monitor on telemetry upon transfer to the floor. May need to adjust his metoprolol dose. (4) Depression: Status: Acute Assessment and plan: Now on Paxil 30 mg daily and Remeron 30 mg at night along with Marinol twice a day. His mood and his appetite have improved greatly. will continue current treatment upon transfer Qualifiers: Depression Type: reactive depression Qualified Code(s): F32.9 - Major depressive disorder, single episode, unspecified (5) Pseudomonas urinary tract infection: Status: Acute Assessment and plan: Pseudomonas UTI d/t chronic urinary obstruction and recurrent need for catheterization. continue cipro x 14 days. (6) BPH (benign prostatic hyperplasia): Status: Chronic Assessment and plan: Patient still has dykes in place. Will give him voiding trial today. He has been on his Flomax since Friday 02/02. Qualifiers: Lower urinary tract symptom presence: symptoms present Lower urinary tract symptom detail: incomplete bladder emptying Qualified Code(s): N40.1 - Benign prostatic hyperplasia with lower urinary tract symptoms; R39.14 - Feeling of incomplete bladder emptying (7) Nutrition disorder: Status: Acute Assessment and plan: continue protein shakes along w/ antidepressants (8) HLD (hyperlipidemia): Status: Acute Assessment and plan: atorvastain 40mg nightly. (9) GERD (gastroesophageal reflux disease): Status: Chronic Assessment and plan: cont. pepcid Qualifiers: Esophagitis presence: esophagitis presence not specified Qualified Code(s): K21.9 - Gastro-esophageal reflux disease without esophagitis (10) DVT prophylaxis: Status: Acute Assessment and plan: cont. enoxaparin (11) Discharge planning issues: Status: Acute Assessment and plan: Patient is hopefuly to get home by [facility]. We will transition him out of ICU and continue w/ P.T. and R.T. Hopefully he will continue to improve to the point that his oxygen needs can be met at home. He remains DNR/DNI Subjective Subjective Interval history since last seen: Uriel is hopeful to get out of the hospital by [facility]. I told him that we cannot make any promises but we have seen great improvement in his oxygen status over the last week. Still requires an Oxymizer but at rest he is on 8 L/min. With activity he does require up to 12 L/min. He still wearing CPAP at night. He has no cough or sputum production. Still has a Dykes catheter and due to urinary retention from BPH however his Flomax was restarted last Friday. We can give him a voiding trial today and hopefully leave the Dykes catheter out. I discussed his case with Dr. María Elena Raines, motor scooter repairer, and she feels that Uriel is ready for transition to the medical floor. Uriel remains on high-dose prednisone 60 mg daily to treat his lung inflammation from his pulmonary fibrosis from his recent Covid pneumonia. Uriel also has underlying COPD. Will remain on Bactrim while he is on high-dose prednisone. Prednisone be tapered over the next few weeks. He will be tapered by 10 mg/day every 7 days. Tomorrow will be the last day of 60 mg then he will drop down to 50 mg daily for the following week. Exam Narrative Exam Narrative: Elderly white male sitting up in his chair able to talk in full sentences without dyspnea. He has no cough. Lungs with fine bibasilar rales no wheezes or rhonchi Heart is regular rate and rhythm, no harsh systolic murmur over the apex no thrill or heave Abdomen soft nontender nondistended normal bowel sounds Lower extremities without peripheral edema Objective Last Vital Signs Temp 36.1 C L 02/04/21 23:48 Pulse 70 02/05/21 06:38 Resp 23 02/05/21 06:38 BP 111/65 02/05/21 06:38 Pulse Ox 94 02/05/21 06:38
[2021-02-05] MEDS: Dronabinol 2.5 MG CAP 5 MG PO ×2 (12:09→17:55)
--- NOTE | 2021-02-05 15:30 | IN_ITS ---
Date of service: 02/05/21 Time of Service: 15:30 PT Notes Visit Reasons: COVID-19 Pneumonia Physical Therapy Inpatient Initial Evaluation Date: 02/05/2021 Referring Doctor: Danial Shaw MD PT Orders: PT CONSULT: Extended stay weakness Precautions: Fall. Standard. Activity as tolerated. Per hospitalist, patient is off of COVID-19 precautions as of 02/05/2021, may walk in hallway with mask on and oxygen supplementation. Patient Profile/Admitting Diagnosis: Uriel is a 70-year-old male with diagnoses of COPD, COVID-19, paroxysmal SVT, depression, Pseudomonas UTI, and nutrition disorder referred to physical therapy to address functional mobility decline and extended stay weakness. PMHX: COVID (Acute) Hypoxemia (Acute) Social History/Home Situation: Lives with in a private home with 3 steps to enter through the garage, one rail. No falls in the past 12 months. Independent with all aspects of ADLs prior to admission. Uses continuous oxygen at home. Utilizes [facility] occasionally. Equipment Owned/DME: [facility] Subjective: Bothered by his inability to bend his right ankle, states that this is something new and was not there before his admission. He thinks that he may have had some kind of stroke while here. Objective: General Observation: PICC line in R UE. IV access in R UE. Oxygen supplementation at 8 L/min via NC. Mental Status: Alert and oriented as to person, place, time, and purpose. Able to pay attention, focus, and respond appropriately. Pain: Denies Vital Signs: Desaturated to 82% on 8 L/min after ambulation activity needing increase to 10 L with a saturation back to 91% after about a minute ROM: Right Upper Extremity: Shoulder Flexion WFL. Shoulder abduction WFL. Elbow flexion WFL. Wrist flexion WFL. Functional opening and closing of hand WFL. Left Upper Extremity: Shoulder Flexion WFL. Shoulder abduction WFL. Elbow flexion WFL. Wrist flexion WFL. Functional opening and closing of hand WFL. Right Lower Extremity: Hip flexion WFL. Hip abduction WFL. Knee flexion WFL. Ankle dorsiflexion absent. Ankle plantarflexion WFL. Left Lower Extremity: Hip flexion WFL. Hip abduction WFL. Knee flexion WFL. Ankle dorsiflexion WFL. Ankle plantarflexion WFL. Strength: Right Upper Extremity: Shoulder flexors 4-/5. Shoulder abductors 4-/5. Elbow flexors 5/5. Elbow extensors 4-/5. Vat Skimmer strong. Left Upper Extremity: Shoulder flexors 4-/5. Shoulder abductors 4-/5. Elbow flexors 5/5. Elbow extensors 4-/5. Vat Skimmer strong. Right Lower Extremity: Hip flexors 4-/5. Hip abductors 4-/5. Knee flexors 4/5. Knee extensors 4-/5. Ankle dorsiflexors 1/5. Ankle plantarflexors 4-/5. Left Lower Extremity: Right Lower Extremity: Hip flexors 4-/5. Hip abductors 4- /5. Knee flexors 4/5. Knee extensors 4-/5. Ankle dorsiflexors 4-/5. Ankle plantarflexors 4-/5. Bed Mobility/Transfers: Rolling supervision Supine to sit supervision Sit to supine supervision Sit to stand standby assist with front wheeled walker Stand to sit standby assist with front wheeled walker Bed to reclining chair standby assist with front wheeled walker Gait: Instructed patient with level surface ambulation of 80 feet requiring standby assist. Francesca decreased. Step height on the right decreased. Step length on left decreased. Foot slap on the right evident. Desaturated to 80% on 8 L/min after ambulation activity needing 10 L of oxygen per minute that allowed for desaturation back up to 91% after about 1 minute. Balance: Static Sitting: Normal Dynamic Sitting: Normal Static Standing: Fair Dynamic Standing: Fair Special Tests: Mobility Limitations Standardized Measure [facility] 6 clicks Basic Mobility Inpatient Short Form: Raw Score: 23 CMS Score: 11% deficit 4 Stage Balance test: Able to maiatain feet together for 10 seconds, unable to do so with right hand, full tandem, and 1 legged stance indicating at risk for falls. Informed Consent/Education: Patient was instructed in purpose of PT consult and plan of care. Agreeable to proceed with established PT POC to achieve personal goals. Assessment: Uriel demonstrates new right dorsiflexor weakness leading to steppage gait on the right side that can increase his risk for falls without the use of an assistive ambulatory device. Question isolated peripheral neuropathy vs. upper motor neuron affectation. Strength in the upper UEs symmetric. No pronator drift on the right UE. Dynamic balance impaired as seen with the 4-stage balance test. Patient presents with clinical signs and symptoms consistent with current/admitting diagnoses that have resulted to mobility limitations, gait instability, generalized weakness, and overall ADL decline as demonstrated by the following impairment level findings: 1. Decreased strength to B LE major muscle groups, absent dorsiflexion on the right 2. Impaired standing balance 3. Impaired activity tolerance 4. Limitation of joint range of motion in right dorsiflexion 5. Shortness of breath 6. Steppage gait on the right Impairments are contributing to the following functional limitations: 1. Difficulty with ambulation without assistive device and physical assistance 2. Increased completion time for mobility ADL performance 3. Increased risk for falls 4. Difficulty with managing steps alone safely Patient is assessed as a 09212 moderate complexity based on the following: History: 70 [id number] with past medical history as indicated above Examination: Demonstrable impairment in strength, balance, and mobility level with underlying impairments and functional limitations as exhibited above as well as deficit score of 11% utilizing the [facility] Mobility Inpatient Short Form Presentation: Evolving Decision Makin moderate complexity Goals: Goals X1 week 1. Supine-Sit independent 2. Sit-Supine independent 3. Sit-Stand independent 4. Stand-Sit independent with FWW 5. Bed-Chair independent with FWW 6. Chair-Bed independent with FWW 7. Independent gait on level surface with use of FWW for at least 100 feet without report of pain nor dyspnea with oxygen saturation staying above 90% on 8 L 8. Independent stair negotiation while holding onto 1 rail for at least 5 steps without report of pain nor dyspnea 9. Good static and dynamic standing balance/tolerance Plan of Care/Treatment Plan: 1-2x/day, 7 days/week x 1 week. Plan of care has been reviewed with the CORPORATE STRATEGIST providing the service under Physical Therapy direction. Initiate Physical Therapy intervention for pain management as needed, strengthening, bed mobility, transfers, gait, stairs, balance training, and use of assistive device. DISCHARGE RECOMMENDATIONS: [] Home with no services [] [X] Home with services. Patient will benefit from home health PT services in order to progress mobility level using least restrictive assistive ambulatory device, assess home safety, identify additional equipment needs, and establish a functional maintenance program that will increase ability of patient to remain at home. May benefit from the use of a front wheeled walker to reduce fall risk at home to maximize activity tolerance. [] Home with outpatient PT [] [] SNF for continued rehabilitation [] [] [facility] [] [] SNF versus LTC based on ability to participate and progress [] TREATMENT CODE/TIME: 9716 2 x 20 minutes, 9753 0 x 12 minutes beginning at 15:30 PM. Thank you for the opportunity to participate in the care of this patient. Valerie Eason PT, DPT, CLT [facility] [place], [place]
[2021-02-05] MEDS: Normal Saline Flush 10 ML SYR IVP (19:53)
[2021-02-05] MEDS: Polyethylene Glycol 3350 17 GM PACKET PO (19:54)
[2021-02-05] MEDS: Atorvastatin 40 MG TAB PO (19:55)
[2021-02-05] MEDS: Mirtazapine 15 MG TAB 30 MG PO (22:24)
[2021-02-05] MEDS: Lidocaine 2% Jelly 11 ML SYR UR (22:33)
[2021-02-06] VITALS (11 sets, daily range): BP systolic 114–134; BP diastolic 61–73; PULSE 67–91; RESP 17–22; TEMP 36.2–37.7; O2SAT 90–99
--- NOTE | 2021-02-06 | DI.MRI_ITS ---
Exam(s) MR LUMBAR SPINE WO EXAM: MR LUMBAR SPINE WO CLINICAL HISTORY: right foot drop. TECHNIQUE: Multiplanar multisequence MRI of the Lumbar spine was performed. COMPARISON: No exams were available for comparison FINDINGS: Bones: The last intervertebral disc space is designated the L5/S1 level for the numbering purpose of this examination. The vertebral body heights are well maintained. There is a mild left convex curva ture of the lumbar spine. Mild endplate degenerative signal changes are seen at multiple levels. Cord: The conus tip ends at the T12 level. It is of normal size and signal intensity. T12-L1: No disc herniations or bulges are present. No central spinal canal or neural foraminal stenos is. L1-2: There is a mild diffuse disc bulge. No significant central spinal canal stenosis is present. No neural foraminal stenosis is present. L2-3: There is a mild diffuse disc bulge. There are mild degenerative changes of the facets. Mild n arrowing of the central spinal canal is noted. No significant neural foraminal stenosis is present. L3-4: There is a mild diffuse disc bulge there degenerative changes of the facets. Mild a narrowing of the central spinal canal is noted. No significant neural foraminal stenosis is present. L4-5: There is a mild diffuse disc bulge. There are hypertrophic changes of the facets and ligamentu m flavum. Minimal narrowing of the central spinal canal is noted. No significant neural foraminal s tenosis is seen. L5-S1: There is a central disc herniation. There is mild compression on the right and left S1 nerve roots. Mild narrowing of the central spinal canal is noted. There is extension of the disc material laterally on the left. This in conjunction with the degenerative changes of the facets causes moder ately severe left neural foraminal stenosis. No significant right neural foraminal stenosis is prese nt. Soft tissues: The visualized SI joints and sacrum are well maintained. Root sleeve perineural cysts are seen at the S2 level. The paraspinal soft tissues are unremarkable. IMPRESSION: 1. Disc disease and herniation at L5-S1 causing mild compression of the right and left S1 nerve roots . There is also moderately severe left neural foraminal stenosis. 2. Multilevel degenerative changes in the lumbar spine as described above. DATA REPOSITORY:
[2021-02-06] MEDS: Latanoprost 0.005% 2.5 ML BTL OP ×2 (00:05→22:53)
[2021-02-06] MEDS: Metoprolol 12.5 MG TAB PO ×3 (06:32→22:53)
[2021-02-06] MEDS: Tiotropium/Olodaterol 10 PUFF INHALER 2 PUFF IH (08:29)
--- NOTE | 2021-02-06 09:09 | CMPROGNOTE_ITS ---
- If Service Date Differs Date of service: 02/06/21 Time of Service: 09:09 Care Management Progress Note S/O: Uriel was sitting up in his chair when CM met with him. He was pleasant and easily engaged in conversation. He shared that he continues to work with PT and feels he is getting stronger. Per , RT is working on getting him high flow O2 for home. His goal is to return home before [place] with O2 equipment and H services. Uriel monitors his Sats in order to ambulate and rests when he needs to; CM coordinated pulse oximeter and provided to Uriel for his return home. He feels that he will be able to manage well at home with equipment and services. CM spoke with his Amparo today and she wants to see if she can coordinate another in person visit with Uriel in the [facility] the day after [place] if he doesn't get discharged before then. Also, Amparo shared with CM that she received notification that Uriel's [facility] benefits will be ending on 02/08/21. CM left a message for Teena Matos RN from [facility] from the [place] asking to discuss this further. [facility] is the [place] authorizing Center for continuation of payment for care in the community. CM will follow up with the [facility] tomorrow. A: 70 year old male admitted to [facility] on 01/10/21 for COVID-19 Pneumonia P: Uriel will be discharged home with new [facility] SN/PT when medically cleared by provider, CM provided pulse oximeter. Uriel will follow up with his PCP and plan of care as directed. RT will continue to assess for home O2 needs-anticipate Hi Flow O2 at this time, hopeful Uriel will not require CPAP though he continues to wear it at night at this time. He will transport home via private vehicle with family when ready. CM will continue to follow.
[2021-02-06] MEDS: Normal Saline Flush 10 ML SYR IVP ×2 (09:13→09:19)
[2021-02-06] MEDS: Enoxaparin 40 MG/0.4 ML SYR SC (09:13)
[2021-02-06] MEDS: Protein Nutritional Supplement 16 GM 1 OUNCE PACKET PO ×3 (09:14→20:38)
[2021-02-06] MEDS: Folic Acid 1 MG TAB PO (09:18)
[2021-02-06] MEDS: Tamsulosin 0.4 MG CAPCR PO (09:18)
[2021-02-06] MEDS: predniSONE 20 MG TAB 60 MG PO (09:18)
[2021-02-06] MEDS: Multivitamin w/Minerals TAB 1 TAB PO (09:18)
[2021-02-06] MEDS: Senna TAB 1 TAB PO ×2 (09:18→20:37)
[2021-02-06] MEDS: PARoxetine 10 MG TAB 30 MG PO (09:18)
[2021-02-06] MEDS: Docusate Sodium 100 MG CAP PO ×2 (09:19→20:37)
[2021-02-06] MEDS: Thiamine 100 MG TAB PO (09:19)
[2021-02-06] MEDS: Ascorbic Acid 500 MG TAB 1000 MG PO ×2 (09:19→20:37)
[2021-02-06] MEDS: Aspirin E.C. 81 MG TABEC PO (09:19)
[2021-02-06] MEDS: Famotidine 20 MG TAB PO ×2 (09:19→20:37)
[2021-02-06] MEDS: Ciprofloxacin 500 MG TAB PO ×2 (09:19→20:37)
[2021-02-06] MEDS: Finasteride 5 MG TAB PO (09:19)
[2021-02-06] MEDS: Dronabinol 2.5 MG CAP 5 MG PO ×2 (11:30→15:56)
[2021-02-06] MEDS: diazePAM 2 MG TAB PO (13:45)
--- NOTE | 2021-02-06 15:20 | PT.INTREAT ---
Date of service: 02/06/21 Time of Service: 10:56 PT Notes Visit Reasons: COVID-19 Pneumonia Inpatient Physical Therapy Treatment Note [facility] Date: 02/06/2021 PRECAUTIONS: Fall, monitor SaO2 SUBJECTIVE: Uriel is pleasant and agreeable to participating in PT. He reports that his R great toe and second and third toes feel tingly, like a burn. He states that he wants to work hard so he can go home to his and dog. OBJECTIVE: Patient was not available in afternoon due to MRI testing. PAIN: No c/o pain BED MOBILITY/TRANSFERS Supine-sit: I Sit-supine: I Sit-stand: S Stand-sit: S GAIT Assistive Device: FWW Weight bearing: Full Assist: SBA Distance: 75' x2 + 10' Deviation: Seated rest due to SOB and decreased SaO2, foot slap on R VITALS: SaO2: 70-94% on 10L O2 via NC with oximizer with gait training (measurements taken on portable finger monitor) THEREX: Patient was instructed in several LE strengthening exercises, completed in a seated position, as per flow sheet. He demonstrates increasing SOB with exercise completion. ASSESSMENT: Patient tolerated session with c/o increasing SOB with gait training with FWW support and SBA. He would benefit from continued general conditioning for improved activity tolerance. PLAN: Continue with gait training and general conditioning, as tolerated. TREATMENT CODE/TIME: 33 minutes; 57727, 02412 (10:56)
--- NOTE | 2021-02-06 16:46 | PGE_ITS ---
Date of Service Date of service: 02/06/21 Time of Service: 16:46 Assessment and Plan Assessment and plan (1) Right foot drop: Status: Acute Assessment and plan: Secondary to herniated L5-S1 disc. Will prescribe an AFO for his right foot. Continue high-dose prednisone for his pulmonary fibrosis and COPD and COVID. Coincidentally this prednisone probably masked any back pain he may have had from his herniated disc. He currently remains free of any back pain. I discussed the case with orthopedic surgery who recommended continue supportive care and indicated that he may regain some nerve function but that there is a chance that he may have permanent foot drop. As the patient will be on tapering doses of prednisone, we will have to see if this benefits the inflammation from his herniated disc. (2) Herniation of intervertebral disc between L5 and S1: Status: Acute (3) COPD (chronic obstructive pulmonary disease): Status: Chronic Assessment and plan: continue high dose prednisone along w/ Stiolto and prn albuterol. encourage IS and acapella along w/ ambulation. oxygen requirements have improved since being put on high dose prednisone. Prednisone will be decreased to 50 mg daily beginning February 07, 2021 and then decrease by 10 mg/day every 7 days. Continue to wean his oxygen as tolerated using CPAP at night. Patient is medically stable and can be transition to the medical/surgical floor. Qualifiers: COPD type: unspecified COPD Qualified Code(s): J44.9 - Chronic obstructive pulmonary disease, unspecified (4) COVID: Status: Acute Assessment and plan: patient is no longer considered contagious and has been cleared to ambulate outside the MICU to med/surg floor as long as he wears a mask. He is no longer on active treatment for COVID-19. He remains on high dose prednisone 60 mg daily d/t his pulmonary fibrosis from his COPD as well as superimposed damage from COVID-19. This will be slowly weaned as per pulmonary recommended schedule. He remains on TMP/SMX for PJP prophylaxis while on high dose prednisone. (5) Paroxysmal supraventricular tachycardia: Status: Acute Assessment and plan: Currently on Lopressor 12.5 mg p.o. 3 times daily. We will convert him over to Toprol-XL 37.5 mg once a day. (6) Depression: Status: Acute Assessment and plan: Now on Paxil 30 mg daily and Remeron 30 mg at night along with Marinol twice a day. His mood and his appetite have improved greatly. will continue current treatment upon transfer Qualifiers: Depression Type: reactive depression Qualified Code(s): F32.9 - Major depressive disorder, single episode, unspecified (7) Pseudomonas urinary tract infection: Status: Acute Assessment and plan: Pseudomonas UTI d/t chronic urinary obstruction and recurrent need for catheterization. continue cipro x 14 days. (8) BPH (benign prostatic hyperplasia): Status: Chronic Assessment and plan: Patient failed his voiding trial yesterday and has a Gaitan catheter in place now. He is already on finasteride 5 mg daily. I will increase his tamsulosin to 0.8 mg daily.. Qualifiers: Lower urinary tract symptom detail: incomplete bladder emptying Lower urinary tract symptom presence: symptoms present Qualified Code(s): N40.1 - Benign prostatic hyperplasia with lower urinary tract symptoms; R39.14 - Feeling of incomplete bladder emptying (9) Nutrition disorder: Status: Acute Assessment and plan: continue protein shakes along w/ antidepressants (10) HLD (hyperlipidemia): Status: Acute Assessment and plan: atorvastain 40mg nightly. (11) GERD (gastroesophageal reflux disease): Status: Chronic Assessment and plan: cont. pepcid Qualifiers: Esophagitis presence: esophagitis presence not specified Qualified Code(s): K21.9 - Gastro-esophageal reflux disease without esophagitis (12) DVT prophylaxis: Status: Acute Assessment and plan: cont. enoxaparin (13) Discharge planning issues: Status: Acute Assessment and plan: Patient is hopefuly to get home by [place]. continue w/ P.T. and R.T. Hopefully he will continue to improve to the point that his oxygen needs can be met at home. He remains DNR/DNI Subjective Subjective Interval history since last seen: Patient is complaining of right foot drop. This was also noted by physical therapy when they ambulated him today. This was not noted while he was in the intensive care unit. Uriel states that he first noticed this when they first walked him from the ICU to the medical/surgical floor over the weekend. He denies any numbness or tingling or burning in the right leg or foot and denies any back pain. I had him do an MRI scan of his lumbosacral spine and he has severe DJD with herniated disc at the L5-S1 level causing moderate nerve compression as well as neuroforaminal narrowing. Also Uriel failed his voiding trial yesterday and Gaitan catheter had to be replaced. Exam Narrative Exam Narrative: Elderly white male sitting up in his chair able to talk in full sentences without dyspnea. He has no cough. Lungs with fine bibasilar rales no wheezes or rhonchi Heart is regular rate and rhythm, no harsh systolic murmur over the apex no thrill or heave Abdomen soft nontender nondistended normal bowel sounds Lower extremities without peripheral edema Right foot drop is noticeable. Patient is unable to dorsiflex the right foot at the ankle. He is able to extend and flex at the knee as well as at the hip with good strength. There is no noticeable numbness with light tactile palpation of his legs. Objective Last Vital Signs Temp 36.4 C L 02/06/21 11:45 Pulse 71 02/06/21 11:45 Resp 17 02/06/21 11:45 BP 121/69 02/06/21 11:45 Pulse Ox 97 02/06/21 11:45
[2021-02-06] MEDS: Polyethylene Glycol 3350 17 GM PACKET PO (20:37)
[2021-02-06] MEDS: Atorvastatin 40 MG TAB PO (20:37)
[2021-02-06] MEDS: Mirtazapine 15 MG TAB 30 MG PO (22:53)
[2021-02-07] VITALS (11 sets, daily range): BP systolic 106–117; BP diastolic 56–66; PULSE 62–91; RESP 17–20; TEMP 35.8–36.7; O2SAT 90–97
[2021-02-07] MEDS: Metoprolol 12.5 MG TAB PO (06:08)
[2021-02-07] MEDS: Protein Nutritional Supplement 16 GM 1 OUNCE PACKET PO ×3 (07:46→20:10)
[2021-02-07] MEDS: Normal Saline Flush 10 ML SYR IVP ×2 (07:46→20:10)
[2021-02-07] MEDS: Enoxaparin 40 MG/0.4 ML SYR SC (07:47)
[2021-02-07] MEDS: PARoxetine 10 MG TAB 30 MG PO (07:47)
[2021-02-07] MEDS: Famotidine 20 MG TAB PO ×2 (07:48→20:10)
[2021-02-07] MEDS: Senna TAB 1 TAB PO ×2 (07:48→20:10)
[2021-02-07] MEDS: Ascorbic Acid 500 MG TAB 1000 MG PO ×2 (07:48→20:11)
[2021-02-07] MEDS: Multivitamin w/Minerals TAB 1 TAB PO (07:48)
[2021-02-07] MEDS: Tamsulosin 0.4 MG CAPCR 0.8 MG PO (07:48)
[2021-02-07] MEDS: Docusate Sodium 100 MG CAP PO ×2 (07:48→20:11)
[2021-02-07] MEDS: Metoprolol CR 25 MG TABCR 37.5 MG PO (07:49)
[2021-02-07] MEDS: Thiamine 100 MG TAB PO (07:49)
[2021-02-07] MEDS: Folic Acid 1 MG TAB PO (07:49)
[2021-02-07] MEDS: Aspirin E.C. 81 MG TABEC PO (07:49)
[2021-02-07] MEDS: Ciprofloxacin 500 MG TAB PO ×2 (07:49→20:10)
[2021-02-07] MEDS: Finasteride 5 MG TAB PO (07:49)
[2021-02-07] MEDS: Tiotropium/Olodaterol 10 PUFF INHALER 2 PUFF IH (07:52)
--- NOTE | 2021-02-07 09:23 | CMPROGNOTE_ITS ---
- If Service Date Differs Date of service: 02/07/21 Time of Service: 09:23 Care Management Progress Note S/O: Uriel was sitting up in his chair when CM met with him. He remains hopeful to be home by [place] but understands it's been a challenge getting equipment to support his oxygen requirement at home. He shared with CM that he is taking it one day at a time and trying to be patient. Per Haylee from RT, RT has been unsuccessful getting his equipment for home through [facility] or [facility] and she is going to try [facility] today. CM will continue to follow. A: 70 year old male admitted to [facility] on 01/10/21 for COVID-19 Pneumonia P: Uriel will be discharged home with new [facility] SN/PT when medically cleared by provider, CM provided pulse oximeter. Uriel will follow up with his PCP and plan of care as directed. RT will continue to assess for home O2 needs-anticipate Hi Flow O2 at this time, MD hopeful Uriel will not require CPAP though he continues to wear it at night at this time. He will transport home via private vehicle with family when ready. CM will continue to follow.
--- NOTE | 2021-02-07 10:22 | PGE_ITS ---
Date of Service Date of service: 02/07/21 Time of Service: 10:23 Assessment and Plan Assessment and plan (1) Right foot drop: Status: Acute Assessment and plan: Secondary to herniated L5-S1 disc. Will prescribe an AFO for his right foot. Continue high-dose prednisone for his pulmonary fibrosis and COPD and COVID. Coincidentally this prednisone probably masked any back pain he may have had from his herniated disc. He currently remains free of any back pain. Per my discussion yesterday with Dr. Angel there is a chance that the nerve injury from herniated disc will improve over time and the patient currently is not a candidate for any lumbar surgery. His case was discussed by me w/ Cyndee from P.T. and she will fit him for AFO. (2) Herniation of intervertebral disc between L5 and S1: Status: Acute Assessment and plan: As above (3) COPD (chronic obstructive pulmonary disease): Status: Chronic Assessment and plan: continue high dose prednisone along w/ Stiolto and prn albuterol. encourage IS and acapella along w/ ambulation. oxygen requirements have improved since being put on high dose prednisone. Prednisone will be decreased to 50 mg daily beginning February 07, 2021 and then decrease by 10 mg/day every 7 days. Continue to wean his oxygen as tolerated using CPAP at night. Patient now tolerating working w/ P.T. however he does desaturate into the 70's% with prolonged activity. However, I do not feel that the distance he is walking for P.T. is greater than what he will be doing at home. I asked P.T. to try to mimic what he would be doing at home and I would like R.T. to monitor his oxygen level with activity and see if his oxygen needs can be met at home. Qualifiers: COPD type: unspecified COPD Qualified Code(s): J44.9 - Chronic obstructive pulmonary disease, unspecified (4) COVID: Status: Acute Assessment and plan: patient has completed therapy for COVID and is no longer considered contagious. He remains on high dose prednisone. Today we will step down to 50 mg daily for 7 days and continue to taper over the next month, dropping down by 10 mg/d every 7 days. (5) Paroxysmal supraventricular tachycardia: Status: Acute Assessment and plan: patient has been put on Toprol XL 37.5 mg daily. He had no further runs of PSVT over the past 24hr. I will dc his telemetry. This will be one less device he has to deal with. (6) Depression: Status: Acute Assessment and plan: Now on Paxil 30 mg daily and Remeron 30 mg at night along with Marinol twice a day. His mood and his appetite have improved greatly. He is doing well and has a positive attitude. He is still hopeful of getting home by [place]. I am not sure that he will achieve that goal but we will see what his oxygen needs are w/ activity and whether or not his needs can be met at home. Qualifiers: Depression Type: reactive depression Qualified Code(s): F32.9 - Major depressive disorder, single episode, unspecified (7) Pseudomonas urinary tract infection: Status: Acute Assessment and plan: Pseudomonas UTI d/t chronic urinary obstruction and recurrent need for catheterization. continue cipro x 14 days. today is day #5 (8) BPH (benign prostatic hyperplasia): Status: Chronic Assessment and plan: Patient failed voiding trial couple days ago. He had the dykes replace and it remains in place. He is on Proscar 5 mg daily and I have increased his Flomax to 0.8 mg daily (today was the first day). He will probably need to go home w/ the dykes and he can follow up w/ Dr. Zhao as outpatient. Qualifiers: Lower urinary tract symptom presence: symptoms present Lower urinary tract symptom detail: incomplete bladder emptying Qualified Code(s): N40.1 - Benign prostatic hyperplasia with lower urinary tract symptoms; R39.14 - Feeling of incomplete bladder emptying (9) Nutrition disorder: Status: Acute Assessment and plan: continue protein shakes along w/ antidepressants (10) HLD (hyperlipidemia): Status: Acute Assessment and plan: atorvastain 40mg nightly. (11) GERD (gastroesophageal reflux disease): Status: Chronic Assessment and plan: cont. pepcid Qualifiers: Esophagitis presence: esophagitis presence not specified Qualified Code(s): K21.9 - Gastro-esophageal reflux disease without esophagitis (12) DVT prophylaxis: Status: Acute Assessment and plan: cont. enoxaparin (13) Discharge planning issues: Status: Acute Assessment and plan: Patient is hopefuly to get home by [place]. continue w/ P.T. and R.T. Hopefully he will continue to improve to the point that his oxygen needs can be met at home. He remains DNR/DNI Subjective Subjective Interval history since last seen: Uriel had a fall this morning while leaning over while getting off the bedside commode. He had reached over to pickup driver his call light device. He did not lose consciousness did not hit his head and denies any injury. Uriel is asking when he can go home he is hoping to be home for [place]. I told him that if his oxygen needs can be met at home then we could possibly look at getting him home for [place]. I will ask respiratory therapy to perform an amatory pulse oximetry while physical therapy is working with him. I think physical therapy is walking him further than what he will perform at home. I did asked Cyndee to fit him for an AFO for his right foot drop. Exam Narrative Exam Narrative: Uriel sitting up in bed he is alert oriented person place time circumstance no respiratory distress. He is not short of breath with prolonged conversation. Lungs with some fine bibasilar rales no rhonchi no wheezing Heart is regular rate and rhythm Abdomen soft nondistended Hips are nontender to palpation he has normal range of motion without pain. He has a persistent right foot drop but otherwise no focal motor deficits. Objective Last Vital Signs Temp 36.0 C L 02/07/21 10:11 Pulse 77 02/07/21 10:11 Resp 20 02/07/21 10:11 BP 110/59 L 02/07/21 10:11 Pulse Ox 95 02/07/21 10:11
[2021-02-07] MEDS: predniSONE 20 MG TAB 50 MG PO (10:53)
[2021-02-07] MEDS: Dronabinol 2.5 MG CAP 5 MG PO ×2 (10:53→15:45)
[2021-02-07] MEDS: Nystatin POWDER 15 GM JAR TP ×2 (14:02→21:11)
--- NOTE | 2021-02-07 15:39 | PT.INTREAT ---
Date of service: 02/07/21 Time of Service: 15:39 PT Notes Visit Reasons: COVID-19 Pneumonia Physical Therapy Inpatient Treatment Note Date: 02/07/2021 Precautions: Fall. Standard. Activity as tolerated. Per hospitalist, patient is off of COVID-19 precautions as of 02/05/2021, may walk in hallway with mask on and oxygen supplementation. Subjective: Bothered by his inability to bend his right ankle, states that this is something new and was not there before his admission. He thinks that he may have had some kind of stroke while here. Objective: General Observation: PICC line in R UE. IV access in R UE. Oxygen supplementation at 8 L/min via NC. Mental Status: Alert and oriented as to person, place, time, and purpose. Able to pay attention, focus, and respond appropriately. Pain: Denies Vital Signs: Desaturated to the low 80s on 8 L/min after ambulation activity Bed Mobility/Transfers: Rolling independent Supine to sit independent Sit to supine independent Sit to stand supervision Stand to sit supervision Bed to reclining chair supervision Gait: Instructed patient with level surface ambulation of 50 feet +20 feet +30 feet requiring standby assist. Francesca decreased. Step height on the right decreased. Step length on left decreased. Desaturated to then low 80s on 8 L/min after ambulation activity. Right AFO on with shoes. Gait oximetry performed with RT Eze in the morning. Gait oximetry performed with nurse Stein in the afternoon. Balance: Static Sitting: Normal Dynamic Sitting: Normal Static Standing: Fair Dynamic Standing: Fair Assessment: Negative for Babinski test indicating lower likelihood of an upper motor neuron affectation in the R foot and ankle. 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 Patient has been provided with a plastic AFO on the R side to increase safety of walking and minimize patient anxiety that can add to his current breathing difficulty. Continues to desaturate to the low 80s even with the slightest of movement while sitting up on the edge of bed today. Instruction regarding energy conservation, self pacing, and breathing technique have been reiterated yet again with patient as he tends to move so quickly. Even with taking 10-15 steps each time, patient saturation levels goes down to below normal limits and takes a while to recover, generally at least 3-5 minutes. Does not need physical help during mobility performance with AD. Did well with with us of FWW today. DISCHARGE RECOMMENDATIONS: [] Home with no services [] [X] Home with services. Patient will benefit from home health PT services in order to progress mobility level using least restrictive assistive ambulatory device, assess home safety, identify additional equipment needs, and establish a functional maintenance program that will increase ability of patient to remain at home. May benefit from the use of a front wheeled walker to reduce fall risk at home to maximize activity tolerance. [] Home with outpatient PT [] [] SNF for continued rehabilitation [] [] [facility] [] [] SNF versus LTC based on ability to participate and progress [] TREATMENT CODE/TIME: Session 1??[id number] X 30 minutes beginning at 11:27 AM. Session 2??[id number] 0 x 41 minutes beginning at 15:39 PM.
[2021-02-07] MEDS: Atorvastatin 40 MG TAB PO (20:10)
[2021-02-07] MEDS: Polyethylene Glycol 3350 17 GM PACKET PO (20:10)
[2021-02-07] MEDS: Mirtazapine 15 MG TAB 30 MG PO (21:10)
[2021-02-07] MEDS: Latanoprost 0.005% 2.5 ML BTL OP (21:11)
[2021-02-08] VITALS (9 sets, daily range): BP systolic 113–122; BP diastolic 62–73; PULSE 60–110; RESP 17–25; TEMP 36.3–37.4; O2SAT 84–99
[2021-02-08] MEDS: Tiotropium/Olodaterol 10 PUFF INHALER 2 PUFF IH (08:23)
[2021-02-08] MEDS: Protein Nutritional Supplement 16 GM 1 OUNCE PACKET PO ×3 (08:51→20:26)
[2021-02-08] MEDS: Folic Acid 1 MG TAB PO (08:51)
[2021-02-08] MEDS: Ciprofloxacin 500 MG TAB PO ×2 (08:51→20:25)
[2021-02-08] MEDS: Enoxaparin 40 MG/0.4 ML SYR SC (08:51)
[2021-02-08] MEDS: Docusate Sodium 100 MG CAP PO ×2 (08:51→20:25)
[2021-02-08] MEDS: Polyethylene Glycol 3350 17 GM PACKET PO ×2 (08:51→20:26)
[2021-02-08] MEDS: Metoprolol CR 25 MG TABCR 37.5 MG PO (08:52)
[2021-02-08] MEDS: Famotidine 20 MG TAB PO ×2 (08:52→20:25)
[2021-02-08] MEDS: Thiamine 100 MG TAB PO (08:52)
[2021-02-08] MEDS: Multivitamin w/Minerals TAB 1 TAB PO (08:53)
[2021-02-08] MEDS: PARoxetine 10 MG TAB 30 MG PO (08:53)
[2021-02-08] MEDS: Ascorbic Acid 500 MG TAB 1000 MG PO ×2 (08:53→20:25)
[2021-02-08] MEDS: Tamsulosin 0.4 MG CAPCR 0.8 MG PO (08:53)
[2021-02-08] MEDS: Aspirin E.C. 81 MG TABEC PO (08:53)
[2021-02-08] MEDS: Senna TAB 1 TAB PO ×2 (08:53→20:23)
[2021-02-08] MEDS: predniSONE 20 MG TAB 50 MG PO (08:54)
[2021-02-08] MEDS: Finasteride 5 MG TAB PO (08:54)
[2021-02-08] MEDS: Dronabinol 2.5 MG CAP 5 MG PO ×2 (11:56→15:29)
--- NOTE | 2021-02-08 13:55 | PDOC.CMPRO ---
- If Service Date Differs Date of service: 02/08/21 Time of Service: 13:55 Care Management Progress Note S/O: Uriel was lying in bed when CM met with him. He remains hopeful to be home by [place] but understands it's been a challenge getting equipment to support his oxygen requirement at home. He shared with CM that he is taking it one day at a time and trying to be patient. Per Haylee, RT has been unsuccessful getting his equipment for home through [facility] or [facility] and she is going to try [facility]. CM [facility] who suggested our RT Dept. reach out to KEN Tim/RT (ext. [phone]) to see if she can help with the needed equipment. Additionally, Teena advised CM that Uriel's hospital stay will be [facility] by the [facility], as long as he has an acute medical need. CM will continue to follow. A: 70 year old male admitted to [facility] on 01/10/21 for COVID-19 Pneumonia P: Uriel will be discharged home with new [facility] SN[facility]PT when medically cleared by provider, FELIX provided pulse oximeter. Uriel will follow up with his PCP and plan of care as directed. RT will continue to assess for home O2 needs-anticipate Hi Flow O2 at this time, hopeful Uriel will not require CPAP though he continues to wear it at night at this time. He will transport home via private vehicle with family when ready. CM will continue to follow.
--- NOTE | 2021-02-08 14:54 | PT.INTREAT ---
Date of service: 02/08/21 Time of Service: 14:54 PT Notes Visit Reasons: COVID-19 Pneumonia Physical Therapy Inpatient Treatment Note Date: 02/08/2021 Precautions: Fall. Standard. Activity as tolerated. Per hospitalist, patient is off of COVID-19 precautions as of 02/05/2021, may walk in hallway with mask on and oxygen supplementation. Hard of hearing. Subjective: Reports considerable difference with use of AFO on R. Remains short of breath with movement. Understands the importance of pacing self and of correct breathing strategy to minimize fatigue. Appreciative of rollator use as he has a ready seat to ensure that his oxygen mar not dip down abruptly. Objective: General Observation: PICC line in R UE. IV access in R UE. Oxygen supplementation at 8 L/min via NC. RT Letitia assisting with gait oximetry. Nurse Reyna updated with patient's performance after ambulation. Mental Status: Alert and oriented as to person, place, time, and purpose. Able to pay attention, focus, and respond appropriately. Pain: Denies Vital Signs: Desaturated to the low 80s on 8 L/min after ambulation activity. Please see RT notes and note below under gait section for details. Bed Mobility/Transfers: Rolling independent Supine to sit independent Sit to supine independent Sit to stand supervision for oxygen tubing management Stand to sit supervision for oxygen tubing management Bed to reclining chair supervision for oxygen tubing management Gait: Instructed patient with level surface ambulation of 20 feet +20 feet +40 feet requiring standby assist. Francesca decreased. Step height on the right decreased. Step length on right decreased. Desaturated to the low 80s on 8 L/min after the first two paced walk. Stayed above 90 degrees longer during the third walk with desaturation to low 80s at end of activity requiring about 2-3 minutes to recover. Right AFO on with shoes. Balance: Static Sitting: Normal Dynamic Sitting: Normal Static Standing: Fair Dynamic Standing: Fair Assessment: Comparatively performed better today than yesterday in terms of time it takes to resaturate back up to above 88% with patient appearing less short of breath. Instruction regarding energy conservation, self pacing, and breathing technique have been reiterated with patient. Does not need physical help during mobility performance with AD. Will benefit from the use of 4WW for all mobility ADL at home. DISCHARGE RECOMMENDATIONS: [] Home with no services [] [X] Home with services. Patient will benefit from home health PT services in order to progress mobility level using least restrictive assistive ambulatory device, assess home safety, identify additional equipment needs, and establish a functional maintenance program that will increase ability of patient to remain at home. May benefit from the use of a four-wheeled walker to reduce fall risk at home to maximize activity tolerance. [] Home with outpatient PT [] [] SNF for continued rehabilitation [] [] [facility] [employer] [facility] [] [] SNF versus LTC based on ability to participate and progress [] TREATMENT CODE/TIME: 16050 x 29 minutes beginning at 14:54 PM.
[2021-02-08] MEDS: Nystatin POWDER 15 GM JAR TP ×3 (15:30→20:26)
--- NOTE | 2021-02-08 16:53 | PGE_ITS ---
Date of Service Date of service: 02/08/21 Time of Service: 16:53 Assessment and Plan Assessment and plan (1) Heart murmur: Status: Chronic Assessment and plan: Uriel says varghese the has always had a heart murmur. I am surprised that we have not yet gotten an echo for as long as he has been in the hospital in respiratory failure. I know that I have heard his murmur before and he has told me that always has had this. I guess I assumed that this had been worked up already. While in the ICU under reverse airflow precautions it was nearly impossible for anyone to hear heart murmurs d/t the PPE and the motors from the airflow, however, he has been out of isolation for the past few days. I will get an echo in the a.m. to see if valvular heart disease may be contributing to his exertional dyspnea and hypoxemia. (2) Right foot drop: Status: Acute Assessment and plan: Secondary to herniated L5-S1 disc. AFO was prescribed and given to him by P.T. who has since signed off his case as they feel that he has maximized his ability to perform in P.T. (limited d/t his hypo xemia) (3) Herniation of intervertebral disc between L5 and S1: Status: Acute Assessment and plan: As above. Not a surgical candidate. (4) COPD (chronic obstructive pulmonary disease): Status: Chronic Assessment and plan: continue high dose prednisone along w/ Stiolto and prn albuterol. encourage IS and acapella along w/ ambulation. oxygen requirements have improved since being put on high dose prednisone. Prednisone will be decreased to 50 mg daily beginning February 07, 2021 and then decrease by 10 mg/day every 7 days. Continue to wean his oxygen as tolerated using CPAP at night. Patient now tolerating working w/ P.T. however he does desaturate into the 70's% with prolonged activity. However, I do not feel that the distance he is walking for P.T. is greater than what he will be doing at home. I asked P.T. to try to mimic what he would be doing at home and I would like R.T. to monitor his oxygen level with activity and see if his oxygen needs can be met at home. Qualifiers: COPD type: unspecified COPD Qualified Code(s): J44.9 - Chronic o bstructive pulmonary disease, unspecified (5) COVID: Status: Acute Assessment and plan: patient has completed therapy for COVID and is no longer considered contagious. He remains on high dose prednisone. Today we will step down to 50 mg daily for 7 days and continue to taper over the next month, dropping down by 10 mg/d every 7 days. (6) Paroxysmal supraventricular tachycardia: Status: Acute Assessment and plan: patient has been put on Toprol XL 37.5 mg daily. He had no further runs of PSVT over the past 24hr. telemetry has been dc'ed. continue to monitor pulse but clinically no symptoms at this time. (7) Depression: Status: Acute Assessment and plan: Now on Paxil 30 mg daily and Remeron 30 mg at night along with Marinol twice a day. His mood and his appetite have improved greatly. He is doing well and has a positive attitude. He is still hopeful of getting home by [place]. I am not sure that he will achieve that goal but we will see what his oxygen needs are w/ activity and whether or not his needs can be met at home. Qualifiers: Depression Type: reactive depression Qualified Code(s): F32.9 - Major depressive disorder, single episode, unspecified (8) Pseudomonas urinary tract infection: Status: Acute Assessment and plan: Pseudomonas UTI d/t chronic urinary obstruction and recurrent need for catheterization. continue cipro x 14 days. today is day #6 (9) BPH (benign prostatic hyperplasia): Status: Chronic Assessment and plan: Patient failed voiding trial couple days ago. He had the dykes replace and it remains in place. He is on Proscar 5 mg daily and I have increased his Flomax to 0.8 mg daily (today was the first day). He will probably need to go home w/ the dykes and he can follow up w/ Dr. Zhao as outpatient. I will request Dr. Zhao to follow up on him. Qualifiers: Lower urinary tract symptom presence: symptoms present Lower urinary tract symptom detail: incomplete bladder emptying Qualified Code(s): N40.1 - Benign prostatic hyperplasia with lower urinary tract symptoms; R39.14 - Feeling of incomplete bladder emptying (10) Nutrition disorder: Status: Acute Assessment and plan: continue protein shakes along w/ antidepressants (11) HLD (hyperlipidemia): Status: Acute Assessment and plan: atorvastain 40mg nightly. (12) GERD (gastroesophageal reflux disease): Status: Chronic Assessment and plan: cont. pepcid Qualifiers: Esophagitis presence: esophagitis presence not specified Qualified Code(s): K21.9 - Gastro-esophageal reflux disease without esophagitis (13) DVT prophylaxis: Status: Acute Assessment and plan: cont. enoxaparin (14) Discharge planning issues: Status: Acute Assessment and plan: Patient would like to be home for [place] but I am afraid that we are not going to be able to accomodate this unless his oxygen needs can somehow be met in his home. We should try to see if he would qualify for an adaptive BIPAP device at home for at night and get a higher flow oxygen device he can use per NC during the day. Subjective Subjective Interval history since last seen: Uriel has no acute complaints. he would like to try to get the dykes catheter out before he leaves the hospital. I will consult w/ Dr. Zhao since we have already tried to remove this a couple of times and he ends up with high residuals and needing to have the catheter replaced. As for his COPD and lung inflammation from his COVID-19, he remains on 8 LPM at rest and requires 12 LPm with activity. On his current oxygen requirements, his current oxygen setup at home will not meed his demands. If we can get his oxygen needs down further then perhaps he can return home. At home he has a lot less distance to walk compared to what he is doing here. Nursing had been walking him down the hallway on med/surg which is much further than he walks at home. He denies any chest pain or pressure and has no cough. Exam Narrative Exam Narrative: Alert and oriented x 3; pleasant and very conversant. He is hard of hearing but he understands me when I get up close for him to hear me Lungs: fairly clear w/ only slight basilar rales; no rhonchi or wheezing heard Heart: harsh systolic murmur at apex that is holosystolic (MR) Abdomen: soft and nontender Legs/feet: no edema Objective Last Vital Signs Temp 37.2 C 02/08/21 15:44 Pulse 87 02/08/21 15:44 Resp 22 02/08/21 15:44 BP 121/64 12/23/21 15:44 Pulse Ox 93 02/08/21 15:44
[2021-02-08] MEDS: Atorvastatin 40 MG TAB PO (20:25)
[2021-02-08] MEDS: Normal Saline Flush 10 ML SYR IVP (20:27)
[2021-02-08] MEDS: Mirtazapine 15 MG TAB 30 MG PO (21:22)
[2021-02-08] MEDS: Latanoprost 0.005% 2.5 ML BTL OP (21:22)
[2021-02-09 03:27] VITALS: BP 131/66; PULSE 86; RESP 21; TEMP 36.1; O2SAT 94
[2021-02-09 07:55] VITALS: BP 144/69; PULSE 71; RESP 19; TEMP 36.3; O2SAT 96
[2021-02-09] MEDS: Enoxaparin 40 MG/0.4 ML SYR SC (08:40)
[2021-02-09] MEDS: Polyethylene Glycol 3350 17 GM PACKET PO ×2 (08:40→20:19)
[2021-02-09] MEDS: Multivitamin w/Minerals TAB 1 TAB PO (08:40)
[2021-02-09] MEDS: Senna TAB 1 TAB PO ×2 (08:40→20:19)
[2021-02-09] MEDS: Protein Nutritional Supplement 16 GM 1 OUNCE PACKET PO ×3 (08:40→20:19)
[2021-02-09] MEDS: PARoxetine 10 MG TAB 30 MG PO (08:41)
[2021-02-09] MEDS: Docusate Sodium 100 MG CAP PO ×2 (08:41→20:20)
[2021-02-09] MEDS: Aspirin E.C. 81 MG TABEC PO (08:41)
[2021-02-09] MEDS: Tamsulosin 0.4 MG CAPCR 0.8 MG PO (08:41)
[2021-02-09] MEDS: Ascorbic Acid 500 MG TAB 1000 MG PO ×2 (08:41→20:20)
[2021-02-09] MEDS: Thiamine 100 MG TAB PO (08:41)
[2021-02-09] MEDS: Metoprolol CR 25 MG TABCR 37.5 MG PO (08:42)
[2021-02-09] MEDS: Famotidine 20 MG TAB PO ×2 (08:42→20:20)
[2021-02-09] MEDS: Ciprofloxacin 500 MG TAB PO ×2 (08:42→20:20)
[2021-02-09] MEDS: Finasteride 5 MG TAB PO (08:42)
[2021-02-09] MEDS: predniSONE 20 MG TAB 50 MG PO (08:42)
[2021-02-09] MEDS: Folic Acid 1 MG TAB PO (08:42)
[2021-02-09] MEDS: Tiotropium/Olodaterol 10 PUFF INHALER 2 PUFF IH (09:38)
--- NOTE | 2021-02-09 11:10 | PT.INTREAT ---
PT Notes Visit Reasons: COVID-19 Pneumonia Inpatient Physical Therapy Treatment Note [facility] Date: 02/09/21 SUBJECTIVE: Uriel states that he is feeling a little better this am. He is hoping that he will be able to drive his car while wearing his AFO. OBJECTIVE: [] BED MOBILITY/TRANSFERS Rolling L/R: I Supine-sit: I Sit-supine: I Sit-stand: S Stand-sit: S GAIT Assistive Device: 4WW Weight bearing: FWB Assist: SBA Distance: 20'+52'+52' Deviation: 8L of O2 VITALS: O2 sats dropped to mid to high 80's ASSESSMENT: tolerated session well. He is motivated to try to progress his ambulation this am as he reported feeling better. He dropped to mid to high 80's and recovered to mid 90's with approx 1 min. He did drop to high 70's after his last amb session but recovered in less than 1 min to 90%. He denied feeling SOB, light headedness or dizzy. He reported feeling as improvement compared to yesterday. PLAN: will continue to progress endurance, ambulation following PT POC. TREATMENT CODE/TIME: 30 min. ([id number])
[2021-02-09 11:21] VITALS: BP 121/68; PULSE 75; RESP 20; TEMP 36.5; O2SAT 97
[2021-02-09] MEDS: Nystatin POWDER 15 GM JAR TP ×3 (11:35→20:21)
[2021-02-09] MEDS: Dronabinol 2.5 MG CAP 5 MG PO ×2 (11:35→15:50)
--- NOTE | 2021-02-09 14:16 | W.PM.PROGNOT ---
Date of Service Date of service: 02/09/21 Time of Service: 14:16 Assessment and Plan Assessment and plan (1) Acute respiratory failure with hypoxia: Status: Acute Assessment and plan: Due to pneumonia caused by COVID-19. O2 requirement has not improved in the last several days and remains quite high. We are attempting to arrange home O2, but with this oxygen requirement, this may be challenging. I am asking palliative care to come back to evaluate the patient's goals of care if we are not able to meet his outpatient oxygen needs. He seems to be willing to go home on comfort measures if we were unable to arrange O2. (2) COVID: Status: Resolved Assessment and plan: Finished therapy. O2 requirement is residual but rather high. Continue prednisone taper and prophylactic bactrim. (3) COPD (chronic obstructive pulmonary disease): Status: Chronic Assessment and plan: Continue steroids, Stiolto and prn albuterol. Qualifiers: COPD type: unspecified COPD Qualified Code(s): J44.9 - Chronic obstructive pulmonary disease, unspecified (4) Heart murmur: Status: Chronic Assessment and plan: Await echo. Not available until Friday. (5) Paroxysmal supraventricular tachycardia: Status: Resolved Assessment and plan: Doing better on metoprolol. Continue toprol XL 37.5 mg PO daily. (6) Right foot drop: Status: Acute Assessment and plan: Continue to work with PT. Has a brace. Has L5-S1 disc herniation. Consider MRI brain. (7) Depression: Status: Acute Assessment and plan: Continue Paxil 30 mg daily and Remeron 30 mg QHS Qualifiers: Depression Type: reactive depression Qualified Code(s): F32.9 - Major depressive disorder, single episode, unspecified (8) BPH (benign prostatic hyperplasia): Status: Chronic Assessment and plan: Tolerating flomax. VT prior to discharge. Qualifiers: Lower urinary tract symptom presence: symptoms present Lower urinary tract symptom detail: incomplete bladder emptying Qualified Code(s): N40.1 - Benign prostatic hyperplasia with lower urinary tract symptoms; R39.14 - Feeling of incomplete bladder emptying (9) GERD (gastroesophageal reflux disease): Status: Chronic Assessment and plan: Continue famotidine Qualifiers: Esophagitis presence: esophagitis presence not specified Qualified Code(s): K21.9 - Gastro-esophageal reflux disease without esophagitis (10) DVT prophylaxis: Status: Acute Assessment and plan: enoxaparin 40 mg SC daily (11) Discharge planning issues: Status: Acute Assessment and plan: Continues to require hospitalization. O2 arrangements are being attempted for outpatient use. Subjective Subjective Interval history since last seen: Mr Sprague states that he is feeling better. He reports no dizziness, chest pain, shortness of breath, or nausea. He reports that he has had R foot drop - he thinks for about 3 weeks. He is concerned he may not be able to drive. We discussed that he is requiring quite a bit of oxygen. I asked him if he had thought about what to do if we are not able to arrange the amount of oxygen for him to go home on on discharge. He stated that, if I was to pass, I want to do it at home. We discussed that palliative care will come back to talk to him about his wishes, but that we are still [facility] He is requiring Exam Narrative Exam Narrative: General: Very pleasant elderly male, on high flow NC (8L with an atomizer) HEENT: EOMI, MMM Heart: RRR, + quiet CB Lungs: CTAB/diminished breath sounds B Abdomen: soft, nontender, nondistended Extremities: R foot drop. Trace edema BLE's. Objective Last Vital Signs Temp 36.5 C 02/09/21 11:21 Pulse 75 02/09/21 11:21 Resp 20 02/09/21 11:21 BP 121/68 02/09/21 11:21 Pulse Ox 97 02/09/21 11:21
[2021-02-09 15:31] VITALS: BP 107/64; PULSE 82; RESP 21; TEMP 36.6; O2SAT 96
--- NOTE | 2021-02-09 15:40 | CHAPLAIN ---
Uriel was in bed when visited, but he told me he had been up walking a long distance today. He talked about how much better he feels from when he was in the ICU. He credits God with his recovery and said his pastors in [place] and [place], [place] are praying for him and he is grateful for that. He is looking forward to seeing his next Friday, and he talked about how good it will be to be home with her eventually.
[2021-02-09] MEDS: Atorvastatin 40 MG TAB PO (20:20)
[2021-02-09 20:43] VITALS: BP 125/61; PULSE 88; RESP 19; TEMP 37; O2SAT 95
[2021-02-09] MEDS: Mirtazapine 15 MG TAB 30 MG PO (21:27)
[2021-02-09] MEDS: Latanoprost 0.005% 2.5 ML BTL OP (21:27)
[2021-02-09 22:53] VITALS: BP 115/67; PULSE 84; RESP 16; TEMP 36.9; O2SAT 95
[2021-02-10 04:01] VITALS: BP 114/68; PULSE 82; RESP 17; TEMP 37; O2SAT 95
[2021-02-10] MEDS: Protein Nutritional Supplement 16 GM 1 OUNCE PACKET PO ×3 (07:29→19:32)
[2021-02-10] MEDS: predniSONE 20 MG TAB 50 MG PO (07:30)
[2021-02-10] MEDS: Normal Saline Flush 10 ML SYR IVP (07:30)
[2021-02-10] MEDS: Enoxaparin 40 MG/0.4 ML SYR SC (07:30)
[2021-02-10] MEDS: Aspirin E.C. 81 MG TABEC PO (07:31)
[2021-02-10] MEDS: Polyethylene Glycol 3350 17 GM PACKET PO ×2 (07:31→19:32)
[2021-02-10] MEDS: Ascorbic Acid 500 MG TAB 1000 MG PO ×2 (07:31→19:32)
[2021-02-10] MEDS: Metoprolol CR 25 MG TABCR 37.5 MG PO (07:31)
[2021-02-10] MEDS: Famotidine 20 MG TAB PO ×2 (07:31→19:32)
[2021-02-10] MEDS: Senna TAB 1 TAB PO ×2 (07:31→19:32)
[2021-02-10] MEDS: Finasteride 5 MG TAB PO (07:31)
[2021-02-10] MEDS: Thiamine 100 MG TAB PO (07:32)
[2021-02-10] MEDS: PARoxetine 10 MG TAB 30 MG PO (07:32)
[2021-02-10] MEDS: Folic Acid 1 MG TAB PO (07:32)
[2021-02-10] MEDS: Multivitamin w/Minerals TAB 1 TAB PO (07:32)
[2021-02-10] MEDS: Tamsulosin 0.4 MG CAPCR 0.8 MG PO (07:32)
[2021-02-10] MEDS: Ciprofloxacin 500 MG TAB PO ×2 (07:32→19:32)
[2021-02-10] MEDS: Docusate Sodium 100 MG CAP PO ×2 (07:32→19:32)
[2021-02-10 07:49] VITALS: BP 126/74; PULSE 74; RESP 12; TEMP 36.8; O2SAT 97
[2021-02-10] MEDS: Nystatin POWDER 15 GM JAR TP ×3 (07:50→19:32)
[2021-02-10] MEDS: Tiotropium/Olodaterol 10 PUFF INHALER 2 PUFF IH (07:51)
[2021-02-10] MEDS: Dronabinol 2.5 MG CAP 5 MG PO ×2 (13:37→16:09)
--- NOTE | 2021-02-10 16:17 | W.PM.PROGNOT ---
Date of Service Date of service: 02/10/21 Time of Service: 16:17 Assessment and Plan Assessment and plan (1) Acute respiratory failure with hypoxia: Status: Acute Assessment and plan: Due to pneumonia caused by COVID-19. O2 requirement is not budging. We are attempting to arrange home O2, but with this oxygen requirement, this may be challenging. Await palliative care evaluation of the patient's goals of care if we are not able to meet his outpatient oxygen needs. He seems to be willing to go home on comfort measures if we were unable to arrange O2. (2) COVID: Status: Resolved Assessment and plan: Finished therapy. O2 requirement is residual but rather high. Continue prednisone taper and prophylactic bactrim. (3) COPD (chronic obstructive pulmonary disease): Status: Chronic Assessment and plan: Continue steroids, Stiolto and prn albuterol. Qualifiers: COPD type: unspecified COPD Qualified Code(s): J44.9 - Chronic obstructive pulmonary disease, unspecified (4) Heart murmur: Status: Chronic Assessment and plan: Await echo. Not available until Friday. 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 (5) Paroxysmal supraventricular tachycardia: Status: Resolved Assessment and plan: Doing better on metoprolol. Continue toprol XL 37.5 mg PO daily. (6) Right foot drop: Status: Acute Assessment and plan: Continue to work with PT. Has a brace. Has L5-S1 disc herniation. Consider MRI brain - will discuss with neuro. (7) Depression: Status: Acute Assessment and plan: Continue Paxil 30 mg daily and Remeron 30 mg QHS Qualifiers: Depression Type: reactive depression Qualified Code(s): F32.9 - Major depressive disorder, single episode, unspecified (8) BPH (benign prostatic hyperplasia): Status: Chronic Assessment and plan: Tolerating flomax. VT prior to discharge. Qualifiers: Lower urinary tract symptom presence: symptoms present Lower urinary tract symptom detail: incomplete bladder emptying Qualified Code(s): N40.1 - Benign prostatic hyperplasia with lower urinary tract symptoms; R39.14 - Feeling of incomplete bladder emptying (9) GERD (gastroesophageal reflux disease): Status: Chronic Assessment and plan: Continue famotidine Qualifiers: Esophagitis presence: esophagitis presence not specified Qualified Code(s): K21.9 - Gastro-esophageal reflux disease without esophagitis (10) DVT prophylaxis: Status: Acute Assessment and plan: enoxaparin 40 mg SC daily (11) Discharge planning issues: Status: Acute Assessment and plan: Continues to require hospitalization. O2 arrangements are being attempted for outpatient use. Subjective Subjective Interval history since last seen: Mr Sprague states that he is feeling good today. No SOB in bed, but he did not do any walking today. When talking about how much he actually walks at home, he describes a lengthy loop in his neighborhood including a couple of uphill segments. He denies dizziness, chest pain, shortness of breath nausea. Exam Narrative Exam Narrative: General: Very pleasant elderly male, on high flow NC (8L with an atomizer) HEENT: EOMI, MMM Heart: RRR, + quiet CB Lungs: diminished breath sounds B anteriorly Abdomen: soft, nontender, nondistended Extremities: R foot drop. No edema BLE's. Objective Last Vital Signs Temp 36.8 C 02/10/21 07:49 Pulse 74 02/10/21 07:49 Resp 12 02/10/21 07:49 BP 126/74 02/10/21 07:49 Pulse Ox 97 02/10/21 07:49
[2021-02-10 16:28] VITALS: BP 121/62; PULSE 90; RESP 14; TEMP 36.3; O2SAT 95
[2021-02-10 19:18] VITALS: BP 114/56; PULSE 95; RESP 16; TEMP 36.6; O2SAT 95
[2021-02-10] MEDS: Atorvastatin 40 MG TAB PO (19:32)
[2021-02-10] MEDS: Mirtazapine 15 MG TAB 30 MG PO (21:19)
[2021-02-10] MEDS: Latanoprost 0.005% 2.5 ML BTL OP (21:19)
[2021-02-10 23:03] VITALS: BP 108/56; PULSE 95; RESP 16; TEMP 36.9; O2SAT 95
[2021-02-11] VITALS (10 sets, daily range): BP systolic 101–124; BP diastolic 60–75; PULSE 69–120; RESP 12–19; TEMP 36.6–36.9; O2SAT 92–99
[2021-02-11] MEDS: Enoxaparin 40 MG/0.4 ML SYR SC (08:06)
[2021-02-11] MEDS: Protein Nutritional Supplement 16 GM 1 OUNCE PACKET PO ×3 (08:06→19:46)
[2021-02-11] MEDS: Nystatin POWDER 15 GM JAR TP ×3 (08:06→21:30)
[2021-02-11] MEDS: Multivitamin w/Minerals TAB 1 TAB PO (08:07)
[2021-02-11] MEDS: Thiamine 100 MG TAB PO (08:07)
[2021-02-11] MEDS: Folic Acid 1 MG TAB PO (08:07)
[2021-02-11] MEDS: PARoxetine 10 MG TAB 30 MG PO (08:07)
[2021-02-11] MEDS: Senna TAB 1 TAB PO ×2 (08:07→19:47)
[2021-02-11] MEDS: Ascorbic Acid 500 MG TAB 1000 MG PO ×2 (08:07→19:46)
[2021-02-11] MEDS: Docusate Sodium 100 MG CAP PO ×2 (08:07→19:47)
[2021-02-11] MEDS: Finasteride 5 MG TAB PO (08:07)
[2021-02-11] MEDS: predniSONE 20 MG TAB 50 MG PO (08:08)
[2021-02-11] MEDS: Metoprolol CR 25 MG TABCR 37.5 MG PO (08:08)
[2021-02-11] MEDS: Aspirin E.C. 81 MG TABEC PO (08:08)
[2021-02-11] MEDS: Ciprofloxacin 500 MG TAB PO ×2 (08:08→19:47)
[2021-02-11] MEDS: Famotidine 20 MG TAB PO ×2 (08:08→19:47)
[2021-02-11] MEDS: Tamsulosin 0.4 MG CAPCR 0.8 MG PO (08:08)
[2021-02-11] MEDS: Tiotropium/Olodaterol 10 PUFF INHALER 2 PUFF IH (09:09)
--- NOTE | 2021-02-11 11:00 | PT.INTREAT ---
PT Notes Visit Reasons: COVID-19 Pneumonia Inpatient Physical Therapy Treatment Note [facility] Date: 02/11/21 SUBJECTIVE: Uriel reports that he is feeling better. Stronger. He would like to progress his walking today. I get more exercise at home than I do here. I am concerned with my drop foot and no one seems to understand how this came about. OBJECTIVE: [] BED MOBILITY/TRANSFERS pt sitting in recliner. Sit-stand: S Stand-sit:S GAIT Assistive Device: 4WW Weight bearing: FWB Assist: SBA Distance: 220' Deviation: seated rest breaks x 3. VITALS: O2 sats dropped to mid 80's with quick recovery of about 30 sec-1 min, into mid 90's. ASSESSMENT: tolerated session well. Offered no complaints during ambulation. He sits on rollator walker once he begins to feel SOB. He is pleased with his progress in regards to better O2 sats as well as endurance during ambulation. PLAN: continue PT POC, increasing his endurance to tolerance. TREATMENT CODE/TIME: 30 min ([id number]) [id number]
--- NOTE | 2021-02-11 11:08 | PT.INTREAT ---
PT Notes Visit Reasons: COVID-19 Pneumonia Inpatient Physical Therapy Treatment Note [facility] Date: 02/11/21 SUBJECTIVE: Uriel reports that he is feeling better today. His indicated that his back and feet do not hurt. OBJECTIVE: [] BED MOBILITY/TRANSFERS Sit-stand: min A of 1 Stand-sit:SBA GAIT Assistive Device: FWW Weight bearing: FWB Assist: SBA Distance: 250' Deviation: cues for a slower julio to conserve energy. THEREX: global LE strength and stabilization while seated in chair. See flowsheet for details. ASSESSMENT: tolerated session well. Improvements in distance with gait. No c/o discomfort during ambulation. PLAN: will continue to progress following PT POC. TREATMENT CODE/TIME: 30 min ([id number]) [id number], [id number].
[2021-02-11] MEDS: Dronabinol 2.5 MG CAP 5 MG PO ×2 (11:51→16:01)
--- NOTE | 2021-02-11 15:07 | PGE_ITS ---
Date of Service Date of service: 02/11/21 Time of Service: 15:07 Assessment and Plan Assessment and plan (1) Acute respiratory failure with hypoxia: Status: Acute Assessment and plan: Due to pneumonia caused by COVID-19. O2 requirement is better - he is saturating 99% on 8L today. We are weaning O2 today. We are attempting to arrange home O2, but with this oxygen requirement, this may be challenging. Await palliative care evaluation of the patient's goals of care if we are not able to meet his outpatient oxygen needs. He seems to be willing to go home on comfort measures if we were unable to arrange O2. (2) Pseudomonas urinary tract infection: Status: Acute Assessment and plan: Remains on cipro since 02/03/21 (day 9 today) Recheck UA/C&S. (3) COVID: Status: Resolved Assessment and plan: Finished therapy. O2 requirement is residual but rather high. Continue prednisone taper and prophylactic bactrim. (4) COPD (chronic obstructive pulmonary disease): Status: Chronic Assessment and plan: Continue steroids, Stiolto and prn albuterol. Qualifiers: COPD type: unspecified COPD Qualified Code(s): J44.9 - Chronic ob structive pulmonary disease, unspecified (5) Heart murmur: Status: Chronic Assessment and plan: Await echo. Not available until tomorrow. Slightly fluid overloaded today - will give lasix 20 mg IV x1. 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 (6) Paroxysmal supraventricular tachycardia: Status: Resolved Assessment and plan: Continue toprol XL 37.5 mg PO daily. (7) Right foot drop: Status: Acute Assessment and plan: Continue to work with PT. Has a brace. Has L5-S1 disc herniation. Consider MRI brain - will discuss with neuro. (8) Depression: Status: Acute Assessment and plan: Continue Paxil 30 mg daily and Remeron 30 mg QHS Qualifiers: Depression Type: reactive depression Qualified Code(s): F32.9 - Major depressive disorder, single episode, unspecified (9) BPH (benign prostatic hyperplasia): Status: Chronic Assessment and plan: Tolerating flomax. VT prior to discharge. Qualifiers: Lower urinary tract symptom presence: symptoms present Lower urinary tract symptom detail: incomplete bladder emptying Qualified Code(s): N40.1 - Benign prostatic hyperplasia with lower urinary tract symptoms; R39.14 - Feeling of incomplete bladder emptying (10) GERD (gastroesophageal reflux disease): Status: Chronic Assessment and plan: Continue famotidine Qualifiers: Esophagitis presence: esophagitis presence not specified Qualified Code(s): K21.9 - Gastro-esophageal reflux disease without esophagitis (11) DVT prophylaxis: Status: Acute Assessment and plan: enoxaparin 40 mg SC daily (12) Discharge planning issues: Status: Acute Assessment and plan: Continues to require hospitalization. O2 arrangements are being attempted for outpatient use. Subjective Subjective Interval history since last seen: Feels better. Was able to ambulate 250 feet today. O2 sats in high 90s on 8L today. Denies dizziness, chest pain, shortness of breath, nausea. Exam Narrative Exam Narrative: General: Very pleasant elderly male, on high flow NC (8L with an atomizer), looks better HEENT: EOMI, MMM Heart: RRR, + quiet CB Lungs: quiet rales L lung base Abdomen: soft, nontender, nondistended Extremities: R foot drop. No edema BLE's. Objective Last Vital Signs Temp 36.8 C 02/11/21 09:35 Pulse 71 02/11/21 09:35 Resp 12 02/11/21 09:35 BP 121/70 02/11/21 09:35 Pulse Ox 99 02/11/21 10:15
--- NOTE | 2021-02-11 15:30 | RT.EKG_ITS ---
APPROVED REPORT Exam: Resting ECG Reason for Exam: paroxysmal SVT Patient Location: I HR:92 bpm ECG Measurements Heart Rate 92 AXIS MI 132 P 42 QRSd 133 QRS -3 QT 379 T 48 QTc 465 Conclusion Sinus rhythm...normal P axis, V-rate 60- 99 Atrial premature complex...SV complex w/ short R-R interval Left bundle branch block...QRSd>120, broad/notched R ST elevation secondary to IVCD...Multiple VCG criteria
[2021-02-11] MEDS: Furosemide 20 MG/2 ML VIAL IVP (16:01)
[2021-02-11] MEDS: Polyethylene Glycol 3350 17 GM PACKET PO (19:46)
[2021-02-11] MEDS: Atorvastatin 40 MG TAB PO (19:46)
[2021-02-11] MEDS: Latanoprost 0.005% 2.5 ML BTL OP (21:30)
[2021-02-11] MEDS: Mirtazapine 15 MG TAB 30 MG PO (21:30)
[2021-02-12] VITALS (8 sets, daily range): BP systolic 98–120; BP diastolic 55–70; PULSE 84–104; RESP 16–25; TEMP 36.4–37.1; O2SAT 82–98
[2021-02-12 06:43] LABS: HCT 32.6 % (40.0-50.0); HGB 10.2 g/dL (13.5-17.5); MCH 31.3 pg (27.0-33.0); MCHC 31.3 % (32.0-36.0); MPV 9.7 fL (8.0-11.0); Platelet Count 147 10^3/uL (130-400); RBC 3.26 10^6/uL (4.36-5.78); RDW 16.5 % (11.8-14.1); RDW-SD 57.9 fL; WBC 20.66 10^3/uL (4.4-10.8)
[2021-02-12 07:00] LABS: Anion Gap 6.9 mmol/L (3-11); BUN 48 mg/dL (7-18); C-Reactive Protein 0.13 mg/dL (0.0-0.3); CO2 28.1 mmol/L (21.0-32.0); CREATININE 1.2 mg/dL (0.70-1.30); Calcium 7.9 mg/dL (8.5-10.1); Chloride 104 mmol/L (98-107); Estimated GFR 59.68 (mL/min/1.73m2); Glucose 113 mg/dL (74-106); Magnesium 2.3 mg/dL (1.8-2.4); Sodium 139 mmol/L (136-145)
[2021-02-12 07:31] LABS: Ferritin 495 ng/mL (26-388)
[2021-02-12 07:32] LABS: Absolute Lymphocyte Count 3.72 10^3/uL (1.2-3.4); Absolute Monocyte Count 1.45 10^3/uL (0.1-0.8); Absolute Neutrophil Count 14.46 10^3/uL (1.2-6.7); Bands % 2
[2021-02-12 07:33] LABS: Diff Comment Manual Differential; Metamyelocytes % 3; Myelocytes % 2; Nucleated RBC 1 %; Polychromasia Present; RBC Morphology Normal
--- NOTE | 2021-02-12 07:39 | DI.US_ITS ---
APPROVED REPORT EXAM: Comprehensive 2D, Doppler, and color-flow Echocardiogram Patient Location: In-Patient Room/Bed: 225 [employer] Rental Manager: Leann Bridges RDCS (AE) Indications: Dyspnea,New heart murmur Other Information Study Quality: Adequate Conclusion Normal left ventricular size and wall thickness. Estimated ejection fraction is 55 to 60%. Wall mot ion is normal Normal right ventricular size and systolic function Both atria are normal in size Trileaflet aortic valve with mild regurgitation There is no additional structural or hemodynamically significant valvular disease Normal estimated right ventricular systolic pressure, 24 mmHg Wall motion Left Ventricle The left ventricle is normal size. The left ventricular systolic function is normal. The left ventric ular ejection fraction is within the normal range. There is normal left ventricular wall thickness. T here is normal LV segmental wall motion. There is no ventricular septal defect visualized. LVEF is 55 -60%. Right Ventricle The right ventricle is normal size. The right ventricular systolic function is normal. The RVSP is 24 .1 mmHg. Atria The left atrium size is normal. The right atrium size is normal. The interatrial septum is intact wit h no evidence for an atrial septal defect. Aortic Valve The aortic valve is normal in structure. Aortic valve is trileaflet. There is no aortic valvular sten osis. Mild aortic regurgitation. Mitral Valve The mitral valve is normal in structure. No evidence of mitral valve stenosis. Trace mitral regurgita tion. Tricuspid Valve The tricuspid valve is normal in structure. There is no tricuspid valve stenosis. Trace tricuspid reg urgitation. Pulmonic Valve The pulmonary valve is normal in structure. There is no pulmonic valvular stenosis. Trace pulmonic re gurgitation. Great Vessels The aortic root is normal in size. The ascending aorta is normal in size. IVC is normal in size and c ollapses >50% with inspiration. Pericardium There is no pericardial effusion. 2D Dimensions IVSD d PLAX 1.01 cm M: 0.6-1.2 LV Vol A2C d MOD 97.1 mL LVPW d PLAX 1.02 cm M: 0.6 - 1.2 LV Vol A4C d MOD 107.3 mL LVID d PLAX 4.02 cm M: 4.2 - 5.8 LA vol/ BSA A2C s A-L 24.0 mL/m2 LVDs 2.80 cm M: 2.5 - 4.0 LA vol/ BSA A4C s A-L 14.4 mL/m2 Ao Root d 3.13 cm M: 3.1 - 3.7 LA Vol/ BSA Biplane s A-L 19.7 mL/m2 Ao Asc Diam d 3.33 cm M: 2.6 - 3.4 LA Area A4C s MOD 11.91 cm2 LV EF Teichholz 57.8 % LA Area A2C s MOD 16.35 cm2 LVEF (Wagoner's) 53.88 % M: 52 - 72 LV EF A4C MOD 55.4 % LV Volume 80.30 mL M: 62 - 150 LV EF A2C MOD 54.5 % LV Volume Index 44.12 mL/m2 M: 34 - 74 LV EF Biplane MOD 53.9 % LV Vol Biplane MOD 103.6 mL SV 55.83 mL FS 30.00 % SV Index 30.69 mL/m2 LV Diastology MV E' medial 0.050 (>0.07 m/s) E/A Ratio 0.7 LV E/e MED 10.00 (<14) MV E Vmax 0.50 (0.4-1.3 m/s) MV E' lateral 0.060 (>0.1 m/s) MV A Vmax 0.75 (0.4-1.3 m/s) LV E/e LAT 8.35 (<14) MV E/A Ratio 0.63 MV E/E' medial 10.00 MV E/E' lateral 8.36 Aortic Valve LVOT Area 3.75 cm2 AoV Area Vmax 3.26 cm2 LVOT Vmax 1.41 m/s AoV Area/ BSA (Vmax) 1.79 cm2/m2 LVOT Mean Silvio. 0.99 m/s DELIA Mean Silvio. 3.18 cm2 LVOT Peak Grad 7.9 mmHg DELIA Mean Silvio. Index 1.75 cm2/m2 LVOT Mean Grad 4.3 mmHg LVOT VTI 0.279 m LVOT Diam s 2.15 cm AoV Vmax 1.62 m/s Velocity Ratio 0.87 AoV Mean Silvio. 1.17 m/s AoV Peak Grad 10.5 mmHg LVOT SV 104.49 mL AoV Mean Grad 6.0 mmHg AoV VTI 0.247 m AoV Area VTI 4.24 cm2 AoV Area/ BSA (VTI) 2.33 cm/m2 Mitral Valve MV DT 390 (160-240 msec) MV PHT 113 msec MV Area PHT 1.94 cm2 Pulmonary Valve PV Vmax 0.81 (0.5-1.5 m/s) RVOT Peak Gr. 1.10 mmHg PV Peak Grad 2.6 mmHg RVOT Mean Gr. 0.45 mmHg PV Mean Grad 1.6 mmHg RVOT VTI 0.083 m PV VTI 0.151 m RVOT Vmax 0.52 m/s Tricuspid Valve TR Peak Grad 21.1 mmHg TR Vmax 2.30 m/s RA Pressure 3.00 mmHg RVSP (TR) 24.1 mmHg
--- NOTE | 2021-02-12 08:02 | W.PALPGNOTE ---
Date of service: 02/12/21 Time of Service: 08:02 Assessment and Plan Assessment and plan (1) Pulmonary fibrosis: Status: Acute (2) Respiratory failure with hypoxia: Status: Acute Qualifiers: Chronicity: acute on chronic Qualified Code(s): J96.21 - Acute and chronic respiratory failure with hypoxia (3) COVID: Status: Resolved (4) COVID-19: Status: Acute (5) Palliative care patient: Status: Acute Assessment and plan: 70-year-old man on hospital day 33 recovering from Covid. He is doing well but there is concerned that we would not be able to meet his oxygen needs if he was discharged home. He had had a discussion with hospitalist about comfort care, but he did not understand that that involved his possible dying. He was not interested in hospice. He states he is a fighter and he is going to get through this. I had spoken with Dr. Raines who felt that there were possibilities for meeting his oxygen needs at home. He especially has improved over the last 24 hours and requires less of an oxygen delivery system. I did relay to Uriel what Dr. Raines had stated. I also called Amparo and told her. He understood and was hopeful that the [facility] would supply the needed equipment. He also relate to me how impressed he was with the nurses especially the ICU nurses that he credits with saving his life. He was happy with his care through the hospitalists and other doctors. He always felt well cared for and that he had the best available. He was quite complementary to all of [facility]. His hope is to be able to go home soon be reunited with his and improve although he realizes it will be slow. He stated that he was happy to know the raw truth that things may not go well. He is not prepared to but understands that it may occur. We parted as friends. Hopefully Dr. Fierro and Dr. Raines will be able to find a delivery system that will allow Uriel to go home and survive. He has worked very very hard during these 33 days of hospitalization Subjective Subjective Interval history since last seen: I was asked to see Uriel to discuss his eventual discharge from the hospital and return home. There was concern that we would not be able to meet his oxygen needs at home in which case he had spoken with Dr. Fierro about transferring to comfort care. When I spoke with Uriel, with his Amparo on the phone, he was shocked that he was possibly going to from Covid. He felt that he had worked hard over the last 33 days of hospitalization and that he was expected to improve and go back to his old life. He understood that it might take time and that he would not be real active to begin with, but he did not see possible as a possibility in his near future. He was angry and upset with me He was adamant that he did not want to go to a group home to help recuperate. He fully expected to be reunited with his . He feels his is everything to him and that without her life would not be worth living. Reciprocally his stated that he was her whole world and did not want him coming home with the possibility of dying. She was against consideration for hospice. He stated that he was a fighter and had no intention of giving up. Again he was quite upset that after all he has been through that he may not be able to be maintained on oxygen at home and go on comfort care/hospice Exam Narrative Exam Narrative: Initially angry, but when I returned this evening he was much more calm and understanding. His heart was regular. His respirations were full and approximately 14/m. He seemed very comfortable. Objective Last Vital Signs Temp 97.9 F 02/12/21 03:00 Pulse 84 02/12/21 07:02 Resp 18 02/12/21 03:00 BP 120/66 02/12/21 03:00 Pulse Ox 98 02/12/21 03:00 Laboratory Results - last 24 hr 02/12/21 02/12/21 06:25 06:25 WBC 20.66 H RBC 3.26 L Hgb 10.2 L Hct 32.6 L MCV 100.0 H MCH 31.3 MCHC 31.3 L RDW 16.5 H Plt Count 147 MPV 9.7 Immature Gran % See Differential Neutrophils % 68.0 Band Neutrophils % 2 Lymphocytes % 18.0 Monocytes % 7.0 Eosinophils % 0.0 Basophils % 0.0 Metamyelocytes % 3 Myelocytes % 2 Nucleated RBC % 1 Absolute Neutrophils 14.46 H Absolute Lymphocytes 3.72 H Absolute Monocytes 1.45 H Absolute Eosinophils 0.00 Absolute Basophils 0.00 RBC Morphology Normal Polychromasia Present Sodium 139 Potassium 4.0 Chloride 104 Carbon Dioxide 28.1 Anion Gap 6.9 BUN 48 H Creatinine 1.2 Estimated GFR/1.73 m2 59.68 Glucose 113 H Calcium 7.9 L Magnesium 2.3 Ferritin 495 H C-Reactive Protein 0.13
[2021-02-12] MEDS: Enoxaparin 40 MG/0.4 ML SYR SC (08:28)
[2021-02-12] MEDS: predniSONE 20 MG TAB 50 MG PO (08:29)
[2021-02-12] MEDS: Protein Nutritional Supplement 16 GM 1 OUNCE PACKET PO ×3 (08:29→20:08)
[2021-02-12] MEDS: Metoprolol CR 25 MG TABCR 37.5 MG PO (08:30)
[2021-02-12] MEDS: Furosemide 20 MG TAB PO (08:30)
[2021-02-12] MEDS: Tamsulosin 0.4 MG CAPCR 0.8 MG PO (08:31)
[2021-02-12] MEDS: Ciprofloxacin 500 MG TAB PO (08:31)
[2021-02-12] MEDS: Finasteride 5 MG TAB PO (08:31)
[2021-02-12] MEDS: Multivitamin w/Minerals TAB 1 TAB PO (08:31)
[2021-02-12] MEDS: Docusate Sodium 100 MG CAP PO ×2 (08:31→20:09)
[2021-02-12] MEDS: Thiamine 100 MG TAB PO (08:31)
[2021-02-12] MEDS: PARoxetine 10 MG TAB 30 MG PO (08:31)
[2021-02-12] MEDS: Aspirin E.C. 81 MG TABEC PO (08:31)
[2021-02-12] MEDS: Senna TAB 1 TAB PO ×2 (08:31→20:08)
[2021-02-12] MEDS: Folic Acid 1 MG TAB PO (08:31)
[2021-02-12] MEDS: Famotidine 20 MG TAB PO ×2 (08:31→20:08)
[2021-02-12] MEDS: Ascorbic Acid 500 MG TAB 1000 MG PO ×2 (08:32→20:08)
[2021-02-12] MEDS: Nystatin POWDER 15 GM JAR TP ×3 (08:33→21:19)
[2021-02-12] MEDS: Tiotropium/Olodaterol 10 PUFF INHALER 2 PUFF IH (08:33)
[2021-02-12 09:34] LABS: Bilirubin Negative (Negative); Blood Moderate (Negative); Clarity Cloudy (Clear); Glucose Negative (Negative); Ketones Negative (Negative); Leukocyte Esterase Negative (Negative); Nitrite Negative (Negative); Urobilinogen 0.2 EU/dL (Up TO 0.2)
--- NOTE | 2021-02-12 09:39 | W.PULMPROG ---
Assessment and Plan Assessment and plan (1) COPD (chronic obstructive pulmonary disease): Status: Chronic Qualifiers: COPD type: unspecified COPD Qualified Code(s): J44.9 - Chronic obstructive pulmonary disease, unspecified (2) COVID: Status: Resolved (3) Pulmonary fibrosis: Status: Acute (4) Respiratory failure with hypoxia: Status: Acute Assessment and plan: This is a 70 yo man who has had a prolonged hospital stay for COVID-19 pneumonia necessitating an ICU stay with CPAP and HFNC. He has COPD and developed fibrosis as a result of his scarring and so is on a prolonged prednisone taper. He has continued to improve and is safe for discharge from the hospital once appropriate O2 can be made available to him at home. His ambulatory pulse ox today showed an exercise requirement of 6L. He tells me he has oxygen at home already from the [place] and so the Rx simply needs to be updated with his new requirements. He should have oxymizer (rest) and nonrebreather masks (activity) sent home with him. My office will work on sorting out his O2 with the [place], but as he already has oxygen at home he has the necessary equipment. He tolerated 2 nights without CPAP, I have discontinued the order and it can be removed from his room. COVID-19 - s/p remdesivir, Decasron and barcitinib - CPAP can be removed from his room Progressive fibrotic lung disease - continue taper as previously recommended: - prednisone 60mg for 7 days, 50mg for 7 days, 40mg for 7 days, 30mg for 7 days, 20mg for 7 days, 10mg for 7 days, 5mg for 7 days - he will need Bactrim ppx while on steroid doses of 20mg and higher - f/u appt made for him with me COPD - continue Stiolto - prn albuterol Acute on Chronic Respiratory Failure - 4 L/min at rest, 6L/min with exertion - we will help to work on changing this prescription Qualifiers: Chronicity: acute on chronic Qualified Code(s): J96.21 - Acute and chronic respiratory failure with hypoxia General Date Of Service Date of service: 02/12/21 Time of Service: 08:00 Reason for Consult: COVID-19 Subjective 24 Hour Events: Uriel continues to improve. He is on 5L NC currently and feeling well. He was on oxygen prior to admission through the [place] but is unsure of how much he was on or if he uses a DME company such as [employer] or [employer]. His O2 requirements are not something that would prohibit him from going home, we just need to ensure he has the appropriate concentrator at home with appropriate supplies. RT has been trying to set this up but have encountered some issues. I will have my office look into this to try and get his the appropriate supplies to facilitate his discharge. He tells me he is feeling good. He continues to get out of bed to the chair and is walking. Exam Const General: comfortable and no acute distress Nutritional Appearance: thin HENMT Head: normocephalic Ears: external ears normal and no periauricular adenopathy General nose exam: nasal mucous membranes and turbinates normal Face and sinus: sinuses nontender Mouth: oropharynx normal and moist mucous membranes Teeth and gingiva: dentition normal Eyes General: appearance normal, both eyes and all related structures Pupils: PERRL Neck Neck: normal visual inspection and no lymphadenopathy Chest Chest: normal inspection of the chest Resp Effort & Inspection: normal respiratory effort Auscultation: clear to auscultation bilaterally, no rales, rhonchi and no wheezes Cardio Rate: regular rate Rhythm: regular rhythm Heart Sounds: S1 normal, S2 normal and no murmurs Pulses: radial pulses present bilaterally GI Inspection: normal to inspection Palpation: soft Skin General skin exam: no rashes or lesions noted Neuro General: patient alert, patient awake and patient oriented x3 Extrem General: no clubbing, cyanosis or edema Psych Mental Status: mental status grossly normal Affect: normal affect Attitude: cooperative Objective Last Vital Signs Temp 36.9 C 02/12/21 08:00 Pulse 88 02/12/21 08:00 Resp 19 02/12/21 08:00 BP 114/70 02/12/21 08:00 Pulse Ox 94 02/12/21 08:00 Laboratory Results - last 24 hr 02/12/21 02/12/21 02/12/21 06:25 06:25 09:15 WBC 20.66 H RBC 3.26 L Hgb 10.2 L Hct 32.6 L MCV 100.0 H MCH 31.3 MCHC 31.3 L RDW 16.5 H Plt Count 147 MPV 9.7 Immature Gran % See Differential Neutrophils % 68.0 Band Neutrophils % 2 Lymphocytes % 18.0 Monocytes % 7.0 Eosinophils % 0.0 Basophils % 0.0 Metamyelocytes % 3 Myelocytes % 2 Nucleated RBC % 1 Absolute Neutrophils 14.46 H Absolute Lymphocytes 3.72 H Absolute Monocytes 1.45 H Absolute Eosinophils 0.00 Absolute Basophils 0.00 RBC Morphology Normal Polychromasia Present Sodium 139 Potassium 4.0 Chloride 104 Carbon Dioxide 28.1 Anion Gap 6.9 BUN 48 H Creatinine 1.2 Estimated GFR/1.73 m2 59.68 Glucose 113 H Calcium 7.9 L Magnesium 2.3 Ferritin 495 H C-Reactive Protein 0.13 Urine Color Yellow Urine Clarity Cloudy Urine pH 6.0 Ur Specific [place] 1.020 Urine Protein Negative Urine Ketones Negative Urine Blood Moderate H Urine Nitrite Negative Urine Bilirubin Negative Urine Urobilinogen 0.2 Ur Leukocyte Esterase Negative Urine Glucose Negative Results Medications Medications: Active Medications Generic Name Dose Route Start Last Admin Trade Name Freq PRN Reason Stop Dose Admin Acetaminophen 0 mg 01/10/21 09:41 Acetaminophen 325 Mg Tab PO Q4H PRN PRN Albuterol Sulfate 2 puff 01/15/21 16:31 01/26/21 11:14 Albuterol Hfa 8 Gm 60 Puff Inh IH 2 puff Q4H PRN PRN Administration Ascorbic Acid 1,000 mg 01/10/21 20:00 02/12/21 08:32 Ascorbic Acid 500 Mg Tab PO 1,000 mg BID DEBRA Administration Aspirin 81 mg 01/11/21 08:30 02/12/21 08:31 Aspirin E.C. 81 Mg Tabec PO 81 mg DAILY DEBRA Administration Atorvastatin Calcium 40 mg 01/10/21 20:00 02/11/21 19:46 Atorvastatin 40 Mg Tab PO 40 mg QPM DEBRA Administration Bisacodyl 5 mg 01/24/21 15:03 01/28/21 09:28 Bisacodyl 5 Mg Tabec PO 5 mg DAILY PRN PRN Administration Ciprofloxacin HCl 500 mg 02/03/21 12:10 02/12/21 08:31 Ciprofloxacin 500 Mg Tab PO 500 mg BID DEBRA Administration Device 1 each 01/15/21 17:00 Inhaler, Assist Device DIRECTED [facility] Dimethicone/Zinc Oxide 0 gm 01/10/21 09:41 [place] Protect Cream 142 Gm Tube TP PRN PRN Docusate Sodium 100 mg 01/24/21 20:00 02/12/21 08:31 Docusate Sodium 100 Mg Cap PO 100 mg BID DEBRA Administration Dronabinol 5 mg 01/15/21 11:00 02/11/21 16:01 Dronabinol 2.5 Mg Cap PO 5 mg BID@1100,1600 DEBRA Administration Enoxaparin Sodium 40 mg 01/11/21 12:00 02/12/21 08:28 Enoxaparin 40 Mg/0.4 Ml Syr SC 40 mg DAILY DEBRA Administration Famotidine 20 mg 01/14/21 20:00 02/12/21 08:31 Famotidine 20 Mg Tab PO 20 mg BID DEBRA Administration Finasteride 5 mg 01/11/21 08:30 02/12/21 08:31 Finasteride 5 Mg Tab PO 5 mg DAILY DEBRA Administration Folic Acid 1 mg 01/18/21 08:30 02/12/21 08:31 Folic Acid 1 Mg Tab PO 1 mg DAILY DEBRA Administration Furosemide 20 mg 02/12/21 08:30 02/12/21 08:30 Furosemide 20 Mg Tab PO 20 mg DAILY DEBRA Administration Sodium Chloride 500 mls @ 0 mls/hr 01/09/21 16:12 02/01/21 21:00 Saline 500ml Bag IV 0 mls/hr PRN PRN Infusion As Directed IV Miscellaneous Supplies 1 each 01/09/21 16:15 Iv Access IV DIRECTED [facility] Iron/Minerals/Multivitamins 1 tab 01/18/21 08:30 02/12/21 08:31 Multivitamin W/Minerals Tab PO 1 tab DAILY DEBRA Administration Latanoprost 0 ml 01/10/21 22:00 02/11/21 21:30 Latanoprost 0.005% 2.5 Ml Btl OP 1 drp HS DEBRA Administration Lidocaine HCl 11 ml 01/17/21 06:44 02/05/21 22:33 Lidocaine 2% Jelly 11 Ml Syr UR 11 ml Q6H PRN PRN Administration Lorazepam 0.5 mg 01/10/21 22:46 01/15/21 21:18 Lorazepam 2 Mg/Ml Vial IVP 0.5 mg Q6H PRN PRN Administration Melatonin 9 mg 01/16/21 11:48 02/02/21 21:05 Melatonin 3 Mg Tab PO 9 mg HS PRN PRN Administration Sleep Metoprolol Succinate 37.5 mg 02/07/21 08:30 02/12/21 08:30 Metoprolol Cr 25 Mg Tabcr PO 37.5 mg DAILY DEBRA Administration Mirtazapine 30 mg 01/17/21 22:00 02/11/21 21:30 Mirtazapine 15 Mg Tab PO 30 mg HS DEBRA Administration Multi-Ingredient Supplement 1 ounce 01/13/21 14:00 02/12/21 08:29 Protein Nutritional Supplement 16 Gm 1 Ounce Packet PO 1 ounce TID DEBRA Administration Nystatin 0 gm 02/07/21 14:00 02/12/21 08:33 Nystatin Powder 15 Gm Jar TP 1 applic TID DEBRA Administration Paroxetine HCl 30 mg 01/18/21 08:30 02/12/21 08:31 Paroxetine 10 Mg Tab PO 30 mg DAILY DEBRA Administration Polyethylene Glycol 17 gm 01/14/21 11:20 01/20/21 08:20 Polyethylene Glycol 3350 17 Gm Packet PO 17 gm DAILY PRN PRN Administration Constipation Polyethylene Glycol 17 gm 01/25/21 20:00 02/12/21 08:33 Polyethylene Glycol 3350 17 Gm Packet PO Not Given BID DEBRA Prednisone 50 mg 02/07/21 10:30 02/12/21 08:29 Prednisone 20 Mg Tab PO 02/14/21 10:29 50 mg DAILY DEBRA Administration Sennosides 1 tab 01/24/21 20:00 02/12/21 08:31 Senna Tab PO 1 tab BID DEBRA Administration Sodium Chloride 0 ml 01/09/21 16:12 02/10/21 07:30 Normal Saline Flush 10 Ml Syr IVP 10 ml PRN PRN Administration Tamsulosin HCl 0.8 mg 02/07/21 08:30 02/12/21 08:31 Tamsulosin 0.4 Mg Capcr PO 0.8 mg DAILY DEBRA Administration Thiamine HCl 100 mg 01/18/21 08:30 02/12/21 08:31 Thiamine 100 Mg Tab PO 100 mg DAILY DEBRA Administration Tiotropium Farnam/Olodaterol 2 puff 01/11/21 08:30 02/12/21 08:33 Tiotropium/Olodaterol 10 Puff Inhaler IH 2 puff DAILY DEBRA Administration Trimethoprim/Sulfamethoxazole 1 tab 01/31/21 08:30 02/12/21 08:32 Sulfameth/Trimeth Reg Str Tab PO 1 tab DAILY DEBRA Administration Allergies environmental Allergy (Uncoded 01/09/21 16:26) Labs Result Diagrams: 02/12/21 06:25 02/12/21 06:25 Labs: 02/12/21 09:15 Urine - Not Specified Urine Culture - Pending 02/01/21 16:10 Urine - Reflex from Ua Urine Culture - Final Pseudomonas aeruginosa 01/23/21 08:00 Urine - Cath Gaitan Indwelling Urine Culture - Final 01/15/21 10:15 Urine - Cath Gaitan Indwelling Urine Culture - Final 01/11/21 08:15 Blood Blood Culture - Final NO GROWTH 120 HOURS 01/11/21 08:00 Blood Blood Culture - Final NO GROWTH 120 HOURS 01/09/21 16:50 Blood Blood Culture - Final Staphylococcus Saprophyticus 01/09/21 16:40 Blood Blood Culture - Final NO GROWTH 120 HOURS 01/10/21 22:40 Urine - Cath Gaitan Indwelling Urine Culture - Final Laboratory Tests Range/Units 01/09/21 01/09/21 01/09/21 16:40 16:40 16:40 WBC (4.4-10.8) 10^3/uL 17.22 H RBC (4.36-5.78) 10^6/uL 4.54 Hgb (13.5-17.5) g/dL 14.2 Hct (40.0-50.0) % 42.2 MCV (80-95) fL 93.0 MCH (27.0-33.0) pg 31.3 MCHC (32.0-36.0) % 33.6 RDW (11.8-14.1) % 12.2 Plt Count (130-400) 10^3/uL 153 MPV (8.0-11.0) fL 11.0 Immature Gran % 1.4 Neutrophils % 90.8 Band Neutrophils % Lymphocytes % 3.2 Atypical Lymphs % Monocytes % 4.4 Eosinophils % 0.1 Basophils % 0.1 Metamyelocytes % Myelocytes % Nucleated RBC % % 0 Absolute Neutrophils (1.2-6.7) 10^3/uL 15.64 H Absolute Lymphocytes (1.2-3.4) 10^3/uL 0.55 L Absolute Monocytes (0.1-0.8) 10^3/uL 0.76 Absolute Eosinophils (0.0-0.7) 10^3/uL 0.02 Absolute Basophils (0.0-0.2) 10^3/uL 0.02 RBC Morphology Polychromasia Basophilic Stippling PT (9.3-11.0) sec INR (0.9-1.1) D-Dimer (<500) ng/mlFEU VBG Lactate (0.6-1.4) mmol/L 1.5 H Sodium (136-145) mmol/L 138 Potassium (3.5-5.1) mmol/L 4.7 Chloride (98-107) mmol/L 103 Carbon Dioxide (21.0-32.0) mmol/L 28.7 Anion Gap (3-11) mmol/L 6.3 BUN (7-18) mg/dL 54 H Creatinine (0.70-1.30) mg/dL 1.5 H Estimated GFR/1.73 m2 (mL/min/1.73m2) 46.13 Glucose (74-106) mg/dL 160 H Calcium (8.5-10.1) mg/dL 8.5 Phosphorus (2.6-4.7) mg/dL Magnesium (1.8-2.4) mg/dL Ferritin (26-388) ng/mL > 2000 H Total Bilirubin (0.2-1.0) mg/dL 1.1 H Conjugated Bilirubin (0.0-0.2) mg/dL AST (15-37) U/L 19 ALT (16-63) U/L 39 Alkaline Phosphatase (46-116) U/L 57 Lactate Dehydrogenase (85-227) U/L 219 Troponin I (<0.06) ng/mL < 0.05 C-Reactive Protein (0.0-0.3) mg/dL 12.18 H Total Protein (6.4-8.2) g/dL 6.8 Albumin (3.4-5.0) g/dL 2.8 L Whole Bld Vitamin B1 (70-180) nmol/L Vitamin B3 (Niacin) Vitamin B12 (193-986) pg/mL 25-OH Vitamin D Total (30-100) ng/mL Folate (8.6-20.0) ng/mL Procalcitonin ng/mL 0.1 Urine Color (Yellow) Urine Clarity (Clear) Urine pH (5-8) Ur Specific [place] (1.005-1.025) Urine Protein (Negative) mg/dL Urine Ketones (Negative) mg/dL Urine Blood (Negative) Urine Nitrite (Negative) Urine Bilirubin (Negative) Urine Urobilinogen (Up TO 0.2) EU/dL Ur Leukocyte Esterase (Negative) Urine RBC (0-2) HPF Urine WBC (0-5) HPF Ur Epithelial Cells (Negative) HPF Urine Crystals (Negative) HPF Urine Bacteria (Negative) HPF Urine Casts (Negative) LPF Urine Mucus (Negative) Urine Other (Negative) Ur Culture Indicated? Urine Glucose (Negative) mg/dL Vancomycin Trough (10.0-20.0) ug/mL COVID-19 Source SARS-CoV-2 (PCR) (Negative) Range/Units 01/09/21 01/09/21 01/10/21 16:40 19:30 11:15 WBC (4.4-10.8) 10^3/uL RBC (4.36-5.78) 10^6/uL Hgb (13.5-17.5) g/dL Hct (40.0-50.0) % MCV (80-95) fL MCH (27.0-33.0) pg MCHC (32.0-36.0) % RDW (11.8-14.1) % Plt Count (130-400) 10^3/uL MPV (8.0-11.0) fL Immature Gran % Neutrophils % Band Neutrophils % Lymphocytes % Atypical Lymphs % Monocytes % Eosinophils % Basophils % Metamyelocytes % Myelocytes % Nucleated RBC % % Absolute Neutrophils (1.2-6.7) 10^3/uL Absolute Lymphocytes (1.2-3.4) 10^3/uL Absolute Monocytes (0.1-0.8) 10^3/uL Absolute Eosinophils (0.0-0.7) 10^3/uL Absolute Basophils (0.0-0.2) 10^3/uL RBC Morphology Polychromasia Basophilic Stippling PT (9.3-11.0) sec INR (0.9-1.1) D-Dimer (<500) ng/mlFEU 321 VBG Lactate (0.6-1.4) mmol/L Sodium (136-145) mmol/L 141 Potassium (3.5-5.1) mmol/L 4.4 Chloride (98-107) mmol/L 107 Carbon Dioxide (21.0-32.0) mmol/L 24.1 Anion Gap (3-11) mmol/L 9.9 BUN (7-18) mg/dL 53 H Creatinine (0.70-1.30) mg/dL 1.2 Estimated GFR/1.73 m2 (mL/min/1.73m2) 59.68 Glucose (74-106) mg/dL 158 H Calcium (8.5-10.1) mg/dL 8.0 L Phosphorus (2.6-4.7) mg/dL Magnesium (1.8-2.4) mg/dL Ferritin (26-388) ng/mL Total Bilirubin (0.2-1.0) mg/dL 0.5 Conjugated Bilirubin (0.0-0.2) mg/dL AST (15-37) U/L 23 ALT (16-63) U/L 41 Alkaline Phosphatase (46-116) U/L 53 Lactate Dehydrogenase (85-227) U/L Troponin I (<0.06) ng/mL < 0.05 C-Reactive Protein (0.0-0.3) mg/dL Total Protein (6.4-8.2) g/dL 6.2 L Albumin (3.4-5.0) g/dL 2.5 L Whole Bld Vitamin B1 (70-180) nmol/L Vitamin B3 (Niacin) Vitamin B12 (193-986) pg/mL 25-OH Vitamin D Total (30-100) ng/mL Folate (8.6-20.0) ng/mL Procalcitonin ng/mL Urine Color (Yellow) Urine Clarity (Clear) Urine pH (5-8) Ur Specific [place] (1.005-1.025) Urine Protein (Negative) mg/dL Urine Ketones (Negative) mg/dL Urine Blood (Negative) Urine Nitrite (Negative) Urine Bilirubin (Negative) Urine Urobilinogen (Up TO 0.2) EU/dL Ur Leukocyte Esterase (Negative) Urine RBC (0-2) HPF Urine WBC (0-5) HPF Ur Epithelial Cells (Negative) HPF Urine Crystals (Negative) HPF Urine Bacteria (Negative) HPF Urine Casts (Negative) LPF Urine Mucus (Negative) Urine Other (Negative) Ur Culture Indicated? Urine Glucose (Negative) mg/dL Vancomycin Trough (10.0-20.0) ug/mL COVID-19 Source SARS-CoV-2 (PCR) (Negative) Range/Units 01/10/21 01/10/21 01/10/21 11:15 11:15 11:15 WBC (4.4-10.8) 10^3/uL 19.84 H RBC (4.36-5.78) 10^6/uL 4.07 L Hgb (13.5-17.5) g/dL 12.8 L Hct (40.0-50.0) % 38.7 L MCV (80-95) fL 95.1 H MCH (27.0-33.0) pg 31.4 MCHC (32.0-36.0) % 33.1 RDW (11.8-14.1) % 12.2 Plt Count (130-400) 10^3/uL 191 MPV (8.0-11.0) fL 11.2 H Immature Gran % 1.9 Neutrophils % 88.4 Band Neutrophils % Lymphocytes % 3.7 Atypical Lymphs % Monocytes % 5.7 Eosinophils % 0.1 Basophils % 0.2 Metamyelocytes % Myelocytes % Nucleated RBC % % 0 Absolute Neutrophils (1.2-6.7) 10^3/uL 17.54 H Absolute Lymphocytes (1.2-3.4) 10^3/uL 0.73 L Absolute Monocytes (0.1-0.8) 10^3/uL 1.13 H Absolute Eosinophils (0.0-0.7) 10^3/uL 0.02 Absolute Basophils (0.0-0.2) 10^3/uL 0.04 RBC Morphology Polychromasia Basophilic Stippling PT (9.3-11.0) sec INR (0.9-1.1) D-Dimer (<500) ng/mlFEU 328 VBG Lactate (0.6-1.4) mmol/L Sodium (136-145) mmol/L Potassium (3.5-5.1) mmol/L Chloride (98-107) mmol/L Carbon Dioxide (21.0-32.0) mmol/L Anion Gap (3-11) mmol/L BUN (7-18) mg/dL Creatinine (0.70-1.30) mg/dL Estimated GFR/1.73 m2 (mL/min/1.73m2) Glucose (74-106) mg/dL Calcium (8.5-10.1) mg/dL Phosphorus (2.6-4.7) mg/dL Magnesium (1.8-2.4) mg/dL Ferritin (26-388) ng/mL > 2000 H Total Bilirubin (0.2-1.0) mg/dL Conjugated Bilirubin (0.0-0.2) mg/dL AST (15-37) U/L ALT (16-63) U/L Alkaline Phosphatase (46-116) U/L Lactate Dehydrogenase (85-227) U/L Troponin I (<0.06) ng/mL C-Reactive Protein (0.0-0.3) mg/dL 7.96 H Total Protein (6.4-8.2) g/dL Albumin (3.4-5.0) g/dL Whole Bld Vitamin B1 (70-180) nmol/L Vitamin B3 (Niacin) Vitamin B12 (193-986) pg/mL 25-OH Vitamin D Total (30-100) ng/mL Folate (8.6-20.0) ng/mL Procalcitonin ng/mL Urine Color (Yellow) Urine Clarity (Clear) Urine pH (5-8) Ur Specific [place] (1.005-1.025) Urine Protein (Negative) mg/dL Urine Ketones (Negative) mg/dL Urine Blood (Negative) Urine Nitrite (Negative) Urine Bilirubin (Negative) Urine Urobilinogen (Up TO 0.2) EU/dL Ur Leukocyte Esterase (Negative) Urine RBC (0-2) HPF Urine WBC (0-5) HPF Ur Epithelial Cells (Negative) HPF Urine Crystals (Negative) HPF Urine Bacteria (Negative) HPF Urine Casts (Negative) LPF Urine Mucus (Negative) Urine Other (Negative) Ur Culture Indicated? Urine Glucose (Negative) mg/dL Vancomycin Trough (10.0-20.0) ug/mL COVID-19 Source SARS-CoV-2 (PCR) (Negative) Range/Units 01/10/21 01/11/21 01/11/21 22:40 08:00 08:00 WBC (4.4-10.8) 10^3/uL 24.89 H RBC (4.36-5.78) 10^6/uL 3.83 L Hgb (13.5-17.5) g/dL 12.2 L Hct (40.0-50.0) % 36.2 L MCV (80-95) fL 94.5 MCH (27.0-33.0) pg 31.9 MCHC (32.0-36.0) % 33.7 RDW (11.8-14.1) % 12.2 Plt Count (130-400) 10^3/uL 231 MPV (8.0-11.0) fL 11.0 Immature Gran % 2.2 Neutrophils % 88.1 Band Neutrophils % Lymphocytes % 3.4 Atypical Lymphs % Monocytes % 6.2 Eosinophils % 0.0 Basophils % 0.1 Metamyelocytes % Myelocytes % Nucleated RBC % % 0 Absolute Neutrophils (1.2-6.7) 10^3/uL 21.93 H Absolute Lymphocytes (1.2-3.4) 10^3/uL 0.85 L Absolute Monocytes (0.1-0.8) 10^3/uL 1.54 H Absolute Eosinophils (0.0-0.7) 10^3/uL 0.00 Absolute Basophils (0.0-0.2) 10^3/uL 0.02 RBC Morphology Normal Polychromasia Basophilic Stippling PT (9.3-11.0) sec INR (0.9-1.1) D-Dimer (<500) ng/mlFEU VBG Lactate (0.6-1.4) mmol/L Sodium (136-145) mmol/L 140 Potassium (3.5-5.1) mmol/L 4.6 Chloride (98-107) mmol/L 108 H Carbon Dioxide (21.0-32.0) mmol/L 24.2 Anion Gap (3-11) mmol/L 7.8 BUN (7-18) mg/dL 57 H Creatinine (0.70-1.30) mg/dL 1.1 Estimated GFR/1.73 m2 (mL/min/1.73m2) >= 60.00 Glucose (74-106) mg/dL 139 H Calcium (8.5-10.1) mg/dL 8.2 L Phosphorus (2.6-4.7) mg/dL Magnesium (1.8-2.4) mg/dL Ferritin (26-388) ng/mL 1934 H Total Bilirubin (0.2-1.0) mg/dL 0.6 Conjugated Bilirubin (0.0-0.2) mg/dL AST (15-37) U/L 14 L ALT (16-63) U/L 39 Alkaline Phosphatase (46-116) U/L 50 Lactate Dehydrogenase (85-227) U/L Troponin I (<0.06) ng/mL C-Reactive Protein (0.0-0.3) mg/dL 3.31 H Total Protein (6.4-8.2) g/dL 5.9 L Albumin (3.4-5.0) g/dL 2.5 L Whole Bld Vitamin B1 (70-180) nmol/L Vitamin B3 (Niacin) Vitamin B12 (193-986) pg/mL 25-OH Vitamin D Total (30-100) ng/mL Folate (8.6-20.0) ng/mL Procalcitonin ng/mL Urine Color (Yellow) Yellow Urine Clarity (Clear) Cloudy Urine pH (5-8) 5.0 Ur Specific [place] (1.005-1.025) >= 1.030 H Urine Protein (Negative) mg/dL 30 H Urine Ketones (Negative) mg/dL Negative Urine Blood (Negative) Large H Urine Nitrite (Negative) Negative Urine Bilirubin (Negative) Negative Urine Urobilinogen (Up TO 0.2) EU/dL 0.2 Ur Leukocyte Esterase (Negative) Trace H Urine RBC (0-2) HPF 10-20 H Urine WBC (0-5) HPF 3-5 Ur Epithelial Cells (Negative) HPF Rare Urine Crystals (Negative) HPF Moderate Amorphous Urine Bacteria (Negative) HPF Few Urine Casts (Negative) LPF Negative Urine Mucus (Negative) Trace Urine Other (Negative) Ur Culture Indicated? C&S Done As Ordered Urine Glucose (Negative) mg/dL Negative Vancomycin Trough (10.0-20.0) ug/mL COVID-19 Source SARS-CoV-2 (PCR) (Negative) Range/Units 01/11/21 01/12/21 01/12/21 08:00 06:12 07:20 WBC (4.4-10.8) 10^3/uL 25.80 H* RBC (4.36-5.78) 10^6/uL 3.60 L Hgb (13.5-17.5) g/dL 11.5 L Hct (40.0-50.0) % 34.8 L MCV (80-95) fL 96.7 H MCH (27.0-33.0) pg 31.9 MCHC (32.0-36.0) % 33.0 RDW (11.8-14.1) % 12.1 Plt Count (130-400) 10^3/uL 234 MPV (8.0-11.0) fL 11.1 H Immature Gran % 1.8 Neutrophils % 87.0 Band Neutrophils % Lymphocytes % 2.9 Atypical Lymphs % Monocytes % 8.1 Eosinophils % 0.0 Basophils % 0.2 Metamyelocytes % Myelocytes % Nucleated RBC % % 0 Absolute Neutrophils (1.2-6.7) 10^3/uL 22.45 H Absolute Lymphocytes (1.2-3.4) 10^3/uL 0.75 L Absolute Monocytes (0.1-0.8) 10^3/uL 2.09 H Absolute Eosinophils (0.0-0.7) 10^3/uL 0.00 Absolute Basophils (0.0-0.2) 10^3/uL 0.05 RBC Morphology Normal Polychromasia Basophilic Stippling PT (9.3-11.0) sec INR (0.9-1.1) D-Dimer (<500) ng/mlFEU 323 VBG Lactate (0.6-1.4) mmol/L Sodium (136-145) mmol/L 139 Potassium (3.5-5.1) mmol/L 4.7 Chloride (98-107) mmol/L 106 Carbon Dioxide (21.0-32.0) mmol/L 22.9 Anion Gap (3-11) mmol/L 10.1 BUN (7-18) mg/dL 57 H Creatinine (0.70-1.30) mg/dL 1.1 Estimated GFR/1.73 m2 (mL/min/1.73m2) >= 60.00 Glucose (74-106) mg/dL 118 H Calcium (8.5-10.1) mg/dL 7.8 L Phosphorus (2.6-4.7) mg/dL Magnesium (1.8-2.4) mg/dL Ferritin (26-388) ng/mL 1584 H Total Bilirubin (0.2-1.0) mg/dL 0.6 Conjugated Bilirubin (0.0-0.2) mg/dL AST (15-37) U/L 9 L ALT (16-63) U/L 39 Alkaline Phosphatase (46-116) U/L 46 Lactate Dehydrogenase (85-227) U/L Troponin I (<0.06) ng/mL C-Reactive Protein (0.0-0.3) mg/dL 1.59 H Total Protein (6.4-8.2) g/dL 5.1 L Albumin (3.4-5.0) g/dL 2.4 L Whole Bld Vitamin B1 (70-180) nmol/L Vitamin B3 (Niacin) Vitamin B12 (193-986) pg/mL 25-OH Vitamin D Total (30-100) ng/mL Folate (8.6-20.0) ng/mL Procalcitonin ng/mL Urine Color (Yellow) Urine Clarity (Clear) Urine pH (5-8) Ur Specific [place] (1.005-1.025) Urine Protein (Negative) mg/dL Urine Ketones (Negative) mg/dL Urine Blood (Negative) Urine Nitrite (Negative) Urine Bilirubin (Negative) Urine Urobilinogen (Up TO 0.2) EU/dL Ur Leukocyte Esterase (Negative) Urine RBC (0-2) HPF Urine WBC (0-5) HPF Ur Epithelial Cells (Negative) HPF Urine Crystals (Negative) HPF Urine Bacteria (Negative) HPF Urine Casts (Negative) LPF Urine Mucus (Negative) Urine Other (Negative) Ur Culture Indicated? Urine Glucose (Negative) mg/dL Vancomycin Trough (10.0-20.0) ug/mL COVID-19 Source SARS-CoV-2 (PCR) (Negative) Range/Units 01/12/21 01/12/21 01/12/21 07:20 07:20 11:25 WBC (4.4-10.8) 10^3/uL RBC (4.36-5.78) 10^6/uL Hgb (13.5-17.5) g/dL Hct (40.0-50.0) % MCV (80-95) fL MCH (27.0-33.0) pg MCHC (32.0-36.0) % RDW (11.8-14.1) % Plt Count (130-400) 10^3/uL MPV (8.0-11.0) fL Immature Gran % Neutrophils % Band Neutrophils % Lymphocytes % Atypical Lymphs % Monocytes % Eosinophils % Basophils % Metamyelocytes % Myelocytes % Nucleated RBC % % Absolute Neutrophils (1.2-6.7) 10^3/uL Absolute Lymphocytes (1.2-3.4) 10^3/uL Absolute Monocytes (0.1-0.8) 10^3/uL Absolute Eosinophils (0.0-0.7) 10^3/uL Absolute Basophils (0.0-0.2) 10^3/uL RBC Morphology Polychromasia Basophilic Stippling PT (9.3-11.0) sec INR (0.9-1.1) D-Dimer (<500) ng/mlFEU 313 VBG Lactate (0.6-1.4) mmol/L Sodium (136-145) mmol/L Potassium (3.5-5.1) mmol/L Chloride (98-107) mmol/L Carbon Dioxide (21.0-32.0) mmol/L Anion Gap (3-11) mmol/L BUN (7-18) mg/dL Creatinine (0.70-1.30) mg/dL Estimated GFR/1.73 m2 (mL/min/1.73m2) Glucose (74-106) mg/dL Calcium (8.5-10.1) mg/dL Phosphorus (2.6-4.7) mg/dL Magnesium (1.8-2.4) mg/dL Ferritin (26-388) ng/mL Total Bilirubin (0.2-1.0) mg/dL Conjugated Bilirubin (0.0-0.2) mg/dL AST (15-37) U/L ALT (16-63) U/L Alkaline Phosphatase (46-116) U/L Lactate Dehydrogenase (85-227) U/L Troponin I (<0.06) ng/mL C-Reactive Protein (0.0-0.3) mg/dL Total Protein (6.4-8.2) g/dL Albumin (3.4-5.0) g/dL Whole Bld Vitamin B1 (70-180) nmol/L Vitamin B3 (Niacin) Vitamin B12 (193-986) pg/mL 25-OH Vitamin D Total (30-100) ng/mL Folate (8.6-20.0) ng/mL Procalcitonin ng/mL < 0.1 Urine Color (Yellow) Urine Clarity (Clear) Urine pH (5-8) Ur Specific [place] (1.005-1.025) Urine Protein (Negative) mg/dL Urine Ketones (Negative) mg/dL Urine Blood (Negative) Urine Nitrite (Negative) Urine Bilirubin (Negative) Urine Urobilinogen (Up TO 0.2) EU/dL Ur Leukocyte Esterase (Negative) Urine RBC (0-2) HPF Urine WBC (0-5) HPF Ur Epithelial Cells (Negative) HPF Urine Crystals (Negative) HPF Urine Bacteria (Negative) HPF Urine Casts (Negative) LPF Urine Mucus (Negative) Urine Other (Negative) Ur Culture Indicated? Urine Glucose (Negative) mg/dL Vancomycin Trough (10.0-20.0) ug/mL 13.5 COVID-19 Source SARS-CoV-2 (PCR) (Negative) Range/Units 01/13/21 01/13/21 01/13/21 06:25 06:25 06:25 WBC (4.4-10.8) 10^3/uL 24.42 H RBC (4.36-5.78) 10^6/uL 3.90 L Hgb (13.5-17.5) g/dL 12.3 L Hct (40.0-50.0) % 35.9 L MCV (80-95) fL 92.1 MCH (27.0-33.0) pg 31.5 MCHC (32.0-36.0) % 34.3 RDW (11.8-14.1) % 12.0 Plt Count (130-400) 10^3/uL 211 MPV (8.0-11.0) fL 11.0 Immature Gran % 1.4 Neutrophils % 87.2 Band Neutrophils % Lymphocytes % 2.7 Atypical Lymphs % Monocytes % 8.6 Eosinophils % 0.0 Basophils % 0.1 Metamyelocytes % Myelocytes % Nucleated RBC % % 0 Absolute Neutrophils (1.2-6.7) 10^3/uL 21.29 H Absolute Lymphocytes (1.2-3.4) 10^3/uL 0.66 L Absolute Monocytes (0.1-0.8) 10^3/uL 2.10 H Absolute Eosinophils (0.0-0.7) 10^3/uL 0.00 Absolute Basophils (0.0-0.2) 10^3/uL 0.02 RBC Morphology Normal Polychromasia Basophilic Stippling PT (9.3-11.0) sec INR (0.9-1.1) D-Dimer (<500) ng/mlFEU 432 VBG Lactate (0.6-1.4) mmol/L Sodium (136-145) mmol/L 137 Potassium (3.5-5.1) mmol/L 4.3 Chloride (98-107) mmol/L 104 Carbon Dioxide (21.0-32.0) mmol/L 24.6 Anion Gap (3-11) mmol/L 8.4 BUN (7-18) mg/dL 52 H Creatinine (0.70-1.30) mg/dL 1.1 Estimated GFR/1.73 m2 (mL/min/1.73m2) >= 60.00 Glucose (74-106) mg/dL 109 H Calcium (8.5-10.1) mg/dL 7.8 L Phosphorus (2.6-4.7) mg/dL Magnesium (1.8-2.4) mg/dL Ferritin (26-388) ng/mL 1334 H Total Bilirubin (0.2-1.0) mg/dL 0.7 Conjugated Bilirubin (0.0-0.2) mg/dL AST (15-37) U/L 17 ALT (16-63) U/L 41 Alkaline Phosphatase (46-116) U/L 55 Lactate Dehydrogenase (85-227) U/L Troponin I (<0.06) ng/mL C-Reactive Protein (0.0-0.3) mg/dL 1.12 H Total Protein (6.4-8.2) g/dL 5.6 L Albumin (3.4-5.0) g/dL 2.3 L Whole Bld Vitamin B1 (70-180) nmol/L Vitamin B3 (Niacin) Vitamin B12 (193-986) pg/mL 25-OH Vitamin D Total (30-100) ng/mL Folate (8.6-20.0) ng/mL Procalcitonin ng/mL Urine Color (Yellow) Urine Clarity (Clear) Urine pH (5-8) Ur Specific [place] (1.005-1.025) Urine Protein (Negative) mg/dL Urine Ketones (Negative) mg/dL Urine Blood (Negative) Urine Nitrite (Negative) Urine Bilirubin (Negative) Urine Urobilinogen (Up TO 0.2) EU/dL Ur Leukocyte Esterase (Negative) Urine RBC (0-2) HPF Urine WBC (0-5) HPF Ur Epithelial Cells (Negative) HPF Urine Crystals (Negative) HPF Urine Bacteria (Negative) HPF Urine Casts (Negative) LPF Urine Mucus (Negative) Urine Other (Negative) Ur Culture Indicated? Urine Glucose (Negative) mg/dL Vancomycin Trough (10.0-20.0) ug/mL COVID-19 Source SARS-CoV-2 (PCR) (Negative) Range/Units 01/14/21 01/14/21 01/14/21 06:05 06:05 06:05 WBC (4.4-10.8) 10^3/uL RBC (4.36-5.78) 10^6/uL Hgb (13.5-17.5) g/dL Hct (40.0-50.0) % MCV (80-95) fL MCH (27.0-33.0) pg MCHC (32.0-36.0) % RDW (11.8-14.1) % Plt Count (130-400) 10^3/uL MPV (8.0-11.0) fL Immature Gran % Neutrophils % Band Neutrophils % Lymphocytes % Atypical Lymphs % Monocytes % Eosinophils % Basophils % Metamyelocytes % Myelocytes % Nucleated RBC % % Absolute Neutrophils (1.2-6.7) 10^3/uL Absolute Lymphocytes (1.2-3.4) 10^3/uL Absolute Monocytes (0.1-0.8) 10^3/uL Absolute Eosinophils (0.0-0.7) 10^3/uL Absolute Basophils (0.0-0.2) 10^3/uL RBC Morphology Polychromasia Basophilic Stippling PT (9.3-11.0) sec INR (0.9-1.1) D-Dimer (<500) ng/mlFEU 467 VBG Lactate (0.6-1.4) mmol/L Sodium (136-145) mmol/L 136 Potassium (3.5-5.1) mmol/L 4.6 Chloride (98-107) mmol/L 105 Carbon Dioxide (21.0-32.0) mmol/L 21.5 Anion Gap (3-11) mmol/L 9.5 BUN (7-18) mg/dL 53 H Creatinine (0.70-1.30) mg/dL 1.0 Estimated GFR/1.73 m2 (mL/min/1.73m2) >= 60.00 Glucose (74-106) mg/dL 105 Calcium (8.5-10.1) mg/dL 7.8 L Phosphorus (2.6-4.7) mg/dL Magnesium (1.8-2.4) mg/dL Ferritin (26-388) ng/mL 1133 H Total Bilirubin (0.2-1.0) mg/dL 0.6 Conjugated Bilirubin (0.0-0.2) mg/dL AST (15-37) U/L 17 ALT (16-63) U/L 41 Alkaline Phosphatase (46-116) U/L 52 Lactate Dehydrogenase (85-227) U/L Troponin I (<0.06) ng/mL C-Reactive Protein (0.0-0.3) mg/dL 0.92 H Total Protein (6.4-8.2) g/dL 4.9 L Albumin (3.4-5.0) g/dL 2.3 L Whole Bld Vitamin B1 (70-180) nmol/L Vitamin B3 (Niacin) Vitamin B12 (193-986) pg/mL 25-OH Vitamin D Total (30-100) ng/mL Folate (8.6-20.0) ng/mL Procalcitonin ng/mL Urine Color (Yellow) Urine Clarity (Clear) Urine pH (5-8) Ur Specific [place] (1.005-1.025) Urine Protein (Negative) mg/dL Urine Ketones (Negative) mg/dL Urine Blood (Negative) Urine Nitrite (Negative) Urine Bilirubin (Negative) Urine Urobilinogen (Up TO 0.2) EU/dL Ur Leukocyte Esterase (Negative) Urine RBC (0-2) HPF Urine WBC (0-5) HPF Ur Epithelial Cells (Negative) HPF Urine Crystals (Negative) HPF Urine Bacteria (Negative) HPF Urine Casts (Negative) LPF Urine Mucus (Negative) Urine Other (Negative) Ur Culture Indicated? Urine Glucose (Negative) mg/dL Vancomycin Trough (10.0-20.0) ug/mL COVID-19 Source SARS-CoV-2 (PCR) (Negative) Range/Units 01/14/21 01/14/21 01/14/21 06:05 06:05 12:38 WBC (4.4-10.8) 10^3/uL 26.45 H* RBC (4.36-5.78) 10^6/uL 3.82 L Hgb (13.5-17.5) g/dL 12.0 L Hct (40.0-50.0) % 36.4 L MCV (80-95) fL 95.3 H D MCH (27.0-33.0) pg 31.4 MCHC (32.0-36.0) % 33.0 RDW (11.8-14.1) % 12.1 Plt Count (130-400) 10^3/uL 217 MPV (8.0-11.0) fL 10.9 Immature Gran % 1.0 Neutrophils % 87.2 Band Neutrophils % Lymphocytes % 2.7 Atypical Lymphs % Monocytes % 8.8 Eosinophils % 0.2 Basophils % 0.1 Metamyelocytes % Myelocytes % Nucleated RBC % % 0 Absolute Neutrophils (1.2-6.7) 10^3/uL 23.06 H Absolute Lymphocytes (1.2-3.4) 10^3/uL 0.71 L Absolute Monocytes (0.1-0.8) 10^3/uL 2.33 H Absolute Eosinophils (0.0-0.7) 10^3/uL 0.05 Absolute Basophils (0.0-0.2) 10^3/uL 0.03 RBC Morphology Normal Polychromasia Basophilic Stippling PT (9.3-11.0) sec INR (0.9-1.1) D-Dimer (<500) ng/mlFEU VBG Lactate (0.6-1.4) mmol/L Sodium (136-145) mmol/L Potassium (3.5-5.1) mmol/L Chloride (98-107) mmol/L Carbon Dioxide (21.0-32.0) mmol/L Anion Gap (3-11) mmol/L BUN (7-18) mg/dL Creatinine (0.70-1.30) mg/dL Estimated GFR/1.73 m2 (mL/min/1.73m2) Glucose (74-106) mg/dL Calcium (8.5-10.1) mg/dL Phosphorus (2.6-4.7) mg/dL Magnesium (1.8-2.4) mg/dL Ferritin (26-388) ng/mL Total Bilirubin (0.2-1.0) mg/dL Conjugated Bilirubin (0.0-0.2) mg/dL AST (15-37) U/L ALT (16-63) U/L Alkaline Phosphatase (46-116) U/L Lactate Dehydrogenase (85-227) U/L Troponin I (<0.06) ng/mL C-Reactive Protein (0.0-0.3) mg/dL Total Protein (6.4-8.2) g/dL Albumin (3.4-5.0) g/dL Whole Bld Vitamin B1 (70-180) nmol/L Vitamin B3 (Niacin) Vitamin B12 (193-986) pg/mL 25-OH Vitamin D Total (30-100) ng/mL Folate (8.6-20.0) ng/mL Procalcitonin ng/mL < 0.1 Urine Color (Yellow) Urine Clarity (Clear) Urine pH (5-8) Ur Specific [place] (1.005-1.025) Urine Protein (Negative) mg/dL Urine Ketones (Negative) mg/dL Urine Blood (Negative) Urine Nitrite (Negative) Urine Bilirubin (Negative) Urine Urobilinogen (Up TO 0.2) EU/dL Ur Leukocyte Esterase (Negative) Urine RBC (0-2) HPF Urine WBC (0-5) HPF Ur Epithelial Cells (Negative) HPF Urine Crystals (Negative) HPF Urine Bacteria (Negative) HPF Urine Casts (Negative) LPF Urine Mucus (Negative) Urine Other (Negative) Ur Culture Indicated? Urine Glucose (Negative) mg/dL Vancomycin Trough (10.0-20.0) ug/mL 22.4 H* COVID-19 Source SARS-CoV-2 (PCR) (Negative) Range/Units 01/15/21 01/15/21 01/15/21 06:40 06:40 06:40 WBC (4.4-10.8) 10^3/uL RBC (4.36-5.78) 10^6/uL Hgb (13.5-17.5) g/dL Hct (40.0-50.0) % MCV (80-95) fL MCH (27.0-33.0) pg MCHC (32.0-36.0) % RDW (11.8-14.1) % Plt Count (130-400) 10^3/uL MPV (8.0-11.0) fL Immature Gran % Neutrophils % Band Neutrophils % Lymphocytes % Atypical Lymphs % Monocytes % Eosinophils % Basophils % Metamyelocytes % Myelocytes % Nucleated RBC % % Absolute Neutrophils (1.2-6.7) 10^3/uL Absolute Lymphocytes (1.2-3.4) 10^3/uL Absolute Monocytes (0.1-0.8) 10^3/uL Absolute Eosinophils (0.0-0.7) 10^3/uL Absolute Basophils (0.0-0.2) 10^3/uL RBC Morphology Polychromasia Basophilic Stippling PT (9.3-11.0) sec INR (0.9-1.1) D-Dimer (<500) ng/mlFEU 649 H VBG Lactate (0.6-1.4) mmol/L Sodium (136-145) mmol/L 139 Potassium (3.5-5.1) mmol/L 5.1 Chloride (98-107) mmol/L 107 Carbon Dioxide (21.0-32.0) mmol/L 25.4 Anion Gap (3-11) mmol/L 6.6 BUN (7-18) mg/dL 58 H Creatinine (0.70-1.30) mg/dL 1.0 Estimated GFR/1.73 m2 (mL/min/1.73m2) >= 60.00 Glucose (74-106) mg/dL 107 H Calcium (8.5-10.1) mg/dL 7.9 L Phosphorus (2.6-4.7) mg/dL Magnesium (1.8-2.4) mg/dL Ferritin (26-388) ng/mL 881 H Total Bilirubin (0.2-1.0) mg/dL 0.8 Conjugated Bilirubin (0.0-0.2) mg/dL AST (15-37) U/L 24 ALT (16-63) U/L 47 Alkaline Phosphatase (46-116) U/L 55 Lactate Dehydrogenase (85-227) U/L Troponin I (<0.06) ng/mL C-Reactive Protein (0.0-0.3) mg/dL 0.51 H Total Protein (6.4-8.2) g/dL 5.5 L Albumin (3.4-5.0) g/dL 2.4 L Whole Bld Vitamin B1 (70-180) nmol/L Vitamin B3 (Niacin) Vitamin B12 (193-986) pg/mL 25-OH Vitamin D Total (30-100) ng/mL Folate (8.6-20.0) ng/mL Procalcitonin ng/mL Urine Color (Yellow) Urine Clarity (Clear) Urine pH (5-8) Ur Specific [place] (1.005-1.025) Urine Protein (Negative) mg/dL Urine Ketones (Negative) mg/dL Urine Blood (Negative) Urine Nitrite (Negative) Urine Bilirubin (Negative) Urine Urobilinogen (Up TO 0.2) EU/dL Ur Leukocyte Esterase (Negative) Urine RBC (0-2) HPF Urine WBC (0-5) HPF Ur Epithelial Cells (Negative) HPF Urine Crystals (Negative) HPF Urine Bacteria (Negative) HPF Urine Casts (Negative) LPF Urine Mucus (Negative) Urine Other (Negative) Ur Culture Indicated? Urine Glucose (Negative) mg/dL Vancomycin Trough (10.0-20.0) ug/mL COVID-19 Source SARS-CoV-2 (PCR) (Negative) Range/Units 01/15/21 01/15/21 01/16/21 06:40 10:15 06:40 WBC (4.4-10.8) 10^3/uL 35.54 H* D RBC (4.36-5.78) 10^6/uL 4.01 L Hgb (13.5-17.5) g/dL 12.7 L Hct (40.0-50.0) % 38.0 L MCV (80-95) fL 94.8 MCH (27.0-33.0) pg 31.7 MCHC (32.0-36.0) % 33.4 RDW (11.8-14.1) % 11.9 Plt Count (130-400) 10^3/uL 244 MPV (8.0-11.0) fL 10.8 Immature Gran % 0.0 Neutrophils % 88.0 Band Neutrophils % Lymphocytes % 5.0 Atypical Lymphs % 2 Monocytes % 5.0 Eosinophils % 0.0 Basophils % 0.0 Metamyelocytes % Myelocytes % Nucleated RBC % % 0 Absolute Neutrophils (1.2-6.7) 10^3/uL 31.28 H Absolute Lymphocytes (1.2-3.4) 10^3/uL 2.49 Absolute Monocytes (0.1-0.8) 10^3/uL 1.78 H Absolute Eosinophils (0.0-0.7) 10^3/uL 0.00 Absolute Basophils (0.0-0.2) 10^3/uL 0.00 RBC Morphology Normal Polychromasia Basophilic Stippling PT (9.3-11.0) sec INR (0.9-1.1) D-Dimer (<500) ng/mlFEU VBG Lactate (0.6-1.4) mmol/L Sodium (136-145) mmol/L 139 Potassium (3.5-5.1) mmol/L 5.2 H Chloride (98-107) mmol/L 107 Carbon Dioxide (21.0-32.0) mmol/L 25.4 Anion Gap (3-11) mmol/L 6.6 BUN (7-18) mg/dL 57 H Creatinine (0.70-1.30) mg/dL 1.0 Estimated GFR/1.73 m2 (mL/min/1.73m2) >= 60.00 Glucose (74-106) mg/dL 115 H Calcium (8.5-10.1) mg/dL 7.2 L Phosphorus (2.6-4.7) mg/dL 4.4 Magnesium (1.8-2.4) mg/dL Ferritin (26-388) ng/mL Total Bilirubin (0.2-1.0) mg/dL 0.8 Conjugated Bilirubin (0.0-0.2) mg/dL AST (15-37) U/L 20 ALT (16-63) U/L 39 Alkaline Phosphatase (46-116) U/L 52 Lactate Dehydrogenase (85-227) U/L Troponin I (<0.06) ng/mL C-Reactive Protein (0.0-0.3) mg/dL 1.64 H Total Protein (6.4-8.2) g/dL 5.5 L Albumin (3.4-5.0) g/dL 2.3 L Whole Bld Vitamin B1 (70-180) nmol/L Vitamin B3 (Niacin) Vitamin B12 (193-986) pg/mL 25-OH Vitamin D Total (30-100) ng/mL Folate (8.6-20.0) ng/mL Procalcitonin ng/mL Urine Color (Yellow) Brown Urine Clarity (Clear) Cloudy Urine pH (5-8) Ur Specific [place] (1.005-1.025) 1.028 H Urine Protein (Negative) mg/dL Color Interference Urine Ketones (Negative) mg/dL Color Interference Urine Blood (Negative) Color Interference Urine Nitrite (Negative) Color Interference Urine Bilirubin (Negative) Color Interference Urine Urobilinogen (Up TO 0.2) EU/dL Color Interference Ur Leukocyte Esterase (Negative) Color Interference Urine RBC (0-2) HPF >50 H Urine WBC (0-5) HPF >50 H Ur Epithelial Cells (Negative) HPF Few Urine Crystals (Negative) HPF Negative Urine Bacteria (Negative) HPF Few Urine Casts (Negative) LPF 5-10 RBC Urine Mucus (Negative) Trace Urine Other (Negative) Ur Culture Indicated? C&S Done As Ordered Urine Glucose (Negative) mg/dL Color Interference Vancomycin Trough (10.0-20.0) ug/mL COVID-19 Source SARS-CoV-2 (PCR) (Negative) Range/Units 01/16/21 01/16/21 01/17/21 06:40 06:40 06:00 WBC (4.4-10.8) 10^3/uL 23.64 H D RBC (4.36-5.78) 10^6/uL 3.93 L Hgb (13.5-17.5) g/dL 12.3 L Hct (40.0-50.0) % 36.9 L MCV (80-95) fL 93.9 MCH (27.0-33.0) pg 31.3 MCHC (32.0-36.0) % 33.3 RDW (11.8-14.1) % 12.0 Plt Count (130-400) 10^3/uL 249 MPV (8.0-11.0) fL 10.9 Immature Gran % 0.8 Neutrophils % 91.6 Band Neutrophils % Lymphocytes % 2.6 Atypical Lymphs % Monocytes % 4.9 Eosinophils % 0.0 Basophils % 0.1 Metamyelocytes % Myelocytes % Nucleated RBC % % 0 Absolute Neutrophils (1.2-6.7) 10^3/uL 21.65 H Absolute Lymphocytes (1.2-3.4) 10^3/uL 0.61 L Absolute Monocytes (0.1-0.8) 10^3/uL 1.16 H Absolute Eosinophils (0.0-0.7) 10^3/uL 0.00 Absolute Basophils (0.0-0.2) 10^3/uL 0.02 RBC Morphology Normal Polychromasia Basophilic Stippling PT (9.3-11.0) sec INR (0.9-1.1) D-Dimer (<500) ng/mlFEU 513 H VBG Lactate (0.6-1.4) mmol/L Sodium (136-145) mmol/L 139 Potassium (3.5-5.1) mmol/L 4.2 Chloride (98-107) mmol/L 107 Carbon Dioxide (21.0-32.0) mmol/L 25.9 Anion Gap (3-11) mmol/L 6.1 BUN (7-18) mg/dL 66 H Creatinine (0.70-1.30) mg/dL 1.2 Estimated GFR/1.73 m2 (mL/min/1.73m2) 59.68 Glucose (74-106) mg/dL 108 H Calcium (8.5-10.1) mg/dL 7.8 L Phosphorus (2.6-4.7) mg/dL Magnesium (1.8-2.4) mg/dL Ferritin (26-388) ng/mL Total Bilirubin (0.2-1.0) mg/dL 0.9 Conjugated Bilirubin (0.0-0.2) mg/dL AST (15-37) U/L 13 L ALT (16-63) U/L 39 Alkaline Phosphatase (46-116) U/L 50 Lactate Dehydrogenase (85-227) U/L Troponin I (<0.06) ng/mL C-Reactive Protein (0.0-0.3) mg/dL 0.72 H Total Protein (6.4-8.2) g/dL 5.3 L Albumin (3.4-5.0) g/dL 2.4 L Whole Bld Vitamin B1 (70-180) nmol/L Vitamin B3 (Niacin) Vitamin B12 (193-986) pg/mL 1481 H 25-OH Vitamin D Total (30-100) ng/mL Folate (8.6-20.0) ng/mL 17.5 Procalcitonin ng/mL Urine Color (Yellow) Urine Clarity (Clear) Urine pH (5-8) Ur Specific [place] (1.005-1.025) Urine Protein (Negative) mg/dL Urine Ketones (Negative) mg/dL Urine Blood (Negative) Urine Nitrite (Negative) Urine Bilirubin (Negative) Urine Urobilinogen (Up TO 0.2) EU/dL Ur Leukocyte Esterase (Negative) Urine RBC (0-2) HPF Urine WBC (0-5) HPF Ur Epithelial Cells (Negative) HPF Urine Crystals (Negative) HPF Urine Bacteria (Negative) HPF Urine Casts (Negative) LPF Urine Mucus (Negative) Urine Other (Negative) Ur Culture Indicated? Urine Glucose (Negative) mg/dL Vancomycin Trough (10.0-20.0) ug/mL COVID-19 Source SARS-CoV-2 (PCR) (Negative) Range/Units 01/17/21 01/17/21 01/17/21 06:00 06:00 17:15 WBC (4.4-10.8) 10^3/uL 26.14 H* RBC (4.36-5.78) 10^6/uL 3.99 L Hgb (13.5-17.5) g/dL 12.3 L Hct (40.0-50.0) % 37.3 L MCV (80-95) fL 93.5 MCH (27.0-33.0) pg 30.8 MCHC (32.0-36.0) % 33.0 RDW (11.8-14.1) % 12.0 Plt Count (130-400) 10^3/uL 240 MPV (8.0-11.0) fL 11.0 Immature Gran % 0.0 Neutrophils % 93.0 Band Neutrophils % Lymphocytes % 1.0 Atypical Lymphs % Monocytes % 5.0 Eosinophils % 1.0 Basophils % 0.0 Metamyelocytes % Myelocytes % Nucleated RBC % % 0 Absolute Neutrophils (1.2-6.7) 10^3/uL 24.31 H Absolute Lymphocytes (1.2-3.4) 10^3/uL 0.26 L Absolute Monocytes (0.1-0.8) 10^3/uL 1.31 H Absolute Eosinophils (0.0-0.7) 10^3/uL 0.26 Absolute Basophils (0.0-0.2) 10^3/uL 0.00 RBC Morphology Normal Polychromasia Basophilic Stippling PT (9.3-11.0) sec INR (0.9-1.1) D-Dimer (<500) ng/mlFEU 596 H VBG Lactate (0.6-1.4) mmol/L Sodium (136-145) mmol/L Potassium (3.5-5.1) mmol/L Chloride (98-107) mmol/L Carbon Dioxide (21.0-32.0) mmol/L Anion Gap (3-11) mmol/L BUN (7-18) mg/dL Creatinine (0.70-1.30) mg/dL Estimated GFR/1.73 m2 (mL/min/1.73m2) Glucose (74-106) mg/dL Calcium (8.5-10.1) mg/dL Phosphorus (2.6-4.7) mg/dL Magnesium (1.8-2.4) mg/dL Ferritin (26-388) ng/mL Total Bilirubin (0.2-1.0) mg/dL Conjugated Bilirubin (0.0-0.2) mg/dL AST (15-37) U/L ALT (16-63) U/L Alkaline Phosphatase (46-116) U/L Lactate Dehydrogenase (85-227) U/L Troponin I (<0.06) ng/mL C-Reactive Protein (0.0-0.3) mg/dL Total Protein (6.4-8.2) g/dL Albumin (3.4-5.0) g/dL Whole Bld Vitamin B1 (70-180) nmol/L 158 Vitamin B3 (Niacin) Vitamin B12 (193-986) pg/mL 25-OH Vitamin D Total (30-100) ng/mL Folate (8.6-20.0) ng/mL Procalcitonin ng/mL Urine Color (Yellow) Urine Clarity (Clear) Urine pH (5-8) Ur Specific [place] (1.005-1.025) Urine Protein (Negative) mg/dL Urine Ketones (Negative) mg/dL Urine Blood (Negative) Urine Nitrite (Negative) Urine Bilirubin (Negative) Urine Urobilinogen (Up TO 0.2) EU/dL Ur Leukocyte Esterase (Negative) Urine RBC (0-2) HPF Urine WBC (0-5) HPF Ur Epithelial Cells (Negative) HPF Urine Crystals (Negative) HPF Urine Bacteria (Negative) HPF Urine Casts (Negative) LPF Urine Mucus (Negative) Urine Other (Negative) Ur Culture Indicated? Urine Glucose (Negative) mg/dL Vancomycin Trough (10.0-20.0) ug/mL COVID-19 Source SARS-CoV-2 (PCR) (Negative) Range/Units 01/17/21 01/18/21 01/18/21 17:15 11:40 11:40 WBC (4.4-10.8) 10^3/uL RBC (4.36-5.78) 10^6/uL Hgb (13.5-17.5) g/dL Hct (40.0-50.0) % MCV (80-95) fL MCH (27.0-33.0) pg MCHC (32.0-36.0) % RDW (11.8-14.1) % Plt Count (130-400) 10^3/uL MPV (8.0-11.0) fL Immature Gran % Neutrophils % Band Neutrophils % Lymphocytes % Atypical Lymphs % Monocytes % Eosinophils % Basophils % Metamyelocytes % Myelocytes % Nucleated RBC % % Absolute Neutrophils (1.2-6.7) 10^3/uL Absolute Lymphocytes (1.2-3.4) 10^3/uL Absolute Monocytes (0.1-0.8) 10^3/uL Absolute Eosinophils (0.0-0.7) 10^3/uL Absolute Basophils (0.0-0.2) 10^3/uL RBC Morphology Polychromasia Basophilic Stippling PT (9.3-11.0) sec INR (0.9-1.1) D-Dimer (<500) ng/mlFEU 753 H VBG Lactate (0.6-1.4) mmol/L Sodium (136-145) mmol/L Potassium (3.5-5.1) mmol/L Chloride (98-107) mmol/L Carbon Dioxide (21.0-32.0) mmol/L Anion Gap (3-11) mmol/L BUN (7-18) mg/dL Creatinine (0.70-1.30) mg/dL Estimated GFR/1.73 m2 (mL/min/1.73m2) Glucose (74-106) mg/dL Calcium (8.5-10.1) mg/dL Phosphorus (2.6-4.7) mg/dL Magnesium (1.8-2.4) mg/dL Ferritin (26-388) ng/mL Total Bilirubin (0.2-1.0) mg/dL Conjugated Bilirubin (0.0-0.2) mg/dL AST (15-37) U/L ALT (16-63) U/L Alkaline Phosphatase (46-116) U/L Lactate Dehydrogenase (85-227) U/L Troponin I (<0.06) ng/mL < 0.05 C-Reactive Protein (0.0-0.3) mg/dL Total Protein (6.4-8.2) g/dL Albumin (3.4-5.0) g/dL Whole Bld Vitamin B1 (70-180) nmol/L Vitamin B3 (Niacin) Cancelled Vitamin B12 (193-986) pg/mL 25-OH Vitamin D Total (30-100) ng/mL Folate (8.6-20.0) ng/mL Procalcitonin ng/mL Urine Color (Yellow) Urine Clarity (Clear) Urine pH (5-8) Ur Specific [place] (1.005-1.025) Urine Protein (Negative) mg/dL Urine Ketones (Negative) mg/dL Urine Blood (Negative) Urine Nitrite (Negative) Urine Bilirubin (Negative) Urine Urobilinogen (Up TO 0.2) EU/dL Ur Leukocyte Esterase (Negative) Urine RBC (0-2) HPF Urine WBC (0-5) HPF Ur Epithelial Cells (Negative) HPF Urine Crystals (Negative) HPF Urine Bacteria (Negative) HPF Urine Casts (Negative) LPF Urine Mucus (Negative) Urine Other (Negative) Ur Culture Indicated? Urine Glucose (Negative) mg/dL Vancomycin Trough (10.0-20.0) ug/mL COVID-19 Source SARS-CoV-2 (PCR) (Negative) Range/Units 01/19/21 01/19/21 01/19/21 05:50 05:50 05:50 WBC (4.4-10.8) 10^3/uL 24.10 H RBC (4.36-5.78) 10^6/uL 4.15 L Hgb (13.5-17.5) g/dL 12.9 L Hct (40.0-50.0) % 39.7 L MCV (80-95) fL 95.7 H MCH (27.0-33.0) pg 31.1 MCHC (32.0-36.0) % 32.5 RDW (11.8-14.1) % 12.2 Plt Count (130-400) 10^3/uL 218 MPV (8.0-11.0) fL 11.0 Immature Gran % 0.0 Neutrophils % 91.0 Band Neutrophils % 0 Lymphocytes % 2.0 Atypical Lymphs % 3 Monocytes % 4.0 Eosinophils % 0.0 Basophils % 0.0 Metamyelocytes % Myelocytes % Nucleated RBC % % 0 Absolute Neutrophils (1.2-6.7) 10^3/uL 21.93 H Absolute Lymphocytes (1.2-3.4) 10^3/uL 1.21 Absolute Monocytes (0.1-0.8) 10^3/uL 0.96 H Absolute Eosinophils (0.0-0.7) 10^3/uL 0.00 Absolute Basophils (0.0-0.2) 10^3/uL 0.00 RBC Morphology Normal Polychromasia Basophilic Stippling PT (9.3-11.0) sec INR (0.9-1.1) D-Dimer (<500) ng/mlFEU VBG Lactate (0.6-1.4) mmol/L Sodium (136-145) mmol/L 142 Potassium (3.5-5.1) mmol/L 4.4 Chloride (98-107) mmol/L 107 Carbon Dioxide (21.0-32.0) mmol/L 26.8 Anion Gap (3-11) mmol/L 8.2 BUN (7-18) mg/dL 62 H Creatinine (0.70-1.30) mg/dL 1.3 Estimated GFR/1.73 m2 (mL/min/1.73m2) 54.42 Glucose (74-106) mg/dL 125 H Calcium (8.5-10.1) mg/dL 7.9 L Phosphorus (2.6-4.7) mg/dL Magnesium (1.8-2.4) mg/dL Ferritin (26-388) ng/mL 1337 H Total Bilirubin (0.2-1.0) mg/dL 0.8 Conjugated Bilirubin (0.0-0.2) mg/dL AST (15-37) U/L 12 L ALT (16-63) U/L 40 Alkaline Phosphatase (46-116) U/L 63 Lactate Dehydrogenase (85-227) U/L Troponin I (<0.06) ng/mL C-Reactive Protein (0.0-0.3) mg/dL 0.35 H Total Protein (6.4-8.2) g/dL 5.4 L Albumin (3.4-5.0) g/dL 2.6 L Whole Bld Vitamin B1 (70-180) nmol/L Vitamin B3 (Niacin) Vitamin B12 (193-986) pg/mL 25-OH Vitamin D Total (30-100) ng/mL Folate (8.6-20.0) ng/mL Procalcitonin ng/mL < 0.1 Urine Color (Yellow) Urine Clarity (Clear) Urine pH (5-8) Ur Specific [place] (1.005-1.025) Urine Protein (Negative) mg/dL Urine Ketones (Negative) mg/dL Urine Blood (Negative) Urine Nitrite (Negative) Urine Bilirubin (Negative) Urine Urobilinogen (Up TO 0.2) EU/dL Ur Leukocyte Esterase (Negative) Urine RBC (0-2) HPF Urine WBC (0-5) HPF Ur Epithelial Cells (Negative) HPF Urine Crystals (Negative) HPF Urine Bacteria (Negative) HPF Urine Casts (Negative) LPF Urine Mucus (Negative) Urine Other (Negative) Ur Culture Indicated? Urine Glucose (Negative) mg/dL Vancomycin Trough (10.0-20.0) ug/mL COVID-19 Source SARS-CoV-2 (PCR) (Negative) Range/Units 01/19/21 01/19/21 01/20/21 08:25 09:05 05:35 WBC (4.4-10.8) 10^3/uL RBC (4.36-5.78) 10^6/uL Hgb (13.5-17.5) g/dL Hct (40.0-50.0) % MCV (80-95) fL MCH (27.0-33.0) pg MCHC (32.0-36.0) % RDW (11.8-14.1) % Plt Count (130-400) 10^3/uL MPV (8.0-11.0) fL Immature Gran % Neutrophils % Band Neutrophils % Lymphocytes % Atypical Lymphs % Monocytes % Eosinophils % Basophils % Metamyelocytes % Myelocytes % Nucleated RBC % % Absolute Neutrophils (1.2-6.7) 10^3/uL Absolute Lymphocytes (1.2-3.4) 10^3/uL Absolute Monocytes (0.1-0.8) 10^3/uL Absolute Eosinophils (0.0-0.7) 10^3/uL Absolute Basophils (0.0-0.2) 10^3/uL RBC Morphology Polychromasia Basophilic Stippling PT (9.3-11.0) sec INR (0.9-1.1) D-Dimer (<500) ng/mlFEU Cancelled 449 VBG Lactate (0.6-1.4) mmol/L Sodium (136-145) mmol/L Cancelled Potassium (3.5-5.1) mmol/L Cancelled Chloride (98-107) mmol/L Cancelled Carbon Dioxide (21.0-32.0) mmol/L Cancelled Anion Gap (3-11) mmol/L Cancelled BUN (7-18) mg/dL Cancelled Creatinine (0.70-1.30) mg/dL Cancelled Estimated GFR/1.73 m2 (mL/min/1.73m2) Cancelled Glucose (74-106) mg/dL Cancelled Calcium (8.5-10.1) mg/dL Cancelled Phosphorus (2.6-4.7) mg/dL Magnesium (1.8-2.4) mg/dL Ferritin (26-388) ng/mL Total Bilirubin (0.2-1.0) mg/dL Cancelled Conjugated Bilirubin (0.0-0.2) mg/dL AST (15-37) U/L Cancelled ALT (16-63) U/L Cancelled Alkaline Phosphatase (46-116) U/L Cancelled Lactate Dehydrogenase (85-227) U/L Troponin I (<0.06) ng/mL C-Reactive Protein (0.0-0.3) mg/dL Total Protein (6.4-8.2) g/dL Cancelled Albumin (3.4-5.0) g/dL Cancelled Whole Bld Vitamin B1 (70-180) nmol/L Vitamin B3 (Niacin) Vitamin B12 (193-986) pg/mL 25-OH Vitamin D Total (30-100) ng/mL Folate (8.6-20.0) ng/mL Procalcitonin ng/mL Urine Color (Yellow) Urine Clarity (Clear) Urine pH (5-8) Ur Specific [place] (1.005-1.025) Urine Protein (Negative) mg/dL Urine Ketones (Negative) mg/dL Urine Blood (Negative) Urine Nitrite (Negative) Urine Bilirubin (Negative) Urine Urobilinogen (Up TO 0.2) EU/dL Ur Leukocyte Esterase (Negative) Urine RBC (0-2) HPF Urine WBC (0-5) HPF Ur Epithelial Cells (Negative) HPF Urine Crystals (Negative) HPF Urine Bacteria (Negative) HPF Urine Casts (Negative) LPF Urine Mucus (Negative) Urine Other (Negative) Ur Culture Indicated? Urine Glucose (Negative) mg/dL Vancomycin Trough (10.0-20.0) ug/mL COVID-19 Source SARS-CoV-2 (PCR) (Negative) Range/Units 01/21/21 01/21/21 01/21/21 09:15 09:15 09:15 WBC (4.4-10.8) 10^3/uL RBC (4.36-5.78) 10^6/uL Hgb (13.5-17.5) g/dL Hct (40.0-50.0) % MCV (80-95) fL MCH (27.0-33.0) pg MCHC (32.0-36.0) % RDW (11.8-14.1) % Plt Count (130-400) 10^3/uL MPV (8.0-11.0) fL Immature Gran % Neutrophils % Band Neutrophils % Lymphocytes % Atypical Lymphs % Monocytes % Eosinophils % Basophils % Metamyelocytes % Myelocytes % Nucleated RBC % % Absolute Neutrophils (1.2-6.7) 10^3/uL Absolute Lymphocytes (1.2-3.4) 10^3/uL Absolute Monocytes (0.1-0.8) 10^3/uL Absolute Eosinophils (0.0-0.7) 10^3/uL Absolute Basophils (0.0-0.2) 10^3/uL RBC Morphology Polychromasia Basophilic Stippling PT (9.3-11.0) sec INR (0.9-1.1) D-Dimer (<500) ng/mlFEU VBG Lactate (0.6-1.4) mmol/L Sodium (136-145) mmol/L 141 Potassium (3.5-5.1) mmol/L 4.2 Chloride (98-107) mmol/L 107 Carbon Dioxide (21.0-32.0) mmol/L 26.3 Anion Gap (3-11) mmol/L 7.7 BUN (7-18) mg/dL 52 H Creatinine (0.70-1.30) mg/dL 1.0 Estimated GFR/1.73 m2 (mL/min/1.73m2) >= 60.00 Glucose (74-106) mg/dL 109 H Calcium (8.5-10.1) mg/dL 7.7 L Phosphorus (2.6-4.7) mg/dL Magnesium (1.8-2.4) mg/dL 2.4 Ferritin (26-388) ng/mL 874 H Total Bilirubin (0.2-1.0) mg/dL 0.8 Conjugated Bilirubin (0.0-0.2) mg/dL 0.2 AST (15-37) U/L 16 ALT (16-63) U/L 48 Alkaline Phosphatase (46-116) U/L 65 Lactate Dehydrogenase (85-227) U/L Troponin I (<0.06) ng/mL C-Reactive Protein (0.0-0.3) mg/dL 0.51 H Total Protein (6.4-8.2) g/dL 5.3 L Albumin (3.4-5.0) g/dL 2.3 L Whole Bld Vitamin B1 (70-180) nmol/L Vitamin B3 (Niacin) Vitamin B12 (193-986) pg/mL 25-OH Vitamin D Total (30-100) ng/mL 68.7 Folate (8.6-20.0) ng/mL Procalcitonin ng/mL < 0.1 Urine Color (Yellow) Urine Clarity (Clear) Urine pH (5-8) Ur Specific [place] (1.005-1.025) Urine Protein (Negative) mg/dL Urine Ketones (Negative) mg/dL Urine Blood (Negative) Urine Nitrite (Negative) Urine Bilirubin (Negative) Urine Urobilinogen (Up TO 0.2) EU/dL Ur Leukocyte Esterase (Negative) Urine RBC (0-2) HPF Urine WBC (0-5) HPF Ur Epithelial Cells (Negative) HPF Urine Crystals (Negative) HPF Urine Bacteria (Negative) HPF Urine Casts (Negative) LPF Urine Mucus (Negative) Urine Other (Negative) Ur Culture Indicated? Urine Glucose (Negative) mg/dL Vancomycin Trough (10.0-20.0) ug/mL COVID-19 Source SARS-CoV-2 (PCR) (Negative) Range/Units 01/21/21 01/21/21 01/22/21 09:15 09:15 06:25 WBC (4.4-10.8) 10^3/uL 33.08 H* RBC (4.36-5.78) 10^6/uL 4.13 L Hgb (13.5-17.5) g/dL 13.0 L Hct (40.0-50.0) % 38.5 L MCV (80-95) fL 93.2 MCH (27.0-33.0) pg 31.5 MCHC (32.0-36.0) % 33.8 RDW (11.8-14.1) % 12.3 Plt Count (130-400) 10^3/uL 195 MPV (8.0-11.0) fL 11.0 Immature Gran % Neutrophils % Band Neutrophils % Lymphocytes % Atypical Lymphs % Monocytes % Eosinophils % Basophils % Metamyelocytes % Myelocytes % Nucleated RBC % % Absolute Neutrophils (1.2-6.7) 10^3/uL Absolute Lymphocytes (1.2-3.4) 10^3/uL Absolute Monocytes (0.1-0.8) 10^3/uL Absolute Eosinophils (0.0-0.7) 10^3/uL Absolute Basophils (0.0-0.2) 10^3/uL RBC Morphology Polychromasia Basophilic Stippling PT (9.3-11.0) sec 11.5 H INR (0.9-1.1) 1.1 D-Dimer (<500) ng/mlFEU 264 VBG Lactate (0.6-1.4) mmol/L Sodium (136-145) mmol/L 139 Potassium (3.5-5.1) mmol/L 4.4 Chloride (98-107) mmol/L 106 Carbon Dioxide (21.0-32.0) mmol/L 27.7 Anion Gap (3-11) mmol/L 5.3 BUN (7-18) mg/dL 55 H Creatinine (0.70-1.30) mg/dL 1.0 Estimated GFR/1.73 m2 (mL/min/1.73m2) >= 60.00 Glucose (74-106) mg/dL 122 H Calcium (8.5-10.1) mg/dL 7.9 L Phosphorus (2.6-4.7) mg/dL 3.5 Magnesium (1.8-2.4) mg/dL 2.3 Ferritin (26-388) ng/mL 871 H Total Bilirubin (0.2-1.0) mg/dL 0.5 Conjugated Bilirubin (0.0-0.2) mg/dL 0.2 AST (15-37) U/L 27 ALT (16-63) U/L 57 Alkaline Phosphatase (46-116) U/L 77 Lactate Dehydrogenase (85-227) U/L Troponin I (<0.06) ng/mL C-Reactive Protein (0.0-0.3) mg/dL 0.75 H Total Protein (6.4-8.2) g/dL 5.2 L Albumin (3.4-5.0) g/dL 2.3 L Whole Bld Vitamin B1 (70-180) nmol/L Vitamin B3 (Niacin) Vitamin B12 (193-986) pg/mL 25-OH Vitamin D Total (30-100) ng/mL Folate (8.6-20.0) ng/mL Procalcitonin ng/mL Urine Color (Yellow) Urine Clarity (Clear) Urine pH (5-8) Ur Specific [place] (1.005-1.025) Urine Protein (Negative) mg/dL Urine Ketones (Negative) mg/dL Urine Blood (Negative) Urine Nitrite (Negative) Urine Bilirubin (Negative) Urine Urobilinogen (Up TO 0.2) EU/dL Ur Leukocyte Esterase (Negative) Urine RBC (0-2) HPF Urine WBC (0-5) HPF Ur Epithelial Cells (Negative) HPF Urine Crystals (Negative) HPF Urine Bacteria (Negative) HPF Urine Casts (Negative) LPF Urine Mucus (Negative) Urine Other (Negative) Ur Culture Indicated? Urine Glucose (Negative) mg/dL Vancomycin Trough (10.0-20.0) ug/mL COVID-19 Source SARS-CoV-2 (PCR) (Negative) Range/Units 01/22/21 01/22/21 01/23/21 06:25 06:25 06:25 WBC (4.4-10.8) 10^3/uL 33.41 H* RBC (4.36-5.78) 10^6/uL 3.93 L Hgb (13.5-17.5) g/dL 12.3 L Hct (40.0-50.0) % 36.7 L MCV (80-95) fL 93.4 MCH (27.0-33.0) pg 31.3 MCHC (32.0-36.0) % 33.5 RDW (11.8-14.1) % 12.2 Plt Count (130-400) 10^3/uL 192 MPV (8.0-11.0) fL 11.4 H Immature Gran % 0.0 Neutrophils % 90.0 Band Neutrophils % Lymphocytes % 2.0 Atypical Lymphs % 1 Monocytes % 7.0 Eosinophils % 0.0 Basophils % 0.0 Metamyelocytes % Myelocytes % Nucleated RBC % % 0 Absolute Neutrophils (1.2-6.7) 10^3/uL 30.07 H Absolute Lymphocytes (1.2-3.4) 10^3/uL 1.00 L Absolute Monocytes (0.1-0.8) 10^3/uL 2.34 H Absolute Eosinophils (0.0-0.7) 10^3/uL 0.00 Absolute Basophils (0.0-0.2) 10^3/uL 0.00 RBC Morphology Normal Polychromasia Basophilic Stippling PT (9.3-11.0) sec 11.5 H INR (0.9-1.1) 1.1 D-Dimer (<500) ng/mlFEU 257 VBG Lactate (0.6-1.4) mmol/L Sodium (136-145) mmol/L 140 Potassium (3.5-5.1) mmol/L 4.4 Chloride (98-107) mmol/L 107 Carbon Dioxide (21.0-32.0) mmol/L 25.9 Anion Gap (3-11) mmol/L 7.1 BUN (7-18) mg/dL 58 H Creatinine (0.70-1.30) mg/dL 0.9 Estimated GFR/1.73 m2 (mL/min/1.73m2) >= 60.00 Glucose (74-106) mg/dL 131 H Calcium (8.5-10.1) mg/dL 8.0 L Phosphorus (2.6-4.7) mg/dL Magnesium (1.8-2.4) mg/dL 2.4 Ferritin (26-388) ng/mL 702 H Total Bilirubin (0.2-1.0) mg/dL 0.5 Conjugated Bilirubin (0.0-0.2) mg/dL 0.2 AST (15-37) U/L 22 ALT (16-63) U/L 49 Alkaline Phosphatase (46-116) U/L 70 Lactate Dehydrogenase (85-227) U/L Troponin I (<0.06) ng/mL C-Reactive Protein (0.0-0.3) mg/dL 0.66 H Total Protein (6.4-8.2) g/dL 5.1 L Albumin (3.4-5.0) g/dL 2.2 L Whole Bld Vitamin B1 (70-180) nmol/L Vitamin B3 (Niacin) Vitamin B12 (193-986) pg/mL 25-OH Vitamin D Total (30-100) ng/mL Folate (8.6-20.0) ng/mL Procalcitonin ng/mL Urine Color (Yellow) Urine Clarity (Clear) Urine pH (5-8) Ur Specific [place] (1.005-1.025) Urine Protein (Negative) mg/dL Urine Ketones (Negative) mg/dL Urine Blood (Negative) Urine Nitrite (Negative) Urine Bilirubin (Negative) Urine Urobilinogen (Up TO 0.2) EU/dL Ur Leukocyte Esterase (Negative) Urine RBC (0-2) HPF Urine WBC (0-5) HPF Ur Epithelial Cells (Negative) HPF Urine Crystals (Negative) HPF Urine Bacteria (Negative) HPF Urine Casts (Negative) LPF Urine Mucus (Negative) Urine Other (Negative) Ur Culture Indicated? Urine Glucose (Negative) mg/dL Vancomycin Trough (10.0-20.0) ug/mL COVID-19 Source SARS-CoV-2 (PCR) (Negative) Range/Units 01/23/21 01/23/21 01/23/21 06:25 06:25 06:25 WBC (4.4-10.8) 10^3/uL 33.35 H* RBC (4.36-5.78) 10^6/uL 3.79 L Hgb (13.5-17.5) g/dL 11.8 L Hct (40.0-50.0) % 35.9 L MCV (80-95) fL 94.7 MCH (27.0-33.0) pg 31.1 MCHC (32.0-36.0) % 32.9 RDW (11.8-14.1) % 12.4 Plt Count (130-400) 10^3/uL 193 MPV (8.0-11.0) fL 11.3 H Immature Gran % 1.3 Neutrophils % 89.1 Band Neutrophils % Lymphocytes % 2.6 Atypical Lymphs % Monocytes % 6.8 Eosinophils % 0.0 Basophils % 0.2 Metamyelocytes % Myelocytes % Nucleated RBC % % 0 Absolute Neutrophils (1.2-6.7) 10^3/uL 29.71 H Absolute Lymphocytes (1.2-3.4) 10^3/uL 0.87 L Absolute Monocytes (0.1-0.8) 10^3/uL 2.27 H Absolute Eosinophils (0.0-0.7) 10^3/uL 0.00 Absolute Basophils (0.0-0.2) 10^3/uL 0.07 RBC Morphology Normal Polychromasia Basophilic Stippling PT (9.3-11.0) sec 11.1 H INR (0.9-1.1) 1.1 D-Dimer (<500) ng/mlFEU 192 VBG Lactate (0.6-1.4) mmol/L Sodium (136-145) mmol/L Potassium (3.5-5.1) mmol/L Chloride (98-107) mmol/L Carbon Dioxide (21.0-32.0) mmol/L Anion Gap (3-11) mmol/L BUN (7-18) mg/dL Creatinine (0.70-1.30) mg/dL Estimated GFR/1.73 m2 (mL/min/1.73m2) Glucose (74-106) mg/dL Calcium (8.5-10.1) mg/dL Phosphorus (2.6-4.7) mg/dL Magnesium (1.8-2.4) mg/dL Ferritin (26-388) ng/mL Total Bilirubin (0.2-1.0) mg/dL Conjugated Bilirubin (0.0-0.2) mg/dL AST (15-37) U/L ALT (16-63) U/L Alkaline Phosphatase (46-116) U/L Lactate Dehydrogenase (85-227) U/L Troponin I (<0.06) ng/mL C-Reactive Protein (0.0-0.3) mg/dL Total Protein (6.4-8.2) g/dL Albumin (3.4-5.0) g/dL Whole Bld Vitamin B1 (70-180) nmol/L Vitamin B3 (Niacin) Vitamin B12 (193-986) pg/mL 25-OH Vitamin D Total (30-100) ng/mL Folate (8.6-20.0) ng/mL Procalcitonin ng/mL < 0.1 Urine Color (Yellow) Urine Clarity (Clear) Urine pH (5-8) Ur Specific [place] (1.005-1.025) Urine Protein (Negative) mg/dL Urine Ketones (Negative) mg/dL Urine Blood (Negative) Urine Nitrite (Negative) Urine Bilirubin (Negative) Urine Urobilinogen (Up TO 0.2) EU/dL Ur Leukocyte Esterase (Negative) Urine RBC (0-2) HPF Urine WBC (0-5) HPF Ur Epithelial Cells (Negative) HPF Urine Crystals (Negative) HPF Urine Bacteria (Negative) HPF Urine Casts (Negative) LPF Urine Mucus (Negative) Urine Other (Negative) Ur Culture Indicated? Urine Glucose (Negative) mg/dL Vancomycin Trough (10.0-20.0) ug/mL COVID-19 Source SARS-CoV-2 (PCR) (Negative) Range/Units 01/23/21 01/23/21 01/24/21 08:00 09:00 06:40 WBC (4.4-10.8) 10^3/uL RBC (4.36-5.78) 10^6/uL Hgb (13.5-17.5) g/dL Hct (40.0-50.0) % MCV (80-95) fL MCH (27.0-33.0) pg MCHC (32.0-36.0) % RDW (11.8-14.1) % Plt Count (130-400) 10^3/uL MPV (8.0-11.0) fL Immature Gran % Neutrophils % Band Neutrophils % Lymphocytes % Atypical Lymphs % Monocytes % Eosinophils % Basophils % Metamyelocytes % Myelocytes % Nucleated RBC % % Absolute Neutrophils (1.2-6.7) 10^3/uL Absolute Lymphocytes (1.2-3.4) 10^3/uL Absolute Monocytes (0.1-0.8) 10^3/uL Absolute Eosinophils (0.0-0.7) 10^3/uL Absolute Basophils (0.0-0.2) 10^3/uL RBC Morphology Polychromasia Basophilic Stippling PT (9.3-11.0) sec INR (0.9-1.1) D-Dimer (<500) ng/mlFEU VBG Lactate (0.6-1.4) mmol/L Sodium (136-145) mmol/L 139 Potassium (3.5-5.1) mmol/L 4.2 Chloride (98-107) mmol/L 107 Carbon Dioxide (21.0-32.0) mmol/L 25.2 Anion Gap (3-11) mmol/L 6.8 BUN (7-18) mg/dL 58 H Creatinine (0.70-1.30) mg/dL 1.0 Estimated GFR/1.73 m2 (mL/min/1.73m2) >= 60.00 Glucose (74-106) mg/dL 119 H Calcium (8.5-10.1) mg/dL 7.8 L Phosphorus (2.6-4.7) mg/dL Magnesium (1.8-2.4) mg/dL 2.4 Ferritin (26-388) ng/mL 761 H Total Bilirubin (0.2-1.0) mg/dL 0.5 Conjugated Bilirubin (0.0-0.2) mg/dL 0.2 AST (15-37) U/L 17 ALT (16-63) U/L 62 Alkaline Phosphatase (46-116) U/L 75 Lactate Dehydrogenase (85-227) U/L Troponin I (<0.06) ng/mL C-Reactive Protein (0.0-0.3) mg/dL 0.24 Total Protein (6.4-8.2) g/dL 5.1 L Albumin (3.4-5.0) g/dL 2.2 L Whole Bld Vitamin B1 (70-180) nmol/L Vitamin B3 (Niacin) Vitamin B12 (193-986) pg/mL 25-OH Vitamin D Total (30-100) ng/mL Folate (8.6-20.0) ng/mL Procalcitonin ng/mL Urine Color (Yellow) Yellow Urine Clarity (Clear) Clear Urine pH (5-8) 5.5 Ur Specific [place] (1.005-1.025) >= 1.030 H Urine Protein (Negative) mg/dL Negative Urine Ketones (Negative) mg/dL Negative Urine Blood (Negative) Trace-intact H Urine Nitrite (Negative) Negative Urine Bilirubin (Negative) Negative Urine Urobilinogen (Up TO 0.2) EU/dL 0.2 Ur Leukocyte Esterase (Negative) Negative Urine RBC (0-2) HPF 5-10 H Urine WBC (0-5) HPF 0-2 Ur Epithelial Cells (Negative) HPF Negative Urine Crystals (Negative) HPF Negative Urine Bacteria (Negative) HPF Rare Urine Casts (Negative) LPF Negative Urine Mucus (Negative) Negative Urine Other (Negative) Negative Ur Culture Indicated? C&S Done As Ordered Urine Glucose (Negative) mg/dL Negative Vancomycin Trough (10.0-20.0) ug/mL COVID-19 Source Nasal/Nares SARS-CoV-2 (PCR) (Negative) POSITIVE A* Range/Units 01/24/21 01/24/21 01/25/21 06:40 06:40 06:50 WBC (4.4-10.8) 10^3/uL 43.70 H* D RBC (4.36-5.78) 10^6/uL 3.84 L Hgb (13.5-17.5) g/dL 12.1 L Hct (40.0-50.0) % 36.4 L MCV (80-95) fL 94.8 MCH (27.0-33.0) pg 31.5 MCHC (32.0-36.0) % 33.2 RDW (11.8-14.1) % 12.5 Plt Count (130-400) 10^3/uL 197 MPV (8.0-11.0) fL 10.6 Immature Gran % 0.0 Neutrophils % 90.0 Band Neutrophils % Lymphocytes % 5.0 Atypical Lymphs % Monocytes % 5.0 Eosinophils % 0.0 Basophils % 0.0 Metamyelocytes % Myelocytes % Nucleated RBC % % 0 Absolute Neutrophils (1.2-6.7) 10^3/uL 39.33 H Absolute Lymphocytes (1.2-3.4) 10^3/uL 2.19 Absolute Monocytes (0.1-0.8) 10^3/uL 2.19 H Absolute Eosinophils (0.0-0.7) 10^3/uL 0.00 Absolute Basophils (0.0-0.2) 10^3/uL 0.00 RBC Morphology Normal Polychromasia Basophilic Stippling PT (9.3-11.0) sec 10.7 INR (0.9-1.1) 1.1 D-Dimer (<500) ng/mlFEU 181 VBG Lactate (0.6-1.4) mmol/L Sodium (136-145) mmol/L 141 Potassium (3.5-5.1) mmol/L 4.3 Chloride (98-107) mmol/L 107 Carbon Dioxide (21.0-32.0) mmol/L 26.7 Anion Gap (3-11) mmol/L 7.3 BUN (7-18) mg/dL 59 H Creatinine (0.70-1.30) mg/dL 1.1 Estimated GFR/1.73 m2 (mL/min/1.73m2) >= 60.00 Glucose (74-106) mg/dL 135 H Calcium (8.5-10.1) mg/dL 8.0 L Phosphorus (2.6-4.7) mg/dL 4.2 Magnesium (1.8-2.4) mg/dL 2.5 H Ferritin (26-388) ng/mL 714 H Total Bilirubin (0.2-1.0) mg/dL 0.6 Conjugated Bilirubin (0.0-0.2) mg/dL 0.2 AST (15-37) U/L 16 ALT (16-63) U/L 57 Alkaline Phosphatase (46-116) U/L 71 Lactate Dehydrogenase (85-227) U/L Troponin I (<0.06) ng/mL C-Reactive Protein (0.0-0.3) mg/dL 0.67 H Total Protein (6.4-8.2) g/dL 5.3 L Albumin (3.4-5.0) g/dL 2.3 L Whole Bld Vitamin B1 (70-180) nmol/L Vitamin B3 (Niacin) Vitamin B12 (193-986) pg/mL 25-OH Vitamin D Total (30-100) ng/mL Folate (8.6-20.0) ng/mL Procalcitonin ng/mL Urine Color (Yellow) Urine Clarity (Clear) Urine pH (5-8) Ur Specific [place] (1.005-1.025) Urine Protein (Negative) mg/dL Urine Ketones (Negative) mg/dL Urine Blood (Negative) Urine Nitrite (Negative) Urine Bilirubin (Negative) Urine Urobilinogen (Up TO 0.2) EU/dL Ur Leukocyte Esterase (Negative) Urine RBC (0-2) HPF Urine WBC (0-5) HPF Ur Epithelial Cells (Negative) HPF Urine Crystals (Negative) HPF Urine Bacteria (Negative) HPF Urine Casts (Negative) LPF Urine Mucus (Negative) Urine Other (Negative) Ur Culture Indicated? Urine Glucose (Negative) mg/dL Vancomycin Trough (10.0-20.0) ug/mL COVID-19 Source SARS-CoV-2 (PCR) (Negative) Range/Units 01/25/21 01/25/21 01/25/21 06:50 06:50 06:50 WBC (4.4-10.8) 10^3/uL 39.63 H* RBC (4.36-5.78) 10^6/uL 3.82 L Hgb (13.5-17.5) g/dL 11.9 L Hct (40.0-50.0) % 36.1 L MCV (80-95) fL 94.5 MCH (27.0-33.0) pg 31.2 MCHC (32.0-36.0) % 33.0 RDW (11.8-14.1) % 12.6 Plt Count (130-400) 10^3/uL 168 MPV (8.0-11.0) fL 11.0 Immature Gran % 0.0 Neutrophils % 87.0 Band Neutrophils % 1 Lymphocytes % 4.0 Atypical Lymphs % Monocytes % 8.0 Eosinophils % 0.0 Basophils % 0.0 Metamyelocytes % Myelocytes % Nucleated RBC % % 0 Absolute Neutrophils (1.2-6.7) 10^3/uL 34.87 H Absolute Lymphocytes (1.2-3.4) 10^3/uL 1.59 Absolute Monocytes (0.1-0.8) 10^3/uL 3.17 H Absolute Eosinophils (0.0-0.7) 10^3/uL 0.00 Absolute Basophils (0.0-0.2) 10^3/uL 0.00 RBC Morphology Normal Polychromasia Basophilic Stippling PT (9.3-11.0) sec INR (0.9-1.1) D-Dimer (<500) ng/mlFEU VBG Lactate (0.6-1.4) mmol/L Sodium (136-145) mmol/L Potassium (3.5-5.1) mmol/L Chloride (98-107) mmol/L Carbon Dioxide (21.0-32.0) mmol/L Anion Gap (3-11) mmol/L BUN (7-18) mg/dL Creatinine (0.70-1.30) mg/dL Estimated GFR/1.73 m2 (mL/min/1.73m2) Glucose (74-106) mg/dL Calcium (8.5-10.1) mg/dL Phosphorus (2.6-4.7) mg/dL Magnesium (1.8-2.4) mg/dL Ferritin (26-388) ng/mL Total Bilirubin (0.2-1.0) mg/dL Conjugated Bilirubin (0.0-0.2) mg/dL AST (15-37) U/L ALT (16-63) U/L Alkaline Phosphatase (46-116) U/L Lactate Dehydrogenase (85-227) U/L Troponin I (<0.06) ng/mL C-Reactive Protein (0.0-0.3) mg/dL Total Protein (6.4-8.2) g/dL Albumin (3.4-5.0) g/dL Whole Bld Vitamin B1 (70-180) nmol/L Vitamin B3 (Niacin) Vitamin B12 (193-986) pg/mL 25-OH Vitamin D Total (30-100) ng/mL 62.2 Folate (8.6-20.0) ng/mL Procalcitonin ng/mL < 0.1 Urine Color (Yellow) Urine Clarity (Clear) Urine pH (5-8) Ur Specific [place] (1.005-1.025) Urine Protein (Negative) mg/dL Urine Ketones (Negative) mg/dL Urine Blood (Negative) Urine Nitrite (Negative) Urine Bilirubin (Negative) Urine Urobilinogen (Up TO 0.2) EU/dL Ur Leukocyte Esterase (Negative) Urine RBC (0-2) HPF Urine WBC (0-5) HPF Ur Epithelial Cells (Negative) HPF Urine Crystals (Negative) HPF Urine Bacteria (Negative) HPF Urine Casts (Negative) LPF Urine Mucus (Negative) Urine Other (Negative) Ur Culture Indicated? Urine Glucose (Negative) mg/dL Vancomycin Trough (10.0-20.0) ug/mL COVID-19 Source SARS-CoV-2 (PCR) (Negative) Range/Units 01/25/21 01/26/21 01/26/21 06:50 06:20 06:20 WBC (4.4-10.8) 10^3/uL 30.71 H* RBC (4.36-5.78) 10^6/uL 3.65 L Hgb (13.5-17.5) g/dL 11.5 L Hct (40.0-50.0) % 34.2 L MCV (80-95) fL 93.7 MCH (27.0-33.0) pg 31.5 MCHC (32.0-36.0) % 33.6 RDW (11.8-14.1) % 12.6 Plt Count (130-400) 10^3/uL 153 MPV (8.0-11.0) fL 10.9 Immature Gran % 0.0 Neutrophils % 88.0 Band Neutrophils % Lymphocytes % 5.0 Atypical Lymphs % Monocytes % 7.0 Eosinophils % 0.0 Basophils % 0.0 Metamyelocytes % Myelocytes % Nucleated RBC % % 0 Absolute Neutrophils (1.2-6.7) 10^3/uL 27.02 H Absolute Lymphocytes (1.2-3.4) 10^3/uL 1.54 Absolute Monocytes (0.1-0.8) 10^3/uL 2.15 H Absolute Eosinophils (0.0-0.7) 10^3/uL 0.00 Absolute Basophils (0.0-0.2) 10^3/uL 0.00 RBC Morphology Normal Polychromasia Basophilic Stippling PT (9.3-11.0) sec 10.6 INR (0.9-1.1) 1.1 D-Dimer (<500) ng/mlFEU 153 VBG Lactate (0.6-1.4) mmol/L Sodium (136-145) mmol/L 141 Potassium (3.5-5.1) mmol/L 3.7 Chloride (98-107) mmol/L 106 Carbon Dioxide (21.0-32.0) mmol/L 27.1 Anion Gap (3-11) mmol/L 7.9 BUN (7-18) mg/dL 61 H Creatinine (0.70-1.30) mg/dL 1.0 Estimated GFR/1.73 m2 (mL/min/1.73m2) >= 60.00 Glucose (74-106) mg/dL 109 H Calcium (8.5-10.1) mg/dL 7.8 L Phosphorus (2.6-4.7) mg/dL 3.6 Magnesium (1.8-2.4) mg/dL 2.6 H Ferritin (26-388) ng/mL 725 H Total Bilirubin (0.2-1.0) mg/dL 0.5 Conjugated Bilirubin (0.0-0.2) mg/dL 0.2 AST (15-37) U/L 20 ALT (16-63) U/L 73 H Alkaline Phosphatase (46-116) U/L 79 Lactate Dehydrogenase (85-227) U/L Troponin I (<0.06) ng/mL C-Reactive Protein (0.0-0.3) mg/dL 0.33 H Total Protein (6.4-8.2) g/dL 5.0 L Albumin (3.4-5.0) g/dL 2.2 L Whole Bld Vitamin B1 (70-180) nmol/L Vitamin B3 (Niacin) Vitamin B12 (193-986) pg/mL 25-OH Vitamin D Total (30-100) ng/mL Folate (8.6-20.0) ng/mL Procalcitonin ng/mL Urine Color (Yellow) Urine Clarity (Clear) Urine pH (5-8) Ur Specific [place] (1.005-1.025) Urine Protein (Negative) mg/dL Urine Ketones (Negative) mg/dL Urine Blood (Negative) Urine Nitrite (Negative) Urine Bilirubin (Negative) Urine Urobilinogen (Up TO 0.2) EU/dL Ur Leukocyte Esterase (Negative) Urine RBC (0-2) HPF Urine WBC (0-5) HPF Ur Epithelial Cells (Negative) HPF Urine Crystals (Negative) HPF Urine Bacteria (Negative) HPF Urine Casts (Negative) LPF Urine Mucus (Negative) Urine Other (Negative) Ur Culture Indicated? Urine Glucose (Negative) mg/dL Vancomycin Trough (10.0-20.0) ug/mL COVID-19 Source SARS-CoV-2 (PCR) (Negative) Range/Units 01/26/21 01/27/21 01/27/21 06:20 06:10 06:10 WBC (4.4-10.8) 10^3/uL 29.05 H* RBC (4.36-5.78) 10^6/uL 3.70 L Hgb (13.5-17.5) g/dL 11.5 L Hct (40.0-50.0) % 35.0 L MCV (80-95) fL 94.6 MCH (27.0-33.0) pg 31.1 MCHC (32.0-36.0) % 32.9 RDW (11.8-14.1) % 12.9 Plt Count (130-400) 10^3/uL 115 L MPV (8.0-11.0) fL 11.0 Immature Gran % 2.3 Neutrophils % 84.3 Band Neutrophils % Lymphocytes % 2.4 Atypical Lymphs % Monocytes % 10.7 Eosinophils % 0.2 Basophils % 0.1 Metamyelocytes % Myelocytes % Nucleated RBC % % 0 Absolute Neutrophils (1.2-6.7) 10^3/uL 24.49 H Absolute Lymphocytes (1.2-3.4) 10^3/uL 0.70 L Absolute Monocytes (0.1-0.8) 10^3/uL 3.11 H Absolute Eosinophils (0.0-0.7) 10^3/uL 0.06 Absolute Basophils (0.0-0.2) 10^3/uL 0.03 RBC Morphology See Below Polychromasia Present Basophilic Stippling PT (9.3-11.0) sec 10.4 INR (0.9-1.1) 1.0 D-Dimer (<500) ng/mlFEU 190 VBG Lactate (0.6-1.4) mmol/L Sodium (136-145) mmol/L 140 Potassium (3.5-5.1) mmol/L 4.2 Chloride (98-107) mmol/L 106 Carbon Dioxide (21.0-32.0) mmol/L 26.7 Anion Gap (3-11) mmol/L 7.3 BUN (7-18) mg/dL 52 H Creatinine (0.70-1.30) mg/dL 0.9 Estimated GFR/1.73 m2 (mL/min/1.73m2) >= 60.00 Glucose (74-106) mg/dL 111 H Calcium (8.5-10.1) mg/dL 7.8 L Phosphorus (2.6-4.7) mg/dL Magnesium (1.8-2.4) mg/dL 2.5 H Ferritin (26-388) ng/mL 784 H Total Bilirubin (0.2-1.0) mg/dL 0.6 Conjugated Bilirubin (0.0-0.2) mg/dL 0.2 AST (15-37) U/L 20 ALT (16-63) U/L 81 H Alkaline Phosphatase (46-116) U/L 86 Lactate Dehydrogenase (85-227) U/L Troponin I (<0.06) ng/mL C-Reactive Protein (0.0-0.3) mg/dL 1.09 H Total Protein (6.4-8.2) g/dL 5.2 L Albumin (3.4-5.0) g/dL 2.2 L Whole Bld Vitamin B1 (70-180) nmol/L Vitamin B3 (Niacin) Vitamin B12 (193-986) pg/mL 25-OH Vitamin D Total (30-100) ng/mL Folate (8.6-20.0) ng/mL Procalcitonin ng/mL Urine Color (Yellow) Urine Clarity (Clear) Urine pH (5-8) Ur Specific [place] (1.005-1.025) Urine Protein (Negative) mg/dL Urine Ketones (Negative) mg/dL Urine Blood (Negative) Urine Nitrite (Negative) Urine Bilirubin (Negative) Urine Urobilinogen (Up TO 0.2) EU/dL Ur Leukocyte Esterase (Negative) Urine RBC (0-2) HPF Urine WBC (0-5) HPF Ur Epithelial Cells (Negative) HPF Urine Crystals (Negative) HPF Urine Bacteria (Negative) HPF Urine Casts (Negative) LPF Urine Mucus (Negative) Urine Other (Negative) Ur Culture Indicated? Urine Glucose (Negative) mg/dL Vancomycin Trough (10.0-20.0) ug/mL COVID-19 Source SARS-CoV-2 (PCR) (Negative) Range/Units 01/27/21 01/29/21 01/29/21 06:10 06:40 06:40 WBC (4.4-10.8) 10^3/uL RBC (4.36-5.78) 10^6/uL Hgb (13.5-17.5) g/dL Hct (40.0-50.0) % MCV (80-95) fL MCH (27.0-33.0) pg MCHC (32.0-36.0) % RDW (11.8-14.1) % Plt Count (130-400) 10^3/uL MPV (8.0-11.0) fL Immature Gran % Neutrophils % Band Neutrophils % Lymphocytes % Atypical Lymphs % Monocytes % Eosinophils % Basophils % Metamyelocytes % Myelocytes % Nucleated RBC % % Absolute Neutrophils (1.2-6.7) 10^3/uL Absolute Lymphocytes (1.2-3.4) 10^3/uL Absolute Monocytes (0.1-0.8) 10^3/uL Absolute Eosinophils (0.0-0.7) 10^3/uL Absolute Basophils (0.0-0.2) 10^3/uL RBC Morphology Polychromasia Basophilic Stippling PT (9.3-11.0) sec INR (0.9-1.1) D-Dimer (<500) ng/mlFEU 262 226 VBG Lactate (0.6-1.4) mmol/L Sodium (136-145) mmol/L Potassium (3.5-5.1) mmol/L Chloride (98-107) mmol/L Carbon Dioxide (21.0-32.0) mmol/L Anion Gap (3-11) mmol/L BUN (7-18) mg/dL Creatinine (0.70-1.30) mg/dL Estimated GFR/1.73 m2 (mL/min/1.73m2) Glucose (74-106) mg/dL Calcium (8.5-10.1) mg/dL Phosphorus (2.6-4.7) mg/dL Magnesium (1.8-2.4) mg/dL Ferritin (26-388) ng/mL Total Bilirubin (0.2-1.0) mg/dL Conjugated Bilirubin (0.0-0.2) mg/dL AST (15-37) U/L ALT (16-63) U/L Alkaline Phosphatase (46-116) U/L Lactate Dehydrogenase (85-227) U/L Troponin I (<0.06) ng/mL C-Reactive Protein (0.0-0.3) mg/dL 2.69 H Total Protein (6.4-8.2) g/dL Albumin (3.4-5.0) g/dL Whole Bld Vitamin B1 (70-180) nmol/L Vitamin B3 (Niacin) Vitamin B12 (193-986) pg/mL 25-OH Vitamin D Total (30-100) ng/mL Folate (8.6-20.0) ng/mL Procalcitonin ng/mL Urine Color (Yellow) Urine Clarity (Clear) Urine pH (5-8) Ur Specific [place] (1.005-1.025) Urine Protein (Negative) mg/dL Urine Ketones (Negative) mg/dL Urine Blood (Negative) Urine Nitrite (Negative) Urine Bilirubin (Negative) Urine Urobilinogen (Up TO 0.2) EU/dL Ur Leukocyte Esterase (Negative) Urine RBC (0-2) HPF Urine WBC (0-5) HPF Ur Epithelial Cells (Negative) HPF Urine Crystals (Negative) HPF Urine Bacteria (Negative) HPF Urine Casts (Negative) LPF Urine Mucus (Negative) Urine Other (Negative) Ur Culture Indicated? Urine Glucose (Negative) mg/dL Vancomycin Trough (10.0-20.0) ug/mL COVID-19 Source SARS-CoV-2 (PCR) (Negative) Range/Units 01/30/21 01/30/21 01/31/21 06:35 06:35 06:10 WBC (4.4-10.8) 10^3/uL RBC (4.36-5.78) 10^6/uL Hgb (13.5-17.5) g/dL Hct (40.0-50.0) % MCV (80-95) fL MCH (27.0-33.0) pg MCHC (32.0-36.0) % RDW (11.8-14.1) % Plt Count (130-400) 10^3/uL MPV (8.0-11.0) fL Immature Gran % Neutrophils % Band Neutrophils % Lymphocytes % Atypical Lymphs % Monocytes % Eosinophils % Basophils % Metamyelocytes % Myelocytes % Nucleated RBC % % Absolute Neutrophils (1.2-6.7) 10^3/uL Absolute Lymphocytes (1.2-3.4) 10^3/uL Absolute Monocytes (0.1-0.8) 10^3/uL Absolute Eosinophils (0.0-0.7) 10^3/uL Absolute Basophils (0.0-0.2) 10^3/uL RBC Morphology Polychromasia Basophilic Stippling PT (9.3-11.0) sec INR (0.9-1.1) D-Dimer (<500) ng/mlFEU 324 VBG Lactate (0.6-1.4) mmol/L Sodium (136-145) mmol/L 142 Potassium (3.5-5.1) mmol/L 4.0 Chloride (98-107) mmol/L 107 Carbon Dioxide (21.0-32.0) mmol/L 26.8 Anion Gap (3-11) mmol/L 8.2 BUN (7-18) mg/dL 44 H Creatinine (0.70-1.30) mg/dL 0.9 Estimated GFR/1.73 m2 (mL/min/1.73m2) >= 60.00 Glucose (74-106) mg/dL 93 Calcium (8.5-10.1) mg/dL 7.9 L Phosphorus (2.6-4.7) mg/dL Magnesium (1.8-2.4) mg/dL 2.4 Ferritin (26-388) ng/mL Total Bilirubin (0.2-1.0) mg/dL 0.4 Conjugated Bilirubin (0.0-0.2) mg/dL AST (15-37) U/L 21 ALT (16-63) U/L 96 H Alkaline Phosphatase (46-116) U/L 100 Lactate Dehydrogenase (85-227) U/L Troponin I (<0.06) ng/mL C-Reactive Protein (0.0-0.3) mg/dL 1.27 H Total Protein (6.4-8.2) g/dL 5.2 L Albumin (3.4-5.0) g/dL 1.9 L Whole Bld Vitamin B1 (70-180) nmol/L Vitamin B3 (Niacin) Vitamin B12 (193-986) pg/mL 25-OH Vitamin D Total (30-100) ng/mL Folate (8.6-20.0) ng/mL Procalcitonin ng/mL Urine Color (Yellow) Urine Clarity (Clear) Urine pH (5-8) Ur Specific [place] (1.005-1.025) Urine Protein (Negative) mg/dL Urine Ketones (Negative) mg/dL Urine Blood (Negative) Urine Nitrite (Negative) Urine Bilirubin (Negative) Urine Urobilinogen (Up TO 0.2) EU/dL Ur Leukocyte Esterase (Negative) Urine RBC (0-2) HPF Urine WBC (0-5) HPF Ur Epithelial Cells (Negative) HPF Urine Crystals (Negative) HPF Urine Bacteria (Negative) HPF Urine Casts (Negative) LPF Urine Mucus (Negative) Urine Other (Negative) Ur Culture Indicated? Urine Glucose (Negative) mg/dL Vancomycin Trough (10.0-20.0) ug/mL COVID-19 Source SARS-CoV-2 (PCR) (Negative) Range/Units 01/31/21 02/01/21 02/02/21 06:10 16:10 06:00 WBC (4.4-10.8) 10^3/uL 24.46 H 22.02 H RBC (4.36-5.78) 10^6/uL 3.29 L 3.19 L Hgb (13.5-17.5) g/dL 10.2 L 10.1 L Hct (40.0-50.0) % 31.5 L 30.8 L MCV (80-95) fL 95.7 H 96.6 H MCH (27.0-33.0) pg 31.0 31.7 MCHC (32.0-36.0) % 32.4 32.8 RDW (11.8-14.1) % 13.4 13.6 Plt Count (130-400) 10^3/uL 76 L 72 L MPV (8.0-11.0) fL 11.5 H 11.5 H Immature Gran % 0.0 0.0 Neutrophils % 69.0 84.0 Band Neutrophils % 6 3 Lymphocytes % 7.0 2.0 Atypical Lymphs % Monocytes % 12.0 8.0 Eosinophils % 1.0 3.0 Basophils % 0.0 0.0 Metamyelocytes % 4 Myelocytes % 1 Nucleated RBC % % 0 0 Absolute Neutrophils (1.2-6.7) 10^3/uL 18.35 H 19.16 H Absolute Lymphocytes (1.2-3.4) 10^3/uL 1.71 0.44 L Absolute Monocytes (0.1-0.8) 10^3/uL 2.94 H 1.76 H Absolute Eosinophils (0.0-0.7) 10^3/uL 0.24 0.66 Absolute Basophils (0.0-0.2) 10^3/uL 0.00 0.00 RBC Morphology Normal Normal Polychromasia Basophilic Stippling PT (9.3-11.0) sec INR (0.9-1.1) D-Dimer (<500) ng/mlFEU VBG Lactate (0.6-1.4) mmol/L Sodium (136-145) mmol/L Potassium (3.5-5.1) mmol/L Chloride (98-107) mmol/L Carbon Dioxide (21.0-32.0) mmol/L Anion Gap (3-11) mmol/L BUN (7-18) mg/dL Creatinine (0.70-1.30) mg/dL Estimated GFR/1.73 m2 (mL/min/1.73m2) Glucose (74-106) mg/dL Calcium (8.5-10.1) mg/dL Phosphorus (2.6-4.7) mg/dL Magnesium (1.8-2.4) mg/dL Ferritin (26-388) ng/mL Total Bilirubin (0.2-1.0) mg/dL Conjugated Bilirubin (0.0-0.2) mg/dL AST (15-37) U/L ALT (16-63) U/L Alkaline Phosphatase (46-116) U/L Lactate Dehydrogenase (85-227) U/L Troponin I (<0.06) ng/mL C-Reactive Protein (0.0-0.3) mg/dL Total Protein (6.4-8.2) g/dL Albumin (3.4-5.0) g/dL Whole Bld Vitamin B1 (70-180) nmol/L Vitamin B3 (Niacin) Vitamin B12 (193-986) pg/mL 25-OH Vitamin D Total (30-100) ng/mL Folate (8.6-20.0) ng/mL Procalcitonin ng/mL Urine Color (Yellow) Yellow Urine Clarity (Clear) Sl Cloudy Urine pH (5-8) 5.5 Ur Specific [place] (1.005-1.025) >= 1.030 H Urine Protein (Negative) mg/dL Trace H Urine Ketones (Negative) mg/dL Negative Urine Blood (Negative) Moderate H Urine Nitrite (Negative) Positive H Urine Bilirubin (Negative) Negative Urine Urobilinogen (Up TO 0.2) EU/dL 1.0 H Ur Leukocyte Esterase (Negative) Small H Urine RBC (0-2) HPF 10-20 H Urine WBC (0-5) HPF 10-20 H Ur Epithelial Cells (Negative) HPF Rare Urine Crystals (Negative) HPF Negative Urine Bacteria (Negative) HPF Moderate Urine Casts (Negative) LPF 0-2 Hyaline Urine Mucus (Negative) Trace Urine Other (Negative) Few Yeast Ur Culture Indicated? Yes Urine Glucose (Negative) mg/dL Negative Vancomycin Trough (10.0-20.0) ug/mL COVID-19 Source SARS-CoV-2 (PCR) (Negative) Range/Units 02/03/21 02/03/21 02/12/21 06:25 06:25 06:25 WBC (4.4-10.8) 10^3/uL 21.08 H RBC (4.36-5.78) 10^6/uL 3.11 L Hgb (13.5-17.5) g/dL 9.8 L Hct (40.0-50.0) % 29.9 L MCV (80-95) fL 96.1 H MCH (27.0-33.0) pg 31.5 MCHC (32.0-36.0) % 32.8 RDW (11.8-14.1) % 13.9 Plt Count (130-400) 10^3/uL 94 L MPV (8.0-11.0) fL 11.1 H Immature Gran % See Differential Neutrophils % 80.0 Band Neutrophils % 3 Lymphocytes % 9.0 Atypical Lymphs % Monocytes % 5.0 Eosinophils % 1.0 Basophils % 0.0 Metamyelocytes % 1 Myelocytes % 1 Nucleated RBC % % 0 Absolute Neutrophils (1.2-6.7) 10^3/uL 17.50 H Absolute Lymphocytes (1.2-3.4) 10^3/uL 1.90 Absolute Monocytes (0.1-0.8) 10^3/uL 1.05 H Absolute Eosinophils (0.0-0.7) 10^3/uL 0.21 Absolute Basophils (0.0-0.2) 10^3/uL 0.00 RBC Morphology See Below Polychromasia Present Basophilic Stippling Present PT (9.3-11.0) sec INR (0.9-1.1) D-Dimer (<500) ng/mlFEU VBG Lactate (0.6-1.4) mmol/L Sodium (136-145) mmol/L 142 139 Potassium (3.5-5.1) mmol/L 4.2 4.0 Chloride (98-107) mmol/L 108 H 104 Carbon Dioxide (21.0-32.0) mmol/L 25.0 28.1 Anion Gap (3-11) mmol/L 9.0 6.9 BUN (7-18) mg/dL 47 H 48 H Creatinine (0.70-1.30) mg/dL 0.9 1.2 Estimated GFR/1.73 m2 (mL/min/1.73m2) >= 60.00 59.68 Glucose (74-106) mg/dL 114 H 113 H Calcium (8.5-10.1) mg/dL 7.9 L 7.9 L Phosphorus (2.6-4.7) mg/dL Magnesium (1.8-2.4) mg/dL 2.3 Ferritin (26-388) ng/mL 495 H Total Bilirubin (0.2-1.0) mg/dL Conjugated Bilirubin (0.0-0.2) mg/dL AST (15-37) U/L ALT (16-63) U/L Alkaline Phosphatase (46-116) U/L Lactate Dehydrogenase (85-227) U/L Troponin I (<0.06) ng/mL C-Reactive Protein (0.0-0.3) mg/dL 0.13 Total Protein (6.4-8.2) g/dL Albumin (3.4-5.0) g/dL Whole Bld Vitamin B1 (70-180) nmol/L Vitamin B3 (Niacin) Vitamin B12 (193-986) pg/mL 25-OH Vitamin D Total (30-100) ng/mL Folate (8.6-20.0) ng/mL Procalcitonin ng/mL Urine Color (Yellow) Urine Clarity (Clear) Urine pH (5-8) Ur Specific [place] (1.005-1.025) Urine Protein (Negative) mg/dL Urine Ketones (Negative) mg/dL Urine Blood (Negative) Urine Nitrite (Negative) Urine Bilirubin (Negative) Urine Urobilinogen (Up TO 0.2) EU/dL Ur Leukocyte Esterase (Negative) Urine RBC (0-2) HPF Urine WBC (0-5) HPF Ur Epithelial Cells (Negative) HPF Urine Crystals (Negative) HPF Urine Bacteria (Negative) HPF Urine Casts (Negative) LPF Urine Mucus (Negative) Urine Other (Negative) Ur Culture Indicated? Urine Glucose (Negative) mg/dL Vancomycin Trough (10.0-20.0) ug/mL COVID-19 Source SARS-CoV-2 (PCR) (Negative) Range/Units 02/12/21 02/12/21 06:25 09:15 WBC (4.4-10.8) 10^3/uL 20.66 H RBC (4.36-5.78) 10^6/uL 3.26 L Hgb (13.5-17.5) g/dL 10.2 L Hct (40.0-50.0) % 32.6 L MCV (80-95) fL 100.0 H MCH (27.0-33.0) pg 31.3 MCHC (32.0-36.0) % 31.3 L RDW (11.8-14.1) % 16.5 H Plt Count (130-400) 10^3/uL 147 MPV (8.0-11.0) fL 9.7 Immature Gran % See Differential Neutrophils % 68.0 Band Neutrophils % 2 Lymphocytes % 18.0 Atypical Lymphs % Monocytes % 7.0 Eosinophils % 0.0 Basophils % 0.0 Metamyelocytes % 3 Myelocytes % 2 Nucleated RBC % % 1 Absolute Neutrophils (1.2-6.7) 10^3/uL 14.46 H Absolute Lymphocytes (1.2-3.4) 10^3/uL 3.72 H Absolute Monocytes (0.1-0.8) 10^3/uL 1.45 H Absolute Eosinophils (0.0-0.7) 10^3/uL 0.00 Absolute Basophils (0.0-0.2) 10^3/uL 0.00 RBC Morphology Normal Polychromasia Present Basophilic Stippling PT (9.3-11.0) sec INR (0.9-1.1) D-Dimer (<500) ng/mlFEU VBG Lactate (0.6-1.4) mmol/L Sodium (136-145) mmol/L Potassium (3.5-5.1) mmol/L Chloride (98-107) mmol/L Carbon Dioxide (21.0-32.0) mmol/L Anion Gap (3-11) mmol/L BUN (7-18) mg/dL Creatinine (0.70-1.30) mg/dL Estimated GFR/1.73 m2 (mL/min/1.73m2) Glucose (74-106) mg/dL Calcium (8.5-10.1) mg/dL Phosphorus (2.6-4.7) mg/dL Magnesium (1.8-2.4) mg/dL Ferritin (26-388) ng/mL Total Bilirubin (0.2-1.0) mg/dL Conjugated Bilirubin (0.0-0.2) mg/dL AST (15-37) U/L ALT (16-63) U/L Alkaline Phosphatase (46-116) U/L Lactate Dehydrogenase (85-227) U/L Troponin I (<0.06) ng/mL C-Reactive Protein (0.0-0.3) mg/dL Total Protein (6.4-8.2) g/dL Albumin (3.4-5.0) g/dL Whole Bld Vitamin B1 (70-180) nmol/L Vitamin B3 (Niacin) Vitamin B12 (193-986) pg/mL 25-OH Vitamin D Total (30-100) ng/mL Folate (8.6-20.0) ng/mL Procalcitonin ng/mL Urine Color (Yellow) Yellow Urine Clarity (Clear) Cloudy Urine pH (5-8) 6.0 Ur Specific [place] (1.005-1.025) 1.020 Urine Protein (Negative) mg/dL Negative Urine Ketones (Negative) mg/dL Negative Urine Blood (Negative) Moderate H Urine Nitrite (Negative) Negative Urine Bilirubin (Negative) Negative Urine Urobilinogen (Up TO 0.2) EU/dL 0.2 Ur Leukocyte Esterase (Negative) Negative Urine RBC (0-2) HPF Urine WBC (0-5) HPF Ur Epithelial Cells (Negative) HPF Urine Crystals (Negative) HPF Urine Bacteria (Negative) HPF Urine Casts (Negative) LPF Urine Mucus (Negative) Urine Other (Negative) Ur Culture Indicated? Urine Glucose (Negative) mg/dL Negative Vancomycin Trough (10.0-20.0) ug/mL COVID-19 Source SARS-CoV-2 (PCR) (Negative)
[2021-02-12 09:45] LABS: Epithelial Cells Negative HPF (Negative)
[2021-02-12 09:46] LABS: Bacteria Few HPF (Negative); C & S Indicated? C&S Done As Ordered; Casts Negative LPF (Negative); Crystals Negative HPF (Negative); Mucus Moderate (Negative)
--- NOTE | 2021-02-12 10:08 | CMPROGNOTE_ITS ---
- If Service Date Differs Date of service: 02/12/21 Time of Service: 10:08 Care Management Progress Note S/O: Uriel was sitting up in his chair when CM met with him. He was pleasant and easily engaged in conversation. He shares that he feels stronger and is looking forward to being discharged home. RT is working on home oxygen equipment. CM left a message with RT to see if there are any updates. Additionally, his is planning on visiting Friday02/13/21 at 1pm in the [facility]. CM will continue to support. A: 70 year old male admitted to [facility] on 01/10/21 for COVID-19 Pneumonia P: Uriel will be discharged home with new [facility] SN/PT when medically cleared by provider, CM provided pulse oximeter. Uriel will follow up with his PCP and plan of care as directed. RT will continue to assess for home O2 needs-anticipate Hi Flow O2 at this time, hopeful Uriel will not require CPAP though he continues to wear it at night at this time. He will transport home via private vehicle with family when ready. CM will continue to follow.
--- NOTE | 2021-02-12 10:25 | PT.INPN ---
Date of service: 02/12/21 Time of Service: 10:25 PT Notes Visit Reasons: COVID-19 Pneumonia Physical Therapy Inpatient Progress Note Date: 02/12/2021 Dates of Service: 02/05/2021 through 02/12/2021 Referring Doctor: Danial Shaw MD PT Orders: PT CONSULT: Extended stay weakness Precautions: Fall. Standard. Activity as tolerated. Per hospitalist, patient is off of COVID-19 precautions as of 02/05/2021, may walk in hallway with mask on and oxygen supplementation. Patient Profile/Admitting Diagnosis: Uriel is a 70-year-old male with diagnoses of COPD, COVID-19, paroxysmal SVT, depression, Pseudomonas UTI, and nutrition disorder referred to physical therapy to address functional mobility decline and extended stay weakness. PMHX: COVID (Acute) Hypoxemia (Acute) Social History/Home Situation: Lives with in a private home with 3 steps to enter through the garage, one rail. No falls in the past 12 months. Independent with all aspects of ADLs prior to admission. Uses continuous oxygen at home. Utilizes [facility] occasionally. Equipment Owned/DME: [facility] Subjective: Anxious about getting home the soonest. Still is bothered and sad by the most recent news he received regarding his life expectancy. Nurse Orellana and Dr. Fierro were made aware. Objective: General Observation: PICC line in R UE. IV access in R UE. Oxygen supplementation at 5 L/min via NC, 6 L using the oxygen tank with ambulation. RT Letitia assisting with gait oximetry. Nurse Orellana updated with patient's performance after ambulation. Mental Status: Alert and oriented as to person, place, time, and purpose. Able to pay attention, focus, and respond appropriately. Pain: Denies Vital Signs: Desaturated to the low 82% on 6 L/min after ambulation activity ROM: Right Upper Extremity: Shoulder Flexion WFL. Shoulder abduction WFL. Elbow flexion WFL. Wrist flexion WFL. Functional opening and closing of hand WFL. Left Upper Extremity: Shoulder Flexion WFL. Shoulder abduction WFL. Elbow flexion WFL. Wrist flexion WFL. Functional opening and closing of hand WFL. Right Lower Extremity: Hip flexion WFL. Hip abduction WFL. Knee flexion WFL. Ankle dorsiflexion absent. Ankle plantarflexion WFL. Left Lower Extremity: Hip flexion WFL. Hip abduction WFL. Knee flexion WFL. Ankle dorsiflexion WFL. Ankle plantarflexion WFL. Strength: Right Upper Extremity: Shoulder flexors 4-/5. Shoulder abductors 4-/5. Elbow flexors 5/5. Elbow extensors 4-/5. Senior Technical Support Engineer strong. Left Upper Extremity: Shoulder flexors 4-/5. Shoulder abductors 4-/5. Elbow flexors 5/5. Elbow extensors 4-/5. Senior Technical Support Engineer strong. Right Lower Extremity: Hip flexors 4-/5. Hip abductors 4-/5. Knee flexors 4/5. Knee extensors 4-/5. Ankle dorsiflexors 1/5. Ankle plantarflexors 4-/5. Left Lower Extremity: Right Lower Extremity: Hip flexors 4-/5. Hip abductors 4-/5. Knee flexors 4/5. Knee extensors 4-/5. Ankle dorsiflexors 4-/5. Ankle plantarflexors 4-/5. Bed Mobility/Transfers: Rolling independent Supine to sit independent Sit to supine independent Sit to stand supervision for oxygen tubing management Stand to sit supervision for oxygen tubing management Bed to reclining chair supervision for oxygen tubing management Gait: Instructed patient with level surface ambulation of 50 feet +100 feet +100 feet requiring supervision of PT and RT during gait oximetry. Step height on the right absent. Step length on right decreased. Desaturated to 82% on 6 L/min but took less than a minute to resaturate back to 88%-91% on 6 L on the first trip. Recovery time took a little longer about three minutes during the second and the third trip about 2-3 minutes. Right AFO on with shoes. Balance: Static Sitting: Normal Dynamic Sitting: Normal Static Standing: Fair Dynamic Standing: Fair Special Tests: Mobility Limitations Standardized Measure [facility] AM-PAC 6 clicks Basic Mobility Inpatient Short Form: Raw Score: 23 CMS Score: 11% deficit 4 Stage Balance test: Able to maiatain feet together for 10 seconds, unable to do so with right hand, full tandem, and 1 legged stance indicating at risk for falls. Informed Consent/Education: Patient was instructed in purpose of cotninued plan of care. Agreeable to proceed with established PT POC to achieve personal goals. Assessment: Resaturation ability now very much improved with less oxygen supplementation of 5 L/min at rest and 6 L /min with ambulation activity. Instruction regarding energy conservation, self pacing, and breathing technique have been reiterated with patient. Does not need physical help during mobility performance with AD. Will benefit from the use of 4WW for all mobility ADL at home to provided a ready surface to sit on to avoid desaturation to abnormal levels. R AFO working well to address drop foot on the right with patient much more confident with his walking. L5-S1 herniation may be contributing to the absence of dorsiflexion in the R foot although the L4 myotome is much more involved with ankle dorsiflexion, L5 with big toe extension. Unsure whether the weakness is transient or not. Patient may do a lot better working with PT for continued mobility progression as he has become highly anxious about extended stay here. Patient presents with clinical signs and symptoms consistent with current/admitting diagnoses that have resulted to mobility limitations, gait instability, generalized weakness, and overall ADL decline as demonstrated by the following impairment level findings: 1. Impaired standing balance 2. Impaired activity tolerance 3. Limitation of joint range of motion in right dorsiflexion 4. Shortness of breath, requires oxygen supplementation of 5 L/min via NC 5. Steppage gait on the right Impairments are contributing to the following functional limitations: 1. Difficulty with ambulation without assistive device and physical assistance 2. Increased completion time for mobility ADL performance 3. Increased risk for falls 4. Difficulty with managing steps alone safely Patient is assessed as a 37279 moderate complexity based on the following: History: 70 [id number] with past medical history as indicated above Examination: Demonstrable impairment in strength, balance, and mobility level with underlying impairments and functional limitations as exhibited above as well as deficit score of 11% utilizing the [facility] Mobility Inpatient Short Form Presentation: Evolving Decision Makin moderate complexity Goals: Goals X1 week 1. Supine-Sit independent MET 2. Sit-Supine independent MET 3. Sit-Stand independent NOT MET 4. Stand-Sit independent with FWW NOT MET 5. Bed-Chair independent with FWW NOT MET 6. Chair-Bed independent with FWW NOT MET 7. Independent gait on level surface with use of FWW for at least 100 feet without report of pain nor dyspnea with oxygen saturation staying above 90% on 8 L NOT MET 8. Independent stair negotiation while holding onto 1 rail for at least 5 steps without report of pain nor dyspnea NOT MET 9. Good static and dynamic standing balance/tolerance NOT MET Plan of Care/Treatment Plan: 1x/day, 7 days/week x 1 week. Plan of care has been reviewed with the HYDROSTATIC TESTER providing the service under Physical Therapy direction. Initiate Physical Therapy intervention for pain management as needed, strengthening, bed mobility, transfers, gait, stairs, balance training, and use of assistive device. DISCHARGE RECOMMENDATIONS: [] Home with no services [] [X] Home with services. Patient will benefit from home health PT services in order to progress mobility level using least restrictive assistive ambulatory device, assess home safety, identify additional equipment needs, and establish a functional maintenance program that will increase ability of patient to remain at home. May benefit from the use of a four-wheeled walker to reduce fall risk at home to maximize activity tolerance. [] Home with outpatient PT [] [] SNF for continued rehabilitation [] [] [facility] [] [] SNF versus LTC based on ability to participate and progress [] TREATMENT CODE/TIME: 88114 x 30 minutes, 56872 x 20 minutes beginning at 10:25 AM. Thank you for the opportunity to participate in the care of this patient. Valerie Eason PT, DPT, CLT [facility] [place], [place]
--- NOTE | 2021-02-12 11:57 | PGE_ITS ---
Date of Service Date of service: 02/12/21 Time of Service: 11:57 Assessment and Plan Assessment and plan (1) Acute respiratory failure with hypoxia: Status: Deleted Assessment and plan: Due to pneumonia caused by COVID-19. O2 requirement is better - he is on 4-5L of O2 today, down from 8L. Will give another dose of lasix 20 mg IV. Wean O2 as tolerated. (2) Pseudomonas urinary tract infection: Status: Acute Assessment and plan: Resolved by UA today - d/c cipro. (3) COVID: Status: Resolved Assessment and plan: Finished therapy. O2 requirement is improving Continue prednisone taper and prophylactic bactrim. (4) COPD (chronic obstructive pulmonary disease): Status: Chronic Assessment and plan: Continue steroids, Stiolto and prn albuterol. Qualifiers: COPD type: unspecified COPD Qualified Code(s): J44.9 - Chronic obstructive pulmonary disease, unspecified (5) Heart murmur: Status: Chronic Assessment and plan: Echo without significant valvular pathology. Slightly fluid overloaded today still - will give another dose of lasix 20 mg IV. 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 (6) Paroxysmal supraventricular tachycardia: Status: Resolved Assessment and plan: Continue toprol XL 37.5 mg PO daily. Was on tele overnight after a singular report of HR in 120s yesterday afternoon. Ok to d/c tele as no further recurrences of SVT. (7) Right foot drop: Status: Acute Assessment and plan: Continue to work with PT. Has a brace. Has L5-S1 disc herniation. Consider MRI brain - will discuss with neuro. (8) Depression: Status: Acute Assessment and plan: Continue Paxil 30 mg daily and Remeron 30 mg QHS Qualifiers: Depression Type: reactive depression Qualified Code(s): F32.9 - Major d epressive disorder, single episode, unspecified (9) BPH (benign prostatic hyperplasia): Status: Chronic Assessment and plan: Tolerating flomax. [place] prior to discharge. Qualifiers: Lower urinary tract symptom presence: symptoms present Lower urinary tract symptom detail: incomplete bladder emptying Qualified Code(s): N40.1 - Benign prostatic hyperplasia with lower urinary tract symptoms; R39.14 - Feeling of incomplete bladder emptying (10) GERD (gastroesophageal reflux disease): Status: Chronic Assessment and plan: Continue famotidine Qualifiers: Esophagitis presence: esophagitis presence not specified Qualified Code(s): K21.9 - Gastro-esophageal reflux disease without esophagitis (11) DVT prophylaxis: Status: Acute Assessment and plan: enoxaparin 40 mg SC daily (12) Discharge planning issues: Status: Acute Assessment and plan: Continues to require hospitalization. O2 arrangements are being attempted for outpatient use. Subjective Subjective Interval history since last seen: Requiring between 4-5 L at rest today, down from 8 L yesterday. He did desaturate to low 80s while walking on 6L. Denies dizziness, chest pain, shortness of breath, nausea. Met with Dr Rodriguez today and clearly stated that he wants to go home and not on comfort measures when he is discharged. I discussed with him how we were only approaching this topic for the theoretical scenario where the oxygen requirement was too high for discharge home. We discussed how his oxygen requirement is much better today so he should focus on that and that he is not currently dying. Exam Narrative Exam Narrative: General: Very pleasant elderly male, on high flow NC (8L with an atomizer), looks better HEENT: EOMI, MMM Heart: RRR, + quiet CB Lungs: quiet rales L lung base Abdomen: soft, nontender, nondistended Extremities: R foot drop. No edema BLE's. Objective Last Vital Signs Temp 36.9 C 02/12/21 08:00 Pulse 88 02/12/21 08:00 Resp 19 02/12/21 08:00 BP 114/70 02/12/21 08:00 Pulse Ox 94 02/12/21 08:00 Laboratory Results - last 24 hr 02/12/21 02/12/21 02/12/21 06:25 06:25 09:15 WBC 20.66 H RBC 3.26 L Hgb 10.2 L Hct 32.6 L MCV 100.0 H MCH 31.3 MCHC 31.3 L RDW 16.5 H Plt Count 147 MPV 9.7 Immature Gran % See Differential Neutrophils % 68.0 Band Neutrophils % 2 Lymphocytes % 18.0 Monocytes % 7.0 Eosinophils % 0.0 Basophils % 0.0 Metamyelocytes % 3 Myelocytes % 2 Nucleated RBC % 1 Absolute Neutrophils 14.46 H Absolute Lymphocytes 3.72 H Absolute Monocytes 1.45 H Absolute Eosinophils 0.00 Absolute Basophils 0.00 RBC Morphology Normal Polychromasia Present Sodium 139 Potassium 4.0 Chloride 104 Carbon Dioxide 28.1 Anion Gap 6.9 BUN 48 H Creatinine 1.2 Estimated GFR/1.73 m2 59.68 Glucose 113 H Calcium 7.9 L Magnesium 2.3 Ferritin 495 H C-Reactive Protein 0.13 Urine Color Yellow Urine Clarity Cloudy Urine pH 6.0 Ur Specific [place] 1.020 Urine Protein Negative Urine Ketones Negative Urine Blood Moderate H Urine Nitrite Negative Urine Bilirubin Negative Urine Urobilinogen 0.2 Ur Leukocyte Esterase Negative Urine RBC 10-20 H Urine WBC 3-5 Ur Epithelial Cells Negative Urine Crystals Negative Urine Bacteria Few Urine Casts Negative Urine Mucus Moderate Urine Other Many Yeast Ur Culture Indicated? C&S Done As Ordered Urine Glucose Negative
[2021-02-12] MEDS: Dronabinol 2.5 MG CAP 5 MG PO ×2 (12:50→15:25)
[2021-02-12] MEDS: Furosemide 20 MG/2 ML VIAL IVP (12:51)
[2021-02-12] MEDS: Normal Saline Flush 10 ML SYR IVP (12:52)
--- NOTE | 2021-02-12 15:23 | W.NUTRFU ---
Date of service: 02/12/21 Time of Service: 15:23 Nutrition Note NOTE: Weight continues to be entirely stable. PO intake continues to be excellent. Will continue to monitor nutritional status. Will evaluate nutrition care plan ongoing and adjust as needed. Time Spent in Nutritional Counseling and Treatment: 0
[2021-02-12] MEDS: Atorvastatin 40 MG TAB PO (20:09)
[2021-02-12] MEDS: Polyethylene Glycol 3350 17 GM PACKET PO (20:22)
[2021-02-12] MEDS: Mirtazapine 15 MG TAB 30 MG PO (21:19)
[2021-02-12] MEDS: Latanoprost 0.005% 2.5 ML BTL OP (21:19)
[2021-02-13] VITALS (8 sets, daily range): BP systolic 100–137; BP diastolic 61–73; PULSE 80–111; RESP 18–26; TEMP 36.3–36.8; O2SAT 4–98
[2021-02-13 06:40] LABS: HCT 34.1 % (40.0-50.0); HGB 10.7 g/dL (13.5-17.5); MCHC 31.4 % (32.0-36.0); MCV 98.8 fL (80-95); MPV 10.2 fL (8.0-11.0); Nucleated RBC 0 %; Platelet Count 161 10^3/uL (130-400); RBC 3.45 10^6/uL (4.36-5.78); RDW 16.5 % (11.8-14.1); RDW-SD 57.7 fL; WBC 20.31 10^3/uL (4.4-10.8)
[2021-02-13 06:50] LABS: Anion Gap 7.7 mmol/L (3-11); BUN 51 mg/dL (7-18); CO2 29.3 mmol/L (21.0-32.0); CREATININE 1.1 mg/dL (0.70-1.30); Chloride 103 mmol/L (98-107); Glucose 108 mg/dL (74-106); Magnesium 2.3 mg/dL (1.8-2.4); Potassium 3.7 mmol/L (3.5-5.1); Sodium 140 mmol/L (136-145)
[2021-02-13 07:00] LABS: Absolute Lymphocyte Count 3.45 10^3/uL (1.2-3.4); Absolute Monocyte Count 1.62 10^3/uL (0.1-0.8); Absolute Neutrophil Count 14.83 10^3/uL (1.2-6.7); Bands % 1; Basophilic Stippling Present; Diff Comment Manual Differential; Metamyelocytes % 1; Myelocytes % 1; Polychromasia Present
[2021-02-13] MEDS: predniSONE 20 MG TAB 50 MG PO (07:28)
[2021-02-13] MEDS: Metoprolol CR 25 MG TABCR 37.5 MG PO (07:28)
[2021-02-13] MEDS: Protein Nutritional Supplement 16 GM 1 OUNCE PACKET PO ×3 (07:28→21:00)
[2021-02-13] MEDS: Enoxaparin 40 MG/0.4 ML SYR SC (07:28)
[2021-02-13] MEDS: Thiamine 100 MG TAB PO (07:30)
[2021-02-13] MEDS: PARoxetine 10 MG TAB 30 MG PO (07:30)
[2021-02-13] MEDS: Docusate Sodium 100 MG CAP PO ×2 (07:30→21:00)
[2021-02-13] MEDS: Finasteride 5 MG TAB PO (07:30)
[2021-02-13] MEDS: Furosemide 20 MG TAB PO (07:30)
[2021-02-13] MEDS: Multivitamin w/Minerals TAB 1 TAB PO (07:30)
[2021-02-13] MEDS: Folic Acid 1 MG TAB PO (07:31)
[2021-02-13] MEDS: Senna TAB 1 TAB PO ×2 (07:31→21:00)
[2021-02-13] MEDS: Ascorbic Acid 500 MG TAB 1000 MG PO ×2 (07:31→21:01)
[2021-02-13] MEDS: Famotidine 20 MG TAB PO ×2 (07:31→21:00)
[2021-02-13] MEDS: Tamsulosin 0.4 MG CAPCR 0.8 MG PO (07:31)
[2021-02-13] MEDS: Aspirin E.C. 81 MG TABEC PO (07:31)
[2021-02-13] MEDS: Tiotropium/Olodaterol 10 PUFF INHALER 2 PUFF IH (07:32)
[2021-02-13] MEDS: Nystatin POWDER 15 GM JAR TP ×3 (07:32→21:00)
--- NOTE | 2021-02-13 09:42 | PTTR_ITS ---
Date of service: 02/13/21 Time of Service: 09:42 PT Notes Visit Reasons: COVID-19 Pneumonia Physical Therapy Inpatient Tretament Note Date: 02/13/2021 Precautions: Fall. Standard. Activity as tolerated. Per hospitalist, patient is off of COVID-19 precautions as of 02/05/2021, may walk in hallway with mask on and oxygen supplementation. Subjective: Continues to be anxious about when he is going to be able to go home. Reports that he feels better and is getting more confident about walking now than he did the past weeks. Denies breathing difficulty despite continued decrease in his oxygen level during walking. Objective: General Observation: Arnie mortensen in place. Mental Status: Alert and oriented as to person, place, time, and purpose. Able to pay attention, focus, and respond appropriately. Pain: Denies Vital Signs: Able to maintain saturation level to 88% on 10 L of oxygen/minute with ambulation; 88% to 94% 4 L of oxygen/minute at rest Bed Mobility/Transfers: Rolling independent Supine to sit independent Sit to supine independent Sit to stand supervision for oxygen tubing management Stand to sit supervision for oxygen tubing management Bed to reclining chair supervision for oxygen tubing management Gait: Continued gait oximetry with RT Letitia with patient only able to maintain 88% oxygen saturation on 10 L. Initial walk of 10 feet brought oxygen down to the low 80s on 8 L/min and required about 3 minutes to resaturate back to 88%. Patient was able to range between 91% to 88% when RT Letitia decided to bring the rate to 10 L O2/minute for the rest of the walk. Assessment: Patient has not needed physical help with transfers and ambulation. His main limiting issue continues to be his oxygen saturating ability during movement. Self-pacing covering 10-15 steps and resting for 3-5 minutes each time while performing deep breaths using his rollator has demonstrated better ability of patient to resaturate back to WNL the fastest. May need lift assist into home if desaturation becomes an issue with this afternoon's stairs training. DISCHARGE RECOMMENDATIONS: [] Home with no services [] [X] Home with services. Patient will benefit from home health PT services in order to progress mobility level using 4WW, assess home safety, identify additional equipment needs, and establish a functional maintenance program that will increase ability of patient to remain at home. May benefit from the use of a four-wheeled walker to reduce fall risk at home to maximize activity tolerance. [] Home with outpatient PT [] [] SNF for continued rehabilitation [] [] Jumpbasting Machine Operator Care [] [] SNF versus LTC based on ability to participate and progress [] TREATMENT CODE/TIME: [id number] x 47 minutes beginning at 9:42 AM.
--- NOTE | 2021-02-13 11:00 | CMPROGNOTE_ITS ---
- If Service Date Differs Date of service: 02/13/21 Time of Service: 11:00 Care Management Progress Note S/O: Uriel was sitting up in his chair when CM met with him. He was pleasant and easily engaged in conversation. He shared that he feels stronger and is looking forward to being discharged home. Letitia from [facility]RT is [facility] to make sure Uriel's oxygen needs are met at home. It was initially felt that Uriel would be able to transport home with his , using two full O2 tanks from home. However, after a walking pulse oxymetry (which included stairs) both RT and PT feel that Uriel would be better off transporting via EMS to support his oxygen needs with a lift assist to help with stairs. The [facility] agrees to provide a hi-flow concentrator and we are waiting to find out when it can be delivered and hoping for tomorrow. Uriel would like to continue to be followed by [facility] providers, especially Pulmonology if possible. Additionally, his was planning on visiting tomorrow in the [facility] however the visitation needed to be cancelled due to the rising number of Covid cases, per Tracie Flowers. CM will continue to support. A: 70 year old male admitted to [facility] on 01/10/21 for COVID-19 Pneumonia P: Uriel will discharge home with new [facility] SN/PT/OT/SIL[employer]LLOW[employer] ASSEMBLER when medically cleared by provider. Uriel will transport via EMS, due to his high oxygen requirement and need for a lift assist. Uriel will have Hi Flow equipment at home, [facility]. CM and [facility]RT will continue to help coordinate. Uriel will need a front wheeled walker with a chair prior to discharge, PT is aware. Uriel will follow up with his PCP and plan of care as directed. CM will continue to follow.
[2021-02-13] MEDS: Dronabinol 2.5 MG CAP 5 MG PO ×2 (12:13→17:42)
--- NOTE | 2021-02-13 14:15 | PGE_ITS ---
Date of Service Date of service: 02/13/21 Time of Service: 14:15 Assessment and Plan Assessment and plan (1) Acute respiratory failure with hypoxia: Status: Deleted Assessment and plan: Due to pneumonia caused by COVID-19. O2 requirement is better. [facility] on [facility]. Continue to wean O2 as tolerated. (2) Pseudomonas urinary tract infection: Status: Resolved Assessment and plan: WIll do VT today. (3) COVID: Status: Resolved Assessment and plan: Finished therapy. O2 requirement is improving Continue prednisone taper and prophylactic bactrim. (4) COPD (chronic obstructive pulmonary disease): Status: Chronic Assessment and plan: Continue steroids, Stiolto and prn albuterol. Qualifiers: COPD type: unspecified COPD Qualified Code(s): J44.9 - Chronic obstructive pulmonary disease, unspecified (5) Heart murmur: Status: Chronic Assessment and plan: Echo without significant valvular pathology. 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 (6) Paroxysmal supraventricular tachycardia: Status: Resolved Assessment and plan: Continue toprol XL 37.5 mg PO daily. (7) Right foot drop: Status: Acute Assessment and plan: Continue to work with PT. Has a brace. Has L5-S1 disc herniation. Discussed with neuro: this is a peripheral issue, and there is no role for MRI brain. (8) Depression: Status: Acute Assessment and plan: Continue Paxil 30 mg daily and Remeron 30 mg QHS Qualifiers: Depression Type: reactive depression Qualified Code(s): F32.9 - Major depressive disorder, single episode, unspecified (9) BPH (benign prostatic hyperplasia): Status: Chronic Assessment and plan: Tolerating flomax. VT prior to discharge - starting now. Qualifiers: Lower urinary tract symptom presence: symptoms present Lower urinary tract symptom detail: incomplete bladder emptying Qualified Code(s): N40.1 - Benign prostatic hyperplasia with lower urinary tract symptoms; R39.14 - Feeling of incomplete bladder emptying (10) GERD (gastroesophageal reflux disease): Status: Chronic Assessment and plan: Continue famotidine Qualifiers: Esophagitis presence: esophagitis presence not specified Qualified Code(s): K21.9 - Gastro-esophageal reflux disease without esophagitis (11) DVT prophylaxis: Status: Acute Assessment and plan: enoxaparin 40 mg SC daily (12) Discharge planning issues: Status: Acute Assessment and plan: Possible discharge home tomorrow with home health ser vices. O2 arrangements are being attempted for outpatient use. Subjective Subjective Interval history since last seen: Requiring 4L of O2 by NC at rest and 10 L with activity. Care management [facility], who [facility] to be able to accommodate these oxygen needs; we will know for sure tomorrow. The patient walked on the stairs today. Denies dizziness, chest pain, shortness of breath, nausea. Wants to try to to do a voiding trial. Exam Narrative Exam Narrative: General: Very pleasant elderly male, on high flow NC (oxymizer), looks better HEENT: EOMI, MMM Heart: RRR, + quiet CB Lungs: CTAB Abdomen: soft, nontender, nondistended Extremities: R foot drop. No edema BLE's. Objective Last Vital Signs Temp 36.4 C L 02/13/21 11:58 Pulse 91 H 02/13/21 11:58 Resp 18 02/13/21 11:58 BP 100/61 02/13/21 11:58 Pulse Ox 94 02/13/21 11:58 Laboratory Results - last 24 hr 02/13/21 02/13/21 06:15 06:15 WBC 20.31 H RBC 3.45 L Hgb 10.7 L Hct 34.1 L MCV 98.8 H MCH 31.0 MCHC 31.4 L RDW 16.5 H Plt Count 161 MPV 10.2 Immature Gran % See Differential Neutrophils % 72.0 Band Neutrophils % 1 Lymphocytes % 17.0 Monocytes % 8.0 Eosinophils % 0.0 Basophils % 0.0 Metamyelocytes % 1 Myelocytes % 1 Nucleated RBC % 0 Absolute Neutrophils 14.83 H Absolute Lymphocytes 3.45 H Absolute Monocytes 1.62 H Absolute Eosinophils 0.00 Absolute Basophils 0.00 RBC Morphology See Below Polychromasia Present Basophilic Stippling Present Sodium 140 Potassium 3.7 Chloride 103 Carbon Dioxide 29.3 Anion Gap 7.7 BUN 51 H Creatinine 1.1 Estimated GFR/1.73 m2 >= 60.00 Glucose 108 H Calcium 8.0 L Magnesium 2.3
--- NOTE | 2021-02-13 16:01 | PT.INTREAT ---
Date of service: 02/13/21 Time of Service: 14:48 PT Notes Visit Reasons: COVID-19 Pneumonia Inpatient Physical Therapy Treatment Note [facility] Date: 02/13/2021 PRECAUTIONS: Fall, Monitor SaO2 SUBJECTIVE: Uriel is pleasant and agreeable to participating in PT. OBJECTIVE: Issued 4WW to patient for personal at home use. [employer] form completed. PAIN: No c/o pain BED MOBILITY/TRANSFERS Supine-sit: I Sit-stand: I Stand-sit: I GAIT Assistive Device: 4WW Weight bearing: Full Assist: S Distance: 30' x2 STAIRS: Up/down 3x4 and 2x6 using B rails and a step-to pattern independently. (Performed x2 with seated rest between.) VITALS: SaO2: 96% on 4L O2 at rest; 91% on 10L O2 with gait training; 86-93% on 15L O2 with stair negotiation. Performed in collaboration with Respiratory Therapy, see their note for specific vital sign details. ASSESSMENT: Patient tolerated session well with minimal c/o SOB with gait training and stair negotiation. He demonstrates independence with transfers at this time. PLAN: Patient would benefit from lift assist into his home upon discharge due to increasing supplemental oxygen needs with stair negotiation training. TREATMENT CODE/TIME: 20 minutes; 76129 (14:48)
--- NOTE | 2021-02-13 18:00 | PT.INDS ---
Date of service: 02/13/21 PT Notes Visit Reasons: COVID-19 Pneumonia Physical Therapy Inpatient Discharge Summary Date: 02/13/2021 Dates of Service: 02/08/2021 through 02/13/2021 This is a clinical summary of care provided for the duration of dates listed above. No charge was made in the completion of this documentation. Referring Doctor: Danial Shaw MD PT Orders: PT CONSULT: Extended stay weakness Precautions: Fall. Standard. Activity as tolerated. Per hospitalist, patient is off of COVID-19 precautions as of 02/05/2021, may walk in hallway with mask on and oxygen supplementation. Patient Profile/Admitting Diagnosis: Uriel is a 70-year-old male with diagnoses of COPD, COVID-19, paroxysmal SVT, depression, Pseudomonas UTI, and nutrition disorder referred to physical therapy to address functional mobility decline and extended stay weakness. PMHX: COVID (Acute) Hypoxemia (Acute) Social History/Home Situation: Lives with in a private home with 3 steps to enter through the garage, one rail. No falls in the past 12 months. Independent with all aspects of ADLs prior to admission. Uses continuous oxygen at home. Utilizes [facility] occasionally. Equipment Owned/DME: [facility] Subjective: NT. See most recent WHIPPED TOPPING SUPERVISOR notes. Objective: General Observation: NT. See most recent WHIPPED TOPPING SUPERVISOR notes. Mental Status: NT. See most recent WHIPPED TOPPING SUPERVISOR notes. Pain: NT. See most recent WHIPPED TOPPING SUPERVISOR notes. Vital Signs: NT. See most recent WHIPPED TOPPING SUPERVISOR notes. ROM: Right Upper Extremity: Shoulder Flexion WFL. Shoulder abduction WFL. Elbow flexion WFL. Wrist flexion WFL. Functional opening and closing of hand WFL. Left Upper Extremity: Shoulder Flexion WFL. Shoulder abduction WFL. Elbow flexion WFL. Wrist flexion WFL. Functional opening and closing of hand WFL. Right Lower Extremity: Hip flexion WFL. Hip abduction WFL. Knee flexion WFL. Ankle dorsiflexion absent. Ankle plantarflexion WFL. Left Lower Extremity: Hip flexion WFL. Hip abduction WFL. Knee flexion WFL. Ankle dorsiflexion WFL. Ankle plantarflexion WFL. Strength: Right Upper Extremity: Shoulder flexors 4-/5. Shoulder abductors 4-/5. Elbow flexors 5/5. Elbow extensors 4-/5. Manager Surgical strong. Left Upper Extremity: Shoulder flexors 4-/5. Shoulder abductors 4-/5. Elbow flexors 5/5. Elbow extensors 4-/5. Manager Surgical strong. Right Lower Extremity: Hip flexors 4-/5. Hip abductors 4-/5. Knee flexors 4/5. Knee extensors 4-/5. Ankle dorsiflexors 1/5. Ankle plantarflexors 4-/5. Left Lower Extremity: Right Lower Extremity: Hip flexors 4-/5. Hip abductors 4-/5. Knee flexors 4/5. Knee extensors 4-/5. Ankle dorsiflexors 4-/5. Ankle plantarflexors 4-/5. Bed Mobility/Transfers: Rolling independent Supine to sit independent Sit to supine independent Sit to stand supervision for oxygen tubing management Stand to sit supervision for oxygen tubing management Bed to reclining chair supervision for oxygen tubing management Gait: Continued gait oximetry with RT Letitia with patient only able to maintain 88% oxygen saturation on 10 L. Initial walk of 10 feet brought oxygen down to the low 80s on 8 L/min and required about 3 minutes to resaturate back to 88%. Patient was able to range between 91% to 88% when RT Letitia decided to bring the rate to 10 L O2/minute for the rest of the walk. Assessment: Patient has not needed physical help with transfers and ambulation. His main limiting issue continues to be his oxygen saturating ability during movement. Self-pacing covering 10-15 steps and resting for 3-5 minutes each time while performing deep breaths using his rollator has demonstrated better ability of patient to resaturate back to WNL the fastest. May need lift assist into home if desaturation becomes an issue with this afternoon's stairs training. Patient presents with clinical signs and symptoms consistent with current/admitting diagnoses that have resulted to mobility limitations, gait instability, generalized weakness, and overall ADL decline as demonstrated by the following impairment level findings: 1. Impaired standing balance 2. Impaired activity tolerance 3. Limitation of joint range of motion in right dorsiflexion 4. Shortness of breath, requires oxygen supplementation of 5 L/min via NC 5. Steppage gait on the right Impairments are contributing to the following functional limitations: 1. Difficulty with ambulation without assistive device and physical assistance 2. Increased completion time for mobility ADL performance 3. Increased risk for falls 4. Difficulty with managing steps alone safely Goals: Goals X1 week 1. Supine-Sit independent MET 2. Sit-Supine independent MET 3. Sit-Stand independent MET 4. Stand-Sit independent with FWW MET 5. Bed-Chair independent with FWW MET 6. Chair-Bed independent with FWW MET 7. Independent gait on level surface with use of FWW for at least 100 feet without report of pain nor dyspnea with oxygen saturation staying above 90% on 8 L NOT MET 8. Independent stair negotiation while holding onto 1 rail for at least 5 steps without report of pain nor dyspnea NOT MET 9. Good static and dynamic standing balance/tolerance NOT MET DISCHARGE RECOMMENDATIONS: [] Home with no services [] [X] Home with services. Patient will benefit from home health PT services in order to progress mobility level using least restrictive assistive ambulatory device, assess home safety, identify additional equipment needs, and establish a functional maintenance program that will increase ability of patient to remain at home. May benefit from the use of a four-wheeled walker to reduce fall risk at home to maximize activity tolerance. [] Home with outpatient PT [] [] SNF for continued rehabilitation [] [] Electric Accounting Machine Operator Care [] [] SNF versus LTC based on ability to participate and progress [] TREATMENT CODE/TIME: MD Thank you for the opportunity to participate in the care of this patient. Valerie Eason PT, DPT, CLT [facility] [place], [place]
[2021-02-13] MEDS: Latanoprost 0.005% 2.5 ML BTL OP (21:00)
[2021-02-13] MEDS: Atorvastatin 40 MG TAB PO (21:00)
[2021-02-13] MEDS: Mirtazapine 15 MG TAB 30 MG PO (21:07)
[2021-02-14 03:08] VITALS: BP 131/53; PULSE 90; RESP 19; TEMP 36.2; O2SAT 98
[2021-02-14 07:39] VITALS: BP 132/67; PULSE 84; RESP 18; TEMP 36.7; O2SAT 98
[2021-02-14] MEDS: Protein Nutritional Supplement 16 GM 1 OUNCE PACKET PO ×2 (08:36→13:08)
[2021-02-14] MEDS: Tamsulosin 0.4 MG CAPCR 0.8 MG PO (08:36)
[2021-02-14] MEDS: Docusate Sodium 100 MG CAP PO (08:37)
[2021-02-14] MEDS: Aspirin E.C. 81 MG TABEC PO (08:37)
[2021-02-14] MEDS: Enoxaparin 40 MG/0.4 ML SYR SC (08:37)
[2021-02-14] MEDS: Senna TAB 1 TAB PO (08:37)
[2021-02-14] MEDS: Famotidine 20 MG TAB PO (08:37)
[2021-02-14] MEDS: Multivitamin w/Minerals TAB 1 TAB PO (08:37)
[2021-02-14] MEDS: PARoxetine 10 MG TAB 30 MG PO (08:38)
[2021-02-14] MEDS: predniSONE 20 MG TAB 50 MG PO (08:38)
[2021-02-14] MEDS: Finasteride 5 MG TAB PO (08:39)
[2021-02-14] MEDS: Furosemide 20 MG TAB PO (08:39)
[2021-02-14] MEDS: Metoprolol CR 25 MG TABCR 37.5 MG PO (08:39)
[2021-02-14] MEDS: Thiamine 100 MG TAB PO (08:39)
[2021-02-14] MEDS: Folic Acid 1 MG TAB PO (08:39)
[2021-02-14] MEDS: Ascorbic Acid 500 MG TAB 1000 MG PO (08:39)
[2021-02-14] MEDS: Tiotropium/Olodaterol 10 PUFF INHALER 2 PUFF IH (08:51)
[2021-02-14 08:55] VITALS: O2SAT 92
[2021-02-14] MEDS: Normal Saline Flush 10 ML SYR IVP (09:03)
[2021-02-14] MEDS: Nystatin POWDER 15 GM JAR TP ×2 (09:20→13:07)
[2021-02-14] MEDS: Dronabinol 2.5 MG CAP 5 MG PO ×2 (11:00→16:04)
[2021-02-14 11:42] VITALS: BP 124/66; PULSE 77; RESP 18; TEMP 36.8; O2SAT 93
--- NOTE | 2021-02-14 13:34 | PDOC.HHF2F ---
Home Health Certification Home Health Certification: 1. Encounter Date and Reason I certify that Uriel Sprague was seen by Ally Fierro on 02/14/21 and that I had a [id number] encounter with this patient that meets the physician face to face encounter requirements. 2. Clinical Findings Supporting Skilled Need and Homebound Status I certify that home health services are medically necessary, include either intermittent correction and/or physical/speech therapy, and that this patient is homebound in that absences from the home require considerable and taxing effort and are infrequent or of short duration, or are attributable to the need to receive medical care. [X] (a) Attached documentation from encounter provides clinical findings supporting skilled need and homebound status (including what assistance patient requires to leave the home). The encounter with the patient was in whole, or in part, for the following medical condition, which is the primary reason for home health care: COVID-19 Pneumonia Alf: acute hypoxic respiratory failure post COVID-19, being discharged home on new O2 Physical Therapy: eval and treat Occupational Therapy: eval and treat CLIENT PROFESSIONAL: evaluate the need for resources in the community Homebound: unable to leave home without assistance 3. Certification and Authentication I certify that I composed the above information based on my clinical judgement relating to this patient's medical condition and, if applicable, clinical findings communicated to me by the NPP or inpatient physician who performed the Home Health Referral. All further orders will be obtained through ___Ingrid Navarro (Community Based Physician - PCP)
--- NOTE | 2021-02-14 13:36 | W.PM.DS.N ---
Date of service: 02/14/21 Time of Service: 13:36 DS: Diagnosis Discharge Diagnosis (1) Acute respiratory failure with hypoxia: Status: Deleted (2) COVID: Status: Resolved (3) Pulmonary fibrosis: Status: Acute (4) COPD (chronic obstructive pulmonary disease): (5) Paroxysmal supraventricular tachycardia: Status: Resolved (6) Pseudomonas urinary tract infection: Status: Resolved (7) Urinary retention: Status: Acute (8) Right foot drop: Status: Acute (9) Herniation of intervertebral disc between L5 and S1: Status: Acute (10) Heart murmur: Status: Chronic (11) BPH (benign prostatic hyperplasia): (12) GERD (gastroesophageal reflux disease): (13) Depression: Status: Acute Discharge Plan Disposition Patient Disposition: HOME W/HOME HEALTH SERVICE Condition: Stable Discharge Details Reason For Visit: COVID-19 Pneumonia Admit Date/Time: 01/10/21 09:42 Admit Provider: Mansoor Willson Attending Provider: Mansoor Willson Primary Care Provider: Ingrid Navarro Hospital Course Hospital Course: Mr Sprague is a 70 year old male with PMHx of O2-dependent COPD (previously on 3L of O2 by [place]), as well as h/o BPH, HTN, hyperlipidemia, not previously vaccinated against COVID-19, who was admitted to [facility] ICU under the hospitalist service for acute hypoxic respiratory failure due to COVID-19 pneumonia on 01/10/21. Because there was a concern for superimposed bacterial pneumonia, he was also treated with empiric antibiotics. He required initiation on CPAP (FiO2 60%, PEEP of 10) and was able to be alternated with humidified heated high flow cannula with High FiO2. He was treated with dexamethasone, remdesivir, and baricitinib. He also worked with incentive spirometry, vibrapep, and was proning. He did also require intermittent diuresis. He was found to be retaining urine and had a dykes catheter inserted. (Due to his borderline low BPs on admission, his flomax had to be held initially, but was able to be resumed later on his admission). He was noted to go into paroxysmal SVT and was initiated on metoprolol for it, with good rate control. His stay in the ICU was prolonged due to slow improvement in his hypoxic respiratory failure, but he was finally moved out of the ICU on 02/05/21 as he was transitioned to high flow nasal cannula with an oxymizer. He was treated for a pseudomonas UTI on this admission, but has finished his antibiotics prior to discharge. Today, he is requiring 4L of O2 at rest, 10 L with activity unless he is going up the stairs at which point he requires 15 L. He is being discharged home today with a lengthy steroid taper with bactrim for PJP prophylaxis. He was initiated on a regimen of mirtazapine and paroxetine due to depression that he was noted to have during his stay. He will be taken home in an ambulance with a lift-assist so that his high O2 requirement going up the stairs could be avoided. [facility]. He is being discharged home with a home health referral for nursing, PT, OT, and SPECIAL EDUCATION PROFESSIONAL. He passed his voiding trial, but is being referred to urology for follow up of his symptomatic BPH. He is medically stable for discharge home today. He should follow up with his PCP in 1-2 weeks, with Dr Rice of pulmonology in 3-4 weeks, in addition to urology. Care for patient as well as completion of his discharge summary on day of discharge took 60 minutes. Home Meds and New Rx's Prescriptions: New albuterol sulfate [Ventolin HFA] 90 mcg/actuation Hfa Aerosol Inhaler 2 puff inhalation Q4H PRN PRN (Reason: shortness of breath or wheezing) Qty: 8.5 RF: 0 atorvastatin 40 mg Tablet 40 mg PO QPM Qty: 30 RF: 0 docusate sodium [Colace] 100 mg Capsule 100 mg PO BID Qty: 60 RF: 0 paroxetine HCl 10 mg Tablet 30 mg PO DAILY Qty: 30 RF: 0 polyethylene glycol 3350 17 gram Powder In Packet 17 g PO BID Qty: 60 RF: 0 dronabinol 2.5 mg Capsule 5 mg PO BID@1100,1600 Qty: 120 RF: 0 folic acid 1 mg Tablet 1 mg PO DAILY Qty: 30 RF: 0 furosemide 20 mg Tablet 20 mg PO .EVERY OTHER DAY Qty: 15 RF: 0 mirtazapine 15 mg Tablet 30 mg PO HS Qty: 30 RF: 0 metoprolol succinate 25 mg Tablet Extended Release 24 Hr 37.5 mg PO DAILY Qty: 60 RF: 0 sennosides [Senokot] 8.6 mg Tablet 8.6 mg PO BID Qty: 60 RF: 0 sulfamethoxazole-trimethoprim 400-80 mg Tablet 1 tab PO DAILY Qty: 30 RF: 0 thiamine mononitrate (vit B1) [Vitamin B-1 (mononitrate)] 100 mg Tablet 100 mg PO DAILY Qty: 30 RF: 0 Phlexy-Vits Packet 1 packet PO TID Qty: 90 RF: 0 prednisone 10 mg tablet See Rx Instructions .ROUTE .COMPLEX Qty: 74 RF: 0 Continued latanoprost 0.005 % Drops 1 drp ophthalmic (eye) .Q EVENING RF: 0 flaxseed oil 1,000 mg Capsule 1,000 mg PO DAILY RF: 0 pantoprazole 40 mg Tablet,Delayed Release (Dr/Ec) 40 mg PO BID RF: 0 aspirin 81 mg Tablet 81 mg PO DAILY RF: 0 multivitamin Capsule 1 cap PO DAILY RF: 0 finasteride 5 mg Tablet 5 mg PO DAILY RF: 0 cholecalciferol (vitamin D3) 25 mcg (1,000 unit) Capsule 25 mcg PO DAILY RF: 0 Stiolto Respimat 2.5-2.5 mcg/actuation Mist 2 puff INHALATION DAILY RF: 0 Changed tamsulosin 0.4 mg Capsule 0.8 mg PO DAILY Qty: 60 RF: 0 Discontinued trazodone 50 mg Tablet 50 mg PO .QHS PRNRF: 0 dexamethasone 6 mg Tablet 6 mg PO DAILY RF: 0 simvastatin 10 mg Tablet 10 mg PO DAILY RF: 0 ramipril 10 mg Tablet 10 mg PO DAILY RF: 0 Discharge Instructions Instructions: Sulfamethoxazole/Trimethoprim (By mouth), Prednisone (By mouth), Paroxetine (By mouth), Mirtazapine (By mouth), Depression (DC), Using Oxygen at Home (DC), COVID-19 (Coronavirus Disease 2019) (DC) Additional Instructions: Finish your steroid (prednisone taper) as prescribed. You can stop taking bactrim (sulfamethoxazole-trimethoprim) after you have completed your week of 20 mg of prednisone. Do not be around open flames or smokers while wearing oxygen. Return to the hospital with any fever, bleeding, chest pain, or worsening shortness of breath. Follow up with your PCP in 1-2 weeks, with urology for your urinary symptoms, and with Dr Rice (pulmonology) as scheduled. Care Plan Goals: Home with home health nursing, PT, OT, SPECIAL EDUCATION PROFESSIONAL. Stand Alone Forms: Nursing Discharge Form Referrals: Donnell Zhao MD [ [facility] STAFF PHYSICIAN] - (Nurse will call you for an appointment ) Ingrid Navarro [Primary Care Provider] - María Elena Rice MD [ [facility] STAFF PHYSICIAN] - 03/28/21 3:00 pm Activity:: Activity as Tolerated Equipment/Supplies:: walker; home O2 Diet:: Low Sodium Discharge Orders Discharge Orders: Discharge Order (Routine); Ordered 02/14/21 Ordered By: Ally Fierro DS: Summary Time Spent with Patient providing and/or coordinating discharge services: Greater than 30 minutes Status at Discharge Functional status at discharge: uses cane/walker Overall status at discharge: patient is progressing back to baseline Mental Status: mental status grossly normal Speech and Movement: speech and movement normal Mood: congruent mood Affect: normal affect Exam Narrative Exam Narrative: General: Very pleasant elderly male, on high flow NC (oxymizer), looks better HEENT: EOMI, MMM Heart: RRR, + quiet CB Lungs: CTAB Abdomen: soft, nontender, nondistended Extremities: R foot drop. No edema BLE's. Psych Mental Status: mental status grossly normal Speech and Movement: speech and movement normal Mood: congruent mood Affect: normal affect DS: Data Vitals/I&O Vitals and I&O: Vital Signs Temperature 36.8 C 02/14/21 11:42 Temperature Source Tympanic 02/14/21 11:42 Pulse 77 02/14/21 11:42 Pulse Rhythm Regular 02/14/21 08:54 Pulse Strength Normal 01/10/21 09:44 Pulse 75 02/05/21 10:00 Respiratory Rate 18 02/14/21 11:42 Respiratory Effort Non-Labored 02/14/21 08:54 Respiratory Depth Normal 02/14/21 08:54 Respiratory Pattern Normal 02/14/21 08:54 Blood Pressure 124/66 02/14/21 11:42 Blood Pressure Mean 63 02/05/21 08:01 Blood Pressure Position Supine 02/05/21 09:00 Pulse Oximetry 93 02/14/21 11:42 Oxygen Delivery Method Nasal Cannula 02/14/21 11:42 Oxygen Flow Rate 4 02/14/21 11:42 Fraction of Inspired Oxygen (FIO2) 30 02/12/21 11:04 Pain Level 0 02/14/21 11:42 Comment 02/14/21 03:08 Intake & Output 02/13/21 02/14/21 02/14/21 23:59 11:59 23:59 Intake Total 120 / 360 600 / 840 240 / 840 Output Total 550 / 1275 587 / 937 350 / 937 Balance -430 / -915 -110 / -97 Weight 69.2 kg Intake: Oral 120 / 360 600 / 840 240 / 840 Output: Urine 550 / 1275 87 / 437 350 / 437 Post Void Residual 500 / 500 Other: Urine Color Straw Light Patricia Yellow Urine Appearance Clear Clear Clear Urine Odor None None None Comment pT said he voided a little and there was some blood in it. RN notified. Voiding Methods Urinal Urinal Toilet Data Completed and Pending Completed studies during hospitalization [Text1]: CT chest 01/29/21: 1. Minimal if any significant radiographic improvement when compared to 01/09/2021. 2. Severe emphysematous changes are again noted and there is persistent infiltrate in the lung smalls which exhibits minimal change from the prior study. 3. No pleural effusions. Lumbar spine MRI 02/06/21: 1. Disc disease and herniation at L5-S1 causing mild compression of the right and left S1 nerve roots. There is also moderately severe left neural foraminal stenosis. 2. Multilevel degenerative changes in the lumbar spine as described above. Echo 02/12/21: Normal left ventricular size and wall thickness. Estimated ejection fraction is 55 to 60%. Wall motion is normal Normal right ventricular size and systolic function Both atria are normal in size Trileaflet aortic valve with mild regurgitation There is no additional structural or hemodynamically significant valvular disease Normal estimated right ventricular systolic pressure, 24 mmHg PFSH All Active Problems (Updated 02/14/21 @ 13:46 by Ally Fierro MD) Herniation of intervertebral disc between L5 and S1 (Acute) Urinary retention (Acute) COVID-19 (Acute) Pulmonary fibrosis (Acute) Respiratory failure with hypoxia (Acute) Heart murmur (Chronic) Herniation of intervertebral disc between L5 and S1 (Acute) Right foot drop (Acute) Nutrition disorder (Acute) Depression (Acute) Palliative care patient (Acute) Respiratory failure (Acute) Bacteria in urine (Acute) Hypoalbuminemia (Acute) Anemia (Chronic) Leukocytosis (Acute) Discharge planning issues (Acute) DVT prophylaxis (Acute) Medical History (Updated 02/14/21 @ 13:46 by Ally Fierro MD) BPH (benign prostatic hyperplasia) COPD (chronic obstructive pulmonary disease) GERD (gastroesophageal reflux disease) HLD (hyperlipidemia) Social History Smoking/Tobacco Use Status: Former Tobacco Use Smoking risk assessment performed?: Yes Substance use type: does not use
--- NOTE | 2021-02-14 14:30 | CMDISCH_ITS ---
- If Service Date Differs Date of service: 02/14/21 Time of Service: 14:30 LACE Index Scoring Tool - Questions: Length of Stay (in days): 14 or more Acuity (Admit via E.D.?): Yes Comorbidities: Chronic Pulmonary Disease E.D. Visits: 1 - Answers: Total Score: 13 Risk of Readmission: High Risk Care Management Discharge Reason for Hospitalization: Covid-19 Pneumonia. Discharge Plan: Discharge home via EMS w/lift assist, arranged by FELIX. New Hi- Flow O2 concentrator and equipment was delivered today at 1:30 pm. New [facility] RN/PT/OT/[employer]ER was ordered. FELIX notified [facility], and confirmed his first home visit will be tomorrow. Uriel was provided with a front wheeled walker and new pulse OX, prior to discharge. His RX's were faxed to [facility] in [place], at his request. Uriel will follow up with community providers and discharge plan of care as prescribed. Patient/Family Education Needs: Review discharge instructions, limitations, medications and plan of care as prescribed. Review plan to follow up with community providers. ask me three. Services Needed at Discharge: Home Health Care Services ([facility] RN/PT/OT/[employer]ER. FELIX spoke with Tyrone at . They are aware of his O2 needs.), Transportation (via [employer], they will provide lift assist. Arranged by FELIX.)
--- NOTE | 2021-02-14 14:43 | CHAPLAIN ---
Uriel is being discharged today, and is very happy about it. He has been here for 33 days, many of those in the ICU, originally hospitalized with COVID. He said he is not usually from his and this has been hard on both of them. He will be going home by ambulance so that he can have a lift assist into the house. Uriel has told me that he has two churches and their pastors praying for him. He is connected to a anglican in [place], [place] and one in [place].
[2021-02-14 15:35] VITALS: BP 107/65; PULSE 90; RESP 28; TEMP 36.7; O2SAT 93
== END 2021-02-14 17:58 | disposition home health service (06) | DRG 177 ==
LOC: ER 01-10 10:05 → ICU 01-10 10:35 → MS 02-05 13:08
PROVIDERS: Internal Medicine; Registered Nurse Emergency; Admitting Provider Family Medicine; Emergency Provider Student in an Organized Health Care Education/Training Program; PCP Nurse Practitioner Family; Visit Provider Family Medicine
DX: U07.1 COVID-19 (principal); J12.82 Pneumonia due to coronavirus disease 2019; J96.21 Acute and chronic respiratory failure with hypoxia; J44.0 Chronic obstructive pulmonary disease with (acute) lower respiratory infection; J44.1 Chronic obstructive pulmonary disease with (acute) exacerbation; N39.0 Urinary tract infection, site not specified; I47.1 Supraventricular tachycardia; E78.5 Hyperlipidemia, unspecified; K21.9 Gastro-esophageal reflux disease without esophagitis; D64.9 Anemia, unspecified; I95.9 Hypotension, unspecified; E88.09 Other disorders of plasma-protein metabolism, not elsewhere classified; E86.1 Hypovolemia; F32.9 Major depressive disorder, single episode, unspecified; R33.9 Retention of urine, unspecified; Z66 Do not resuscitate; B96.5 Pseudomonas (aeruginosa) (mallei) (pseudomallei) as the cause of diseases classified elsewhere; N40.1 Benign prostatic hyperplasia with lower urinary tract symptoms; M51.27 Other intervertebral disc displacement, lumbosacral region; M21.371 Foot drop, right foot; J84.10 Pulmonary fibrosis, unspecified; R01.1 Cardiac murmur, unspecified
CPT/HCPCS: 36410; 36415; 36592; 71250; 71275; 80048; 80053; 80076; 82306; 84145; 84591; 85027; 87040; 87077; 87635; 93005; 93306; 94618; 94640; 96361; 96365; 96372; 96375; 97110; 97163; 97530; 99291; 99292; J1650; 71045; 72148; 80202; 81003; 81015; 82607; 82728; 82746; 83605; 83615; 83735; 84100; 84425; 84484; 85025; 85379; 85610; 86140; 87086; 87186; 93010; 94660; 94668; 94760; 99223; 99232; 99233; 99239; J0696; J1100; J1941; J2060; J3490; J7512; J7613; J7620; J8540

== ENCOUNTER → 2021-03-26 09:08 | Outpatient (BNVA) | payer MEDICARE, SELFPAY | PROVIDERS: PCP Nurse Practitioner Family; Referring Provider Nurse Practitioner Family; Visit Provider Nurse Practitioner Gerontology | DX: R33.9 Retention of urine, unspecified (principal); J44.9 Chronic obstructive pulmonary disease, unspecified | CPT/HCPCS: 36415; 81003; 99214 ==

== ENCOUNTER 2021-03-29 12:11 | Outpatient (CLI) | payer MEDICARE, SELFPAY ==
[2021-03-29] MEDS: Inhaler, Assist Device 1 EACH MC (16:43)
[2021-03-29] MEDS: Albuterol HFA 18 GM 200 PUFF INH IH (16:43)
--- NOTE | 2021-03-30 15:35 | W.PFT ---
Date of service: 03/29/21 Time of Service: 15:34 Pulmonary Function Test Result Requesting Provider Celinae Indications: COPD, post COVID Interpretation Spirometry: There is a restrictive pattern to spirometry. There is no significant bronchodilator response. Lung Volumes: There is moderate restrictive lung disease Diffusion Capacity: The diffusion is severely reduced Airway Pressure: Normal airways resistance Impression Moderate restrictive lung disease with a significantly reduced diffusion. Clinical Correlation therefore is recommended.
--- NOTE | 2021-03-30 15:38 | W.PFT ---
Date of service: 03/29/21 Time of Service: 15:10 Pulmonary Function Test Result Requesting Provider Duchene Indications: Pulmonary fibrosis, hypoxia Impression 6MWT with a distance: 600 feet. 2 LPM appropriate at rest. Required 8 LPM with exertion. Clinical Correlation therefore is recommended.
== END 2021-03-29 12:12 | disposition home or self-care (01) ==
LOC: RT 12:13
PROVIDERS: PCP Nurse Practitioner Family; Visit Provider Student in an Organized Health Care Education/Training Program
DX: J84.10 Pulmonary fibrosis, unspecified (principal); J44.9 Chronic obstructive pulmonary disease, unspecified; U09.9 Post COVID-19 condition, unspecified; J98.4 Other disorders of lung
CPT/HCPCS: 94060; 94618; 94726; 94729

== ENCOUNTER 2021-03-29 12:13 | Outpatient (CLI) | payer MEDICARE, SELFPAY | END 2021-03-29 12:14 | disposition home or self-care (01) | PROVIDERS: PCP Nurse Practitioner Family; Visit Provider Student in an Organized Health Care Education/Training Program | DX: J96.21 Acute and chronic respiratory failure with hypoxia (principal); J84.10 Pulmonary fibrosis, unspecified; J98.4 Other disorders of lung | CPT/HCPCS: 94762 ==

== ENCOUNTER 2021-04-02 15:18 | Inpatient (IN) | payer OTHER, MEDICARE, SELFPAY ==
[2021-04-02] VITALS (47 sets, daily range): BP systolic 93–136; BP diastolic 61–78; PULSE 3–115; RESP 1–39; TEMP 36.2–36.6; O2SAT 68–96
--- NOTE | 2021-04-02 15:15 | RT.EKG_ITS ---
APPROVED REPORT Exam: Resting ECG Reason for Exam: sob Patient Location: E HR:94 bpm ECG Measurements Heart Rate 94 AXIS ME 138 P 42 QRSd 152 QRS -8 QT 399 T 98 QTc 500 Conclusion Sinus rhythm...normal P axis, V-rate 60- 99 Left bundle branch block...QRSd>120, broad/notched R ST elevation secondary to IVCD...Multiple VCG criteria sinus rhythm at 94, normal axis, left bundle branch block as seen on prior, does not meet Dana feng for STEMI, nondiagnostic EKG
[2021-04-02 16:04] LABS: Absolute Lymphocyte Count 1.52 10^3/uL (1.2-3.4); Absolute Monocyte Count 1.14 10^3/uL (0.1-0.8); Absolute Neutrophil Count 7.19 10^3/uL (1.2-6.7); HGB 9.9 g/dL (13.5-17.5); Lymphocytes % 14.9; MCH 30.7 pg (27.0-33.0); MCHC 30.9 % (32.0-36.0); MCV 99.4 fL (80-95); MPV 9.6 fL (8.0-11.0); Monocytes % 11.2; Neutrophils % 70.6; Platelet Count 305 10^3/uL (130-400); RBC 3.22 10^6/uL (4.36-5.78); RDW 15.3 % (11.8-14.1); RDW-SD 56.9 fL; WBC 10.19 10^3/uL (4.4-10.8)
[2021-04-02 16:05] LABS: Absolute Basophil Count 0.05 10^3/uL (0.0-0.2); Basophils % 0.5; Immature Grans % 0.8; Lactate 1.7 mmol/L (0.6-1.4)
[2021-04-02] MEDS: Albuterol/Ipratropium 3 ML UPD VIAL UPD ×2 (16:21→22:22)
--- NOTE | 2021-04-02 16:25 | W.ED.GENAD ---
Discharge Plan Disposition Patient Disposition: [facility] Condition: Improving Discharge Details Clinical Impression: Pneumonia, Hypoxia Admit Date/Time: 04/02/21 20:33 Admit Provider: Zev Stiles Attending Provider: Zev Stiles Primary Care Provider: Ingrid Navarro ED Provider: Christoph Hadley Discharge Data Discharge Date/Time-TO BE ENTERED AT DEPARTURE: 04/02/21 21:25 Medical Decision Making <Vani Hadley MD - Last Filed: 04/23/21 15:47> Uriel Sprague is a 70-year-old man with a history of pulmonary fibrosis, COPD, paroxysmal SVT, hyperlipidemia presenting to the emergency department with decreased oxygen saturation. Patient was recently hospitalized for hypoxic respiratory failure, discharged 02/14/2021. Patient reports that he was discharged home on 2 L of oxygen. Patient reports that he was doing well until 3 to 4 days ago, when he began to feel more short of breath. Patient reports that his O2 sats today were in the 40s and 50s at home, which prompted him to come to the emergency department. He denies any pain, fever, vomiting, diarrhea, numbness, weakness, rash. Patient reports that lower extremity swelling seems to be at baseline for him. He reports that he has had some coughing yesterday. Shortness of breath significantly worse with exertion. He denies recent medication changes. On exam patient is nontoxic-appearing. Mild expiratory wheeze bilaterally throughout, trace edema bilateral lower extremities without posterior calf tenderness palpation. Concern for 1 Covid, bacterial pneumonia, pulmonary embolism, interstitial lung disease flare, ACS, other. Exam/history at this time not consistent with sepsis, acute aortic pathology. Plan for EKG, IV placement, screening labs, albuterol, Solu-Medrol, telemetry. Will monitor and reassess. Patient signed out to Dr. Christoph Hadley at time of shift change with labs, disposition pending. Care signed out by Dr. Vani Hadley with plan to follow-up on labs and determine disposition. Labs reviewed and D-dimer elevated. Plan to proceed to CT of the chest. BNP is only mildly elevated at 526. Troponin and delta troponin negative. Potassium is 3.3. I will give potassium chloride p.o. [address] of the chest to assess for pulmonary embolism was interpreted by radiology: . Emphysema. Bullous change at the lung apices. 2. Extensive patchy alveolar opacity and ground-glass pulmonary density. An acute pulmonary infection is suspected. Clinical correlation is recommended. 3. Small-moderate sized bilateral pleural effusions, larger on the left. 4. 9 mm right middle lobe pulmonary nodule, not seen on the recent prior exam from January 09, 2021. Follow-up recommended as per institution protocol. Patient has known long COVID-19. Opacity may be related to this versus acute infection. Plan to cover with ceftriaxone 2g IV. Patient reassessed and is saturating well on stable increased supplemental O2 at 5L. I recommended admission to the patient. He is hesitant to be hospitalized again and request that I speak with his . I spoke with his and agrees with admission noting that she thinks he has been overdoing it at home with getting around house and transporting to appointments. I spoke with Dr. Stiles and discussed ED presentation and course - he will evaluate patient for admission. ECG Data Attestation: I personally reviewed and interpreted this ECG (s) as follows: Interpretation: EKG shows sinus rhythm at 94, normal axis, left bundle branch block as seen on prior, does not meet Sgarbossa criteria for STEMI, nondiagnostic EKG <Christoph Hadley MD - Last Filed: 04/24/21 16:27> Care signed out by Dr. Vani Hadley with plan to follow-up on labs and determine disposition. Labs reviewed and D-dimer elevated. Plan to proceed to CT of the chest. BNP is only mildly elevated at 526. Troponin and delta troponin negative. Potassium is 3.3. I will give potassium chloride p.o. [address] of the chest to assess for pulmonary embolism was interpreted by radiology: . Emphysema. Bullous change at the lung apices. 2. Extensive patchy alveolar opacity and ground-glass pulmonary density. An acute pulmonary infection is suspected. Clinical correlation is recommended. 3. Small-moderate sized bilateral pleural effusions, larger on the left. 4. 9 mm right middle lobe pulmonary nodule, not seen on the recent prior exam from January 09, 2021. Follow-up recommended as per institution protocol. Patient has known long COVID-19. Opacity may be related to this versus acute infection. Plan to cover with ceftriaxone 2g IV. Patient reassessed and is saturating well on stable increased supplemental O2 at 5L. I recommended admission to the patient. He is hesitant to be hospitalized again and request that I speak with his . I spoke with his and agrees with admission noting that she thinks he has been overdoing it at home with getting around house and transporting to appointments. I spoke with Dr. Stiles and discussed ED presentation and course - he will evaluate patient for admission. HPI <Vani Hadley MD - Last Filed: 04/23/21 15:47> General Date/Time Provider Initiated Documentation: 04/02/21 15:24. HPI Narrative: Uriel Sprague is a 70-year-old man with a history of pulmonary fibrosis, COPD, paroxysmal SVT, hyperlipidemia presenting to the emergency department with decreased oxygen saturation. Patient was recently hospitalized for hypoxic respiratory failure, discharged 02/14/2021. Patient reports that he was discharged home on 2 L of oxygen. Patient reports that he was doing well until 3 to 4 days ago, when he began to feel more short of breath. Patient reports that his O2 sats today were in the 40s and 50s at home, which prompted him to come to the emergency department. He denies any pain, fever, vomiting, diarrhea, numbness, weakness, rash. Patient reports that lower extremity swelling seems to be at baseline for him. He reports that he has had some coughing yesterday. Shortness of breath significantly worse with exertion. He denies recent medication changes. Related Data Home Medications Medication Instructions Recorded Confirmed aspirin 81 mg tablet 81 mg PO DAILY 01/09/21 04/02/21 cholecalciferol (vitamin D3) 25 25 mcg PO DAILY 01/09/21 04/02/21 mcg (1,000 unit) capsule finasteride 5 mg tablet 5 mg PO DAILY 01/09/21 04/02/21 flaxseed oil 1,000 mg capsule 1,000 mg PO DAILY 01/09/21 04/02/21 latanoprost 0.005 % eye drops 1 drp OPHTHALMIC (EYE) .Q EVENING 01/09/21 04/02/21 multivitamin 1 cap PO DAILY 01/09/21 04/02/21 pantoprazole 40 mg tablet,delayed 40 mg PO BID 01/09/21 04/02/21 release tiotropium 2.5 mcg-olodaterol 2.5 2 puff INHALATION DAILY 01/09/21 04/02/21 mcg/actuation mist for inhalation (Stiolto Respimat) albuterol sulfate 90 mcg/actuation 2 puff INHALATION Q4H PRN PRN #8.5 02/14/21 04/02/21 aerosol inhaler (Ventolin HFA) g atorvastatin 40 mg tablet 40 mg PO QPM #30 tab 02/14/21 04/02/21 docusate sodium 100 mg capsule 100 mg PO BID #60 cap 02/14/21 04/02/21 (Colace) dronabinol 2.5 mg capsule 5 mg PO BID@1100,1600 #120 cap 02/14/21 04/02/21 folic acid 1 mg tablet 1 mg PO DAILY #30 tab 02/14/21 04/02/21 mirtazapine 15 mg tablet 30 mg PO HS #30 tab 02/14/21 04/02/21 nutritional supplements 1 packet PO TID #90 ea 02/14/21 04/02/21 (Phlexy-Vits) paroxetine HCl 10 mg tablet 30 mg PO DAILY #30 tab 02/14/21 04/02/21 sennosides 8.6 mg tablet (Senokot) 8.6 mg PO BID #60 tab 02/14/21 04/02/21 sodium chloride 0.65 % nasal spray 1 spray INTRANASAL QID PRN #60 ml 02/14/21 04/02/21 aerosol tamsulosin 0.4 mg capsule 0.8 mg PO DAILY #60 cap 02/14/21 04/02/21 thiamine mononitrate (vit B1) 100 100 mg PO DAILY #30 tab 02/14/21 04/02/21 mg tablet (Vitamin B-1 (mononitrate)) metoprolol succinate 25 mg 37.5 mg PO DAILY tab 03/26/21 04/02/21 tablet,extended release 24 hr doxycycline hyclate 100 mg capsule 100 mg PO BID #6 cap 04/06/21 furosemide 40 mg tablet 40 mg PO DAILY #10 tab 04/06/21 potassium chloride 20 mEq 40 meq PO DAILY #20 tab 04/06/21 tablet,extended release prednisone 10 mg tablet See Rx Instructions .ROUTE 04/06/21 .COMPLEX #38 tab Previous Rx's Medication Instructions Recorded albuterol sulfate 90 mcg/actuation 2 puff INHALATION Q4H PRN PRN #8.5 02/14/21 aerosol inhaler (Ventolin HFA) g atorvastatin 40 mg tablet 40 mg PO QPM #30 tab 02/14/21 docusate sodium 100 mg capsule 100 mg PO BID #60 cap 02/14/21 (Colace) dronabinol 2.5 mg capsule 5 mg PO BID@1100,1600 #120 cap 02/14/21 folic acid 1 mg tablet 1 mg PO DAILY #30 tab 02/14/21 mirtazapine 15 mg tablet 30 mg PO HS #30 tab 02/14/21 nutritional supplements 1 packet PO TID #90 ea 02/14/21 (Phlexy-Vits) paroxetine HCl 10 mg tablet 30 mg PO DAILY #30 tab 02/14/21 sennosides 8.6 mg tablet (Senokot) 8.6 mg PO BID #60 tab 02/14/21 sodium chloride 0.65 % nasal spray 1 spray INTRANASAL QID PRN #60 ml 02/14/21 aerosol tamsulosin 0.4 mg capsule 0.8 mg PO DAILY #60 cap 02/14/21 thiamine mononitrate (vit B1) 100 100 mg PO DAILY #30 tab 02/14/21 mg tablet (Vitamin B-1 (mononitrate)) doxycycline hyclate 100 mg capsule 100 mg PO BID #6 cap 04/06/21 furosemide 40 mg tablet 40 mg PO DAILY #10 tab 04/06/21 potassium chloride 20 mEq 40 meq PO DAILY #20 tab 04/06/21 tablet,extended release prednisone 10 mg tablet See Rx Instructions .ROUTE 04/06/21 .COMPLEX #38 tab Allergies Allergy/AdvReac Type Severity Reaction Status Date / Time environmental Allergy Uncoded 04/02/21 15:31 General Stated Complaint: SOB NATHAN: 2 Review of Systems <Vani Hadley MD - Last Filed: 04/23/21 15:47> Narrative: Constitutional: denies fevers Eyes: denies eye pain ENT: denies ear pain, dental pain, sore throat Cardiovascular: denies chest pain, chronic unchanged lower extremity edema Respiratory: Reports SOB, cough GI: denies abdominal pain, vomiting, diarrhea : denies flank pain MSK: denies back pain, neck pain, arthralgias, myalgias Skin: denies rash Neuro: denies headaches, numbness, weakness PFSH <Vani Hadley MD - Last Filed: 04/23/21 15:47> All Active Problems Acute bronchitis (Acute) Pleural effusion (Acute) Volume overload (Acute) Hypoxia (Acute) Herniation of intervertebral disc between L5 and S1 (Acute) Urinary retention (Acute) Pulmonary fibrosis (Acute) Respiratory failure with hypoxia (Acute) Herniation of intervertebral disc between L5 and S1 (Acute) Right foot drop (Acute) Nutrition disorder (Acute) Depression (Acute) Palliative care patient (Acute) Hypoalbuminemia (Acute) Anemia (Chronic) Leukocytosis (Acute) Medical History BPH (benign prostatic hyperplasia) COPD (chronic obstructive pulmonary disease) COVID GERD (gastroesophageal reflux disease) Heart murmur HLD (hyperlipidemia) Social History Smoking/Tobacco Use Status: Former Tobacco Use Smoking risk assessment performed?: Yes Substance use type: does not use Exam <Vani Hadley MD - Last Filed: 04/23/21 15:47> Narrative Exam Narrative: Constitutional: well and [id number], pleasant, conversing normally HENT: head atraumatic/normocephalic/normal inspection, mucous membranes moist Eyes: conjunctiva normal, sclera normal, pupils 3mm b/l Neck: no stridor, normal ROM, trachea midline Chest: normal inspection Resp: normal work of breathing, mild expiratory wheeze throughout bilaterally Cardio: normal rate, normal rhythm, no murmur appreciated GI: abdomen soft, non-tender, non-distended Back: normal inspection, no rash Skin: warm, dry, normal color, no rash Neuro: alert, not altered, grossly non-focal, normal tone Ext: Well felt trace pedal edema bilateral lower extremities, no posterior calf tenderness to palpation Psych: normal mood, normal affect, normal behavior Course <Vani Hadley MD - Last Filed: 04/23/21 15:47> Vital Signs Vital signs: Vital Signs Temperature 36.6 C 04/02/21 15:28 Pulse 99 H 04/02/21 15:28 Respiratory Rate 17 04/02/21 15:28 Blood Pressure 136/74 04/02/21 15:28 Pulse Oximetry 94 04/02/21 15:28 Temperature 36.6 C 04/02/21 15:28 Temperature Source Skin 04/02/21 15:28 Pulse 99 H 04/02/21 15:28 Respiratory Rate 17 04/02/21 15:28 Respiratory Effort Non-Labored 04/02/21 16:16 Respiratory Depth Normal 04/02/21 16:16 Respiratory Pattern Normal 04/02/21 16:16 Blood Pressure 136/74 04/02/21 15:28 Blood Pressure Position Sitting 04/02/21 15:28 Pulse Oximetry 94 04/02/21 15:28 Oxygen Delivery Method Nasal Cannula 04/02/21 15:28 Oxygen Flow Rate 6 04/02/21 15:28 Pain Level 0 04/02/21 15:28 Lab/Test Results Lab/Test Results: Laboratory Tests Range/Units 04/02/21 04/02/21 15:55 15:55 WBC (4.4-10.8) 10^3/uL 10.19 RBC (4.36-5.78) 10^6/uL 3.22 L Hgb (13.5-17.5) g/dL 9.9 L Hct (40.0-50.0) % 32.0 L MCV (80-95) fL 99.4 H MCH (27.0-33.0) pg 30.7 MCHC (32.0-36.0) % 30.9 L RDW (11.8-14.1) % 15.3 H Plt Count (130-400) 10^3/uL 305 MPV (8.0-11.0) fL 9.6 Immature Gran % 0.8 Neutrophils % 70.6 Lymphocytes % 14.9 Monocytes % 11.2 Eosinophils % 2.0 Basophils % 0.5 Absolute Neutrophils (1.2-6.7) 10^3/uL 7.19 H Absolute Lymphocytes (1.2-3.4) 10^3/uL 1.52 Absolute Monocytes (0.1-0.8) 10^3/uL 1.14 H Absolute Eosinophils (0.0-0.7) 10^3/uL 0.20 Absolute Basophils (0.0-0.2) 10^3/uL 0.05 VBG Lactate (0.6-1.4) mmol/L 1.7 H Sign Out <Vani Hadley MD - Last Filed: 04/23/21 15:47> Sign Out Data: Sign Out Comment: Patient signed out to Dr. Christoph Hadley at time of shift change with labs, imaging, disposition pending. Last updated by Vani Hadley MD at 04/02/21 16:38
[2021-04-02 16:28] LABS: Albumin 2.7 g/dL (3.4-5.0); Alkaline Phosphatase 97 U/L (46-116); Anion Gap 6.7 mmol/L (3-11); BUN 21 mg/dL (7-18); Bilirubin, Total 0.5 mg/dL (0.2-1.0); CO2 28.3 mmol/L (21.0-32.0); CREATININE 1.5 mg/dL (0.70-1.30); Calcium 8.4 mg/dL (8.5-10.1); Chloride 106 mmol/L (98-107); Estimated GFR 46.13 (mL/min/1.73m2); Glucose 108 mg/dL (74-106); Potassium 3.3 mmol/L (3.5-5.1); Sodium 141 mmol/L (136-145); Total Protein 6.5 g/dL (6.4-8.2)
[2021-04-02 16:29] LABS: ALT 19 U/L (16-63); AST 17 U/L (15-37); Magnesium 1.8 mg/dL (1.8-2.4); NT-proBNP 526 pg/mL (<300); Troponin I < 50 ng/L (<or=60)
[2021-04-02 16:32] LABS: D-Dimer 1201 ng/mlFEU (<500)
[2021-04-02] MEDS: methylPREDNISolone SUCC 125 MG VIAL IVP (16:42)
--- NOTE | 2021-04-02 17:30 | DI.CT_ITS ---
Exam(s) CT CHEST PE CTA EXAM: CT CHEST PE CTA CLINICAL HISTORY: shortness of breath, hypoxia, elevated ddimer. TECHNIQUE: Imaging Protocol: CT angiography of the chest was performed using pulmonary embolus andriy col. Multi planar reconstructions were performed. CONTRAST MATERIAL: Intravenous: Omnipaque 350 Contrast volume: 100 cc COMPARISON: CT CT CHEST WO from 01/29/2021 FINDINGS: CHEST: PULMONARY ARTERIES: Less than optimal injection. However, there are no obvious intraluminal filling defects to suggest acute pulmonary emboli. LUNGS: There are COPD findings. There are extensive bilateral interstitial and patchy confluent infi ltrates throughout all lobes of both lungs.. There are moderate-sized bilateral pleural effusions. No significant focal findings in the trachea and mainstem bronchi. MEDIASTINUM: There is no hilar adenopathy. There is slightly prominent lymph nodes in the anterior l eft mediastinal fat. Slightly increased from previous. Visualized thyroid unremarkable. CARDIAC: Heart size is upper normal. There is no pericardial effusion.Caliber of the thoracic aorta is within normal limits. No evidence of dissection. There is no significant shift of the interventri cular septum. PARTIALLY VISUALIZED UPPERMOST ABDOMEN: No obvious findings OSSEOUS: No significant osseous lesions.. IMPRESSION: 1. No evidence of obvious acute pulmonary emboli. However, there are extensive bilateral infiltrates involving all lobes of both lungs and there also bilateral pleural effusions, moderate size. 2. Mild mediastinal adenopathy, commensurate with the lung findings. 3. Findings are superimposed upon advanced COPD emphysematous changes and have progressed when compar ed to the most recent CT scan of 01/29/2021. RADIATION DOSE DELIVERED: 480.33mGy.cm Total DLP DATA REPOSITORY: All CT scans at this facility are submitted to the National Radiology Data Registry (NRDR) Dose Index Registry (DIR) with the [employer] ([employer]). RADIATION OPTIMIZATION: All CT scans at this facility use at least one of these dose optimization te chniques: automated exposure control; mA and/or kV adjustment per patient size (includes targeted exa ms where dose is matched to clinical indication); or iterative reconstruction.
[2021-04-02 18:10] LABS: Source Nasopharynx
--- NOTE | 2021-04-02 18:30 | RT.EKG_ITS ---
APPROVED REPORT Exam: Resting ECG Reason for Exam: repeat Patient Location: E HR:91 bpm ECG Measurements Heart Rate 91 AXIS IN 147 P 48 QRSd 153 QRS -16 QT 426 T 63 QTc 524 Conclusion Sinus rhythm...normal P axis, V-rate 60- 99 Left bundle branch block...QRSd>120, broad/notched R
[2021-04-02] MEDS: Omnipaque 350 MG/ML 100 ML BTL IJ (18:36)
[2021-04-02] MEDS: Normal Saline Flush 10 ML SYR IVP ×2 (18:37→22:05)
[2021-04-02 18:55] LABS: COVID-19 PCR Negative (Negative); Influenza A PCR Negative (Negative); Influenza B PCR Negative (Negative); RSV PCR Negative (Negative)
--- NOTE | 2021-04-02 19:30 | DI.VRAD_ITS ---
PROCEDURE INFORMATION: Exam: CTA Chest With Contrast Exam date and time: 04/02/2021 5:34 PM Age: 70 years old Clinical indication: Other: SOB TECHNIQUE: Imaging protocol: Computed tomographic angiography of the chest with contrast. 3D rendering (Not supervised by radiologist): MIP and/or 3D reconstructed images were created by the technologist. Radiation optimization: All CT scans at this facility use at least one of these dose optimization techniques: automated exposure control; mA and/or kV adjustment per patient size (includes targeted exams where dose is matched to clinical indication); or iterative reconstruction. Contrast material: OMNIPAQUE 350; Contrast volume: 100 ml; Contrast route: INTRAVENOUS (IV); COMPARISON: CT CHEST PE CTA 01/09/2021 7:14 PM FINDINGS: Limitations: Extensive artifact from motion. Pulmonary arteries: No large central pulmonary embolism identified. Small and distal pulmonary arteries partially obscured by artifact from breathing motion and not well evaluated for diagnosis or exclusion of small or distal pulmonary emboli. Aorta: No thoracic aortic aneurysm or dissection. Thyroid: Thyroid gland partially obscured by artifact but grossly unremarkable, as seen. Lungs: Emphysema. Bullous change at the lung apices. 9 mm right middle lobe pulmonary nodule, image 322 of series 5. Extensive patchy alveolar opacity and ground-glass pulmonary density. Pleural spaces: Small-moderate sized bilateral pleural effusions, larger on the left. No pneumothorax. Heart: Normal sized heart. Trace pericardial fluid. Lymph nodes: Scattered mildly enlarged mediastinal and hilar lymph nodes. Bones/joints: Old right clavicle fracture. Lower ribs partially excluded from view and incompletely evaluated. Otherwise, no acute fracture seen among the bones of the chest. Spinal degenerative change with anterior osteophytes and small Schmorl's nodes at several thoracic levels. Soft tissues: No gross soft tissue mass or fluid collection seen in the chest wall. IMPRESSION: 1. Emphysema. Bullous change at the lung apices. 2. Extensive patchy alveolar opacity and ground-glass pulmonary density. An acute pulmonary infection is suspected. Clinical correlation is recommended. 3. Small-moderate sized bilateral pleural effusions, larger on the left. 4. 9 mm right middle lobe pulmonary nodule, not seen on the recent prior exam from January 09, 2021. Follow-up recommended as per institution protocol. Dictated and Authenticated by: Emil Murphy MD. Ordering:AYE Hawthorne MD
[2021-04-02 19:31] LABS: Troponin I < 50 ng/L (<or=60)
--- NOTE | 2021-04-02 20:11 | W.PM.HP.N ---
Date of service: 04/02/21 Time of Service: 20:11 Assessment and Plan Assessment and plan (1) SOB (shortness of breath): Status: Acute Assessment and plan: SOB, acute on chronic. On a baseline of COPD the striking factor here seems to be the multiple findings on CT. Etiology not clear, but more likely than not infectious, but cannot exclude non-infectious airspace lesion. In absolute terms the findings would be most consistent with COVID, though the test is negative -- but perhaps false negative. Atypical bacterial pneumonia another reasonable possibility. With marginally elevated BNP and no typical findings, I think heart failure is not likely contributing here, at least not substantially, though thetre could be an element particualrly in light of pleural effusions. Altogether I think the wisest course at this moment would be to treat empirically for all three -- false negative COVID, atypical bacterial pneumonia, and CHF, along with usual program for COPD. Will begin Remdesivir, Dexa and Baricitinib; start Levaquin; and trial Lasix. Reviewed ADs, requests DNR. History of Present Illness History of Present Illness Chief Complaint: SOB Narrative: 70 male with h/o COPD, here -02/06 with respiratory failure secondary to COVID and superimposed pneumonia. Here tonight with several days of increasing SOB with home sats in 50s and 60s. Minimal cough just today. No CP, fever, orthopnea or change in baseline ankle swelling. In ER initial sats reported in 70s, with scattered rales. W/U of note for white count 10 w/o shift or lymphopenia; d_Dimer 1201, BNP 526, trop neg x 2; CTA chest neg PE but showing extensive ground glass opacities (reported as patchy on prior) along with small-moderate bilateral pleural effusion; EKG old LBBB. Note that we are technically unable to view any images, this is based on written reports. COVID is negative. Patient has been given steroids and updrafts. States he feels somewhat improved. Review of Systems All systems reviewed & are unremarkable except as noted in HPI and below PFSH All Active Problems (Updated 04/02/21 @ 20:25 by Zev Stiles MD) SOB (shortness of breath) (Acute) Pneumonia (Acute) Hypoxia (Acute) Herniation of intervertebral disc between L5 and S1 (Acute) Urinary retention (Acute) Pulmonary fibrosis (Acute) Respiratory failure with hypoxia (Acute) Herniation of intervertebral disc between L5 and S1 (Acute) Right foot drop (Acute) Nutrition disorder (Acute) Depression (Acute) Palliative care patient (Acute) Hypoalbuminemia (Acute) Anemia (Chronic) Leukocytosis (Acute) Medical History BPH (benign prostatic hyperplasia) COPD (chronic obstructive pulmonary disease) COVID GERD (gastroesophageal reflux disease) Heart murmur HLD (hyperlipidemia) Social History Smoking/Tobacco Use Status: Former Tobacco Use Smoking risk assessment performed?: Yes Substance use type: does not use Meds Allergies and Home Medications Allergies Allergy/AdvReac Type Severity Reaction Status Date / Time environmental Allergy Uncoded 04/02/21 15:31 Home Medications Medication Instructions Recorded Confirmed Type aspirin 81 mg tablet 81 mg PO DAILY 01/09/21 04/02/21 History cholecalciferol (vitamin D3) 25 25 mcg PO DAILY 01/09/21 04/02/21 History mcg (1,000 unit) capsule finasteride 5 mg tablet 5 mg PO DAILY 01/09/21 04/02/21 History flaxseed oil 1,000 mg capsule 1,000 mg PO DAILY 01/09/21 04/02/21 History latanoprost 0.005 % eye drops 1 drp OPHTHALMIC (EYE) .Q EVENING 01/09/21 04/02/21 History multivitamin 1 cap PO DAILY 01/09/21 04/02/21 History pantoprazole 40 mg tablet,delayed 40 mg PO BID 01/09/21 04/02/21 History release tiotropium 2.5 mcg-olodaterol 2.5 2 puff INHALATION DAILY 01/09/21 04/02/21 History mcg/actuation mist for inhalation (Stiolto Respimat) albuterol sulfate 90 mcg/actuation 2 puff INHALATION Q4H PRN PRN #8.5 02/14/21 04/02/21 Rx aerosol inhaler (Ventolin HFA) g atorvastatin 40 mg tablet 40 mg PO QPM #30 tab 02/14/21 04/02/21 Rx docusate sodium 100 mg capsule 100 mg PO BID #60 cap 02/14/21 04/02/21 Rx (Colace) dronabinol 2.5 mg capsule 5 mg PO BID@1100,1600 #120 cap 02/14/21 04/02/21 Rx folic acid 1 mg tablet 1 mg PO DAILY #30 tab 02/14/21 04/02/21 Rx mirtazapine 15 mg tablet 30 mg PO HS #30 tab 02/14/21 04/02/21 Rx nutritional supplements 1 packet PO TID #90 ea 02/14/21 04/02/21 Rx (Phlexy-Vits) paroxetine HCl 10 mg tablet 30 mg PO DAILY #30 tab 02/14/21 04/02/21 Rx sennosides 8.6 mg tablet (Senokot) 8.6 mg PO BID #60 tab 02/14/21 04/02/21 Rx sodium chloride 0.65 % nasal spray 1 spray INTRANASAL QID PRN #60 ml 02/14/21 04/02/21 Rx aerosol tamsulosin 0.4 mg capsule 0.8 mg PO DAILY #60 cap 02/14/21 04/02/21 Rx thiamine mononitrate (vit B1) 100 100 mg PO DAILY #30 tab 02/14/21 04/02/21 Rx mg tablet (Vitamin B-1 (mononitrate)) furosemide 20 mg tablet 20 mg PO .EVERY OTHER DAY tab 03/26/21 04/02/21 History metoprolol succinate 25 mg 37.5 mg PO DAILY tab 03/26/21 04/02/21 History tablet,extended release 24 hr Exam Narrative Exam Narrative: 133.63, 90, 36.6, 21, 90-93% RA. HEENT atraumatic; neck supple, unable to gauge JVP; lungs somewhat bronchial but clear; heart no RV heave, RRR somewhat distant; abdomen soft and NT; extremities 1+ pedal edema; neuro Ox3, lucid, moves all 4s Results Labs Result diagrams: 04/02/21 15:55 04/02/21 15:55 Labs: Laboratory Results - last 24 hr 04/02/21 04/02/21 04/02/21 15:55 15:55 15:55 WBC 10.19 RBC 3.22 L Hgb 9.9 L Hct 32.0 L MCV 99.4 H MCH 30.7 MCHC 30.9 L RDW 15.3 H Plt Count 305 MPV 9.6 Immature Gran % 0.8 Neutrophils % 70.6 Lymphocytes % 14.9 Monocytes % 11.2 Eosinophils % 2.0 Basophils % 0.5 Absolute Neutrophils 7.19 H Absolute Lymphocytes 1.52 Absolute Monocytes 1.14 H Absolute Eosinophils 0.20 Absolute Basophils 0.05 D-Dimer VBG Lactate 1.7 H Sodium 141 Potassium 3.3 L Chloride 106 Carbon Dioxide 28.3 Anion Gap 6.7 BUN 21 H Creatinine 1.5 H Estimated GFR/1.73 m2 46.13 Glucose 108 H Calcium 8.4 L Magnesium 1.8 Total Bilirubin 0.5 AST 17 ALT 19 Alkaline Phosphatase 97 Troponin I < 50 NT-Pro-B Natriuret Pep 526 H Total Protein 6.5 Albumin 2.7 L COVID-19 Source SARS-CoV-2 (PCR) Influenza Type A (PCR) Influenza Type B (PCR) RSV (PCR) 04/02/21 04/02/21 04/02/21 15:55 18:03 19:05 WBC RBC Hgb Hct MCV MCH MCHC RDW Plt Count MPV Immature Gran % Neutrophils % Lymphocytes % Monocytes % Eosinophils % Basophils % Absolute Neutrophils Absolute Lymphocytes Absolute Monocytes Absolute Eosinophils Absolute Basophils D-Dimer 1201 H VBG Lactate Sodium Potassium Chloride Carbon Dioxide Anion Gap BUN Creatinine Estimated GFR/1.73 m2 Glucose Calcium Magnesium Total Bilirubin AST ALT Alkaline Phosphatase Troponin I < 50 NT-Pro-B Natriuret Pep Total Protein Albumin COVID-19 Source Nasopharynx SARS-CoV-2 (PCR) Negative Influenza Type A (PCR) Negative Influenza Type B (PCR) Negative RSV (PCR) Negative Last Vital Signs Temp 36.6 C 04/02/21 15:28 Pulse 85 04/02/21 18:01 Resp 21 04/02/21 18:10 BP 133/63 04/02/21 18:01 Pulse Ox 90 L 04/02/21 18:10
[2021-04-02] MEDS: Potassium Chloride 20 MEQ TABCR PO (21:17)
[2021-04-02] MEDS: Enoxaparin 40 MG/0.4 ML SYR SC (22:23)
[2021-04-02] MEDS: Furosemide 20 MG/2 ML VIAL IVP (22:23)
[2021-04-03] VITALS (102 sets, daily range): BP systolic 105–149; BP diastolic 52–73; PULSE 77–103; RESP 8–30; TEMP 31–36.7; O2SAT 70–99
[2021-04-03] MEDS: levoFLOXacin 750 MG/150 ML BAG 100 MG IVPB (01:16)
[2021-04-03] MEDS: Albuterol/Ipratropium 3 ML UPD VIAL UPD (02:57)
--- NOTE | 2021-04-03 07:18 | PUCC_ITS ---
General Date of Service Date of service: 04/03/21 Time of Service: 07:18 Reason for Admission to ICU: Hypoxic respiratory failure Assessment and Plan Assessment and plan (1) Respiratory failure with hypoxia: Status: Acute Qualifiers: Chronicity: acute on chronic Qualified Code(s): J96.21 - Acute and chronic respiratory failure with hypoxia (2) Pulmonary fibrosis: Status: Acute (3) Volume overload: Status: Acute (4) COPD (chronic obstructive pulmonary disease): Qualifiers: COPD type: unspecified COPD Qualified Code(s): J44.9 - Chronic obstructive pulmonary disease, unspecified (5) GERD (gastroesophageal reflux disease): Qualifiers: Esophagitis presence: esophagitis presence not specified Qualified Code(s): K21.9 - Gastro-esophageal reflux disease without esophagitis (6) Pleural effusion: Status: Acute Assessment and plan: This is a 70 yo man who is admitted to the ICU for hypoxia in the setting of a prolonged hospitalization recently for severe COVID. I had been seeing him for fibrotic lung disease in the setting of COVID and he had just finished his prednisone taper. He also has COPD for which he is being treated. On exam he does not appear to be largely volume overloaded but he states he has gained weight since his hospitalization, he had signs of pulmonary edema on chest CT and has bilateral pleural effusions. His bedside POCUS shows a normal IVC but I do worry his septal wall looks somewhat hypokinetic so we will repeat a formal echo to reassess this. He is receiving antibiotic and prednisone in addition to diuresis currently. (7) GINNY (acute kidney injury): Status: Acute Recommendations Pulmonary: Acute on Chronic Hypoxic Respiratory Failure - baseline O2 needs: 2LPM at rest, 8 LPM with exertion - HFNC to maintain sats >88% - Acapella and IS - diuresis COPD - continue home Stiolto - prn albuterol Fibrotic lung disease - prednisone 40mg daily Cardiac: Prolonged QTc - monitor closely HTN - continue home meds Pulmonary edema - diuresis - repeat TTE Renal: GINNY - likely 2/2 hypoxia - resolving I&O: Intake & Output 03/31/21 04/01/21 04/02/21 04/03/21 23:59 23:59 23:59 23:59 Intake Total 240 / 240 Output Total 800 / 800 Balance -560 / -560 Weight 83.5 kg Daily Fluid Goal:: -1 L in 24 hours GI Nutrition: Ok for PO diet Infectious Disease: Possible Pneumonia - on cefepime - procal negative but will continue cefepime given acuity of illness - urine antigen for S.pneumo and Legionella ordered - MRSA nares ordered Hematologic: No acute concerns Neurologic: No acute concerns Endocrine: Daily monitoring of glucose Lines: PIV Prophylaxis: Lovenox, Protonix Code Status: Resuscitation Status DNR/DNI Subjective Critical and life-threatening events over the past 24 hours: This is a 70 yo man I see in clinic for COPD and fibrotic lung disease secondary to a severe COVID infection. I saw him in clinic recently and he was doing well having just finished his steroid taper. He was on 2LPM at rest and needing 8LPM with exertion. Since prior admission both he and his received their COVID shots. He had several appointments last week and it took it out of him. His called me yesterday as on their home sat monitor his oxygen was reading in the 60's and 70's. Uriel sounded fine and said he felt fine but he was profoundly hypoxic. I recommended they report to the emergency department for assessment. He underwent chest CT that found no PE, with redemonstration of progressive f ibrotic disease with now ground glass that is consistent with volume overload (with bilateral pleural effusions) but could also represent infection. Uriel was admitted to the ICU due to his O2 requirements. He was put on COVID precautions and started on remdesivir, barcitinib and decadron despite having a negative COVID test. He has an elevated BNP (which is likely falsely lowered due to his weight). He has been weaned down to 6 LPM, which is still significantly over his baseline. Today, he is a little defeated to be back but is feeling ok. He is anxious to be home understandably. He thinks that all the walking and appointments last week really took it out of him. Exam Narrative Exam Narrative: Bedside POCUS 04/03/21: All 4 cardiac views obtained with satisfaction. Bilateral anterior B-lines present Parasternal long and short axis are technically limited but appearance of low normal cardiac function and a possible hypokinetic septal wall. Normal RV size and function. Apical 4 chamber againd shows likely low normal function with possible hypokinetic septal wall Subxyphoid shows good cardiac function and a normal appearing and functioning RV. IVC is plethoric and of normal size. Const General: comfortable and no acute distress Nutritional Appearance: thin HENMT Head: normocephalic Ears: external ears normal and no periauricular adenopathy General nose exam: nasal mucous membranes and turbinates normal Face and sinus: sinuses nontender Mouth: oropharynx normal and moist mucous membranes Teeth and gingiva: dentition normal Eyes General: appearance normal, both eyes and all related structures Pupils: PERRL Neck Neck: normal visual inspection and no lymphadenopathy Chest Chest: normal inspection of the chest Resp Effort & Inspection: normal respiratory effort Auscultation: clear to auscultation bilaterally, rales, rhonchi and no wheezes Cardio Rate: regular rate Rhythm: regular rhythm Skin Rashes: no rashes Neuro General: patient alert, patient awake and patient oriented x3 Extrem General: no clubbing, cyanosis or edema Most Recent VS/Results Last Vital Signs Temp 35.9 C L 04/03/21 03:15 Pulse 88 04/03/21 06:00 Resp 21 04/03/21 06:30 BP 124/62 04/03/21 06:00 Pulse Ox 90 L 04/03/21 06:30 Laboratory Results - last 24 hr 04/02/21 04/02/21 04/02/21 15:55 15:55 15:55 WBC 10.19 RBC 3.22 L Hgb 9.9 L Hct 32.0 L MCV 99.4 H MCH 30.7 MCHC 30.9 L RDW 15.3 H Plt Count 305 MPV 9.6 Immature Gran % 0.8 Neutrophils % 70.6 Lymphocytes % 14.9 Monocytes % 11.2 Eosinophils % 2.0 Basophils % 0.5 Absolute Neutrophils 7.19 H Absolute Lymphocytes 1.52 Absolute Monocytes 1.14 H Absolute Eosinophils 0.20 Absolute Basophils 0.05 D-Dimer VBG Lactate 1.7 H Sodium 141 Potassium 3.3 L Chloride 106 Carbon Dioxide 28.3 Anion Gap 6.7 BUN 21 H Creatinine 1.5 H Estimated GFR/1.73 m2 46.13 Glucose 108 H Calcium 8.4 L Magnesium 1.8 Total Bilirubin 0.5 AST 17 ALT 19 Alkaline Phosphatase 97 Troponin I < 50 NT-Pro-B Natriuret Pep 526 H Total Protein 6.5 Albumin 2.7 L COVID-19 Source SARS-CoV-2 (PCR) Influenza Type A (PCR) Influenza Type B (PCR) RSV (PCR) 04/02/21 04/02/21 04/02/21 15:55 18:03 19:05 WBC RBC Hgb Hct MCV MCH MCHC RDW Plt Count MPV Immature Gran % Neutrophils % Lymphocytes % Monocytes % Eosinophils % Basophils % Absolute Neutrophils Absolute Lymphocytes Absolute Monocytes Absolute Eosinophils Absolute Basophils D-Dimer 1201 H VBG Lactate Sodium Potassium Chloride Carbon Dioxide Anion Gap BUN Creatinine Estimated GFR/1.73 m2 Glucose Calcium Magnesium Total Bilirubin AST ALT Alkaline Phosphatase Troponin I < 50 NT-Pro-B Natriuret Pep Total Protein Albumin COVID-19 Source Nasopharynx SARS-CoV-2 (PCR) Negative Influenza Type A (PCR) Negative Influenza Type B (PCR) Negative RSV (PCR) Negative Review of Systems All systems reviewed & are unremarkable except as noted in HPI and below Time spent with patient Time spent in Critical Care: 40 Time spent in Critical care included: Coordination of care, Chart review, Documenting critically ill care, Time at immediate bedside and Discussing critically ill care with other medical staff
--- NOTE | 2021-04-03 08:33 | PDOC.CMIN ---
- If Service Date Differs Date of service: 04/03/21 Time of Service: 08:33 Care Management Initial Assess REASON FOR HOSPITALIZATION:: SOB PAST MEDICAL HISTORY/PAST SURGICAL HISTORY:: All Active Problems (Updated 04/02/21 @ 20:25 by Zev Stiles MD). SOB (shortness of breath) (Acute). Pneumonia (Acute). Hypoxia (Acute). Herniation of intervertebral disc between L5 and S1 (Acute). Urinary retention (Acute). Pulmonary fibrosis (Acute). Respiratory failure with hypoxia (Acute). Herniation of intervertebral disc between L5 and S1 (Acute). Right foot drop (Acute). Nutrition disorder (Acute). Depression (Acute). Palliative care patient (Acute). Hypoalbuminemia (Acute). Anemia (Chronic). Leukocytosis (Acute). Medical History . BPH (benign prostatic hyperplasia). COPD (chronic obstructive pulmonary disease). COVID. GERD (gastroesophageal reflux disease). Heart murmur. HLD (hyperlipidemia) PREVIOUS FUNCTIONAL STATUS/SOCIAL/FAMILY SUPPORTS:: Uriel lives in a single family home in [place] with his , Amparo. They have 5 children between them as well as many grandchildren and great grandchildren, all of which live out of state. 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 He is an [employer] [place] [employer]. Uriel drives and is independent with his ADLs at baseline. CURRENT FUNCTIONAL STATUS:: Uriel was sitting up in a chair when CM met with him. He was pleasant and engaged easily with CM. Uriel stated that he is feeling much better and hopes to be discharged today but he understands that is not likely. ADVANCE DIRECTIVES:: [facility] with [facility] Has patient been provided with info about the portal/API?: Yes Did the patient sign up for the portal?: No CODE STATUS:: DNR/DNI INSURANCE COVERAGE / FINANCIAL ISSUES:: [facility] Medicare replacement CURRENT HOME/COMMUNITY SERVICES/EQUIPMENT:: none PRIMARY CARE PHYSICIAN:: Ingrid Navarro POTENTIAL DISCHARGE NEEDS:: follow up with community providers and plan of care PATIENT/FAMILY EDUCATION NEEDS:: Discharge instructions including limitations and follow up plan of care, Ask Me Three and self-management discussion. TRANSPORTATION:: Via private vehicle with family. PLAN:: Anticipate Uriel will be discharged home with no new services when medically cleared. He has new home oxygen which was ordered when he was discharged home in January after a lengthy stay for Covid pneumonia. Uriel will follow up with his PCP and plan of care as directed. He will transport home via private vehicle with family when ready. CM will continue to assess for ongoing discharge needs.
[2021-04-03] MEDS: Metoprolol CR 25 MG TABCR 37.5 MG PO (08:37)
[2021-04-03] MEDS: Docusate Sodium 100 MG CAP PO ×2 (08:37→20:07)
[2021-04-03] MEDS: Aspirin 81 MG CHEW PO (08:37)
[2021-04-03] MEDS: Tamsulosin 0.4 MG CAPCR 0.8 MG PO (08:37)
[2021-04-03] MEDS: Finasteride 5 MG TAB PO (08:38)
[2021-04-03] MEDS: Furosemide 20 MG/2 ML VIAL IVP (08:38)
[2021-04-03] MEDS: Folic Acid 1 MG TAB PO (08:39)
[2021-04-03] MEDS: Thiamine 100 MG TAB PO (08:39)
[2021-04-03] MEDS: Pantoprazole 40 MG TABCR PO ×2 (08:39→20:07)
[2021-04-03] MEDS: predniSONE 20 MG TAB 40 MG PO (08:40)
[2021-04-03] MEDS: PARoxetine 10 MG TAB 30 MG PO (08:40)
[2021-04-03] MEDS: Normal Saline Flush 10 ML SYR IVP ×2 (08:50→10:23)
[2021-04-03 08:58] LABS: Absolute Basophil Count 0.02 10^3/uL (0.0-0.2); Absolute Lymphocyte Count 0.81 10^3/uL (1.2-3.4); Absolute Monocyte Count 0.18 10^3/uL (0.1-0.8); Absolute Neutrophil Count 9.84 10^3/uL (1.2-6.7); Basophils % 0.2; HCT 30.5 % (40.0-50.0); HGB 9.5 g/dL (13.5-17.5); Immature Grans % 0.9; Lymphocytes % 7.4; MCH 30.5 pg (27.0-33.0); MCHC 31.1 % (32.0-36.0); MCV 98.1 fL (80-95); MPV 9.5 fL (8.0-11.0); Monocytes % 1.6; Neutrophils % 89.9; Nucleated RBC 0 %; Platelet Count 291 10^3/uL (130-400); RBC 3.11 10^6/uL (4.36-5.78); RDW 15.1 % (11.8-14.1); RDW-SD 53.9 fL; WBC 10.95 10^3/uL (4.4-10.8)
[2021-04-03] MEDS: CEFEPIME 2 GM in Normal Saline 100 ML IVPB ×2 (09:01→20:05)
[2021-04-03 09:27] LABS: Anion Gap 9.4 mmol/L (3-11); BUN 23 mg/dL (7-18); CO2 29.6 mmol/L (21.0-32.0); CREATININE 1.3 mg/dL (0.70-1.30); Calcium 8.5 mg/dL (8.5-10.1); Chloride 105 mmol/L (98-107); Estimated GFR 54.42 (mL/min/1.73m2); Glucose 155 mg/dL (74-106); Potassium 3.5 mmol/L (3.5-5.1); Sodium 144 mmol/L (136-145)
[2021-04-03 10:00] LABS: Procalcitonin 0.1 ng/mL
[2021-04-03] MEDS: Tiotropium/Olodaterol 10 PUFF INHALER 2 PUFF IH (10:44)
[2021-04-03] MEDS: Dronabinol 2.5 MG CAP 5 MG PO ×2 (11:57→16:39)
--- NOTE | 2021-04-03 12:38 | DI.US_ITS ---
APPROVED REPORT EXAM: Comprehensive 2D, Doppler, and color-flow Echocardiogram Patient Location: In-Patient Room/Bed: [id number] Software Quality Engineer: Leann Bridges RDCS (AE) Indications: volume overload, hypokinetic septum on bedside POCUS Other Information Study Quality: Adequate. Technically limited study due to body habitus, inability to position patient bedside icu exam. Conclusion This is a limited echocardiogram, as the patient had a full echo study done February 12, 2021 Normal left ventricular wall thickness and chamber size. Estimated ejection fraction is 55 to 60%. Wall motion is normal Normal right ventricular size and systolic function Both atria are normal in size There are no significant structural valvular abnormalities identified Wall motion Left Ventricle The left ventricle is normal size. The left ventricular systolic function is normal. The left ventric ular ejection fraction is within the normal range. There is normal left ventricular wall thickness. T here is normal LV segmental wall motion. LVEF is 58%. Right Ventricle Right ventricle is grossly normal in size. The RVSP is 41.8 mmHg. Right ventricular systolic function is grossly normal. Tricuspid Valve The tricuspid valve is normal in structure. Mild tricuspid regurgitation. 2D Dimensions IVSD d PLAX 1.01 cm M: 0.6-1.2 LV Vol A2C d MOD 101.8 mL LVPW d PLAX 1.01 cm M: 0.6 - 1.2 LV Vol A4C d MOD 93.7 mL LVID d PLAX 4.26 cm M: 4.2 - 5.8 LA vol/ BSA A2C s A-L 18.3 mL/m2 LVDs 2.80 cm M: 2.5 - 4.0 LA vol/ BSA A4C s A-L 14.3 mL/m2 LV EF Teichholz 62.0 % LA Vol/ BSA Biplane s A-L 17.0 mL/m2 LVEF (Wagoner's) 59.14 % M: 52 - 72 LA Area A4C s MOD 12.38 cm2 LV Volume 75.43 mL M: 62 - 150 LA Area A2C s MOD 13.35 cm2 LV Volume Index 39.08 mL/m2 M: 34 - 74 LV EF A4C MOD 57.5 % LV Vol Biplane MOD 99.4 mL LV EF A2C MOD 60.9 % FS 33.10 % LV EF Biplane MOD 59.1 % SV 58.77 mL SV Index 30.44 mL/m2 Tricuspid Valve TR Peak Grad 38.7 mmHg TR Vmax 3.11 m/s RA Pressure 3.00 mmHg RVSP (TR) 41.8 mmHg
--- NOTE | 2021-04-03 12:49 | PGE_ITS ---
Date of Service Date of service: 04/03/21 Time of Service: 12:49 Assessment and Plan Assessment and plan (1) Acute and chronic respiratory failure with hypoxia: Status: Acute Assessment and plan: [place] to be predominantly due to fluid overload/acute CHF with a possible bacterial infectious component on the background of pulmonary fibrosis and COPD. Echo is being done; read pending. For now, continue diuresis, monitoring I/O's and daily weights. Treat empirically with antibiotics. Systemic steroids. Scheduled and prn nebs. Discussed with Dr Rice. (2) Acute CHF: Status: Acute Assessment and plan: Await echo read. Continue diuresing, monitoring I/O's and daily weights. Cardiac monitoring. Check TSH. (3) Pulmonary fibrosis: Status: Acute Assessment and plan: As above. (4) COPD (chronic obstructive pulmonary disease): Assessment and plan: As above Qualifiers: COPD type: unspecified COPD Qualified Code(s): J44.9 - Chronic obstructive pulmonary disease, unspecified (5) Pleural effusion: Status: Acute Assessment and plan: As above (6) DVT prophylaxis: Status: Acute Assessment and plan: Enoxaparin (7) Discharge planning issues: Status: Acute Assessment and plan: DNR/DNI Keep in ICU PT consult. Consider palliative care consult Subjective Subjective Interval history since last seen: Mr Sprague states that he noticed leg swelling at home and worsening in his breathing over the last week with a dry cough. Denies dizziness, chest pain, nausea at home. He is getting an echocardiogram right now. Exam Narrative Exam Narrative: General:Elderly male who appears to have some facial edema from the last time that I saw him, A&Ox3, on humidified heated high flow NC 40L 60%, completing full sentences, no obvious dyspnea/tachypnea, sounds hoarse HEENT: EOMI, MMM Heart: RRR,no m/r/g Lungs: Auscultated anteriorly due to the fact that he is having an echocardiogram exam at the time of my visit; coarse breath sounds, no obvious wheezing/rales. Abdomen: soft, nontender, nondistended Extremities: +1 BLE edema Objective Last Vital Signs Temp 36.2 C L 04/03/21 08:30 Pulse 91 H 04/03/21 08:39 Resp 25 H 04/03/21 09:50 BP 130/65 04/03/21 08:39 Pulse Ox 94 04/03/21 09:50 Laboratory Results - last 24 hr 04/02/21 04/02/21 04/02/21 15:55 15:55 15:55 WBC 10.19 RBC 3.22 L Hgb 9.9 L Hct 32.0 L MCV 99.4 H MCH 30.7 MCHC 30.9 L RDW 15.3 H Plt Count 305 MPV 9.6 Immature Gran % 0.8 Neutrophils % 70.6 Lymphocytes % 14.9 Monocytes % 11.2 Eosinophils % 2.0 Basophils % 0.5 Nucleated RBC % Absolute Neutrophils 7.19 H Absolute Lymphocytes 1.52 Absolute Monocytes 1.14 H Absolute Eosinophils 0.20 Absolute Basophils 0.05 D-Dimer VBG Lactate 1.7 H Sodium 141 Potassium 3.3 L Chloride 106 Carbon Dioxide 28.3 Anion Gap 6.7 BUN 21 H Creatinine 1.5 H Estimated GFR/1.73 m2 46.13 Glucose 108 H Calcium 8.4 L Magnesium 1.8 Total Bilirubin 0.5 AST 17 ALT 19 Alkaline Phosphatase 97 Troponin I < 50 NT-Pro-B Natriuret Pep 526 H Total Protein 6.5 Albumin 2.7 L Procalcitonin COVID-19 Source SARS-CoV-2 (PCR) Influenza Type A (PCR) Influenza Type B (PCR) RSV (PCR) 04/02/21 04/02/21 04/02/21 15:55 18:03 19:05 WBC RBC Hgb Hct MCV MCH MCHC RDW Plt Count MPV Immature Gran % Neutrophils % Lymphocytes % Monocytes % Eosinophils % Basophils % Nucleated RBC % Absolute Neutrophils Absolute Lymphocytes Absolute Monocytes Absolute Eosinophils Absolute Basophils D-Dimer 1201 H VBG Lactate Sodium Potassium Chloride Carbon Dioxide Anion Gap BUN Creatinine Estimated GFR/1.73 m2 Glucose Calcium Magnesium Total Bilirubin AST ALT Alkaline Phosphatase Troponin I < 50 NT-Pro-B Natriuret Pep Total Protein Albumin Procalcitonin COVID-19 Source Nasopharynx SARS-CoV-2 (PCR) Negative Influenza Type A (PCR) Negative Influenza Type B (PCR) Negative RSV (PCR) Negative 04/03/21 04/03/21 04/03/21 08:40 08:40 08:40 WBC 10.95 H RBC 3.11 L Hgb 9.5 L Hct 30.5 L MCV 98.1 H MCH 30.5 MCHC 31.1 L RDW 15.1 H Plt Count 291 MPV 9.5 Immature Gran % 0.9 Neutrophils % 89.9 Lymphocytes % 7.4 Monocytes % 1.6 Eosinophils % 0.0 Basophils % 0.2 Nucleated RBC % 0 Absolute Neutrophils 9.84 H Absolute Lymphocytes 0.81 L Absolute Monocytes 0.18 Absolute Eosinophils 0.00 Absolute Basophils 0.02 D-Dimer VBG Lactate Sodium 144 Potassium 3.5 Chloride 105 Carbon Dioxide 29.6 Anion Gap 9.4 BUN 23 H Creatinine 1.3 Estimated GFR/1.73 m2 54.42 Glucose 155 H Calcium 8.5 Magnesium 2.0 Total Bilirubin AST ALT Alkaline Phosphatase Troponin I NT-Pro-B Natriuret Pep Total Protein Albumin Procalcitonin 0.1 COVID-19 Source SARS-CoV-2 (PCR) Influenza Type A (PCR) Influenza Type B (PCR) RSV (PCR) 04/03/21 Unknown WBC RBC Hgb Hct MCV MCH MCHC RDW Plt Count MPV Immature Gran % Neutrophils % Lymphocytes % Monocytes % Eosinophils % Basophils % Nucleated RBC % Absolute Neutrophils Absolute Lymphocytes Absolute Monocytes Absolute Eosinophils Absolute Basophils D-Dimer VBG Lactate Sodium Potassium Chloride Carbon Dioxide Anion Gap BUN Creatinine Estimated GFR/1.73 m2 Glucose Calcium Magnesium Total Bilirubin AST ALT Alkaline Phosphatase Troponin I NT-Pro-B Natriuret Pep Total Protein Albumin Procalcitonin Cancelled COVID-19 Source SARS-CoV-2 (PCR) Influenza Type A (PCR) Influenza Type B (PCR) RSV (PCR)
[2021-04-03] MEDS: Furosemide 40 MG/4 ML VIAL IVP ×2 (14:34→20:07)
[2021-04-03] MEDS: Potassium Chloride 20 MEQ TABCR 40 MEQ PO (14:43)
[2021-04-03] MEDS: Enoxaparin 40 MG/0.4 ML SYR SC (20:06)
[2021-04-03] MEDS: Atorvastatin 40 MG TAB PO (20:07)
[2021-04-03] MEDS: Latanoprost 0.005% 2.5 ML BTL OP (20:59)
[2021-04-03] MEDS: Mirtazapine 15 MG TAB 30 MG PO (21:00)
[2021-04-03 23:14] LABS: Legionella Ag Detection Urine Negative (Negative)
[2021-04-04] VITALS (47 sets, daily range): BP systolic 110–150; BP diastolic 53–77; PULSE 63–88; RESP 14–31; TEMP 28–36.9; O2SAT 82–100
[2021-04-04 06:58] LABS: Abs Immature Grans 0.14 10^3/uL (0.0-0.06); Absolute Basophil Count 0.02 10^3/uL (0.0-0.2); Absolute Eosinophil Count 0.02 10^3/uL (0.0-0.7); Absolute Lymphocyte Count 1.05 10^3/uL (1.2-3.4); Absolute Neutrophil Count 14.86 10^3/uL (1.2-6.7); Basophils % 0.1; Eosinophils % 0.1; HCT 27.8 % (40.0-50.0); HGB 8.5 g/dL (13.5-17.5); Immature Grans % 0.8; MCH 30.1 pg (27.0-33.0); MCHC 30.6 % (32.0-36.0); MCV 98.6 fL (80-95); MPV 9.9 fL (8.0-11.0); Nucleated RBC 0 %; Platelet Count 308 10^3/uL (130-400); RBC 2.82 10^6/uL (4.36-5.78); RDW 15.1 % (11.8-14.1); RDW-SD 54.5 fL; WBC 17.48 10^3/uL (4.4-10.8)
[2021-04-04 07:24] LABS: Anion Gap 7.7 mmol/L (3-11); BUN 41 mg/dL (7-18); CO2 29.3 mmol/L (21.0-32.0); CREATININE 1.8 mg/dL (0.70-1.30); Calcium 8.6 mg/dL (8.5-10.1); Chloride 107 mmol/L (98-107); Estimated GFR 37.38 (mL/min/1.73m2); Glucose 126 mg/dL (74-106); Magnesium 2.2 mg/dL (1.8-2.4); Potassium 4.2 mmol/L (3.5-5.1); Sodium 144 mmol/L (136-145)
--- NOTE | 2021-04-04 08:27 | PGE_ITS ---
Date of Service Date of service: 04/04/21 Time of Service: 08:28 Assessment and Plan Assessment and plan (1) Acute and chronic respiratory failure with hypoxia: Status: Acute Assessment and plan: [place] to be predominantly due to fluid overload/acute CHF with a possible bacterial infectious component on the background of pulmonary fibrosis and COPD. Echo with LVEF 55-60%, RVSP of 41.8%. Continue increased dose of lasix, monitoring I/O's and daily weights. Discussed with Dr Rice - will add CPAP. Treat empirically with antibiotics. Systemic steroids. Scheduled and prn nebs. Keep in ICU. (2) Acute CHF: Status: Acute Assessment and plan: Preserved LVEF, does have a component of pulmonary hypertension. Continue diuresing, monitoring I/O's and daily weights. Cardiac monitoring. TSH 0.40. (3) Pulmonary fibrosis: Status: Acute Assessment and plan: As above. (4) COPD (chronic obstructive pulmonary disease): Assessment and plan: As above Qualifiers: COPD type: unspecified COPD Qualified Code(s): J44.9 - Chronic obstructive pulmonary disease, unspecified (5) Pleural effusion: Status: Acute Assessment and plan: As above (6) DVT prophylaxis: Status: Acute Assessment and plan: Enoxaparin (7) Discharge planning issues: Status: Acute Assessment and plan: DNR/DNI Keep in ICU PT consult. Consider palliative care consult Subjective Subjective Interval history since last seen: Feels better. On humidified heated high flow NC 40L 58% FiO2. Denies dizziness, chest pain, shortness of breath, nausea. Slept well. Exam Narrative Exam Narrative: General:Elderly male who appears to have persistent facial edema, A&Ox3, no dyspnea/tachypnea on humidified heated high flow cannula HEENT: EOMI, MMM Heart: RRR,no m/r/g Lungs: Rales at B lower lung smalls Abdomen: soft, nontender, nondistended Extremities: +1 BLE edema Objective Last Vital Signs Temp 35.8 C L 04/04/21 04:36 Pulse 72 04/04/21 06:00 Resp 19 04/04/21 06:01 BP 116/57 L 04/04/21 06:00 Pulse Ox 98 04/04/21 06:01 Laboratory Results - last 24 hr 04/03/21 04/03/21 04/03/21 08:40 08:40 08:40 WBC 10.95 H RBC 3.11 L Hgb 9.5 L Hct 30.5 L MCV 98.1 H MCH 30.5 MCHC 31.1 L RDW 15.1 H Plt Count 291 MPV 9.5 Immature Gran % 0.9 Neutrophils % 89.9 Lymphocytes % 7.4 Monocytes % 1.6 Eosinophils % 0.0 Basophils % 0.2 Nucleated RBC % 0 Absolute Neutrophils 9.84 H Absolute Lymphocytes 0.81 L Absolute Monocytes 0.18 Absolute Eosinophils 0.00 Absolute Basophils 0.02 Sodium 144 Potassium 3.5 Chloride 105 Carbon Dioxide 29.6 Anion Gap 9.4 BUN 23 H Creatinine 1.3 Estimated GFR/1.73 m2 54.42 Glucose 155 H Calcium 8.5 Magnesium 2.0 Procalcitonin 0.1 TSH 04/04/21 04/04/21 06:05 06:05 WBC 17.48 H D RBC 2.82 L Hgb 8.5 L Hct 27.8 L MCV 98.6 H MCH 30.1 MCHC 30.6 L RDW 15.1 H Plt Count 308 MPV 9.9 Immature Gran % 0.8 Neutrophils % 85.0 Lymphocytes % 6.0 Monocytes % 8.0 Eosinophils % 0.1 Basophils % 0.1 Nucleated RBC % 0 Absolute Neutrophils 14.86 H Absolute Lymphocytes 1.05 L Absolute Monocytes 1.40 H Absolute Eosinophils 0.02 Absolute Basophils 0.02 Sodium 144 Potassium 4.2 Chloride 107 Carbon Dioxide 29.3 Anion Gap 7.7 BUN 41 H D Creatinine 1.8 H Estimated GFR/1.73 m2 37.38 Glucose 126 H Calcium 8.6 Magnesium 2.2 Procalcitonin TSH 0.40
[2021-04-04] MEDS: Furosemide 20 MG/2 ML VIAL 40 MG IVP ×2 (08:30→16:02)
[2021-04-04] MEDS: Tiotropium/Olodaterol 10 PUFF INHALER 2 PUFF IH (08:30)
[2021-04-04] MEDS: Metoprolol CR 25 MG TABCR 37.5 MG PO (08:31)
[2021-04-04] MEDS: Aspirin 81 MG CHEW PO (08:32)
[2021-04-04] MEDS: predniSONE 20 MG TAB 40 MG PO (08:32)
[2021-04-04] MEDS: Potassium Chloride 20 MEQ TABCR 40 MEQ PO (08:32)
[2021-04-04] MEDS: Tamsulosin 0.4 MG CAPCR 0.8 MG PO (08:32)
[2021-04-04] MEDS: Thiamine 100 MG TAB PO (08:33)
[2021-04-04] MEDS: PARoxetine 10 MG TAB 30 MG PO (08:33)
[2021-04-04] MEDS: Finasteride 5 MG TAB PO (08:33)
[2021-04-04] MEDS: Pantoprazole 40 MG TABCR PO ×2 (08:33→20:06)
[2021-04-04] MEDS: Folic Acid 1 MG TAB PO (08:33)
[2021-04-04] MEDS: CEFEPIME 2 GM in Normal Saline 100 ML IVPB ×2 (08:34→20:08)
--- NOTE | 2021-04-04 08:52 | PUCC_ITS ---
General Date of Service Date of service: 04/04/21 Time of Service: 08:00 Reason for Admission to ICU: Hypoxic respiratory failure Assessment and Plan Assessment and plan (1) Respiratory failure with hypoxia: Status: Acute Qualifiers: Chronicity: acute on chronic Qualified Code(s): J96.21 - Acute and chronic respiratory failure with hypoxia (2) Pulmonary fibrosis: Status: Acute (3) Volume overload: Status: Acute (4) COPD (chronic obstructive pulmonary disease): Qualifiers: COPD type: unspecified COPD Qualified Code(s): J44.9 - Chronic obstructive pulmonary disease, unspecified (5) GERD (gastroesophageal reflux disease): Qualifiers: Esophagitis presence: esophagitis presence not specified Qualified Code(s): K21.9 - Gastro-esophageal reflux disease without esophagitis (6) Pleural effusion: Status: Acute (7) GINNY (acute kidney injury): Status: Acute Assessment and plan: This is a 70 yo man who is admitted to the ICU for hypoxia in the setting of a prolonged hospitalization recently for severe COVID. I had been seeing him for fibrotic lung disease in the setting of COVID and he had just finished his prednisone taper. He also has COPD for which he is being treated. On exam he d oes not appear to be largely volume overloaded and he states he has gained weight since his hospitalization, he had signs of pulmonary edema on chest CT and has bilateral pleural effusions. His repeat echo seemed normal. He is receiving antibiotic and prednisone in addition to diuresis currently. He is improving with therapy so far. Recommendations Pulmonary: Acute on Chronic Hypoxic Respiratory Failure - baseline O2 needs: 2LPM at rest, 8 LPM with exertion - HFNC to maintain sats >88% - Acapella and IS - diuresis - OOB to chair - ambulation as tolerated COPD - continue home Stiolto - prn albuterol Fibrotic lung disease - prednisone 40mg daily then taper: - 40mg for 5 days, 30mg for 5 days, 20mg for 3 days, 10mg for 3 days, 5mg for 3 days Cardiac: Prolonged QTc - monitor closely - avoid prolonging drugs HTN - continue home meds Pulmonary edema - diuresis - 1 to 2 L negative in every 24 hour period until becoming alkolotic or we see a Cr bump - repeat TTE is normal Renal: GINNY - likely 2/2 hypoxia - resolving I&O: Intake & Output 04/01/21 04/02/21 04/03/21 04/04/21 23:59 23:59 23:59 23:59 Intake Total 1460 / 1460 300 / 300 Output Total 3000 / 3000 750 / 750 Balance -1540 / -1540 -450 / -450 Weight 83.5 kg 76.93 kg Daily Fluid Goal:: -1 to 2 L in 24 hour period GI Nutrition: OK for PO diet Date of Last Bowel Movement: 04/04/21 Infectious Disease: Possible Pneumonia - on cefepime, can consider stewardship to doxycycline tomorrow if he continues to improve - procal negative but will continue cefepime given acuity of illness - urine antigen for S.pneumo and Legionella pending - MRSA nares pending Hematologic: No acute concerns Neurologic: No acute concerns Endocrine: Daily glucose monitoring Lines: PIV Prophylaxis: Lovenox, Protonix Code Status: Resuscitation Status DNR/DNI Exam Narrative Exam Narrative: Bedside POCUS 04/03/21: All 4 cardiac views obtained with satisfaction. Bilateral anterior B-lines present Parasternal long and short axis are technically limited but appearance of low normal cardiac function and a possible hypokinetic septal wall. Normal RV size and function. Apical 4 chamber againd shows likely low normal function with possible hypokinetic septal wall Subxyphoid shows good cardiac function and a normal appearing and functioning RV. IVC is plethoric and of normal size. Const General: comfortable and no acute distress Nutritional Appearance: thin HENMT Head: normocephalic Ears: external ears normal and no periauricular adenopathy General nose exam: nasal mucous membranes and turbinates normal Face and sinus: sinuses nontender Mouth: oropharynx normal and moist mucous membranes Teeth and gingiva: dentition normal Eyes General: appearance normal, both eyes and all related structures Pupils: PERRL Neck Neck: normal visual inspection and no lymphadenopathy Chest Chest: normal inspection of the chest Resp Effort & Inspection: normal respiratory effort Auscultation: clear to auscultation bilaterally, rales, rhonchi and no wheezes Cardio Rate: regular rate Rhythm: regular rhythm Skin Rashes: no rashes Neuro General: patient alert, patient awake and patient oriented x3 Extrem General: no clubbing, no cyanosis and edema Most Recent VS/Results Last Vital Signs Temp 35.8 C L 04/04/21 04:36 Pulse 72 04/04/21 06:00 Resp 19 04/04/21 06:01 BP 116/57 L 04/04/21 06:00 Pulse Ox 98 04/04/21 06:01 Laboratory Results - last 24 hr 04/03/21 04/03/21 04/03/21 08:40 08:40 08:40 WBC 10.95 H RBC 3.11 L Hgb 9.5 L Hct 30.5 L MCV 98.1 H MCH 30.5 MCHC 31.1 L RDW 15.1 H Plt Count 291 MPV 9.5 Immature Gran % 0.9 Neutrophils % 89.9 Lymphocytes % 7.4 Monocytes % 1.6 Eosinophils % 0.0 Basophils % 0.2 Nucleated RBC % 0 Absolute Neutrophils 9.84 H Absolute Lymphocytes 0.81 L Absolute Monocytes 0.18 Absolute Eosinophils 0.00 Absolute Basophils 0.02 Sodium 144 Potassium 3.5 Chloride 105 Carbon Dioxide 29.6 Anion Gap 9.4 BUN 23 H Creatinine 1.3 Estimated GFR/1.73 m2 54.42 Glucose 155 H Calcium 8.5 Magnesium 2.0 Procalcitonin 0.1 TSH Urine Legionella Ag 04/03/21 04/04/21 04/04/21 09:45 06:05 06:05 WBC 17.48 H D RBC 2.82 L Hgb 8.5 L Hct 27.8 L MCV 98.6 H MCH 30.1 MCHC 30.6 L RDW 15.1 H Plt Count 308 MPV 9.9 Immature Gran % 0.8 Neutrophils % 85.0 Lymphocytes % 6.0 Monocytes % 8.0 Eosinophils % 0.1 Basophils % 0.1 Nucleated RBC % 0 Absolute Neutrophils 14.86 H Absolute Lymphocytes 1.05 L Absolute Monocytes 1.40 H Absolute Eosinophils 0.02 Absolute Basophils 0.02 Sodium 144 Potassium 4.2 Chloride 107 Carbon Dioxide 29.3 Anion Gap 7.7 BUN 41 H D Creatinine 1.8 H Estimated GFR/1.73 m2 37.38 Glucose 126 H Calcium 8.6 Magnesium 2.2 Procalcitonin TSH 0.40 Urine Legionella Ag Negative Review of Systems All systems reviewed & are unremarkable except as noted in HPI and below Time spent with patient Time spent in Critical Care: 35 Time spent in Critical care included: Coordination of care, Chart review, Documenting critically ill care, Time at immediate bedside and Discussing critically ill care with other medical staff
--- NOTE | 2021-04-04 09:44 | PDOC.CMPRO ---
- If Service Date Differs Date of service: 04/04/21 Time of Service: 09:44 Care Management Progress Note S/O:Uriel was sitting up in a chair visiting with his when CM met with him. He appeared to be in good spirits and stated that he was doing well. Uriel continues to have high oxygen needs and remains ICU level of care. He ambulated in the [place] today. Per nursing, during the walk his saturations ranged between 84%- 91%. In the low 80s immediately after walk. Placed back on optiflow hi sarah nasal cannula at 40 lpm with 40% fio2 and recovered sats 90-91% within 2-3 minutes. A: Uriel is a 70 year old man admitted on 04/02/21 with COPD P:Anticipate Uriel will be discharged home with no new services when medically cleared. He has new home oxygen which was ordered when he was discharged home in January after a lengthy stay for Covid pneumonia. Uriel will follow up with his PCP and plan of care as directed. He will transport home via private vehicle with family when ready. CM will continue to assess for ongoing discharge needs.
--- NOTE | 2021-04-04 10:29 | PHA.REVIEW ---
Pharmacy Admission Review - Admission Clinical Review (Last Reviewed 04/02/21 @ 20:23 by Zev Stiles MD) Discharge planning issues (Acute) DVT prophylaxis (Acute) Acute CHF (Acute) Acute and chronic respiratory failure with hypoxia (Acute) GINNY (acute kidney injury) (Acute) Pleural effusion (Acute) Volume overload (Acute) SOB (shortness of breath) (Acute) Pneumonia (Acute) Hypoxia (Acute) Pulmonary fibrosis (Acute) Respiratory failure with hypoxia (Acute) environmental Allergy (Uncoded 04/02/21 15:31) Resuscitation Status DNR/DNI Height 5 ft 6 in Weight 76.93 kg - Renal Dosing Renal Dosing: BUN 41 mg/dL (7-18) H D 04/04/21 06:05 Creatinine 1.8 mg/dL (0.70-1.30) H 04/04/21 06:05 Medications needing adjustments: Reviewed (SCr: 1.8, eCrCl: 33.00mL/min. All medications dosed appropriately.) - Anticoagulation Anticoagulation: Hgb 8.5 g/dL (13.5-17.5) L 04/04/21 06:05 Hct 27.8 % (40.0-50.0) L 04/04/21 06:05 Plt Count 308 10^3/uL (130-400) 04/04/21 06:05 Creatinine 1.8 mg/dL (0.70-1.30) H 04/04/21 06:05 DVT Prophylaxis: Reviewed Medications: Enoxaparin (Enoxaparin 40mg SC Q24H) - Opiate Usage Evaluate Pain Scale/Pains Meds: N/A (No opiates this admission.) Scheduled Bowel Reg ordered if on Opiates?: Yes (Docusate) - Relevant Labs Sodium 144 mmol/L (136-145) 04/04/21 06:05 Potassium 4.2 mmol/L (3.5-5.1) 04/04/21 06:05 Chloride 107 mmol/L (98-107) 04/04/21 06:05 Magnesium 2.2 mg/dL (1.8-2.4) 04/04/21 06:05 Electrolytes, C-Reactive P, ESR: Reviewed - DM Control DM Control: Glucose 126 mg/dL (74-106) H 04/04/21 06:05 Insulin Dosing: N/A - Heart Failure/VA Heart Failure/VA: Troponin I < 50 ng/L (<or=60) 04/02/21 19:05 NT-Pro-B Natriuret Pep 526 pg/mL (<300) H 04/02/21 15:55 EF%, VIVEK's, B-Blockers, Diuretics: Reviewed - BP Control BP Control: Blood Pressure [Right Arm] 128/69 Blood Pressure [Right Arm] 124/59 Blood Pressure [Right Arm] 120/58 Blood Pressure 128/69 Blood Pressure 129/53 Blood Pressure 116/57 Blood Pressure 124/59 If elevated: Reviewed (Blood pressure within normal limits this admission.) - Qtc Review If Elevated: Reviewed (QTc 524, will watch for addition of QT prolonging meds.) - IV to PO Switch IV Medications: Reviewed - Home Meds Home Med List reviewed: Reviewed Relevent Home Meds Not ordered & why?: All relevent home meds ordered. - Current meds Current Medication Order Review: Reviewed Antibiotic Activity - Pharmacy Antibiotic Review Pharmacy Antibiotic Activity: Reviewed, no change (Cefepime 2gm Q12H - Day 2. If renal function worsens, may need to adjust dosing of Cefepime to Q24H.)
[2021-04-04] MEDS: Normal Saline Flush 10 ML SYR IVP (10:52)
[2021-04-04] MEDS: Dronabinol 2.5 MG CAP 5 MG PO ×2 (10:53→16:02)
--- NOTE | 2021-04-04 11:38 | IN_ITS ---
Date of service: 04/04/21 Time of Service: 11:38 PT Notes Visit Reasons: Shortness of breath Physical Therapy Inpatient Initial Evaluation Date: 04/04/2021 Referring Doctor: Ally Fierro MD PT Orders: PT CONSULT: Limited ability Precautions: Fall. Standard. Activity as tolerated.? Patient Profile/Admitting Diagnosis: Uriel is a 70-year-old male with diagnoses of acute on chronic respiratory failure with hypoxia, acute chest, pulmonary fibrosis, COPD exacerbation, volume overload, GERD, pleural effusion, and kidney injury. PMHX: All Active Problems?(Updated 04/02/21 @ 20:25 by Zev Stiles MD) SOB (shortness of breath) (Acute) Pneumonia (Acute) Hypoxia (Acute) Herniation of intervertebral disc between L5 and S1 (Acute) Urinary retention (Acute) Pulmonary fibrosis (Acute) Respiratory failure with hypoxia (Acute) Herniation of intervertebral disc between L5 and S1 (Acute) Right foot drop (Acute) Nutrition disorder (Acute) Depression (Acute) Palliative care patient (Acute) Hypoalbuminemia (Acute) Anemia (Chronic) Leukocytosis (Acute) Medical History? BPH (benign prostatic hyperplasia) COPD (chronic obstructive pulmonary disease) COVID GERD (gastroesophageal reflux disease) Heart murmur HLD (hyperlipidemia) Social History/Home Situation: Lives with in a private home with 3 steps to enter through the garage, one rail.? No falls in the past 12 months.? Independent with all aspects of ADLs prior to admission.? Uses continuous oxygen at home.? Utilizes SPC occasionally. Equipment Owned/DME: S[facility] Subjective: Is proud to show off how good his right ankle is doing as he was unable to bend his foot up during his last admission. Objective: General Observation: PICC line in R UE. IV access in R UE.? Oxygen supplementation at 40 L/min at FiO2 41% with patient saturating at 95% at rest. Mental Status: Alert and oriented as to person, place, time, and purpose. Able to pay attention, focus, and respond appropriately. Pain: Denies Vital Signs: Per nurse Braden, patient desaturated to 87% on 6 L O2 min after ambulation activity needing replacement of high flow rate oxygen to facilitate resaturation. ROM: Right Upper Extremity: ? Shoulder Flexion WFL. Shoulder abduction WFL. Elbow flexion WFL. Wrist flexion WFL. Functional opening and closing of hand WFL. Left Upper Extremity:? Shoulder Flexion WFL. Shoulder abduction WFL. Elbow flexion WFL. Wrist flexion WFL. Functional opening and closing of hand WFL. Right Lower Extremity: Hip flexion WFL. Hip abduction WFL. Knee flexion WFL.?Ankle dorsiflexion lacks the last 25% of AROMt. Ankle plantarflexion WFL. Left Lower Extremity: Hip flexion WFL. Hip abduction WFL. Knee flexion WFL. Ankle dorsiflexion WFL. Ankle plantarflexion WFL. Strength: Right Upper Extremity: Shoulder flexors 4-/5. Shoulder abductors 4-/5. Elbow flexors 5/5. Elbow extensors 4-/5. Internal Audit Manager strong. Left Upper Extremity: Shoulder flexors 4-/5. Shoulder abductors 4-/5. Elbow flexors 5/5. Elbow extensors 4-/5. Internal Audit Manager strong. Right Lower Extremity: Hip flexors 4-/5. Hip abductors 4-/5. Knee flexors 4/5. Knee extensors 4-/5.?Ankle dorsiflexors 3-/5. Ankle plantarflexors 4-/5. Left Lower Extremity: Right Lower Extremity: Hip flexors 4-/5. Hip abductors 4- /5. Knee flexors 4/5. Knee extensors 4-/5. Ankle dorsiflexors 4-/5. Ankle plantarflexors 4-/5. Bed Mobility/Transfers: Supine to sit for guard assist Sit to supine contact-guard assist Sit to stand contact-guard assist with front wheeled walker Stand to sit contact-guard assist with front wheeled walker Bed to reclining chair contact-guard assist with front wheeled walker Gait: Per nurse Braden patient was able to tolerate about 300 feet requiring her contact-guard assist. Francesca decreased. Nurse Braden states that patient desaturated to 87% with 6 L of however dipped further down to the low 70s at rest which necessitated replacement of high flow rate oxygen to be saturating patient back to above 90%. PT came in right after patient and nurse completed relation activity. THERA EX: Initiated at seated level exercises for the morning session as documented in exercise sheet with patient desatted to as low as 84% on high flow oxygen at 40 L/min with FiO2 41% to be saturated back to above 90 in less than 2 minutes. Balance: Static Sitting: Normal Dynamic Sitting: Normal Static Standing: Fair Dynamic Standing: Fair Special Tests: Mobility Limitations Standardized Measure [facility] AM-PAC 6 clicks Basic Mobility Inpatient Short Form: Raw Score: 22 ? CMS Score: 2 low deficit? ? ? 4 Stage Balance test: Able to mainatain feet together for 10 seconds, unable to do so with right hand, full tandem, and 1 legged stance indicating at risk for falls. Informed Consent/Education:? Patient was instructed in purpose of PT consult and plan of care. Agreeable to proceed with established PT POC to achieve personal goals. Assessment: Uriel's ability to perform mobility ADLs is currently limited by his pulmonary function with desaturation to low 70s with 6 L of oxygen per minute during ambulation activity and to 84% during seated exercises with high flow rate oxygen 40 L/min with FiO2 41%. Uriel will benefit from PT services in order to progress patient to independent prior level of function using a single-point cane with oxygen saturation level staying above 90% with supplementation of 2 L/min. Patient presents with clinical signs and symptoms consistent with current/admitting diagnoses that have resulted to mobility limitations, gait instability, generalized weakness, and overall ADL decline as demonstrated by the following impairment level findings: 1.? Decreased strength to B LE?major muscle groups, absent dorsiflexion on the right 2.? Impaired standing balance 3.? Impaired activity tolerance 4.? Shortness of breath Impairments are contributing to the following functional limitations: 1.? Difficulty with ambulation without assistive device and physical assistance 2.? Increased completion time for mobility ADL performance 3.? Increased risk for falls 4.? Difficulty with managing steps alone safely Patient is assessed as a 94025 moderate complexity based on the following: History: 70 [id number]? with past medical history as indicated above Examination: Demonstrable impairment in strength, balance, and mobility level with underlying impairments and functional limitations as exhibited above as well as deficit score of 11% utilizing the [facility] Mobility Inpatient Short Form Presentation: Evolving Decision Makin moderate complexity Goals: Goals X1 week 1. Supine-Sit independent 2. Sit-Supine independent 3. Sit-Stand independent 4. Stand-Sit independent with single-point cane 5. Bed-Chair independent with single-point cane 6. Chair-Bed independent with single-point cane 7. Independent gait on level surface with use of single-point cane for at least 100 feet without report of pain nor dyspnea with oxygen saturation staying above 90% on [address]. Independent stair negotiation while holding onto 1 rail for at least 5 steps without report of pain nor dyspnea 9. Good static and dynamic standing balance/tolerance Plan of Care/Treatment Plan: 1-2x/day, 7 days/week x 1 week. Plan of care has been reviewed with the THERAPY DIRECTOR providing the service under Physical Therapy direction. Initiate Physical Therapy intervention for pain management as needed, strengthening, bed mobility, transfers, gait, stairs, balance training, and use of assistive device. DISCHARGE RECOMMENDATIONS: [] ? Home with no services [] [X] ? Home with services.? Patient will benefit from home health PT services in order to progress mobility level using least restrictive assistive ambulatory device, assess home safety, identify additional equipment needs, and establish a functional maintenance program that will increase ability of patient to remain at home.? May benefit from the use of a front wheeled walker to reduce fall risk at home to maximize activity tolerance. [] ? Home with outpatient PT [] [] ? SNF for continued rehabilitation [] [] ? Longterm Care [] [] ? SNF versus LTC based on ability to participate and progress [] TREATMENT CODE/TIME: 05089 x 15 minutes, 94572 x 12 minutes beginning at 11:38 PM. Thank you for the opportunity to participate in the care of this patient. Valerie Eason PT, DPT, CLT [facility] [place], [place]
--- NOTE | 2021-04-04 11:51 | NUR.NOTE ---
Nursing Note: Patient Ambulated half loop on nc 6lpm, maintaining sats 87% throughout. At the very end of the walk when he was sitting down sats dropped to 74%. Placed back on hiflow optiflow 40 lpm and 40% fi02 and saturations recovered to 91% within 5 minutes.
--- NOTE | 2021-04-04 13:55 | PT.INTREAT ---
Date of service: 04/04/21 Time of Service: 13:55 PT Notes Visit Reasons: Shortness of breath Physical Therapy Inpatient Treatment Note Date: 04/04/2021 Precautions: Fall. Standard. Activity as tolerated.? Subjective: Patient and patient's are both agreeable to afternoon session. Objective: General Observation: PICC line in R UE. IV access in R UE.? Oxygen supplementation at 40 L/min at FiO2 41% with patient saturating at 95% at rest. Mental Status: Alert and oriented as to person, place, time, and purpose. Able to pay attention, focus, and respond appropriately. Pain: Denies Vital Signs: Per nurse Asiya, patient desaturated to 87% on 6 L O2 min after ambulation activity needing replacement of high flow rate oxygen to facilitate resaturation. Bed Mobility/Transfers: Supine to sit for guard assist Sit to supine contact-guard assist Sit to stand contact-guard assist with front wheeled walker Stand to sit contact-guard assist with front wheeled walker Bed to reclining chair contact-guard assist with front wheeled walker Gait: Tolerated level surface ambulation 350 feet using single-point cane with full weightbearing requiring standby assist with 6 L of oxygen per minute with desaturation to 81% at that decreased saturation back up to 89% in less than 2 minutes. Nurse ken assisting. THERA EX: Continued with chair push ups x 5 and bilateral heel raises x 10 after ambulation activity with oxygen saturation low of 86% on 40L o2/min at FiO2 41%. Balance: Static Sitting: Normal Dynamic Sitting: Normal Static Standing: Fair Dynamic Standing: Fair Assessment: Uriel's ability to perform mobility ADLs is currently limited by his pulmonary function with desaturation to low 70s with 6 L of oxygen per minute during ambulation activity and to 84% during seated exercises with high flow rate oxygen 40 L/min with FiO2 41%.? Uriel will benefit from PT services in order to progress patient to independent prior level of function using a single-point cane with oxygen saturation level staying above 90% with supplementation of 2 L/min. DISCHARGE RECOMMENDATIONS: [] ? Home with no services [] [X] ? Home with services.? Patient will benefit from home health PT services in order to progress mobility level using least restrictive assistive ambulatory device, assess home safety, identify additional equipment needs, and establish a functional maintenance program that will increase ability of patient to remain at home.? May benefit from the use of a front wheeled walker to reduce fall risk at home to maximize activity tolerance. [] ? Home with outpatient PT [] [] ? SNF for continued rehabilitation [] [] ? Software Test Technician Care [] [] ? SNF versus LTC based on ability to participate and progress [] TREATMENT CODE/TIME: 87270 x 15 minutes, 84365 x 12 minutes beginning at 13:55 PM.
--- NOTE | 2021-04-04 14:36 | NUR.NOTE ---
Nursing Note: Patient Ambulated another half loop on 02 via nc @ 6 lpm. During walk saturations ranged between 84%- 91%. In the low 80s immediately after walk. Placed back on optiflow hi sarah nasal cannula at 40 lpm with 40% fio2 and recovered sats 90-91% within 2-3 minutes.
[2021-04-04] MEDS: Latanoprost 0.005% 2.5 ML BTL OP (20:07)
[2021-04-04] MEDS: Mirtazapine 15 MG TAB 30 MG PO (20:07)
[2021-04-04] MEDS: Atorvastatin 40 MG TAB PO (20:07)
[2021-04-04] MEDS: Enoxaparin 40 MG/0.4 ML SYR SC (20:07)
[2021-04-05] VITALS (23 sets, daily range): BP systolic 127–146; BP diastolic 56–66; PULSE 62–83; RESP 14–26; TEMP 31–36.7; O2SAT 77–98
[2021-04-05 00:44] LABS: Streptococcus Pneumoniae Ag, U Negative (Negative)
[2021-04-05 07:03] LABS: Abs Immature Grans 0.12 10^3/uL (0.0-0.06); Absolute Basophil Count 0.03 10^3/uL (0.0-0.2); Absolute Lymphocyte Count 1.45 10^3/uL (1.2-3.4); Absolute Monocyte Count 1.27 10^3/uL (0.1-0.8); Absolute Neutrophil Count 12.06 10^3/uL (1.2-6.7); Basophils % 0.2; Eosinophils % 0.3; HGB 8.8 g/dL (13.5-17.5); Immature Grans % 0.8; Lymphocytes % 9.7; MCH 30.3 pg (27.0-33.0); MCHC 30.3 % (32.0-36.0); Monocytes % 8.5; Neutrophils % 80.5; Nucleated RBC 0 %; Platelet Count 304 10^3/uL (130-400); RDW 15.4 % (11.8-14.1); RDW-SD 56.6 fL; WBC 14.98 10^3/uL (4.4-10.8)
[2021-04-05 07:14] LABS: Absolute Eosinophil Count 0.04 10^3/uL (0.0-0.7)
[2021-04-05] MEDS: Tiotropium/Olodaterol 10 PUFF INHALER 2 PUFF IH (08:02)
--- NOTE | 2021-04-05 08:07 | W.PM.PROGNOT ---
Date of Service Date of service: 04/05/21 Time of Service: 08:07 Assessment and Plan Assessment and plan (1) Acute and chronic respiratory failure with hypoxia: Status: Acute Assessment and plan: O2 requirement has improved with diuresis and abx, now down to 40L 40% FiO2. [place] to be predominantly due to fluid overload/acute CHF with a possible bacterial infectious component on the background of pulmonary fibrosis and COPD. Echo with LVEF 55-60%, RVSP of 41.8%. Will increase dose of lasix to 40 mg IV TID while monitoring I/O's and daily weights. Continue CPAP at night/with naps. Continue steroids, antibiotics. Systemic steroids. Scheduled and prn nebs. Transfer to [facility]. (2) Acute CHF: Status: Acute Assessment and plan: Preserved LVEF, does have a component of pulmonary hypertension. As above, increase lasix to 40 mg IV Q8Hrs; monitoring I/O's and daily weights. Cardiac monitoring. TSH 0.40. (3) Pulmonary fibrosis: Status: Acute Assessment and plan: As above. (4) COPD (chronic obstructive pulmonary disease): Assessment and plan: As above Qualifiers: COPD type: unspecified COPD Qualified Code(s): J44.9 - Chronic obstructive pulmonary disease, unspecified (5) Pleural effusion: Status: Acute Assessment and plan: As above (6) DVT prophylaxis: Status: Acute Assessment and plan: Enoxaparin (7) Discharge planning issues: Status: Acute Assessment and plan: DNR/DNI Transfer out of ICU. PT consult. Consider palliative care consult Likely discharge home tomorrow Subjective Subjective Interval history since last seen: Feels better today. Spent the night on CPAP (PEEP of 10, 30% FiO2) and now transitioned to humidified heated high flow cannula at 40% 40L. He would like to go home. We discussed that there is still a lot of extra water in his lungs and in his legs and that tomorrow would be more realistic. He agrees. Denies dizziness, chest pain, shortness of breath, nausea. Exam Narrative Exam Narrative: General:Elderly male whose face looks a little less puffy, A&Ox3, no dyspnea/tachypnea on humidified heated high flow cannula @ 40L 40% FiO2 HEENT: EOMI, MMM Heart: RRR,no m/r/g Lungs: Rales at B lower lung smalls Abdomen: soft, nontender, nondistended Extremities: +1 RLE edema, +2 LLE unchanged. Objective Last Vital Signs Temp 36.6 C 04/05/21 04:00 Pulse 70 04/05/21 05:03 Resp 17 04/05/21 05:03 BP 127/58 L 04/05/21 05:03 Pulse Ox 90 L 04/05/21 05:08 Laboratory Results - last 24 hr 04/03/21 04/05/21 09:45 06:10 WBC 14.98 H RBC 2.90 L Hgb 8.8 L Hct 29.0 L MCV 100.0 H MCH 30.3 MCHC 30.3 L RDW 15.4 H Plt Count 304 MPV 10.0 Immature Gran % 0.8 Neutrophils % 80.5 Lymphocytes % 9.7 Monocytes % 8.5 Eosinophils % 0.3 Basophils % 0.2 Nucleated RBC % 0 Absolute Neutrophils 12.06 H Absolute Lymphocytes 1.45 Absolute Monocytes 1.27 H Absolute Eosinophils 0.04 Absolute Basophils 0.03 Urine Legionella Ag Negative
[2021-04-05] MEDS: Pantoprazole 40 MG TABCR PO ×2 (08:12→20:18)
[2021-04-05] MEDS: Furosemide 20 MG/2 ML VIAL 40 MG IVP (08:13)
[2021-04-05] MEDS: CEFEPIME 2 GM in Normal Saline 100 ML IVPB ×2 (08:14→20:19)
[2021-04-05] MEDS: Normal Saline Flush 10 ML SYR IVP ×3 (08:15→23:04)
--- NOTE | 2021-04-05 08:27 | PDOC.CMPRO ---
- If Service Date Differs Date of service: 04/05/21 Time of Service: 08:27 Care Management Progress Note S/O:Uriel was sitting up in a chair when CM met with him. He appeared to be in good spirits and informed CM that he had just returned from a walk with PT and did well. His oxygen needs are improving and, per provider, it is possible he may be able to go home tomorrow. Uriel shared that he is a very optimistic person with a strong will. He stated that when he had Covid he was told 3 times that he might and each time he assured the providers that he would not. A: Uriel is a 70 year old man admitted on 04/02/21 with COPD P:Anticipate Uriel will be discharged home with no new services when medically cleared. He has new home oxygen which was ordered when he was discharged home in January after a lengthy stay for Covid pneumonia. Uriel will follow up with his PCP and plan of care as directed. He will transport home via private vehicle with family when ready. CM will continue to assess for ongoing discharge needs.
[2021-04-05] MEDS: Folic Acid 1 MG TAB PO (09:04)
[2021-04-05] MEDS: Thiamine 100 MG TAB PO (09:04)
[2021-04-05] MEDS: Finasteride 5 MG TAB PO (09:04)
[2021-04-05] MEDS: Multivitamin TAB 1 TAB PO (09:04)
[2021-04-05] MEDS: Metoprolol CR 25 MG TABCR 37.5 MG PO (09:04)
[2021-04-05] MEDS: Aspirin 81 MG CHEW PO (09:04)
[2021-04-05] MEDS: Docusate Sodium 100 MG CAP PO ×2 (09:04→20:18)
[2021-04-05] MEDS: predniSONE 20 MG TAB 40 MG PO (09:05)
[2021-04-05] MEDS: Potassium Chloride 20 MEQ TABCR 40 MEQ PO ×2 (09:05→20:18)
[2021-04-05] MEDS: PARoxetine 10 MG TAB 30 MG PO (09:05)
[2021-04-05] MEDS: Tamsulosin 0.4 MG CAPCR 0.8 MG PO (09:05)
--- NOTE | 2021-04-05 10:53 | PTTR_ITS ---
PT Notes Visit Reasons: Shortness of breath Physical Therapy Inpatient Treatment Note Date: 04/05/2021 Precautions: Fall. Standard. Activity as tolerated.? Subjective: Patient and patient's are both agreeable to afternoon session. Objective: General Observation: PICC line in RUE. IV access in RUE.? Oxygen supplementation at 4 L/min with patient saturating at 89% at rest. Mental Status: Alert and oriented as to person, place, time, and purpose. Able to pay attention, focus, and respond appropriately. Pain: Denies Vital Signs: Per nurse Asiya, patient desaturated to 79% on 4 L O2 min after transfer to bathroom today Transfers: Sit to stand SBA with SPC: 1x5, 1x10 Stand to sit SBA with SPC: 1x5, 1x10 Gait: Tolerated level surface ambulation 1x300 feet, 1x80ft, using single-point cane with full weightbearing requiring standby assist with 4 L of oxygen per minute with desaturation to 79% at that decreased saturation back up to 92% in less than 2 minutes. Stairs: Ascent/descent of 4steps, x2, with R rail and SBA throughout for management of lines, pt demonstrates reciprocal gait pattern with oxygen satu ration no lower than 89% throughout. Balance: Static Sitting: Normal Dynamic Sitting: Normal Static Standing: Fair Dynamic Standing: Fair Assessment: Uriel's ability to perform mobility ADLs is currently limited by his pulmonary function with desaturation to 70s with 4 L of oxygen per minute during ambulation activity and to 82% during sit to stand activity.? Uriel will benefit from PT services in order to progress patient to independent prior level of function using a single-point cane with oxygen saturation level staying above 90% with supplementation of 2 L/min. DISCHARGE RECOMMENDATIONS: [] ? Home with no services [] [X] ? Home with services.? Patient will benefit from home health PT services in order to progress mobility level using least restrictive assistive ambulatory device, assess home safety, identify additional equipment needs, and establish a functional maintenance program that will increase ability of patient to remain at home.? May benefit from the use of a front wheeled walker to reduce fall risk at home to maximize activity tolerance. [] ? Home with outpatient PT [] [] ? SNF for continued rehabilitation [] [] ? Lead Coater Care [] [] ? SNF versus LTC based on ability to participate and progress [] TREATMENT CODE/TIME: 64286 x 30 minutes (2units) beginning at 10:15 AM.
--- NOTE | 2021-04-05 11:02 | W.NUTRFU ---
Date of service: 04/05/21 Time of Service: 11:03 Nutrition Note NOTE: Uriel was admitted after lengthy hospitalization in January 2021 for covid PNA. Now with SOB, chronic resp. failure with GINNY, volume overload and pleural effusion. Following Low Sodium diet with 2 L fluid restriction. Currently meeting 100% macronutrient and fluid needs. Will continue to follow prn. Time Spent in Nutritional Counseling and Treatment: 0
[2021-04-05] MEDS: Dronabinol 2.5 MG CAP 5 MG PO ×2 (12:44→17:11)
[2021-04-05] MEDS: Senna TAB 1 TAB PO ×2 (12:44→20:18)
[2021-04-05 13:18] LABS: Anion Gap 7.6 mmol/L (3-11); BUN 58 mg/dL (7-18); CO2 29.4 mmol/L (21.0-32.0); Calcium 8.5 mg/dL (8.5-10.1); Chloride 105 mmol/L (98-107); Glucose 209 mg/dL (74-106); Magnesium 2.1 mg/dL (1.8-2.4); Potassium 3.8 mmol/L (3.5-5.1); Sodium 142 mmol/L (136-145)
[2021-04-05] MEDS: Furosemide 40 MG/4 ML VIAL IVP ×2 (14:03→23:04)
--- NOTE | 2021-04-05 14:31 | CHAPLAIN ---
Uriel and I remembered each other from when he was in her [place] for several weeks with COVID and pneumonia. Uriel said he was home for about a month before he came back to the ED over the weekend with shortness of breath. Uriel said he considers any day he gets up a good day, and said a few times that he know there are people who are much worse off than he is. 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 Recently he said he and his have been worried about his 's sister who is having serious health issues and not doing a lot to help herself. Uriel and his call her and hope she listens to them. The sister lives in [place] and is in 50s. I will continue to visit.
--- NOTE | 2021-04-05 16:05 | PTTR_ITS ---
PT Notes Visit Reasons: Shortness of breath Physical Therapy Inpatient Treatment Note Date: 04/05/2021 Rx time: 3:30-4:00p.m. Precautions: Fall. Standard. Activity as tolerated.? Subjective: Anxious to get moving. Objective: General Observation: PICC line in RUE. IV access in RUE.? Oxygen supplementation at 4 L/min with patient saturating at 89% at rest. Mental Status: Alert and oriented as to person, place, time, and purpose. Able to pay attention, focus, and respond appropriately. Pain: Denies Vital Signs: Per nurse Asiya, patient desaturated to 79% on 4 L O2 min after transfer to bathroom today Transfers: Sit to stand SBA with SPC: 1x5, 1x10 Stand to sit SBA with SPC: 1x5, 1x10 Therapeutic activity x 30 min: Tolerated level surface ambulation 1x350 feet, 1x80ft, using single-point cane with full weightbearing requiring standby assist with 4 L of oxygen per minute with desaturation to 79% at that decreased saturation, maintaining at 85% with ambulation. Retuns to 90% with rest STS x 15 6step up x 5 nara Balance: Static Sitting: Normal Dynamic Sitting: Normal Static Standing: Fair Dynamic Standing: Fair Assessment: Uriel's ability to perform mobility ADLs is currently limited by his pulmonary function with desaturation to 70s with 4 L of oxygen per minute during ambulat ion activity and to 85% during sit to stand activity.? Uriel will benefit from PT services in order to progress patient to independent prior level of function using a single-point cane with oxygen saturation level staying above 90% with supplementation of 2 L/min. DISCHARGE RECOMMENDATIONS: [] ? Home with no services [] [X] ? Home with services.? Patient will benefit from home health PT services in order to progress mobility level using least restrictive assistive ambulatory device, assess home safety, identify additional equipment needs, and establish a functional maintenance program that will increase ability of patient to remain at home.? May benefit from the use of a front wheeled walker to reduce fall risk at home to maximize activity tolerance. [] ? Home with outpatient PT [] [] ? SNF for continued rehabilitation [] [] ? Certified Pedorthotist Care [] [] ? SNF versus LTC based on ability to participate and progress [] TREATMENT CODE/TIME: 15686 x 30 minutes (2units) beginning at 3:30.
[2021-04-05] MEDS: Atorvastatin 40 MG TAB PO (20:18)
[2021-04-05] MEDS: Enoxaparin 40 MG/0.4 ML SYR SC (20:18)
[2021-04-05] MEDS: Mirtazapine 15 MG TAB 30 MG PO (23:03)
[2021-04-05] MEDS: Latanoprost 0.005% 2.5 ML BTL OP (23:04)
[2021-04-06] VITALS (9 sets, daily range): BP systolic 109–137; BP diastolic 55–74; PULSE 65–98; RESP 17–20; TEMP 36.1–36.7; O2SAT 84–98
[2021-04-06] MEDS: Furosemide 40 MG/4 ML VIAL IVP (05:31)
[2021-04-06] MEDS: Normal Saline Flush 10 ML SYR IVP ×2 (05:31→08:53)
[2021-04-06 07:27] LABS: BUN 68 mg/dL (7-18); Chloride 105 mmol/L (98-107); Glucose 115 mg/dL (74-106); Magnesium 2.2 mg/dL (1.8-2.4); PHOSPHORUS 4.3 mg/dL (2.6-4.7); Potassium 3.9 mmol/L (3.5-5.1); Sodium 143 mmol/L (136-145)
[2021-04-06] MEDS: Potassium Chloride 20 MEQ TABCR 40 MEQ PO (08:49)
[2021-04-06] MEDS: Metoprolol CR 25 MG TABCR 37.5 MG PO (08:51)
[2021-04-06] MEDS: PARoxetine 10 MG TAB 30 MG PO (08:51)
[2021-04-06] MEDS: Tamsulosin 0.4 MG CAPCR 0.8 MG PO (08:51)
--- NOTE | 2021-04-06 08:51 | W.PULMPROG ---
Assessment and Plan Assessment and plan (1) Acute and chronic respiratory failure with hypoxia: Status: Acute (2) Acute CHF: Status: Acute (3) Pulmonary fibrosis: Status: Acute (4) COPD (chronic obstructive pulmonary disease): Qualifiers: COPD type: unspecified COPD Qualified Code(s): J44.9 - Chronic obstructive pulmonary disease, unspecified (5) Pneumonia: Status: Acute Assessment and plan: This is a 70 yo man initially admitted to the ICU for acute on chronic hypoxic respiratory failure requiring HFNC and CPAP. He was found to be volume overloaded and responded well to diuresis. There was also a concern for pneumonia and so was placed on cefepime, but his procalcitonin returned negative and he likely no longer needs this. He is on his baseline home O2 need of 2 LPM and is anxious to go home. I believe he is safe to do so. Hypoxic respiratory failure - continue home O2 at 2 LPM - ambulatory pulse ox prior to D/C - Acapella and IS COPD - continue home Stiolto and prn albuterol Fibrotic lung disease - prednisone taper: 40mg for 5 days, 30mg for 3 days, 20mg for 3 days, 10mg for 2 days, 5mg for 2 days Bronchitis, unlikely pneumonia - would stop cefepime - would send on doxycycline for an additional 3 days General Date Of Service Date of service: 04/06/21 Time of Service: 11:45 Reason for Consult: Acute on Chronic hypoxic respiratory failure Subjective Note Note: Today, Uriel looks great. He has diuresed 7.6L out and it improved him breathing significantly. He says he is back to his baseline and is excited to go home. Exam Narrative Exam Narrative: Bedside POCUS 04/03/21: All 4 cardiac views obtained with satisfaction. Bilateral anterior B-lines present Parasternal long and short axis are technically limited but appearance of low normal cardiac function and a possible hypokinetic septal wall. Normal RV size and function. Apical 4 chamber againd shows likely low normal function with possible hypokinetic septal wall Subxyphoid shows good cardiac function and a normal appearing and functioning RV. IVC is plethoric and of normal size. Const General: comfortable and no acute distress Nutritional Appearance: thin HENMT Head: normocephalic Ears: external ears normal and no periauricular adenopathy General nose exam: nasal mucous membranes and turbinates normal Face and sinus: sinuses nontender Mouth: oropharynx normal and moist mucous membranes Teeth and gingiva: dentition normal Eyes General: appearance normal, both eyes and all related structures Pupils: PERRL Neck Neck: normal visual inspection and no lymphadenopathy Chest Chest: normal inspection of the chest Resp Effort & Inspection: normal respiratory effort Auscultation: clear to auscultation bilaterally, rales, rhonchi and no wheezes Cardio Rate: regular rate Rhythm: regular rhythm Skin Rashes: no rashes Neuro General: patient alert, patient awake and patient oriented x3 Extrem General: no clubbing, no cyanosis and edema Objective Last Vital Signs Temp 36.5 C 04/06/21 08:02 Pulse 69 04/06/21 08:02 Resp 18 04/06/21 08:02 BP 135/74 04/06/21 08:02 Pulse Ox 92 04/06/21 08:16 Laboratory Results - last 24 hr 04/03/21 04/05/21 04/06/21 09:45 12:57 06:53 Sodium 142 143 Potassium 3.8 3.9 Chloride 105 105 Carbon Dioxide 29.4 32.0 Anion Gap 7.6 6.0 BUN 58 H D 68 H Creatinine 2.0 H 2.0 H Estimated GFR/1.73 m2 33.10 33.10 Glucose 209 H D 115 H D Calcium 8.5 9.0 Phosphorus 4.3 Magnesium 2.1 2.2 Ur Strep pneumoniae Ag Negative Results Medications Medications: Active Medications Generic Name Dose Route Start Last Admin Trade Name Freq PRN Reason Stop Dose Admin Albuterol Sulfate 2 puff 04/03/21 07:14 Albuterol Hfa 8 Gm 60 Puff Inh IH Q4H PRN PRN Albuterol/Ipratropium 3 ml 04/03/21 07:14 Albuterol/Ipratropium 3 Ml Upd Vial UPD Q4H PRN PRN Aspirin 81 mg 04/03/21 08:30 04/05/21 09:04 Aspirin 81 Mg Chew PO 81 mg DAILY DEBRA Administration Atorvastatin Calcium 40 mg 04/02/21 22:00 04/05/21 20:18 Atorvastatin 40 Mg Tab PO 40 mg QPM DEBRA Administration Device 1 each 04/03/21 08:00 Inhaler, Assist Device DIRECTED [facility] Dimethicone/Zinc Oxide 0 gm 04/02/21 20:33 [place] Protect Cream 142 Gm Tube TP PRN PRN Docusate Sodium 100 mg 04/03/21 08:30 04/05/21 20:18 Docusate Sodium 100 Mg Cap PO 100 mg BID DEBRA Administration Dronabinol 5 mg 04/03/21 11:00 04/05/21 17:11 Dronabinol 2.5 Mg Cap PO 5 mg BID@1100,1600 DEBRA Administration Enoxaparin Sodium 40 mg 04/02/21 21:00 04/05/21 20:18 Enoxaparin 40 Mg/0.4 Ml Syr SC 40 mg Q24H DEBRA Administration Finasteride 5 mg 04/03/21 08:30 04/05/21 09:04 Finasteride 5 Mg Tab PO 5 mg DAILY DEBRA Administration Folic Acid 1 mg 04/03/21 08:30 04/05/21 09:04 Folic Acid 1 Mg Tab PO 1 mg DAILY DEBRA Administration Furosemide 40 mg 04/06/21 16:00 Furosemide 40 Mg Tab PO BID@0830,1600 DEBRA Cefepime HCl 2 gm/ Sodium 100 mls @ 200 mls/hr 04/03/21 08:00 04/05/21 20:19 Chloride IVPB 200 mls/hr Q12H DEBRA Administration IV Miscellaneous Supplies 1 each 04/02/21 15:45 Iv Access IV DIRECTED DEBRA Latanoprost 0 ml 04/04/21 22:00 04/05/21 23:04 Latanoprost 0.005% 2.5 Ml Btl OP 1 drp HS DEBRA Administration Metoprolol Succinate 37.5 mg 04/03/21 08:30 04/05/21 09:04 Metoprolol Cr 25 Mg Tabcr PO 37.5 mg DAILY DEBRA Administration Mirtazapine 30 mg 04/02/21 22:00 04/05/21 23:03 Mirtazapine 15 Mg Tab PO 30 mg HS DEBRA Administration Multivitamins 1 tab 04/05/21 08:30 04/05/21 09:04 Multivitamin Tab PO 1 tab DAILY DEBRA Administration Pantoprazole Sodium 40 mg 04/04/21 20:00 04/05/21 20:18 Pantoprazole 40 Mg Tabcr PO 40 mg BID@0730,2000 DEBRA Administration Paroxetine HCl 30 mg 04/03/21 08:30 04/05/21 09:05 Paroxetine 10 Mg Tab PO 30 mg DAILY DEBRA Administration Potassium Chloride 40 meq 04/05/21 20:00 04/05/21 20:18 Potassium Chloride 20 Meq Tabcr PO 40 meq BID DEBRA Administration Prednisone 40 mg 04/03/21 08:30 04/05/21 09:05 Prednisone 20 Mg Tab PO 40 mg DAILY DEBRA Administration Sennosides 1 tab 04/05/21 08:30 04/05/21 20:18 Senna Tab PO 1 tab BID DEBRA Administration Sodium Chloride 0 ml 04/02/21 15:38 04/06/21 05:31 Normal Saline Flush 10 Ml Syr IVP 10 ml PRN PRN Administration Sodium Chloride 0 ml 04/05/21 08:29 Sodium Chloride-Nasal [place]-Adult 44 Ml Btl NS QID PRN PRN dry nasal passages Tamsulosin HCl 0.8 mg 04/03/21 08:30 04/05/21 09:05 Tamsulosin 0.4 Mg Capcr PO 0.8 mg DAILY DEBRA Administration Thiamine HCl 100 mg 04/03/21 08:30 04/05/21 09:04 Thiamine 100 Mg Tab PO 100 mg DAILY DEBRA Administration Tiotropium [place]/Olodaterol 2 puff 04/03/21 08:30 04/05/21 08:02 Tiotropium/Olodaterol 10 Puff Inhaler IH 2 puffs DAILY DEBRA Administration Allergies environmental Allergy (Uncoded 04/02/21 15:31) Labs Result Diagrams: 04/05/21 06:10 04/06/21 06:53 Labs: 04/03/21 09:50 Nose MRSA Screen - Final Laboratory Tests Range/Units 04/02/21 04/02/21 04/02/21 15:55 15:55 15:55 WBC (4.4-10.8) 10^3/uL 10.19 RBC (4.36-5.78) 10^6/uL 3.22 L Hgb (13.5-17.5) g/dL 9.9 L Hct (40.0-50.0) % 32.0 L MCV (80-95) fL 99.4 H MCH (27.0-33.0) pg 30.7 MCHC (32.0-36.0) % 30.9 L RDW (11.8-14.1) % 15.3 H Plt Count (130-400) 10^3/uL 305 MPV (8.0-11.0) fL 9.6 Immature Gran % 0.8 Neutrophils % 70.6 Lymphocytes % 14.9 Monocytes % 11.2 Eosinophils % 2.0 Basophils % 0.5 Nucleated RBC % % Absolute Neutrophils (1.2-6.7) 10^3/uL 7.19 H Absolute Lymphocytes (1.2-3.4) 10^3/uL 1.52 Absolute Monocytes (0.1-0.8) 10^3/uL 1.14 H Absolute Eosinophils (0.0-0.7) 10^3/uL 0.20 Absolute Basophils (0.0-0.2) 10^3/uL 0.05 D-Dimer (<500) ng/mlFEU VBG Lactate (0.6-1.4) mmol/L 1.7 H Sodium (136-145) mmol/L 141 Potassium (3.5-5.1) mmol/L 3.3 L Chloride (98-107) mmol/L 106 Carbon Dioxide (21.0-32.0) mmol/L 28.3 Anion Gap (3-11) mmol/L 6.7 BUN (7-18) mg/dL 21 H Creatinine (0.70-1.30) mg/dL 1.5 H Estimated GFR/1.73 m2 (mL/min/1.73m2) 46.13 Glucose (74-106) mg/dL 108 H Calcium (8.5-10.1) mg/dL 8.4 L Phosphorus (2.6-4.7) mg/dL Magnesium (1.8-2.4) mg/dL 1.8 Total Bilirubin (0.2-1.0) mg/dL 0.5 AST (15-37) U/L 17 ALT (16-63) U/L 19 Alkaline Phosphatase (46-116) U/L 97 Troponin I (<or=60) ng/L < 50 NT-Pro-B Natriuret Pep (<300) pg/mL 526 H Total Protein (6.4-8.2) g/dL 6.5 Albumin (3.4-5.0) g/dL 2.7 L Procalcitonin ng/mL TSH (0.36-3.74) uIU/mL COVID-19 Source SARS-CoV-2 (PCR) (Negative) Influenza Type A (PCR) (Negative) Influenza Type B (PCR) (Negative) Urine Legionella Ag (Negative) RSV (PCR) (Negative) Ur Strep pneumoniae Ag (Negative) Range/Units 04/02/21 04/02/21 04/02/21 15:55 18:03 19:05 WBC (4.4-10.8) 10^3/uL RBC (4.36-5.78) 10^6/uL Hgb (13.5-17.5) g/dL Hct (40.0-50.0) % MCV (80-95) fL MCH (27.0-33.0) pg MCHC (32.0-36.0) % RDW (11.8-14.1) % Plt Count (130-400) 10^3/uL MPV (8.0-11.0) fL Immature Gran % Neutrophils % Lymphocytes % Monocytes % Eosinophils % Basophils % Nucleated RBC % % Absolute Neutrophils (1.2-6.7) 10^3/uL Absolute Lymphocytes (1.2-3.4) 10^3/uL Absolute Monocytes (0.1-0.8) 10^3/uL Absolute Eosinophils (0.0-0.7) 10^3/uL Absolute Basophils (0.0-0.2) 10^3/uL D-Dimer (<500) ng/mlFEU 1201 H VBG Lactate (0.6-1.4) mmol/L Sodium (136-145) mmol/L Potassium (3.5-5.1) mmol/L Chloride (98-107) mmol/L Carbon Dioxide (21.0-32.0) mmol/L Anion Gap (3-11) mmol/L BUN (7-18) mg/dL Creatinine (0.70-1.30) mg/dL Estimated GFR/1.73 m2 (mL/min/1.73m2) Glucose (74-106) mg/dL Calcium (8.5-10.1) mg/dL Phosphorus (2.6-4.7) mg/dL Magnesium (1.8-2.4) mg/dL Total Bilirubin (0.2-1.0) mg/dL AST (15-37) U/L ALT (16-63) U/L Alkaline Phosphatase (46-116) U/L Troponin I (<or=60) ng/L < 50 NT-Pro-B Natriuret Pep (<300) pg/mL Total Protein (6.4-8.2) g/dL Albumin (3.4-5.0) g/dL Procalcitonin ng/mL TSH (0.36-3.74) uIU/mL COVID-19 Source Nasopharynx SARS-CoV-2 (PCR) (Negative) Negative Influenza Type A (PCR) (Negative) Negative Influenza Type B (PCR) (Negative) Negative Urine Legionella Ag (Negative) RSV (PCR) (Negative) Negative Ur Strep pneumoniae Ag (Negative) Range/Units 04/03/21 04/03/21 04/03/21 08:40 08:40 08:40 WBC (4.4-10.8) 10^3/uL 10.95 H RBC (4.36-5.78) 10^6/uL 3.11 L Hgb (13.5-17.5) g/dL 9.5 L Hct (40.0-50.0) % 30.5 L MCV (80-95) fL 98.1 H MCH (27.0-33.0) pg 30.5 MCHC (32.0-36.0) % 31.1 L RDW (11.8-14.1) % 15.1 H Plt Count (130-400) 10^3/uL 291 MPV (8.0-11.0) fL 9.5 Immature Gran % 0.9 Neutrophils % 89.9 Lymphocytes % 7.4 Monocytes % 1.6 Eosinophils % 0.0 Basophils % 0.2 Nucleated RBC % % 0 Absolute Neutrophils (1.2-6.7) 10^3/uL 9.84 H Absolute Lymphocytes (1.2-3.4) 10^3/uL 0.81 L Absolute Monocytes (0.1-0.8) 10^3/uL 0.18 Absolute Eosinophils (0.0-0.7) 10^3/uL 0.00 Absolute Basophils (0.0-0.2) 10^3/uL 0.02 D-Dimer (<500) ng/mlFEU VBG Lactate (0.6-1.4) mmol/L Sodium (136-145) mmol/L 144 Potassium (3.5-5.1) mmol/L 3.5 Chloride (98-107) mmol/L 105 Carbon Dioxide (21.0-32.0) mmol/L 29.6 Anion Gap (3-11) mmol/L 9.4 BUN (7-18) mg/dL 23 H Creatinine (0.70-1.30) mg/dL 1.3 Estimated GFR/1.73 m2 (mL/min/1.73m2) 54.42 Glucose (74-106) mg/dL 155 H Calcium (8.5-10.1) mg/dL 8.5 Phosphorus (2.6-4.7) mg/dL Magnesium (1.8-2.4) mg/dL 2.0 Total Bilirubin (0.2-1.0) mg/dL AST (15-37) U/L ALT (16-63) U/L Alkaline Phosphatase (46-116) U/L Troponin I (<or=60) ng/L NT-Pro-B Natriuret Pep (<300) pg/mL Total Protein (6.4-8.2) g/dL Albumin (3.4-5.0) g/dL Procalcitonin ng/mL 0.1 TSH (0.36-3.74) uIU/mL COVID-19 Source SARS-CoV-2 (PCR) (Negative) Influenza Type A (PCR) (Negative) Influenza Type B (PCR) (Negative) Urine Legionella Ag (Negative) RSV (PCR) (Negative) Ur Strep pneumoniae Ag (Negative) Range/Units 04/03/21 04/03/21 04/03/21 09:45 09:45 Unknown WBC (4.4-10.8) 10^3/uL RBC (4.36-5.78) 10^6/uL Hgb (13.5-17.5) g/dL Hct (40.0-50.0) % MCV (80-95) fL MCH (27.0-33.0) pg MCHC (32.0-36.0) % RDW (11.8-14.1) % Plt Count (130-400) 10^3/uL MPV (8.0-11.0) fL Immature Gran % Neutrophils % Lymphocytes % Monocytes % Eosinophils % Basophils % Nucleated RBC % % Absolute Neutrophils (1.2-6.7) 10^3/uL Absolute Lymphocytes (1.2-3.4) 10^3/uL Absolute Monocytes (0.1-0.8) 10^3/uL Absolute Eosinophils (0.0-0.7) 10^3/uL Absolute Basophils (0.0-0.2) 10^3/uL D-Dimer (<500) ng/mlFEU VBG Lactate (0.6-1.4) mmol/L Sodium (136-145) mmol/L Potassium (3.5-5.1) mmol/L Chloride (98-107) mmol/L Carbon Dioxide (21.0-32.0) mmol/L Anion Gap (3-11) mmol/L BUN (7-18) mg/dL Creatinine (0.70-1.30) mg/dL Estimated GFR/1.73 m2 (mL/min/1.73m2) Glucose (74-106) mg/dL Calcium (8.5-10.1) mg/dL Phosphorus (2.6-4.7) mg/dL Magnesium (1.8-2.4) mg/dL Total Bilirubin (0.2-1.0) mg/dL AST (15-37) U/L ALT (16-63) U/L Alkaline Phosphatase (46-116) U/L Troponin I (<or=60) ng/L NT-Pro-B Natriuret Pep (<300) pg/mL Total Protein (6.4-8.2) g/dL Albumin (3.4-5.0) g/dL Procalcitonin ng/mL Cancelled TSH (0.36-3.74) uIU/mL COVID-19 Source SARS-CoV-2 (PCR) (Negative) Influenza Type A (PCR) (Negative) Influenza Type B (PCR) (Negative) Urine Legionella Ag (Negative) Negative RSV (PCR) (Negative) Ur Strep pneumoniae Ag (Negative) Negative Range/Units 04/04/21 04/04/21 04/05/21 06:05 06:05 06:10 WBC (4.4-10.8) 10^3/uL 17.48 H D 14.98 H RBC (4.36-5.78) 10^6/uL 2.82 L 2.90 L Hgb (13.5-17.5) g/dL 8.5 L 8.8 L Hct (40.0-50.0) % 27.8 L 29.0 L MCV (80-95) fL 98.6 H 100.0 H MCH (27.0-33.0) pg 30.1 30.3 MCHC (32.0-36.0) % 30.6 L 30.3 L RDW (11.8-14.1) % 15.1 H 15.4 H Plt Count (130-400) 10^3/uL 308 304 MPV (8.0-11.0) fL 9.9 10.0 Immature Gran % 0.8 0.8 Neutrophils % 85.0 80.5 Lymphocytes % 6.0 9.7 Monocytes % 8.0 8.5 Eosinophils % 0.1 0.3 Basophils % 0.1 0.2 Nucleated RBC % % 0 0 Absolute Neutrophils (1.2-6.7) 10^3/uL 14.86 H 12.06 H Absolute Lymphocytes (1.2-3.4) 10^3/uL 1.05 L 1.45 Absolute Monocytes (0.1-0.8) 10^3/uL 1.40 H 1.27 H Absolute Eosinophils (0.0-0.7) 10^3/uL 0.02 0.04 Absolute Basophils (0.0-0.2) 10^3/uL 0.02 0.03 D-Dimer (<500) ng/mlFEU VBG Lactate (0.6-1.4) mmol/L Sodium (136-145) mmol/L 144 Potassium (3.5-5.1) mmol/L 4.2 Chloride (98-107) mmol/L 107 Carbon Dioxide (21.0-32.0) mmol/L 29.3 Anion Gap (3-11) mmol/L 7.7 BUN (7-18) mg/dL 41 H D Creatinine (0.70-1.30) mg/dL 1.8 H Estimated GFR/1.73 m2 (mL/min/1.73m2) 37.38 Glucose (74-106) mg/dL 126 H Calcium (8.5-10.1) mg/dL 8.6 Phosphorus (2.6-4.7) mg/dL Magnesium (1.8-2.4) mg/dL 2.2 Total Bilirubin (0.2-1.0) mg/dL AST (15-37) U/L ALT (16-63) U/L Alkaline Phosphatase (46-116) U/L Troponin I (<or=60) ng/L NT-Pro-B Natriuret Pep (<300) pg/mL Total Protein (6.4-8.2) g/dL Albumin (3.4-5.0) g/dL Procalcitonin ng/mL TSH (0.36-3.74) uIU/mL 0.40 COVID-19 Source SARS-CoV-2 (PCR) (Negative) Influenza Type A (PCR) (Negative) Influenza Type B (PCR) (Negative) Urine Legionella Ag (Negative) RSV (PCR) (Negative) Ur Strep pneumoniae Ag (Negative) Range/Units 04/05/21 04/06/21 12:57 06:53 WBC (4.4-10.8) 10^3/uL RBC (4.36-5.78) 10^6/uL Hgb (13.5-17.5) g/dL Hct (40.0-50.0) % MCV (80-95) fL MCH (27.0-33.0) pg MCHC (32.0-36.0) % RDW (11.8-14.1) % Plt Count (130-400) 10^3/uL MPV (8.0-11.0) fL Immature Gran % Neutrophils % Lymphocytes % Monocytes % Eosinophils % Basophils % Nucleated RBC % % Absolute Neutrophils (1.2-6.7) 10^3/uL Absolute Lymphocytes (1.2-3.4) 10^3/uL Absolute Monocytes (0.1-0.8) 10^3/uL Absolute Eosinophils (0.0-0.7) 10^3/uL Absolute Basophils (0.0-0.2) 10^3/uL D-Dimer (<500) ng/mlFEU VBG Lactate (0.6-1.4) mmol/L Sodium (136-145) mmol/L 142 143 Potassium (3.5-5.1) mmol/L 3.8 3.9 Chloride (98-107) mmol/L 105 105 Carbon Dioxide (21.0-32.0) mmol/L 29.4 32.0 Anion Gap (3-11) mmol/L 7.6 6.0 BUN (7-18) mg/dL 58 H D 68 H Creatinine (0.70-1.30) mg/dL 2.0 H 2.0 H Estimated GFR/1.73 m2 (mL/min/1.73m2) 33.10 33.10 Glucose (74-106) mg/dL 209 H D 115 H D Calcium (8.5-10.1) mg/dL 8.5 9.0 Phosphorus (2.6-4.7) mg/dL 4.3 Magnesium (1.8-2.4) mg/dL 2.1 2.2 Total Bilirubin (0.2-1.0) mg/dL AST (15-37) U/L ALT (16-63) U/L Alkaline Phosphatase (46-116) U/L Troponin I (<or=60) ng/L NT-Pro-B Natriuret Pep (<300) pg/mL Total Protein (6.4-8.2) g/dL Albumin (3.4-5.0) g/dL Procalcitonin ng/mL TSH (0.36-3.74) uIU/mL COVID-19 Source SARS-CoV-2 (PCR) (Negative) Influenza Type A (PCR) (Negative) Influenza Type B (PCR) (Negative) Urine Legionella Ag (Negative) RSV (PCR) (Negative) Ur Strep pneumoniae Ag (Negative)
[2021-04-06] MEDS: Docusate Sodium 100 MG CAP PO (08:52)
[2021-04-06] MEDS: Multivitamin TAB 1 TAB PO (08:52)
[2021-04-06] MEDS: Aspirin 81 MG CHEW PO (08:52)
[2021-04-06] MEDS: Finasteride 5 MG TAB PO (08:52)
[2021-04-06] MEDS: Folic Acid 1 MG TAB PO (08:52)
[2021-04-06] MEDS: predniSONE 20 MG TAB 40 MG PO (08:52)
[2021-04-06] MEDS: Thiamine 100 MG TAB PO (08:52)
[2021-04-06] MEDS: Senna TAB 1 TAB PO (08:52)
[2021-04-06] MEDS: Pantoprazole 40 MG TABCR PO (08:52)
[2021-04-06] MEDS: CEFEPIME 2 GM in Normal Saline 100 ML IVPB (08:59)
[2021-04-06] MEDS: Tiotropium/Olodaterol 10 PUFF INHALER 2 PUFF IH (09:06)
[2021-04-06] MEDS: Dronabinol 2.5 MG CAP 5 MG PO (11:01)
--- NOTE | 2021-04-06 11:16 | PDOC.CMDIS ---
- If Service Date Differs Date of service: 04/06/21 Time of Service: 11:16 LACE Index Scoring Tool - Questions: Length of Stay (in days): 4 - 6 Acuity (Admit via E.D.?): Yes Comorbidities: Chronic Pulmonary Disease E.D. Visits: 1 - Answers: Total Score: 10 Risk of Readmission: High Risk Care Management Discharge Reason for Hospitalization: SOB Discharge Plan: Uriel will be discharged home with resumption of home health services and home oxygen. He will transport home via private vehicle with family when ready. He will follow up with his PCP and plan of care as prescribed. Patient/Family Education Needs: Review discharge instructions, discuss Ask Me Three. Services Needed at Discharge: DME Agency (O2 resumption), Home Health Care Services (Resumption of VNA and O2)
--- NOTE | 2021-04-06 14:14 | W.PM.DS.N ---
Date of service: 04/06/21 Time of Service: 14:14 DS: Diagnosis Discharge Diagnosis (1) Acute and chronic respiratory failure with hypoxia: Status: Acute (2) Acute CHF: Status: Acute (3) Pulmonary fibrosis: Status: Acute (4) COPD (chronic obstructive pulmonary disease): (5) Pleural effusion: Status: Acute (6) Acute bronchitis: Status: Acute Discharge Plan Disposition Patient Disposition: HOME W/HOME HEALTH SERVICE Condition: Improving Discharge Details Reason For Visit: SOB Admit Date/Time: 04/02/21 20:33 Admit Provider: Zev Stiles Attending Provider: Zev Stiles Primary Care Provider: Ingrid Navarro Hospital Course Hospital Course: Mr Sprague is a 70 year old male with PMHx of chronic hypoxic respiratory failure on 2L of O2 at rest and 8 L with activity, due to pulmonary fibrosis as a result of COVID-19 pneumonia in Dec-Jan 2021, as well as h/o fluid overload in that setting with Echo showing preserved LVEF and RVSP of 24 mmHg, who was admitted to [facility] ICU under the hospitalist service on 04/02/21 with acute on chronic hypoxic respiratory failure due to acute CHF (likely diastolic vs due to fluid retention in setting of steroid therapy), as well as likely exacerbation of COPD and possible bacterial process such as bronchitis. He was desaturating to 60 % on oxygen. He tested negative for COVID-19 and, while he was initially considered a PUI for COVID-19, we discontinued precautions and therapy for COVID-19 as clinically there was a better explanation for his worsening hypoxia. He was treated with IV diuretics, CPAP, empiric cefepime, steroid burst, and bronchodilators. He was evaluated by Dr Rice of pulmonology for above recommendations. He was transferred out of the ICU on 04/05/21. He improved significantly and is -7.3 L at the time of discharge. He is back to his baseline oxygen requirement of 2L of O2 at rest and 8 L with activity per exercise oximetry testing. He is stable for discharge home today with 3 days of doxycycline, a steroid taper, and PO lasix 40 mg daily, of which he is getting a prescription for 10 days. He is supposed to have BMP, magnesium done by home health nursing in 1 week. PCP may choose to continue his furosemide based on his volume status. Care for patient as well as completion of his discharge summary took 45 minutes on the day of discharge. Home Meds and New Rx's Prescriptions: New furosemide 40 mg Tablet 40 mg PO DAILY Qty: 10 0RF prednisone 10 mg tablet See Rx Instructions .ROUTE .COMPLEX Qty: 38 0RF Rx Instructions: 40 mg Po daily x 5 days, then 30 mg PO daily x 3 days, 20 mg PO daily x 3 days, 10 mg PO daily x 2 days, 5 mg PO daily x 2 days doxycycline hyclate 100 mg capsule 100 mg PO BID Qty: 6 0RF Rx Instructions: first dose tonight potassium chloride 20 mEq tablet extended release 40 meq PO DAILY Qty: 20 0RF Continued metoprolol succinate 25 mg tablet extended release 24 hr 37.5 mg PO DAILY 0RF Label Comments: pt unsure if he is still taking latanoprost 0.005 % Drops 1 drp ophthalmic (eye) .Q EVENING 0RF flaxseed oil 1,000 mg Capsule 1,000 mg PO DAILY 0RF pantoprazole 40 mg Tablet,Delayed Release (Dr/Ec) 40 mg PO BID 0RF aspirin 81 mg Tablet 81 mg PO DAILY 0RF multivitamin Capsule 1 cap PO DAILY 0RF finasteride 5 mg Tablet 5 mg PO DAILY 0RF cholecalciferol (vitamin D3) 25 mcg (1,000 unit) Capsule 25 mcg PO DAILY 0RF Stiolto Respimat 2.5-2.5 mcg/actuation Mist 2 puff INHALATION DAILY 0RF albuterol sulfate [Ventolin HFA] 90 mcg/actuation Hfa Aerosol Inhaler 2 puff inhalation Q4H PRN PRN (Reason: shortness of breath or wheezing) Qty: 8.5 0RF atorvastatin 40 mg Tablet 40 mg PO QPM Qty: 30 0RF docusate sodium [Colace] 100 mg Capsule 100 mg PO BID Qty: 60 0RF paroxetine HCl 10 mg Tablet 30 mg PO DAILY Qty: 30 0RF dronabinol 2.5 mg Capsule 5 mg PO BID@1100,1600 Qty: 120 0RF folic acid 1 mg Tablet 1 mg PO DAILY Qty: 30 0RF mirtazapine 15 mg Tablet 30 mg PO HS Qty: 30 0RF sennosides [Senokot] 8.6 mg Tablet 8.6 mg PO BID Qty: 60 0RF thiamine mononitrate (vit B1) [Vitamin B-1 (mononitrate)] 100 mg Tablet 100 mg PO DAILY Qty: 30 0RF Phlexy-Vits Powder In Packet 1 packet PO TID Qty: 90 0RF tamsulosin 0.4 mg Capsule 0.8 mg PO DAILY Qty: 60 0RF sodium chloride 0.65 % aerosol,spray 1 spray intranasal QID PRN (Reason: dry nasal passages) Qty: 60 0RF Discontinued furosemide 20 mg tablet 20 mg PO .EVERY OTHER DAY 0RF Label Comments: pt unsure if he is still taking Discharge Instructions Instructions: Furosemide (By mouth), Doxycycline (By mouth), Prednisone (By mouth), Heart Failure (DC), Acute Bronchitis (ED), Low-Sodium Diet (DC) Additional Instructions: Finish your prednisone taper and doxycycline (antibiotic) as prescribed. Return to the hospital with any fever, bleeding, chest pain, or shortness of breath. Follow up with your PCP in 1-2 weeks. Follow up with Dr Rice. Care Plan Goals: Home with resumption of home health nursing, PT, OT. Home Health Nursing to collect BMP, Magnesium on 04/13/21 - Results to PCP Referrals: Ingrid Navarro [Primary Care Provider] - María Elena Rice MD [ [facility] STAFF PHYSICIAN] - Activity:: Activity as Tolerated Equipment/Supplies:: No Equipment Needed Diet:: Low Sodium Discharge Orders Discharge Orders: Discharge Order (Routine); Ordered 04/06/21 Ordered By: Ally Fierro DS: Summary Time Spent with Patient providing and/or coordinating discharge services: Greater than 30 minutes Status at Discharge Functional status at discharge: independent ambulation Overall status at discharge: patient is back to baseline Mental Status: mental status grossly normal Speech and Movement: speech and movement normal Mood: congruent mood Affect: normal affect Exam Narrative Exam Narrative: General:Elderly male whose face looks a little less puffy, A&Ox3, no dyspnea/tachypnea no regular NC at 2L of O2. HEENT: EOMI, MMM Heart: RRR,no m/r/g Lungs:faint rales Abdomen: soft, nontender, nondistended Extremities: +trace edema BLEs in TEDs Psych Mental Status: mental status grossly normal Speech and Movement: speech and movement normal Mood: congruent mood Affect: normal affect DS: Data Vitals/I&O Vitals and I&O: Vital Signs Temperature 36.3 C L 04/06/21 11:30 Temperature Source Tympanic 04/06/21 11:30 Pulse 65 04/06/21 11:30 Pulse Rhythm Regular 04/06/21 08:45 Pulse 65 04/05/21 15:29 Respiratory Rate 18 04/06/21 11:30 Respiratory Effort 04/06/21 08:45 Respiratory Depth Normal 04/06/21 08:45 Respiratory Pattern Normal 04/06/21 08:45 Blood Pressure 137/66 04/06/21 11:30 Blood Pressure Mean 77 04/05/21 15:29 Blood Pressure Position Sitting 04/05/21 08:30 Pulse Oximetry 90 L 04/06/21 11:30 Oxygen Delivery Method Nasal Cannula 04/06/21 11:30 Oxygen Flow Rate 2 04/06/21 11:30 Fraction of Inspired Oxygen (FIO2) 30 04/06/21 08:06 Pain Level 0 04/06/21 11:30 Intake & Output 04/05/21 04/06/21 04/06/21 23:59 11:59 23:59 Intake Total 517 / 857 680 / 680 Output Total 1825 / 3925 2975 / 2975 Balance -1308 / -3068 -2295 / -2295 Weight 76.6 kg 77.564 kg Intake: IV 100 / 200 100 / 100 Oral 417 / 657 580 / 580 Output: Urine 1825 / 3925 2975 / 2975 Other: Urine Color Yellow Yellow Urine Appearance Clear Clear Urine Odor Normal Normal Stool Size Moderate Stool Characteristics Formed Hard Voiding Methods Urinal Toilet Data Completed and Pending Completed studies during hospitalization [Text1]: Echo: 1. No evidence of obvious acute pulmonary emboli.? However, there are extensive bilateral infiltrates involving all lobes of both lungs and there also bilateral pleural effusions, moderate size. 2. Mild mediastinal adenopathy, commensurate with the lung findings. 3. Findings are superimposed upon advanced COPD emphysematous changes and have progressed when compared to the most recent CT scan of 01/29/2021. Echo: This is a limited echocardiogram, as the patient had a full echo study done February 12, 2021 Normal left ventricular wall thickness and chamber size.? Estimated ejection fraction is 55 to 60%.? Wall motion is normal Normal right ventricular size and systolic function Both atria are normal in size There are no significant structural valvular abnormalities identified RVSP 41.8 mmHg Labs on day of discharge: Labs from last 24 hours 04/06/21 06:53 Sodium 143 Potassium 3.9 Chloride 105 Carbon Dioxide 32.0 Anion Gap 6.0 BUN 68 H Creatinine 2.0 H Estimated GFR/1.73 m2 33.10 Glucose 115 H D Calcium 9.0 Phosphorus 4.3 Magnesium 2.2 PFSH All Active Problems (Updated 04/06/21 @ 14:57 by Ally Fierro MD) Acute bronchitis (Acute) Discharge planning issues (Acute) DVT prophylaxis (Acute) Acute CHF (Acute) Acute and chronic respiratory failure with hypoxia (Acute) GINNY (acute kidney injury) (Acute) Pleural effusion (Acute) Volume overload (Acute) SOB (shortness of breath) (Acute) Pneumonia (Acute) Hypoxia (Acute) Herniation of intervertebral disc between L5 and S1 (Acute) Urinary retention (Acute) Pulmonary fibrosis (Acute) Respiratory failure with hypoxia (Acute) Herniation of intervertebral disc between L5 and S1 (Acute) Right foot drop (Acute) Nutrition disorder (Acute) Depression (Acute) Palliative care patient (Acute) Hypoalbuminemia (Acute) Anemia (Chronic) Leukocytosis (Acute) Medical History BPH (benign prostatic hyperplasia) COPD (chronic obstructive pulmonary disease) COVID GERD (gastroesophageal reflux disease) Heart murmur HLD (hyperlipidemia) Social History Smoking/Tobacco Use Status: Former Tobacco Use Smoking risk assessment performed?: Yes Substance use type: does not use
--- NOTE | 2021-04-06 18:10 | INDS_ITS ---
Date of service: 04/06/21 PT Notes Visit Reasons: Shortness of breath Physical Therapy Inpatient Discharge Summary Date: 04/06/2021 Dates of service: 04/04/2021 through 04/06/2021 This is a clinical summary of care provided for the duration of dates listed above. No charge was made in the completion of this documentation. Referring Doctor: Ally Fierro MD PT Orders: PT CONSULT: Limited ability Precautions: Fall. Standard. Activity as tolerated.? Patient Profile/Admitting Diagnosis: Uriel is a 70-year-old male with diagnoses of acute on chronic respiratory failure with hypoxia, acute chest, pulmonary fibrosis, COPD exacerbation, volume overload, GERD, pleural effusion, and kidney injury. PMHX: All Active Problems?(Updated 04/02/21 @ 20:25 by Zev Stiles MD) SOB (shortness of breath) (Acute) Pneumonia (Acute) Hypoxia (Acute) Herniation of intervertebral disc between L5 and S1 (Acute) Urinary retention (Acute) Pulmonary fibrosis (Acute) Respiratory failure with hypoxia (Acute) Herniation of intervertebral disc between L5 and S1 (Acute) Right foot drop (Acute) Nutrition disorder (Acute) Depression (Acute) Palliative care patient (Acute) Hypoalbuminemia (Acute) Anemia (Chronic) Leukocytosis (Acute) Medical History? BPH (benign prostatic hyperplasia) COPD (chronic obstructive pulmonary disease) COVID GERD (gastroesophageal reflux disease) Heart murmur HLD (hyperlipidemia) Social History/Home Situation: Lives with in a private home with 3 steps to enter through the garage, one rail.? No falls in the past 12 months.? Independent with all aspects of ADLs prior to admission.? Uses continuous oxygen at home.? Utilizes SPC occasionally. Equipment Owned/DME: [facility] Subjective: NT. See most recent ACCOUNT SUPERVISOR notes. Objective: General Observation: NT. See most recent ACCOUNT SUPERVISOR notes. Mental Status: NT. See most recent ACCOUNT SUPERVISOR notes. Pain: NT. See most recent ACCOUNT SUPERVISOR notes. Vital Signs: NT. See most recent ACCOUNT SUPERVISOR notes. ROM: Right Upper Extremity: ? Shoulder Flexion WFL. Shoulder abduction WFL. Elbow flexion WFL. Wrist flexion WFL. Functional opening and closing of hand WFL. Left Upper Extremity:? Shoulder Flexion WFL. Shoulder abduction WFL. Elbow flexion WFL. Wrist flexion WFL. Functional opening and closing of hand WFL. Right Lower Extremity: Hip flexion WFL. Hip abduction WFL. Knee flexion WFL.?Ankle dorsiflexion lacks the last 25% of AROMt. Ankle plantarflexion WFL. Left Lower Extremity: Hip flexion WFL. Hip abduction WFL. Knee flexion WFL. Ankle dorsiflexion WFL. Ankle plantarflexion WFL. Strength: Right Upper Extremity: Shoulder flexors 4-/5. Shoulder abductors 4-/5. Elbow flexors 5/5. Elbow extensors 4-/5. Drug Department Worker strong. Left Upper Extremity: Shoulder flexors 4-/5. Shoulder abductors 4-/5. Elbow flexors 5/5. Elbow extensors 4-/5. Drug Department Worker strong. Right Lower Extremity: Hip flexors 4-/5. Hip abductors 4-/5. Knee flexors 4/5. Knee extensors 4-/5.?Ankle dorsiflexors 3-/5. Ankle plantarflexors 4-/5. Left Lower Extremity: Right Lower Extremity: Hip flexors 4-/5. Hip abductors 4- /5. Knee flexors 4/5. Knee extensors 4-/5. Ankle dorsiflexors 4-/5. Ankle plantarflexors 4-/5. Bed Mobility/Transfers: Supine to sit for standby assist Sit to supine standby assist Sit to stand standby assist Stand to sit standby assist Bed to reclining chair standby assist Gait: Patient is able to tolerate up to 350 feet on level surface ambulation using single-point cane with full weightbearing on BLE requiring standby assist with 4 L of oxygen per minute saturating at 79 to 85%. Balance: Static Sitting: Normal Dynamic Sitting: Normal Static Standing: Fair Dynamic Standing: Fair Assessment: Patient presents with clinical signs and symptoms consistent with current/admitting diagnoses that have resulted to mobility limitations, gait in stability, generalized weakness, and overall ADL decline as demonstrated by the following impairment level findings: 1.? Decreased strength to B LE?major muscle groups, absent dorsiflexion on the right 2.? Impaired standing balance 3.? Impaired activity tolerance 4.? Shortness of breath requiring 4 L of oxygen via NC Impairments are contributing to the following functional limitations: 1.? Difficulty with ambulation without assistive device and physical assistance 2.? Increased completion time for mobility ADL performance 3.? Increased risk for falls 4.? Difficulty with managing steps alone safely Goals: Goals X1 week 1. Supine-Sit independent NOT MET 2. Sit-Supine independent NOT MET 3. Sit-Stand independent NOT MET 4. Stand-Sit independent with single-point cane NOT MET 5. Bed-Chair independent with single-point cane NOT MET 6. Chair-Bed independent with single-point cane NOT MET 7. Independent gait on level surface with use of single-point cane for at least 100 feet without report of pain nor dyspnea with oxygen saturation staying above 90% on 2 L NOT MET 8. Independent stair negotiation while holding onto 1 rail for at least 5 steps without report of pain nor dyspnea NOT MET 9. Good static and dynamic standing balance/tolerance NOT MET DISCHARGE RECOMMENDATIONS: [] ? Home with no services [] [X] ? Home with services.? Patient will benefit from home health PT services in order to progress mobility level using least restrictive assistive ambulatory device, assess home safety, identify additional equipment needs, and establish a functional maintenance program that will increase ability of patient to remain at home.? May benefit from the use of a front wheeled walker to reduce fall risk at home to maximize activity tolerance. [] ? Home with outpatient PT [] [] ? SNF for continued rehabilitation [] [] ? Detention Care [] [] ? SNF versus LTC based on ability to participate and progress [] TREATMENT CODE/TIME: KECIA Thank you for the opportunity to participate in the care of this patient. Valerie Eason PT, DPT, CLT [facility] [place], [place]
== END 2021-04-06 15:50 | disposition home health service (06) | DRG 291 ==
LOC: ER 19:59 → ICU 21:24 → MS 04-05 22:44
PROVIDERS: Internal Medicine; Student in an Organized Health Care Education/Training Program; Admitting Provider General Practice; Emergency Provider Student in an Organized Health Care Education/Training Program; PCP Nurse Practitioner Family; Visit Provider General Practice
DX: I50.31 Acute diastolic (congestive) heart failure (principal); J96.21 Acute and chronic respiratory failure with hypoxia; N17.9 Acute kidney failure, unspecified; J44.0 Chronic obstructive pulmonary disease with (acute) lower respiratory infection; J44.1 Chronic obstructive pulmonary disease with (acute) exacerbation; D64.9 Anemia, unspecified; F32.A Depression, unspecified; J20.9 Acute bronchitis, unspecified; Z66 Do not resuscitate; I27.20 Pulmonary hypertension, unspecified; I44.7 Left bundle-branch block, unspecified; J84.10 Pulmonary fibrosis, unspecified; M21.371 Foot drop, right foot; M51.27 Other intervertebral disc displacement, lumbosacral region; K21.9 Gastro-esophageal reflux disease without esophagitis; E78.5 Hyperlipidemia, unspecified; N40.0 Benign prostatic hyperplasia without lower urinary tract symptoms; Z87.891 Personal history of nicotine dependence; E88.09 Other disorders of plasma-protein metabolism, not elsewhere classified; R33.9 Retention of urine, unspecified; R94.31 Abnormal electrocardiogram [ECG] [EKG]
CPT/HCPCS: 36415; 71275; 80048; 80053; 84145; 87081; 87449; 87637; 93005; 93308; 94618; 94640; 96374; 97110; 97162; 97530; 99285; J1650; 83605; 83735; 83880; 84100; 84443; 84484; 85025; 85379; 87899; 93010; 94660; 94667; 99222; 99232; 99233; 99239; J1940; J1941; J1956; J2930; J3490; J7512; J7620

== ENCOUNTER 2021-04-13 19:35 | Outpatient (REF) | payer MEDICARE, SELFPAY ==
[2021-04-13 20:15] LABS: Anion Gap 8.6 mmol/L (3-11); BUN 48 mg/dL (7-18); CO2 31.4 mmol/L (21.0-32.0); CREATININE 1.6 mg/dL (0.70-1.30); Calcium 8.9 mg/dL (8.5-10.1); Chloride 101 mmol/L (98-107); Estimated GFR 42.82 (mL/min/1.73m2); Glucose 151 mg/dL (74-106); Magnesium 2.2 mg/dL (1.8-2.4); Potassium 3.8 mmol/L (3.5-5.1); Sodium 141 mmol/L (136-145)
== END 2021-04-13 19:36 | disposition home or self-care (01) ==
LOC: LBN 19:35
PROVIDERS: PCP Nurse Practitioner Family; Visit Provider Nurse Practitioner Family
DX: R33.8 Other retention of urine (principal)
CPT/HCPCS: 80048; 83735

== ENCOUNTER 2021-05-10 16:46 | Outpatient (REF) | payer MEDICARE, SELFPAY ==
[2021-05-10 19:16] LABS: Anion Gap 9.1 mmol/L (3-11); BUN 24 mg/dL (7-18); CO2 27.9 mmol/L (21.0-32.0); CREATININE 1.3 mg/dL (0.70-1.30); Calcium 9.1 mg/dL (8.5-10.1); Chloride 105 mmol/L (98-107); Estimated GFR 54.42 (mL/min/1.73m2); Glucose 108 mg/dL (74-106); Potassium 3.6 mmol/L (3.5-5.1); Sodium 142 mmol/L (136-145)
== END 2021-05-10 16:47 | disposition home or self-care (01) ==
LOC: NCHCN 16:46
PROVIDERS: PCP Nurse Practitioner Family; Visit Provider Nurse Practitioner Family
DX: U07.1 COVID-19 (principal)
CPT/HCPCS: 80048

== ENCOUNTER → 2021-07-20 00:52 | Outpatient (CLI) | payer MEDICARE, SELFPAY ==
--- NOTE | 2021-07-20 08:45 | DI.CT_ITS ---
Exam(s) CT CHEST WO EXAM: CT CHEST WO CLINICAL HISTORY: f/u RML pulmonary nodule,r91.1. TECHNIQUE: Imaging protocol: Axial computed tomography images were obtained and coronal and sagittal reformatted images were created and reviewed. COMPARISON: CT CT CHEST PE CTA from 04/02/2021 FINDINGS: Tracheobronchial tree: Patent where visualized. Pulmonary parenchyma: There is a stable 3.5 mm nodule in the right upper lobe. There is a 6.3 mm nod ule in the right upper lobe at the level of the thoracic arch. No other pulmonary nodules are identi fied. No focal consolidating infiltrates are present. Moderately severe centrilobular emphysematous changes are present. Mediastinum and Marley: There has been interval decrease in size of the mediastinal lymph nodes compare d to the examination. There is an AP window lymph node which now measures 1.3 x 0.8 cm compared to 1 .7 x 0.8 cm. The esophagus is unremarkable. Thyroid gland: Unremarkable. Pleura: No effusion or pneumothorax. Heart: The heart is not dilated. No coronary artery calcifications are seen. No pericardial effusion. Aorta: Thoracic aorta non-dilated. Atherosclerosis is present. Upper abdomen: There is right nephrolithiasis. No hydronephrosis. Cholelithiasis is present. No b iliary ductal dilatation. Lymph nodes: Within normal limits. Soft tissues: Unremarkable. Bones:Within normal limits for the patient's age. IMPRESSION: 1. Pulmonary nodules. Follow-up examination in 12 months is recommended for re-evaluation. 2. Moderately severe centrilobular emphysema. 3. Interval decrease in size of the mediastinal lymph nodes since March 2021. 4. Right nephrolithiasis. Cholelithiasis. RADIATION DOSE DELIVERED: 590.4mGy.cm Total DLP 590.4mGy.cm Total DLP DATA REPOSITORY: All CT scans at this facility are submitted to the National Radiology Data Registry (NRDR) Dose Index Registry (DIR) with the [employer] ([employer]). RADIATION OPTIMIZATION: All CT scans at this facility use at least one of these dose optimization te chniques: automated exposure control; mA and/or kV adjustment per patient size (includes targeted exa ms where dose is matched to clinical indication); or iterative reconstruction.
== END ==
PROVIDERS: PCP Nurse Practitioner Family; Visit Provider Student in an Organized Health Care Education/Training Program
DX: R91.1 Solitary pulmonary nodule (principal); J43.2 Centrilobular emphysema; R59.0 Localized enlarged lymph nodes; J98.59 Other diseases of mediastinum, not elsewhere classified
CPT/HCPCS: 71250

== ENCOUNTER 2022-04-01 17:09 | Outpatient (REF) | payer MEDICARE, SELFPAY | END 2022-04-01 17:10 | disposition home or self-care (01) | LOC: NCHCN 17:09 | PROVIDERS: PCP Nurse Practitioner Family; Visit Provider Nurse Practitioner Family | DX: J02.9 Acute pharyngitis, unspecified (principal) | CPT/HCPCS: 87070 ==

== ENCOUNTER 2022-05-09 04:33 | Outpatient (CLI) | payer OTHER, MEDICARE, SELFPAY ==
[2022-05-09] MEDS: Albuterol HFA 18 GM 200 PUFF INH IH (15:52)
[2022-05-09] MEDS: Inhaler, Assist Device 1 EACH MC (15:53)
--- NOTE | 2022-05-10 15:35 | W.PFT ---
Date of service: 05/09/22 Time of Service: 14:45 Pulmonary Function Test Result Requesting Provider Duchene Indications: Pulmonary fibrosis Interpretation Spirometry: There is no airflow limitation. There is no bronchodilator response. Lung Volumes: Normal lung volumes Diffusion Capacity: Decreased diffusion Airway Pressure: Normal airways resistance. Impression Isolated diffusion deficit. This could represent pulmonary vascular disease, early ILD, or emphysema. Note: Significant improvement in lung volumes as compared to 03/29/21. Clinical Correlation therefore is recommended.
== END 2022-05-09 04:34 | disposition home or self-care (01) ==
LOC: RT 04:33
PROVIDERS: PCP Nurse Practitioner Family; Visit Provider Student in an Organized Health Care Education/Training Program
DX: J98.4 Other disorders of lung (principal)
CPT/HCPCS: 94060; 94726; 94729